=== PATIENT | male | born 1965 | race Caucasian/White ===

== ENCOUNTER 2023-08-02 11:00 | Outpatient (OUT) | payer BC, SELFPAY ==
[2023-08-02 11:38] LABS: Hematocrit 29.9 % (42.0-54.0); Hemoglobin 7.6 g/dL (14.0-18.0); Mean Corpuscular HGB Conc 25.4 g/dL (29.9-35.2); Mean Corpuscular Hemoglobin 15.5 pg (25.9-34.0); Mean Platelet Volume 8.1 fL (9.5-13.5); Platelet Count 422 10^3/uL (150-450); White Blood Count 7.8 10^3/uL (4.0-11.0)
[2023-08-02 11:51] LABS: Bilirubin Urine NEGATIVE (NEGATIVE); Blood Urine NEGATIVE (NEGATIVE); Clarity Urine CLEAR (CLEAR); Color Urine YELLOW (YELLOW); Glucose Urine UA >=1000 mg/dL (NEGATIVE); Ketones Urine NEGATIVE (NEGATIVE); Leukocyte Esterase Urine NEGATIVE (NEGATIVE); Nitrite Urine NEGATIVE (NEGATIVE); Protein Urine 30 mg/dL (NEG/TRACE); Urobilinogen Urine 0.2 EU/dL (0.2-1.0); pH Urine 6.5 (5.0-9.0)
[2023-08-02 11:56] LABS: Alanine Aminotransferase 25 U/L (16-63); Albumin Globulin Ratio 0.9; Albumin Level 3.3 g/dL (3.4-5.0); Alkaline Phosphatase 129 U/L (46-116); Anion Gap 13.6; Aspartate Amino Transferase 21 U/L (15-37); BUN Creatinine Ratio 14.1; Bilirubin Total 0.3 mg/dL (0.2-1.0); C Reactive Protein <0.50 mg/dL (<=0.50); Calcium 8.7 mg/dL (8.5-10.1); Chloride 105 mmol/L (98-107); Chol HDL Ratio 1.9; Cholesterol 151 mg/dL (<=200); Estimated GFR (African America >60 (>=60); Estimated GFR (Non-African Ame >60 (>=60); Globulin 3.5 g/dL; Glucose 72 mg/dL (74-106); HDL Cholesterol 81 mg/dL (40-60); Potassium 3.6 mmol/L (3.5-5.1); Sodium 140 mmol/L (136-145); Total Protein 6.8 g/dL (6.4-8.2); Triglycerides 56 mg/dL (<=150); VLDL CHOLESTEROL 11.2 mg/dL
[2023-08-02 11:56] LABS: Urine Microscopic Indicated YES
[2023-08-02 12:01] LABS: Bacteria Urine TRACE #/HPF (NONE SEEN); Crystals Seen? None Seen #/HPF (None Seen); Mucus Urine NONE SEEN (NONE SEEN); RBC Urine 0-2 #/HPF (0-2); Squamous Epithelial Cell Urine RARE #/LPF (NONE/RARE); WBC Urine 0-2 #/HPF (NONE SEEN)
[2023-08-02 12:02] LABS: Cast Seen? NONE SEEN #/LPF (NONE SEEN)
[2023-08-02 12:07] LABS: Band Neutrophils Absolute 0.1 10^3/uL (0.0-0.3); Eosinophils Absolute Manual 0.31 10^3/uL (0.00-0.70); Hypochromasia 2+; Lymphocytes Absolute Manual 0.93 10^3/uL (1.20-3.80); Monocytes Absolute Manual 0.62 10^3/uL (0.30-0.80); Poikilocytosis 1+; Segmented Neut Absolute Manual 5.85 10^3/uL (1.4-6.5)
[2023-08-02 12:08] LABS: Anisocytosis 1+; Microcytosis 2+; Ovalocytes 1+
[2023-08-02 12:14] LABS: Erythrocyte Sedimentation Rate 31 mm/hr (<=20)
[2023-08-02 12:26] LABS: Creatinine Urine Random 88.62 mg/dL (20.00-300.00); Microalbumin Urine Random 6.3 mg/dL (<=30.0)
[2023-08-02 14:19] LABS: Prostate Specific Antigen Dx 1.99 ng/mL (<=4.00)
== END 2023-08-02 11:01 | disposition home or self-care (01) ==
LOC: LAB 11:09
PROVIDERS: PCP Nurse Practitioner; Visit Provider Nurse Practitioner
DX: F41.9 Anxiety disorder, unspecified (principal); F32.A Depression, unspecified; Z12.5 Encounter for screening for malignant neoplasm of prostate; I10 Essential (primary) hypertension; E55.9 Vitamin D deficiency, unspecified; D64.89 Other specified anemias; I42.9 Cardiomyopathy, unspecified
CPT/HCPCS: 36415; 80053; 80061; 81001; 82043; 82570; 82607; 82728; 83540; 84153; 85007; 85027; 85652; 86140

== ENCOUNTER 2023-08-21 19:00 | Outpatient (REF) | payer BC, SELFPAY ==
[2023-08-22 15:33] LABS: Occult Blood Negative
== END 2023-08-21 19:01 | disposition home or self-care (01) ==
LOC: LAB 19:00
PROVIDERS: PCP Nurse Practitioner; Visit Provider Nurse Practitioner
DX: D50.9 Iron deficiency anemia, unspecified (principal)
CPT/HCPCS: G0328

== ENCOUNTER 2023-08-22 11:11 | Emergency (ER) | payer BC, SELFPAY ==
[2023-08-22] VITALS (10 sets, daily range): BP systolic 120–123; BP diastolic 70–76; PULSE 89; TEMP 37.2; O2SAT 95–98; BMI 28.7
[2023-08-22 11:56] LABS: Basophils Absolute Auto 0.1 10^3/uL (0.0-0.1); Basophils Percent Auto 0.9 % (0.2-2.0); Eosinophils Absolute Auto 0.5 10^3/uL (0.0-0.7); Eosinophils Percent Auto 4.6 % (0.9-7.0); Hematocrit 32.4 % (42.0-54.0); Hemoglobin 8.5 g/dL (14.0-18.0); Immature Granulocytes Abs Auto 0.03 10^3/uL (0.00-0.03); Immature Granulocytes Pct Auto 0.3 % (0.0-0.5); Lymphocytes Absolute Auto 1.8 10^3/uL (1.2-3.8); Lymphocytes Percent Auto 15.9 % (20.5-60.0); Mean Corpuscular HGB Conc 26.2 g/dL (29.9-35.2); Mean Corpuscular Hemoglobin 16.6 pg (25.9-34.0); Mean Corpuscular Volume 63.2 fL (80.0-94.0); Mean Platelet Volume 8.9 fL (9.5-13.5); Monocytes Absolute Auto 1.1 10^3/uL (0.3-0.8); Monocytes Percent Auto 10.3 % (1.7-12.0); Neutrophils Absolute Auto 7.5 10^3/uL (1.4-6.5); Platelet Count 570 10^3/uL (150-450); Red Blood Count 5.13 10^6/uL (4.70-6.10); Red Cell Distribution Width 27.7 % (11.0-15.0)
[2023-08-22 12:05] LABS: Alanine Aminotransferase 27 U/L (16-63); Albumin Globulin Ratio 0.9; Albumin Level 3.2 g/dL (3.4-5.0); Alkaline Phosphatase 132 U/L (46-116); Anion Gap 12.1; Aspartate Amino Transferase 18 U/L (15-37); BUN Creatinine Ratio 19.4; Bilirubin Total 0.3 mg/dL (0.2-1.0); Calcium 8.5 mg/dL (8.5-10.1); Chloride 102 mmol/L (98-107); Estimated GFR (African America >60 (>=60); Estimated GFR (Non-African Ame >60 (>=60); Globulin 3.4 g/dL; Glucose 84 mg/dL (74-106); Potassium 4.1 mmol/L (3.5-5.1); Sodium 137 mmol/L (136-145); Total Protein 6.6 g/dL (6.4-8.2)
--- NOTE | 2023-08-22 12:06 | ED_ITS ---
HPI - Recheck/Abnormal Lab/Rx General Chief Complaint: Recheck/Abnormal Lab/Rx Stated Complaint: ABNORMAL LABS Time Seen by Provider: 08/22/23 11:23 Source: patient Mode of arrival: walk-in Limitations: no limitations History of Present Illness HPI narrative: The patient is coming to the ER after he was recently diagnosed with anemia apparently was started on iron supplements p.o. he was supposed to get IV iron i nfusion and he thought he would just come to the ER to get that after misunderstanding with his primary care, the patient in the ER mentioned that he still having symptoms sometimes of dizziness. And he would like his blood workup to be checked although it was just checked on Monday 4 days ago and it was above 7. The patient denies any blood loss in stool Related Data Allergies Allergy/AdvReac Type Severity Reaction Status Date / Time Penicillins Allergy Rash Verified 08/22/23 11:18 Sulfa (Sulfonamide Allergy Rash Verified 08/22/23 11:18 Antibiotics) Review of Systems ROS Status of ROS 10 or more systems reviewed and unremark able except as noted in history and below Exam Narrative Exam Narrative: Nurses notes and vital signs reviewed and patient is not hypoxic. General: Well-appearing and in no apparent distress. Skin: Warm, dry, no pallor noted. No rash. Head: Normocephalic, atraumatic. Neck: Supple, non-tender. Cardiovascular: Regular Rate and Rhythm without murmur, gallop or rub. Respiratory: No accessory muscle use or respiratory distress. Lungs are clear to auscultation, no wheezing, rales or rhonchi Back: No midline thoracic or lumbar vertebral tenderness. No CVA tenderness Musculoskeletal: normal ROM, no calf or popliteal tenderness, no lower extremity edema/swelling GI: Abdomen is soft, non-distended. Normal bowel sounds. No masses appreciated. No tenderness to palpation. No rebound, guarding, or rigidity noted. Neurological: A&O x4. No cranial nerve dysfunction observed. No truncal ataxia. Moves all extremities. Sensation intact. Psychiatric: Cooperative and interactive. Normal mood and affect. Constitutional Vital Signs, click to edit/add: Last Vital Signs Temp 98.9 F 08/22/23 11:18 Pulse 89 08/22/23 11:18 Resp 20 08/22/23 11:18 BP 123/76 08/22/23 11:18 Pulse Ox 97 08/22/23 11:18 O2 Del Method Room Air 08/22/23 11:18 Course Vital Signs Vital signs: Vital Signs Temperature 98.9 F 08/22/23 11:18 Pulse Rate 89 08/22/23 11:18 Respiratory Rate 20 08/22/23 11:18 Blood Pressure 123/76 08/22/23 11:18 Pulse Oximetry 97 08/22/23 11:18 Oxygen Delivery Method Room Air 08/22/23 11:18 Temperature 98.9 F 08/22/23 11:18 Pulse Rate 89 08/22/23 11:18 Respiratory Rate 20 08/22/23 11:18 Blood Pressure 123/76 08/22/23 11:18 Pulse Oximetry 97 08/22/23 11:18 Oxygen Delivery Method Room Air 08/22/23 11:18 MDM - Recheck/Abnormal Lab/Rx MDM Narrative Medical decision making narrative: The patient blood workup CBC and chemistry shows a hemoglobin of 8.5 and that chemistry was normal We did call his primary office and they are arranging for iron infusion as outpatient The patient was discharged to follow-up with the primary care The patient is to follow up with primary care physician in next 2-3 days or to return to the emergency department should any of the signs or symptoms worsen or new symptoms develop. The patient agrees with the following Diagnosis and Treatment plan and the patient will be discharged home. Lab Data Labs: Lab Results 08/22/23 Range/Units 11:35 WBC 11.0 (4.0-11.0) 10^3/uL RBC 5.13 (4.70-6.10) 10^6/uL Hgb 8.5 L (14.0-18.0) g/dL Hct 32.4 L (42.0-54.0) % MCV 63.2 L (80.0-94.0) fL MCH 16.6 L (25.9-34.0) pg MCHC 26.2 L (29.9-35.2) g/dL RDW 27.7 H (11.0-15.0) % Plt Count 570 H (150-450) 10^3/uL MPV 8.9 L (9.5-13.5) fL Neut % (Auto) 68.0 (43.0-75.0) % Lymph % (Auto) 15.9 L (20.5-60.0) % Jefferson % (Auto) 10.3 (1.7-12.0) % Eos % (Auto) 4.6 (0.9-7.0) % Baso % (Auto) 0.9 (0.2-2.0) % Neut # (Auto) 7.5 H (1.4-6.5) 10^3/uL Lymph # (Auto) 1.8 (1.2-3.8) 10^3/uL Jefferson # (Auto) 1.1 H (0.3-0.8) 10^3/uL Eos # (Auto) 0.5 (0.0-0.7) 10^3/uL Baso # (Auto) 0.1 (0.0-0.1) 10^3/uL Abs Immat Gran (auto) 0.03 (0.00-0.03) 10^3/uL Imm/Tot Granulo (auto) 0.3 (0.0-0.5) % Sodium 137 (136-145) mmol/L Potassium 4.1 (3.5-5.1) mmol/L Chloride 102 (98-107) mmol/L Carbon Dioxide 27.0 (21.0-32.0) mmol/L Anion Gap 12.1 BUN 14.0 (7.0-18.0) mg/dL Creatinine 0.72 (0.70-1.30) mg/dL Est GFR ( Amer) >60 (>=60) Est GFR (Non-Af Amer) >60 (>=60) BUN/Creatinine Ratio 19.4 Glucose 84 (74-106) mg/dL Calcium 8.5 (8.5-10.1) mg/dL Total Bilirubin 0.3 (0.2-1.0) mg/dL AST 18 (15-37) U/L ALT 27 (16-63) U/L Alkaline Phosphatase 132 H (46-116) U/L Total Protein 6.6 (6.4-8.2) g/dL Albumin 3.2 L (3.4-5.0) g/dL Globulin 3.4 g/dL Albumin/Globulin Ratio 0.9 Discharge Plan Discharge Stand Alone Forms: Portal Instructions Chief Complaint: Recheck/Abnormal Lab/Rx Clinical Impression: Chronic anemia Patient Disposition: Home, Self-Care Time of Disposition Decision: 12:08 Condition: Good Print Language: Libyan Instructions: Iron Rich Diet (ED) Referrals: Anny Bruce NP [Primary Care Provider] - 1 week
== END 2023-08-22 12:33 | disposition home or self-care (01) ==
LOC: ER 13:01
PROVIDERS: Emergency Provider Emergency Medicine; PCP Nurse Practitioner
DX: D64.9 Anemia, unspecified (principal)
CPT/HCPCS: 36415; 80053; 85025; 99283

== ENCOUNTER 2023-09-12 07:36 | Outpatient (RCR) | payer BC, SELFPAY ==
[2023-08-25 10:24] VITALS: BP 126/77; PULSE 96; TEMP 37.3; O2SAT 97
--- NOTE | 2023-08-25 10:27 | PC.NURSE ---
1015 Arrival ambulatory to chair 1. Educated on venofer infusion, verbalizes understanding. 1020 322 iv initiated rt forearm, labs drawn. tolerated well.
[2023-08-25 10:41] LABS: Basophils Absolute Auto 0.1 10^3/uL (0.0-0.1); Basophils Percent Auto 0.7 % (0.2-2.0); Eosinophils Absolute Auto 0.5 10^3/uL (0.0-0.7); Eosinophils Percent Auto 4.5 % (0.9-7.0); Hemoglobin 8.2 g/dL (14.0-18.0); Immature Granulocytes Abs Auto 0.04 10^3/uL (0.00-0.03); Immature Granulocytes Pct Auto 0.4 % (0.0-0.5); Lymphocytes Absolute Auto 1.7 10^3/uL (1.2-3.8); Lymphocytes Percent Auto 15.5 % (20.5-60.0); Mean Corpuscular HGB Conc 26.5 g/dL (29.9-35.2); Mean Corpuscular Hemoglobin 17.1 pg (25.9-34.0); Mean Corpuscular Volume 64.6 fL (80.0-94.0); Monocytes Percent Auto 8.7 % (1.7-12.0); Neutrophils Absolute Auto 7.7 10^3/uL (1.4-6.5); Neutrophils Percent Auto 70.2 % (43.0-75.0); Platelet Count 555 10^3/uL (150-450); Red Cell Distribution Width 27.8 % (11.0-15.0)
[2023-08-25] MEDS: IRON SUCROSE COMPLEX 200 MG in 0.9 % SODIUM CHLORIDE 100 ML 220 MG IV (10:48)
[2023-09-01 10:15] VITALS: BP 112/69; PULSE 78; TEMP 36.8; O2SAT 96
[2023-09-01] MEDS: IRON SUCROSE COMPLEX 200 MG in 0.9 % SODIUM CHLORIDE 100 ML 220 MG IV (10:30)
--- NOTE | 2023-09-01 10:38 | PC.NURSE ---
1015: Pt. to [facility] amb. for iron infusion. Seated in recliner. VSS. IV initiated to left arm, see documentation. Denies c/o or needs. 1030: IV Venofer initiated at this time.
--- NOTE | 2023-09-01 11:03 | PC.NURSE ---
1101: IV Venofer completed without s&s of adverse reaction. IV d/c'd, pressure to site. Tolerated all without c/o. D/c'd amb. to home.
[2023-09-12 15:11] LABS: Basophils Absolute Auto 0.1 10^3/uL (0.0-0.1); Basophils Percent Auto 1.3 % (0.2-2.0); Eosinophils Absolute Auto 0.3 10^3/uL (0.0-0.7); Eosinophils Percent Auto 4.7 % (0.9-7.0); Hemoglobin 10.1 g/dL (14.0-18.0); Immature Granulocytes Abs Auto 0.01 10^3/uL (0.00-0.03); Immature Granulocytes Pct Auto 0.1 % (0.0-0.5); Lymphocytes Absolute Auto 2.2 10^3/uL (1.2-3.8); Mean Corpuscular Hemoglobin 19.1 pg (25.9-34.0); Mean Platelet Volume 8.9 fL (9.5-13.5); Monocytes Absolute Auto 0.7 10^3/uL (0.3-0.8); Monocytes Percent Auto 9.7 % (1.7-12.0); Neutrophils Absolute Auto 3.6 10^3/uL (1.4-6.5); Neutrophils Percent Auto 52.2 % (43.0-75.0); Platelet Count 514 10^3/uL (150-450); Reticulocyte Pct Auto 1.05 % (0.60-3.10); White Blood Count 6.8 10^3/uL (4.0-11.0)
[2023-09-12 15:37] LABS: Mean Corpuscular HGB Conc 28.1 g/dL (29.9-35.2); Mean Corpuscular Volume 67.9 fL (80.0-94.0)
[2023-09-12 15:38] LABS: Red Cell Distribution Width 30.6 % (11.0-15.0)
[2023-09-12 15:55] LABS: Percent Iron Saturation 2.7 %
[2023-09-12 15:56] LABS: Lactate Dehydrogenase 139 U/L (85-227)
[2023-09-14 15:09] LABS: Hgb A 98.2 % (96.4-98.8); Hgb A2 1.8 % (1.8-3.2)
== END 2023-09-22 23:59 | disposition home or self-care (01) ==
LOC: INF 07:36
PROVIDERS: Internal Medicine Hematology & Oncology; PCP Nurse Practitioner; Visit Provider Nurse Practitioner
DX: D50.9 Iron deficiency anemia, unspecified (principal); K90.9 Intestinal malabsorption, unspecified; D75.839 Thrombocytosis, unspecified; R71.8 Other abnormality of red blood cells
CPT/HCPCS: 36415; 82607; 82728; 83020; 83540; 83550; 83615; 85025; 85045; 96365; G0463; J1756

== ENCOUNTER 2023-09-22 07:33 | Outpatient (RCR) | payer BC, SELFPAY ==
[2023-09-22 10:12] VITALS: BP 148/81; PULSE 79; TEMP 36.8; O2SAT 96
[2023-09-22] MEDS: FERUMOXYTOL 510 MG in 0.9 % SODIUM CHLORIDE 100 ML 234 MG IV (10:22)
--- NOTE | 2023-09-22 10:41 | PC.NURSE ---
1000 Arrival ambulatory for Iron infusion, educated patient on s/s of reaction, given handout on Ferraheme, instucted on notify staff of any s/s of rxn. verbalize understanding IV #24 initiated rt forearm on 1st attempt. tolerated well. 1040 tolerating infusion without any s/s of reaction.
== END 2023-09-22 23:59 | disposition home or self-care (01) ==
LOC: INF 07:33
PROVIDERS: PCP Nurse Practitioner; Visit Provider Internal Medicine Hematology & Oncology
DX: D50.9 Iron deficiency anemia, unspecified (principal); K90.9 Intestinal malabsorption, unspecified; D75.839 Thrombocytosis, unspecified; D64.9 Anemia, unspecified
CPT/HCPCS: 96365; Q0138

== ENCOUNTER 2023-10-17 07:34 | Outpatient (RCR) | payer BC, SELFPAY ==
[2023-09-29] MEDS: FERUMOXYTOL 510 MG in 0.9 % SODIUM CHLORIDE 100 ML 234 MG IV (10:06)
[2023-09-29 10:12] VITALS: BP 126/82; PULSE 94; TEMP 36.9; O2SAT 93
[2023-10-17 09:56] LABS: Basophils Absolute Auto 0.1 10^3/uL (0.0-0.1); Eosinophils Absolute Auto 0.4 10^3/uL (0.0-0.7); Eosinophils Percent Auto 6.9 % (0.9-7.0); Hematocrit 39.3 % (42.0-54.0); Hemoglobin 12.1 g/dL (14.0-18.0); Immature Granulocytes Abs Auto 0.01 10^3/uL (0.00-0.03); Immature Granulocytes Pct Auto 0.2 % (0.0-0.5); Lymphocytes Absolute Auto 1.7 10^3/uL (1.2-3.8); Lymphocytes Percent Auto 26.8 % (20.5-60.0); Mean Corpuscular HGB Conc 30.8 g/dL (29.9-35.2); Mean Corpuscular Hemoglobin 23.6 pg (25.9-34.0); Mean Corpuscular Volume 76.8 fL (80.0-94.0); Mean Platelet Volume 9.1 fL (9.5-13.5); Monocytes Absolute Auto 0.6 10^3/uL (0.3-0.8); Monocytes Percent Auto 9.4 % (1.7-12.0); Neutrophils Absolute Auto 3.5 10^3/uL (1.4-6.5); Neutrophils Percent Auto 55.7 % (43.0-75.0); Platelet Count 377 10^3/uL (150-450); Red Blood Count 5.12 10^6/uL (4.70-6.10); Red Cell Distribution Width 33.4 % (11.0-15.0); White Blood Count 6.2 10^3/uL (4.0-11.0)
[2023-10-17 10:20] LABS: Percent Iron Saturation 13.6 %
[2023-10-18 12:11] LABS: Hgb A 97.8 % (96.4-98.8); Hgb A2 2.2 % (1.8-3.2)
== END 2023-10-20 10:47 | disposition home or self-care (01) ==
LOC: INF 07:34
PROVIDERS: PCP Nurse Practitioner; Visit Provider Internal Medicine Hematology & Oncology
DX: D50.9 Iron deficiency anemia, unspecified (principal); K90.9 Intestinal malabsorption, unspecified; D64.9 Anemia, unspecified; D75.839 Thrombocytosis, unspecified; Z95.810 Presence of automatic (implantable) cardiac defibrillator; K21.9 Gastro-esophageal reflux disease without esophagitis; Z98.84 Bariatric surgery status
CPT/HCPCS: 36415; 82728; 83020; 83540; 83550; 85025; 96365; G0463; Q0138

== ENCOUNTER 2023-11-03 07:21 | Outpatient (RCR) | payer BC, SELFPAY ==
[2023-11-03 10:16] VITALS: BP 128/78; PULSE 81; TEMP 36.6; O2SAT 97
[2023-11-03] MEDS: FERUMOXYTOL 510 MG in 0.9 % SODIUM CHLORIDE 100 ML 234 MG IV (10:24)
== END 2023-11-03 14:38 | disposition home or self-care (01) ==
LOC: INF 07:21
PROVIDERS: PCP Nurse Practitioner; Visit Provider Internal Medicine Hematology & Oncology
DX: D64.9 Anemia, unspecified (principal); D50.9 Iron deficiency anemia, unspecified; K90.9 Intestinal malabsorption, unspecified; D75.839 Thrombocytosis, unspecified
CPT/HCPCS: 96365; Q0138

== ENCOUNTER 2023-12-14 10:45 | Outpatient (OUT) | payer BC, SELFPAY ==
[2023-12-14 11:24] LABS: Basophils Absolute Auto 0.1 10^3/uL (0.0-0.1); Basophils Percent Auto 0.8 % (0.2-2.0); Eosinophils Absolute Auto 1.1 10^3/uL (0.0-0.7); Eosinophils Percent Auto 14.2 % (0.9-7.0); Hematocrit 49.1 % (42.0-54.0); Immature Granulocytes Abs Auto 0.02 10^3/uL (0.00-0.03); Immature Granulocytes Pct Auto 0.3 % (0.0-0.5); Lymphocytes Absolute Auto 1.5 10^3/uL (1.2-3.8); Lymphocytes Percent Auto 18.8 % (20.5-60.0); Mean Corpuscular HGB Conc 32.6 g/dL (29.9-35.2); Mean Corpuscular Hemoglobin 28.5 pg (25.9-34.0); Mean Corpuscular Volume 87.4 fL (80.0-94.0); Monocytes Absolute Auto 0.6 10^3/uL (0.3-0.8); Neutrophils Absolute Auto 4.6 10^3/uL (1.4-6.5); Neutrophils Percent Auto 57.9 % (43.0-75.0); Platelet Count 402 10^3/uL (150-450); Red Blood Count 5.62 10^6/uL (4.70-6.10); Red Cell Distribution Width 23.7 % (11.0-15.0)
[2023-12-14 11:55] LABS: White Blood Count 7.9 10^3/uL (4.0-11.0)
[2023-12-14 12:15] LABS: Alanine Aminotransferase 37 U/L (16-63); Albumin Globulin Ratio 1.1; Albumin Level 3.6 g/dL (3.4-5.0); Alkaline Phosphatase 170 U/L (46-116); Anion Gap 12.1; Aspartate Amino Transferase 24 U/L (15-37); BUN Creatinine Ratio 15.3; Bilirubin Total 0.4 mg/dL (0.2-1.0); Calcium 8.9 mg/dL (8.5-10.1); Carbon Dioxide 26.9 mmol/L (21.0-32.0); Chloride 103 mmol/L (98-107); Estimated GFR (African America >60 (>=60); Estimated GFR (Non-African Ame >60 (>=60); Globulin 3.2 g/dL; Glucose 122 mg/dL (74-106); Sodium 138 mmol/L (136-145); Total Protein 6.8 g/dL (6.4-8.2)
[2023-12-15 04:08] LABS: Testosterone 437 ng/dL (264-916)
== END 2023-12-14 10:46 | disposition home or self-care (01) ==
LOC: LAB 10:55
PROVIDERS: PCP Nurse Practitioner; Visit Provider Nurse Practitioner
DX: D50.9 Iron deficiency anemia, unspecified (principal); R53.83 Other fatigue; E55.9 Vitamin D deficiency, unspecified; E53.8 Deficiency of other specified B group vitamins; I10 Essential (primary) hypertension
CPT/HCPCS: 36415; 80053; 82306; 82607; 83540; 84403; 85025

== ENCOUNTER 2024-06-06 10:12 | Outpatient (OUT) | payer MEDICAID, SELFPAY ==
--- NOTE | 2024-06-06 10:26 | XR_ITS ---
[address] [address] Patient Name: TESS ZIMMERMAN MRN: [id number] date: 1965 Sex: M Assigned Patient Location: [facility] Current Patient Location: [facility] Accession/Order Number: [id number] Exam Date: 06/06/2024 10:45 Report Date: 06/06/2024 11:26 At the request of: SANTIAGO BELLA Procedure: XR DEXA axial skeleton EXAMINATION: XR DEXA axial skeleton HISTORY: Bariatric Surgery, Vitamin D Deficiency COMPARISON: No relevant comparison available. TECHNIQUE: Dual-energy X-ray absorptiometry (DXA) was performed. FINDINGS: SPINE ANALYSIS: Average bone mineral density is 1.775 g/cm2. T-score (standard deviation relative to young adult mean): 5.0 . HIP ANALYSIS: Lowest bone mineral density is within the left femoral neck, 0.857 g/cm2. T-score (standard deviation relative to young adult mean): -1.3 . XR/XR DEXA axial skeleton IMPRESSION: World Health Organization Classification: Osteopenia - Moderate Fracture Risk FRAX: Cannot be calculated. Pharmacologic treatment recommendations * No uniform recommendation applies to all patients. Management plans must be individualized. * Consider initiating pharmacologic treatment in postmenopausal women and men >= 50 years of age who have the following: Primary fracture prevention: * T-score <= - 2.5 at the femoral neck, total hip, lumbar spine, 33% radius (some uncertainty with existing data) by DXA. * Low bone mass (osteopenia: T-score between - 1.0 and - 2.5) at the femoral neck or total hip by DXA with a 10-year hip fracture risk >= 3% or a 10-year major osteoporosis-related fracture risk >= 20% (i.e., clinical vertebral, hip, forearm, or proximal humerus) based on the [place]-adapted FRAXregistered model. Secondary fracture prevention: * Fracture of the hip or vertebra regardless of BMD [4, 5]. * Fracture of proximal humerus, pelvis, or distal forearm in persons with low bone mass (osteopenia: T-score between - 1.0 and - 2.5). The decision to treat should be individualized in persons with a fracture of the proximal humerus, pelvis, or distal forearm who do not have osteopenia or low BMD [12, 13]. Adryan MS, Abel SL, Janna KL, Kyler EM, Paulina KG, AJ, Ruby ES. The clinician's guide to prevention and treatment of osteoporosis. Osteoporos Int. 2021;33(10):4679-8142. doi: 10.1007/d24503-093-59536-n. Epub 2021Aug 19. Erratum in: Osteoporos Int. 2021Nov 18;: PMID: [id number]; PMCID: [id number]. Electronically authenticated by: REGGIE CONROY Date: 06/06/2024 11:26
[2024-06-06 11:06] LABS: Bilirubin Urine NEGATIVE (NEGATIVE); Blood Urine NEGATIVE (NEGATIVE); Clarity Urine CLEAR (CLEAR); Color Urine LT. YELLOW (YELLOW); Glucose Urine UA NEGATIVE (NEGATIVE); Ketones Urine NEGATIVE (NEGATIVE); Leukocyte Esterase Urine NEGATIVE (NEGATIVE); Nitrite Urine NEGATIVE (NEGATIVE); Protein Urine NEGATIVE (NEG/TRACE); Specific Gravity Urine 1.015 (1.005-1.025); Urobilinogen Urine 0.2 EU/dL (0.2-1.0)
[2024-06-06 11:06] LABS: Basophils Absolute Auto 0.1 10^3/uL (0.0-0.1); Basophils Percent Auto 0.6 % (0.2-2.0); Eosinophils Absolute Auto 0.7 10^3/uL (0.0-0.7); Hematocrit 43.1 % (42.0-54.0); Hemoglobin 14.5 g/dL (14.0-18.0); Immature Granulocytes Abs Auto 0.03 10^3/uL (0.00-0.03); Immature Granulocytes Pct Auto 0.4 % (0.0-0.5); Lymphocytes Absolute Auto 1.4 10^3/uL (1.2-3.8); Lymphocytes Percent Auto 17.8 % (20.5-60.0); Mean Corpuscular HGB Conc 33.6 g/dL (29.9-35.2); Mean Corpuscular Hemoglobin 31.3 pg (25.9-34.0); Mean Corpuscular Volume 92.9 fL (80.0-94.0); Monocytes Absolute Auto 0.7 10^3/uL (0.3-0.8); Monocytes Percent Auto 9.4 % (1.7-12.0); Neutrophils Percent Auto 62.8 % (43.0-75.0); Platelet Count 344 10^3/uL (150-450); Red Blood Count 4.64 10^6/uL (4.70-6.10); White Blood Count 7.9 10^3/uL (4.0-11.0)
[2024-06-06 11:08] LABS: Urine Microscopic Indicated NO
[2024-06-06 11:57] LABS: Alanine Aminotransferase 41 U/L (16-63); Albumin Globulin Ratio 1.2; Albumin Level 3.4 g/dL (3.4-5.0); Alkaline Phosphatase 107 U/L (46-116); Anion Gap 10.6; Aspartate Amino Transferase 26 U/L (15-37); BUN Creatinine Ratio 15.5; Bilirubin Total 0.3 mg/dL (0.2-1.0); Calcium 8.8 mg/dL (8.5-10.1); Carbon Dioxide 27.5 mmol/L (21.0-32.0); Chloride 106 mmol/L (98-107); Chol HDL Ratio 2.1; Cholesterol 187 mg/dL (<=200); Estimated GFR (African America >60 (>=60 mL/min/1.73m^2); Estimated GFR (Non-African Ame >60 (>=60 mL/min/1.73m^2); Globulin 2.9 g/dL; Glucose 101 mg/dL (74-106); HDL Cholesterol 90 mg/dL (40-60); Potassium 4.1 mmol/L (3.5-5.1); Sodium 140 mmol/L (136-145); Total Protein 6.3 g/dL (6.4-8.2); Triglycerides 85 mg/dL (<=150)
[2024-06-06 12:24] LABS: Percent Iron Saturation 19.9 %
[2024-06-06 12:28] LABS: Creatinine Urine Random 60.71 mg/dL (20.00-300.00); Microalbum Creatinine Ratio Ur 21.4 mg/g (0.0-29.9); Microalbumin Urine Random 1.3 mg/dL (<=30.0)
[2024-06-06 12:43] LABS: Prostate Specific Antigen Scrn 2.33 ng/mL (<=4.00)
[2024-06-07 04:07] LABS: Vitamin B12 285 pg/mL (232-1245)
[2024-06-07 05:07] LABS: Transferrin 269 mg/dL (177-329)
== END 2024-06-06 10:13 | disposition home or self-care (01) ==
LOC: RAD 10:13
PROVIDERS: PCP Nurse Practitioner; Visit Provider Nurse Practitioner
DX: Z98.84 Bariatric surgery status (principal); M54.42 Lumbago with sciatica, left side; G89.29 Other chronic pain; I48.0 Paroxysmal atrial fibrillation; E53.8 Deficiency of other specified B group vitamins; D50.9 Iron deficiency anemia, unspecified; I10 Essential (primary) hypertension; E66.811 Obesity, class 1; E66.09 Other obesity due to excess calories; Z68.31 Body mass index [BMI] 31.0-31.9, adult; E55.9 Vitamin D deficiency, unspecified; Z12.5 Encounter for screening for malignant neoplasm of prostate; M85.80 Other specified disorders of bone density and structure, unspecified site
CPT/HCPCS: 36415; 77080; 80053; 80061; 81003; 82043; 82306; 82570; 82607; 82728; 83540; 83550; 84466; 85025; G0103

== ENCOUNTER 2024-06-18 07:34 | Outpatient (RCR) | payer MEDICAID, SELFPAY | END 2024-06-19 08:30 | disposition home or self-care (01) | LOC: HEMC 07:34 | PROVIDERS: PCP Nurse Practitioner; Visit Provider Internal Medicine Hematology & Oncology | DX: D50.9 Iron deficiency anemia, unspecified (principal); K90.9 Intestinal malabsorption, unspecified; D75.839 Thrombocytosis, unspecified; D64.9 Anemia, unspecified; Z98.84 Bariatric surgery status | CPT/HCPCS: G0463 ==

== ENCOUNTER 2024-10-14 09:30 | Outpatient (OUT) | payer OTHER, SELFPAY ==
--- NOTE | 2024-10-14 09:48 | XR_ITS ---
The [address] [address] Patient Name: TESS ZIMMERMAN MRN: [id number] date: 1965 Sex: M Assigned Patient Location: [facility] Current Patient Location: [facility] Accession/Order Number: [id number] Exam Date: 10/14/2024 10:16 Report Date: 10/14/2024 10:35 At the request of: SANTIAGO BELLA NP Procedure: XR lumbar spine 2-3V LUMBAR SPINE - 2 views COMPARISON: CT 11/16/2019 CLINICAL DATA: Chronic low back pain with radiation down the legs. AP and lateral views were obtained. No acute compression fractures are identified. There is minor listhesis of L1 on L2 and mild of L2 on L3. There is also minimal anterolisthesis of L5 on S1. Multilevel disc space narrowing is present. Endplate spurring is seen throughout. There is also multilevel facet hypertrophy. The SI joints are intact. No paraspinal soft tissue abnormalities are visualized. XR/XR lumbar spine 2-3V IMPRESSION: MULTILEVEL DEGENERATIVE CHANGES. Impression dictated by: Kylee Spivey M.D. 10/14/2024 10:35 AM Dictation Location: [place] [address] Electronically authenticated by: [id number] Y Date: 10/14/2024 10:35
== END 2024-10-14 09:31 | disposition home or self-care (01) ==
LOC: RAD 09:34
PROVIDERS: PCP Nurse Practitioner; Visit Provider Nurse Practitioner
DX: M47.816 Spondylosis without myelopathy or radiculopathy, lumbar region (principal); M51.369 Other intervertebral disc degeneration, lumbar region without mention of lumbar back pain or lower extremity pain
CPT/HCPCS: 72100

== ENCOUNTER 2024-10-31 15:37 | Outpatient (OUT) | payer OTHER, SELFPAY ==
--- OUTSIDE RECORDS SUMMARY | 2023-09-19 12:30 | XMS_ITS | Continuity of Care Document ---
Author Organization [employer] [facility] Address [address] [facility] [place] [address] Phone Care Team Providers Care Restaurant Operations Manager Name Role Phone Satnam Rawls MD Unavailable Unavailable Procedures Procedure Date LESION REMOVE COLONOSCOPY UPPR GI ENDOSCOPY, DIAGNOSIS OFFICE/OUTPATIENT VISIT, NEW UPPR GI ENDOSCOPY, DIAGNOSIS OFFICE/OUTPATIENT VISIT, EST OFFICE/OUTPATIENT VISIT, EST Flu imm no ord/admin doc jaya POSTOP FOLLOW-UP VISIT LAP GASTRIC BYPASS/BATOOL-EN-Y OFFICE/OUTPATIENT VISIT, EST Advance Directives Directive Yes / No Effective Date File Name No Information Encounters Encounter Description Practice Location Reason(s) For Visit Diagnoses Date Provider Providers Copied on Encounter [employer] [facility], [address] [place] [address] [place], [id number], [place] tel:[phone] [facility] OP No Information Curly Hay. [address] [place] [address], [id number], [place]. tel:[phone] Referring Provider: Satnam Grubbs, [address] [place] [address], [address] . tel:[phone] OFFICE/OUTPAT IENT VISIT, [facility], [address] [place] [address] [place], [id number], tel:[phone] [facility] No Information Curly Hay. [address], [place], [place], [id number], [place]. tel:[phone] Referring Provider: Satnam Grubbs, [address], [place], [address] . tel:[phone] [employer] [facility], [address] [place] [address] [address], [place], [place], [id number], [place] tel:[phone] [facility] No Information Curly Hay. [address], [place], [place], [id number], [place]. tel:[phone] Referring Provider: Satnam Grubbs, [address], [place], [address] . tel:[phone] OFFICE/OUTPAT IENT VISIT, [facility], [address] [place] [address] [address], [place], [place], [id number], [place] tel:[phone] [facility] No Information Curly Hay. [address], [place], [place], [id number], [place]. tel:[phone] Referring Provider: Satnam Grubbs, [address], [place], [address] . tel:[phone] OFFICE/OUTPAT IENT VISIT, [facility], [address] [place] [address] [address], [place], [place], [id number], [place] tel:[phone] [facility] No Information No Information [employer] [facility], [address] [place] [address] [address], [place], [place], [id number], [place] tel:[phone] [facility] No Information Curly Hay. [address], [place], [place], [id number], [place]. tel:[phone] Referring Provider: Satnam Grubbs, [address], [place], [address] . tel:[phone] [facility], [address] [place] [address] [address], [place], [place], [id number], [place] tel:[phone] [facility] IP No Information Curly Hay. [address] [facility] [address], [place], [place], [id number], [place]. tel:[phone] Referring Provider: Satnam Grubbs, [address] [place] [address] [address], [place], [address] . tel:[phone] OFFICE/OUTPAT IENT VISIT, [facility], [address] [facility], [place], [place], [id number], [place] tel:[phone] [facility] No Information Curly Hay. [address] [facility] [address], [place], [place], [id number], [place]. tel:[phone] Referring Provider: Satnam Grubbs, [address] [place] [address] [address], [place], [address] . tel:[phone] Family History Family Member Type Diagnosis Age At Onset No Information Payers Payer name Insurance type Covered constitution party ID Porsha sherman(s) Bert [id number] Social History Type Description Quantity Date Captured Comments Sex Male Smoking Status No Information Chief Complaint And Reason For Visit No Information Reason For Referral Reason For Referral No Information History Of Present Illness Encounter Date Complaint History Of Prese nt Illness No Information Functional Status Date Functional Assessmen t No Information Instructions Date Instruction Additional Infor mation No Information Assessments Type Assessment Date No Information Patient Care Teams Name Effective Dates (start - stop) Status Members No Information
--- OUTSIDE RECORDS SUMMARY | 2024-01-23 06:00 | XMS_ITS ---
Author Organization The [facility] [place] Address [address] [place] [address] Care Team Providers Care Nuclear Medical Tech Name Role Phone Anny Bruce CNP Primary Care Provider Unavail Brandy Gomes Unavailable [phone] REASON FOR VISIT MD Encounters Encounter Location Date Provider Diagnosis The [facility] Oncology [address] [place] [address] 01/23/2024 Brandy Gusman Plan Of Treatment Next Appt Details Provider Name:Brandy Gusman , 12/24/2024 11:00:00 AM, [address] [place] [address], [phone], Progress Notes * Flynn EMERSONOB:1965 (59 yo M)Acc No.[id number]:01/23/2024 UNLOCKED PROGRESS NOTE Progress Notes Patient: Reese CURTIS Provider: Brie Gusman M.D. :1965 A ge:58 Y S ex:Male Date:01/23/2024 Address:[facility] [address] [place] [id number] Pcp:Anny Bruce CNP Subjective: * Chief Complaints: * 1 . MD. * Medical History: Objective: * Vitals: Assessment: Plan: * Treatment: * * Electronic signature of Jeanine Gusman MD, [id number] on 10/31/2024 at 03:41 PM EDT Sign off status: Pending Visit Status: C ANC (Cancelled) * Provider: Brie Gusman M.D. Date: Generated for Mana barksdale/Matty/Pasquale on: 0 10/31/2024 03:41 PM EDT
--- OUTSIDE RECORDS SUMMARY | 2024-06-06 06:30 | XMS_ITS ---
Author Organization [facility] [place] Address [address] [place] [address] Care Team Providers Care Plant Technician Name Role Phone Anny Bruce CNP Primary Care Provider Brandy Almaraz Unavailable [phone] REASON FOR VISIT MD Encounters Encounter Location Date Provider Diagnosis The [facility] Oncology [address] [place] [phone] 06/06/2024 Brandy Gusman Plan Of Treatment Next Appt Details Provider Name:Brandy Gusman , 12/24/2024 11:00:00 AM, [address] [place] [address], [phone], Progress Notes * Flynn EMERSONOB:1965 (59 yo M)Acc No.[id number]:06/06/2024 UNLOCKED PROGRESS NOTE Progress Notes Patient: Reese CURTIS Provider: Brie Gusman M.D. :1965 A ge:58 Y S ex:Male Date:06/06/2024 Address:[facility] [address] [place], [id number] Pcp:Anny Bruce CNP Subjective: * Chief Complaints: * 1 . MD. * Medical History: Objective: * Vitals: Assessment: Plan: * Treatment: * * Electronic signature of Jeanine Gusman MD, [id number] on 10/31/2024 at 03:42 PM EDT Sign off status: Pending Visit Status: C ANC (Cancelled) * Provider: Brie Gusman M.D. Date: 0 06/06/2024 Generated for Mana barksdale/Matty/Pasquale on: 0 10/31/2024 03:42 PM EDT
--- OUTSIDE RECORDS SUMMARY | 2024-06-18 06:30 | XMS_ITS ---
Author Organization [facility] [place] Address [address] [place] [address] Care Team Providers Care Outcomes Specialist Name Role Phone Anny Bruce CNP Primary Care Provider Brandy Almaraz Unavailable [phone] REASON FOR VISIT MD Encounters Encounter Location Date Provider Diagnosis [facility] On[facility] [address] [place] [phone] 06/18/2024 Brandy Gusman Plan Of Treatment Next Appt Details Provider Name:Brandy Gusman , 12/24/2024 11:00:00 AM, [address] [place] [address], [phone], Progress Notes * Flynn EMERSONOB:1965 (59 yo M)Acc No.[id number]:06/18/2024 UNLOCKED PROGRESS NOTE Progress Notes Patient: Reese CURTIS Provider: Brie Gusman M.D. :1965 A ge:58 Y S ex:Male Date:06/18/2024 Address:[facility] [address] [id number] Pcp:Anny Brcue CNP Subjective: * Chief Complaints: * 1 . MD. * Medical History: Objective: * Vitals: Assessment: Plan: * Treatment: * * Electronic signature of Jeanine Gusman MD, [id number] on 10/31/2024 at 03:42 PM EDT Sign off status: Pending Visit Status: V SVETLANAG (Voice) * Provider: Brie Gusman M.D. Date: 0 06/18/2024 Generated for Mana barksdale/Matty/Pasquale on: 0 10/31/2024 03:42 PM EDT
--- OUTSIDE RECORDS SUMMARY | 2024-10-31 15:40 | XMS_ITS | Encounter Summary ---
Author Organization [employer] Address [facility] [address] [place] [address] Care Team Providers Care Auto Tech Name Role Phone Christiana Brucea Earle AIR TRAFFIC CONTROL SUPERVISOR-MEMBER OF PARLIAMENT Primary Care Provider Reason for Visit * Reason Comments Med Refill Encounter Details Date Type Department Care Team (Late st Contact Info) Description 09/28/2019 Refill [facility] [address] [facility] [address] [address] Rick Loomis AIR TRAFFIC CONTROL SUPERVISOR-MEMBER OF PARLIAMENT [address] [place] [address] Med Refill Social History Tobacco Use Types Packs/Day Years Used Date Smoking Tobacco: Never Smokeless Tobacco: Never Alcohol Use Standard Drinks/Week Comments No 0 (1 standard drink = 0.6 oz pur e alcohol) Childcare Answer Date Recorded Childcare Unknown 10/02/2018 Employment Answer Date Recorded Employment Unknown 10/02/2018 Sex and Gender Information Value Date Recorded Sex Assigned at Not on file Legal Sex Male 11:35 AM EDT Gender Identity Not on file Sexual Orientation Not on file documented as of this encounter Miscellaneous Notes * Telephone Encounter - Priya Hillman RN - 09/28/2019 3:27 PM EDT Script filled 09/30/2019. documented in this encounter Plan of Treatment Upcoming Encounters Date Type Department Care Team (Late Contact Info) Description 11/22/2024 9:00 AM EDT Clinical Support [facility] [address] [place] [address] [address] [place] [address] 11/22/2024 9:45 AM EDT Office Visit [facility] [address] [place] [address] [address] [place] [address] Rony Calvillo MD [address] [facility] [place] [address] documented as of this encounter Visit Diagnoses Not on filedocumented in this encounter Care Teams Auto Tech Relationship Specialty Start Date End Date Anny Bruce, AIR TRAFFIC CONTROL SUPERVISOR-MEMBER OF [employer] PCP - General Nurse Practitioner 04/27/22 documented as of this encounter
--- OUTSIDE RECORDS SUMMARY | 2024-10-31 15:41 | XMS_ITS | Encounter Summary ---
Author Organization [facility] tem Address [id number] [address] [place] [address] Care Team Providers Care Projector Booth Operator Name Role Phone ReglaAnny canales Earle SR-DIET COUNSELOR Primary Care Provider Reason for Visit * Reason Onset Date Comments RV impedance alert 06/16/2022 Encounter Details Date Type Department Care Team (Late st Contact Info) Description 06/16/2022 [facility] [address] [place] [phone] Yaneth Hair RN RV impedance alert Social History Tobacco Use Types Packs/Day Years Used Date Smoking Tobacco: Never Smokeless Tobacco: Never Alcohol Use Standard Drinks/Week Comments No 0 (1 standard drink = 0.6 oz pur e alcohol) Childcare Answer Date Recorded Childcare Unknown 10/02/2018 Employment Answer Date Recorded Employment Unknown 10/02/2018 Purpose - Life Answer Date Recorded Purpose and direction in life Unknown Sex and Gender Information Value Date Recorded Sex Assigned at Not on file Legal Sex Male 11:35 AM EDT Gender Identity Not on file Sexual Orientation Not on file documented as of this encounter Miscellaneous Notes * Telephone Encounter - Yaneth Hair RN - 06/16/2022 8:54 AM EST Images from the original note were not included. Medtronic dual chamber ICD, generator change on 03/08/17 by [facility] for primary prevention. Remote home monitoring alert received for RV impedance out of range: RV tip to RV coil. Most recentmeasurement was 190 ohms. Bipolar RV impedance measurement was 342 ohms. Both lead trends overall stable. Patient is programmed in the bipolar configuration. Called and reviewed with technical services. Even though patient is programmed bipolar, device willtone for RVtip-RVcoil impedance out of range. Underlying rhythm sinus. <0.1% RA and RV pacing. Is it ok to turn off RV impedance out of range tone off to patient and leave on for monitor? * Telephone Encounter - Jadon Mcgraw MD - 06/16/2022 8:54 AM EST Recommend in office check with EP/EP MACHELLE. If no other concerning findings, okay to turn off impedance out of range as long as patient continues to have home monitor checks.. * Telephone Encounter - Yaneth Hair RN - 06/16/2022 8:54 AM EST Called and left message for patient. Advised patient to call office to review and make follow up appointment. Reviewed that device will tone tomorrow. * Telephone Encounter - Yaneth Hair RN - 06/16/2022 8:54 AM EST Patient return called. Reviewed alert with patient. Agreeable to making follow up appointment. Transferred to scheduling. documented in this encounter Plan of Treatment Upcoming Encounters Date Type Department Care Team (Late st Contact Info) Description 11/22/2024 9:00 AM EDT Clinical Support [facility] [address] [place] [address] [address] [place] [address] 11/22/2024 9:45 AM EDT Office [facility] [address] [place] [address] Rony Calvillo MD [address] [facility], [address] [place], [place] [id number] documented as of this encounter Visit Diagnoses Not on filedocumented in this encounter Care Teams Projector Booth Operator Relationship Specialty Start Date End Date Anny Bruce, ACCOUNTING MACHINE SERVICER-DIET COUNSELOR PCP - General Nurse Practitioner 04/27/22 documented as of this encounter
--- OUTSIDE RECORDS SUMMARY | 2024-10-31 15:41 | XMS_ITS | Encounter Summary ---
Author Organization [employer] tem Address [id number] [address] [place] [address] Care Team Providers Care Wheel Fitter Name Role Phone ReglalocoliverioAnny Earle COIL MACHINE SUPERVISOR-PHYTOPATHOLOGY TEACHER Primary Care Provider Reason for Visit * Reason Onset Date Comments Med Refill Med Refill 12/26/2019 Encounter Details Date Type Department Care Team (Late Contact Info) Description 12/14/2019 Refill [facility] [address] [place] [phone] Maggie Cody, COIL MACHINE SUPERVISOR-PHYTOPATHOLOGY TEACHER [address] [place] [address] Med Refill; Med Refill Social History Tobacco Use Types [...] on file documented as of this encounter Plan of Treatment Upcoming Encounters Date Type Department Care Team (Late Contact Info) Description 11/22/2024 9:00 AM EDT Clinical Support [facility] [address] [place] [address] 11/22/2024 9:45 AM EDT Office Visit [facility] [address] [facility] [address] [place] [address] Rony Calvillo MD [address] [facility], [address] [place], [place] [phone] documented as of this encounter Visit Diagnoses Not on filedocumented in this encounter Care Teams Wheel Fitter Relationship Specialty Start Date End Date Anny Bruce, COIL MACHINE SUPERVISOR-PHYTOPATHOLOGY TEACHER PCP - General Nurse Practitioner 04/27/22 documented as of this encounter
--- OUTSIDE RECORDS SUMMARY | 2024-10-31 15:41 | XMS_ITS | Encounter Summary ---
Author Organization [employer] tem Address [id number] [address] [place] [address] Care Team Providers Care Cephalometric Technician Name Role Phone Christiana Brucea Earle CLIENT DIRECTOR-HEARING AND SPEECH ASSISTANT Primary Care Provider Reason for Visit * Reason Comments Med Refill Encounter Details Date Type Department Care Team (Late st Contact Info) Description 02/19/2020 Refill [facility] [address] [facility] [address] [phone] Jyoti Billy APRN-HEARING AND SPEECH ASSISTANT [address] [place] [address] Med Refill Social History Tobacco Use Types [...] encounter Miscellaneous Notes * Telephone Encounter - Brittney Marie RN - 02/19/2020 6:24 AM EDT Pt has been informed x 3 of need for labs and appt documented in this encounter Plan of Treatment Upcoming Encounters Date Type Department Care Team (Late st Contact Info) Description 11/22/2024 9:00 AM EDT Clinical Support [facility] [address] [place] [address] [address] [place] [address] 11/22/2024 9:45 AM EDT Office Visit [facility] [address] [place] [address] [address] [place] [address] Rony Calvillo MD [address] [facility], [address] [place], [place] [phone] documented as of this encounter Visit Diagnoses Not on filedocumented in this encounter Care Teams Cephalometric Technician Relationship Specialty Start Date End Date Anny Bruce, CLIENT DIRECTOR-HEARING AND SPEECH ASSISTANT PCP - General Nurse Practitioner 04/27/22 documented as of this encounter
--- OUTSIDE RECORDS SUMMARY | 2024-10-31 15:41 | XMS_ITS | Encounter Summary ---
Author Organization [employer] [facility] tem Address [id number] [address] [place] [address] Care Team Providers Care Swatch Cutter Name Role Phone ReglaAnny canales Earle PETERSENN-WIRE DROPPER Primary Care Provider Reason for Visit * Reason Onset Date Comments medication remind 11/04/2020 Encounter Details Date Type Department Care Team (Late st Contact Info) Description 11/04/2020 [facility] [address] [facility] [address] [phone] Priya Chin MA medication remind Social History Tobacco Use Types Packs/Day Years [...] Miscellaneous Notes * Telephone Encounter - Priya Chin MA - 11/04/2020 9:02 AM EDT Left message for patient to remind them to bring their most current medication list with them to their appointment. documented in this encounter Plan of Treatment Upcoming Encounters Date Type Department Care Team (Late st Contact Info) Description 11/22/2024 9:00 AM EDT Clinical Support [facility] [address] [place] [address] [address] [place] [address] 11/22/2024 9:45 AM EDT Office Visit [facility] [address] [place] [address] [address] [place] [address] Rony Calvillo MD [address] [facility], [address] [place] [address] documented as of this encounter Visit Diagnoses Not on filedocumented in this encounter Care Teams Swatch Cutter Relationship Specialty Start Date End Date Anny Bruce, SANITARIAN AIDE-WIRE DROPPER PCP - General Nurse Practitioner 04/27/22 documented as of this encounter
--- OUTSIDE RECORDS SUMMARY | 2024-10-31 15:41 | XMS_ITS | Encounter Summary ---
Author Organization [employer] tem Address [id number] [address] [place] [address] Care Team Providers Care Professor Of Pathology Name Role Phone ReglalocoliverioAnny Earle CHIEF [facility] Primary Care Provider Reason for Visit * Reason Comments Med Refill Encounter Details Date Type Department Care Team (Late Contact Info) Description 04/14/2022 Refill [facility] [address] [place] [address] Tamra Howard, [facility] [address] [place] [address] Med Refill Social History Tobacco Use Types [...] AM EDT Clinical Support [facility] [address] [place] [address] 11/22/2024 9:45 AM EDT Office Visit [facility] [address] [place] [address] Rony Calvillo MD [address] [facility], [address] [place] [address] documented as of this encounter Visit Diagnoses Not on filedocumented in this encounter Care Teams Professor Of Pathology Relationship Specialty Start Date End Date Anny Bruce, CHIEF CLIENT OFFICER-COMMERCIAL ACCOUNTANT PCP - General Nurse Practitioner 04/27/22 documented as of this encounter
--- OUTSIDE RECORDS SUMMARY | 2024-10-31 15:41 | XMS_ITS | Encounter Summary ---
Author Organization [facility] Address [id number] [address] [place] [address] Care Team Providers Care Veterinary Livestock Inspector Name Role Phone ReglaAnny canales Earle PETERSENN-RESIDENTIAL APPLIANCE REPAIR TECHNICIAN Primary Care Provider Reason for Visit * Reason Onset Date Comments Med Refill 01/18/2022 Encounter Details Date Type Department Care Team (Late Contact Info) Description 01/18/2022 Refill [facility] [address] [phone] Draío Hawkins, NELI Med Refill Social History Tobacco Use Types [...] encounter Miscellaneous Notes * Telephone Encounter - Darío Hawkins RN - 01/18/2022 2:23 PM EDT MACHELLE please sign refill. Thank you! OV- 10/2021 Pt due for labs, refill protocol letter mailed to pt's home. documented in this encounter Plan of Treatment Upcoming Encounters Date Type Department Care Team (Late Contact Info) Description 11/22/2024 9:00 AM EDT Clinical Support [facility] [address] [place] [address] [address] [place] [phone] 11/22/2024 9:45 AM EDT Office Visit [facility] [address] [place] [address] [address] [place] [phone] Rony Calvillo MD [facility], [address] [place] [address] documented as of this encounter Visit Diagnoses Diagnosis Heart failure with reduced ejection fraction, NYHA class II (CMS-HCC)- Primary Dilated cardiomyopathy (CMS-HCC) Other primary cardiomyopathies Paroxysmal atrial tachycardia Paroxysmal supraventricular tachycardia Abnormal EKG Nonspecific abnormal electrocardiogram (ECG) (EKG) documented in this encounter Care Teams Veterinary Livestock Inspector Relationship Specialty Start Date End Date Anny Bruce, PREFABRICATOR-RESIDENTIAL APPLIANCE REPAIR TECHNICIAN PCP - General Nurse Practitioner 04/27/22 documented as of this encounter
--- OUTSIDE RECORDS SUMMARY | 2024-10-31 15:41 | XMS_ITS | Encounter Summary ---
Author Organization [employer] tem Address [facility][id number] [address] [place] [address] Care Team Providers Care After School Caregiver Name Role Phone Christiana Brucea Earle CRUCIBLE PACKER-HYDROELECTRIC MACHINERY MECHANIC HELPER Primary Care Provider Reason for Visit * Reason Comments Med Refill Encounter Details Date Type Department Care Team (Late Contact Info) Description 09/23/2021 Refill [facility] [address] [facility] [address] [place] [phone] Angelique Figueredo, CRUCIBLE PACKER-HYDROELECTRIC MACHINERY MECHANIC HELPER [address] [place] [address] Med Refill Social History Tobacco Use Types [...] encounter Miscellaneous Notes * Telephone Encounter - Isaias Camejo LPN - 09/23/2021 6:24 AM EDT [facility] 09/11/20 ELECTROLYTE PANEL 2017 documented in this encounter Plan of Treatment Upcoming Encounters Date Type Department Care Team (Late st Contact Info) Description 11/22/2024 9:00 AM EDT Clinical Support [facility] [address] [place] [address] [address] [place] [phone] 11/22/2024 9:45 AM EDT Office Visit [facility] [address] [place] [address] [address] [place] [phone] Rony Calvillo MD [address] [facility], [address] [place] [address] documented as of this encounter Visit Diagnoses Not on filedocumented in this encounter Care Teams After School Caregiver Relationship Specialty Start Date End Date Anny Bruce, ORIN-HYDROELECTRIC MACHINERY MECHANIC HELPER PCP - General Nurse Practitioner 04/27/22 documented as of this encounter
--- OUTSIDE RECORDS SUMMARY | 2024-10-31 15:41 | XMS_ITS | Encounter Summary ---
Author Organization [employer] tem Address [facility][id number] [address] [place] [address] Care Team Providers Care Journalism Instructor Name Role Phone ReglaAnny canales Earle PETERSENN-SUPERVISOR RESPIRATORY Primary Care Provider Encounter Details Date Type Department Care Team (Late st Contact Info) Description 09/11/2020 Orders Only [facility] [address] [place] [address] Rony Calvillo MD [address] [facility], [address] [place], [place] [phone] Social History Tobacco Use Types Packs/Day Years [...] on file Sexual Orientation Not on file COVID-19 Exposure Response Date Recorded In the last month, have you been in contact with someone who was confirmed or suspected to have Coronavirus / COVID-19? No / Unsure 09/11/2020 9:27 AM EDT documented as of this encounter Plan of Treatment Upcoming Encounters Date Type Department Care Team (Late st Contact Info) Description 11/22/2024 9:00 AM EDT Clinical Support [facility] [address] [place] [address] [address] [place] [address] 11/22/2024 9:45 AM EDT Office Visit [facility] [address] [facility] [address] [place] [address] Rony Calvillo MD [address] [facility], [address] [place], [place] [phone] documented as of this encounter Procedures Procedure Name Priority Date/Time Associated Diagnosis Comments DEVICE INTERROGATION Routine 09/11/2020 documented in this encounter Results * Device Interrogation (09/11/2020) Anatomical Region Laterality Modality Other us Rony Calvillo MD [facility] ORDERAB LES Final Result documented in this encounter Visit Diagnoses Not on filedocumented in this encounter Care Teams Journalism Instructor Relationship Specialty Start Date End Date Anny Bruce, AIR CARRIER OPERATIONS INSPECTOR-SUPERVISOR RESPIRATORY PCP - General Nurse Practitioner 04/27/22 documented as of this encounter
--- OUTSIDE RECORDS SUMMARY | 2024-10-31 15:41 | XMS_ITS | Clinical Summary ---
Author Organization [facility] Address [address] [facility] [place] [address] Care Team Providers Care Pathology Assistant Name Role Phone Anny Bruce NP Unavailable [phone] Jean Pierre Urena MD Primary Care Provider [phone] Rony Calvillo MD Unavailable [phone] Allergies Active Allergy Reactions Criticality Noted Date Comments Buspirone Anxiety,Other Low 11/09/2023 Pt felt increased agitation and anxiety Egg-Derived Products 04/04/2023 Penicillin G Unknown 03/30/2023 Penicillins Swelling,Rash Low 04/04/2023 Sulfa Antibiotics Unknown 03/30/2023 Yellow Dye #11 06/21/2024 Medications albuterol (2.5 MG/3ML) 0.083% nebulizer solution Take 2.5 mg by nebulization every 4 (four) hours if needed for wheezing Active Potassium 99 MG tablet Take 99 mg by mouth 1 (one) time each day Active carvedilol (Coreg) 25 MG tablet Take 25 mg by mouth in the morning and 25 mg in the evening. Take with meals. Active losartan (Cozaar) 100 MG tablet Take 100 mg by mouth Daily Active spironolactone (Aldactone) 25 MG tablet Take 25 mg by mouth 2 (two) times a day as needed Active B Complex Vitamins (VITAMIN B COMPLEX PO) Take by mouth Acti ve clindamycin (Clindagel) 1 % gel Apply 1 application topically Daily as needed 08/22/19 24 Active ergocalciferol (Vitamin D-2) 1.25 MG (66607 UT) capsuleIndicati ons:Vitamin D Deficiency Take 1.25 mg by mouth 1 (one) time per week Active Budeson-Glycopy rrol-Formoterol (Breztri Aerosphere) 160-9-4.8 MCG/ACT aerosolIndicati ons:Chronic Obstructive Pulmonary Disease Inhale 2 puffs in the morning and 2 puffs before bedtime. Active cyclobenzaprine (Flexeril) 10 MG tabletIndicatio ns:Chronic bilateral low back pain with left-sided sciatica Take 1 tablet (10 mg) by mouth as needed at bedtime for muscle spasms 30 tablet 2 05/29/19 25 Active pramipexole (Mirapex) 1 MG tabletIndicatio ns:Restless legs syndrome Take 2 tablets (2 mg) by mouth at bedtime 60 tablet 3 05/29/19 25 Active Additional Information Patient taking differently:2 mg OralNightly PRN, Reported on 10/16/2024 albuterol HFA 90 mcg/act inhalerIndicati ons:Acute bronchitis, unspecified Inhale 2 puffs every 6 (six) hours if needed for wheezing 18 g 1 06/20/19 25 Active amitriptyline (Elavil) 50 MG tabletIndicatio ns:Lumbago with sciatica, left side Take 2 tablets (100 mg) by mouth at bedtime 60 tablet 3 10/04/19 25 025 Active FLUoxetine (PROzac) 40 MG capsuleIndicati ons:Anxiety and depression Take 1 capsule (40 mg) by mouth Daily 30 capsule 1 10/04/19 25 025 Active gabapentin (Neurontin) 600 MG tabletIndicatio ns:Lumbago with sciatica, left side Take 1 tablet (600 mg) by mouth every 8 (eight) hours 90 tablet 3 10/04/19 25 025 Active Ferric Maltol (ACCRUFeR) 30 MG capsuleIndicati ons:Iron deficiency anemia, unspecified iron deficiency anemia type Take 30 mg by mouth in the morning and 30 mg in the evening. Take before meals. 90 capsule 1 10/15/19 25 025 Active Eliquis 5 MG tablet Take 5 mg by mouth in the morning and 5 mg before bedtime. 01/30/20 24 025 Discontin ued(Thera py completed ) amitriptyline (Elavil) 50 MG tabletIndicatio ns:Lumbago with sciatica, left side Take 2 tablets (100 mg) by mouth at bedtime 60 tablet 3 05/29/19 25 025 Discontin ued(Reord er) gabapentin (Neurontin) 600 MG tabletIndicatio ns:Lumbago with sciatica, left side Take 1 tablet (600 mg) by mouth every 8 (eight) hours 90 tablet 3 05/29/19 25 025 Discontin ued(Reord er) FLUoxetine (PROzac) 40 MG capsuleIndicati ons:Anxiety and depression Take 1 capsule (40 mg) by mouth Daily 30 capsule 1 05/29/19 25 025 Discontin ued(Reord er) azithromycin (Zithromax) 250 MG tabletIndicatio ns:Subacute maxillary sinusitis 2 pills day #1, 1 pill day #2-#5 6 tablet 05/29/19 25 025 Discontin ued(Thera py completed ) azithromycin (Zithromax) 250 MG tabletIndicatio ns:Sinusitis, unspecified chronicity, unspecified location Day #1: 2 pills, day #2-#5 1 pill daily 6 tablet 08/03/19 25 025 Discontin ued(Thera py completed ) ACCRUFeR 30 MG capsule TAKE 1 CAPSULE BY MOUTH TWICE DAILY (IN THE MORNING and BEFORE bedtime) 07/19/19 25 025 Discontin ued(Reord er) Active Problems Problem Noted Date Diagnosed Date History of alcohol abuse 10/16/2024 Overview (10/16/2024): Sober since 2019 Acquired spondylolisthesis of lumbosacral region 10/15/2024 Lumbar spondylosis 10/03/2024 Assessment & Plan (10/03/2024 2:30 PM EDT): Check xray No NSAID Muscle relaxers Asthma-COPD overlap syndrome 04/03/2024 Assessment & Plan (10/03/2024 6:51 AM EDT): Current meds: albuterol and breztri Assessment & Plan (05/29/2024 6:12 AM EST): Current meds: albuterol Class 1 obesity due to exces s calories with serious comorbidity and body mass index (BMI) of 31.0 to 31.9 in adult 01/03/2024 Assessment & Plan (10/03/2024 6:52 AM EDT): Discussed with patient their BMI (actual, verses recommended). We have also discussed lifestyle modifications: attempts to perform physical activity as chronic conditions allow, also to monitor dietary intake: increasing protein/fruits/veggies and lowering carb intake (unless contraindicated). Limit sodas, juices, and sugary drinks. Assessment & Plan (05/29/2024 6:15 AM EST): Discussed with patient their BMI (actual, verses recommended). We have also discussed lifestyle modifications: attempts to perform physical activity as chronic conditions allow, also to monitor dietary intake: increasing protein/fruits/veggies and lowering carb intake (unless contraindicated). Limit sodas, juices, and sugary drinks. Assessment & Plan (02/28/2024 6:51 AM EST): Discussed with patient their BMI (actual, verses recommended). We have also discussed lifestyle modifications: attempts to perform physical activity as chronic conditions allow, also to monitor dietary intake: increasing protein/fruits/veggies and lowering carb intake (unless contraindicated). Limit sodas, juices, and sugary drinks. Hx of bariatric surgery 01/03/2024 Assessment & Plan (10/03/2024 6:52 AM EDT): Monitor labs yearly and prn Recommend continued use of supplements Assessment & Plan (05/29/2024 6:15 AM EST): Monitor labs yearly and prn Recommend continued use of supplements DILIP (iron deficiency anemia) 08/07/2023 Assessment & Plan (10/03/2024 6:52 AM EDT): Continues with accgraceer, has fu with oncology as well, As per oncology discretion for continued iron infusions Assessment & Plan (05/29/2024 6:16 AM EST): Continues with malgorzata, has fu with oncology as well, As per oncology discretion for continued iron infusions Assessment & Plan (02/28/2024 11:07 AM EST): Continues with malgorzata, has fu with oncology as well, has to call for an appt with them As per oncology discretion for continued iron infusions Assessment & Plan (01/03/2024 11:28 AM EDT): Continues with malgorzata, has fu with oncology as well As per oncology discretion for continued iron infusions Assessment & Plan (09/27/2023 1:08 PM EDT): Continue with IV iron infusions as well as oral accuffer RTW on 10/09/23, clinically looking much better Fu in 1 month Assessment & Plan (08/17/2023 7:09 AM EDT): Will see if can tolerate accrufer in place of ferrous sulfate #3 samples ot # [id number], exp 01/2024 Assessment & Plan (08/07/2023 11:48 AM EDT): Pt stops by office today, he reports that he did not go to the ER, he does not really want to do blood transfusion, is willing to trial oral iron, and also have evaluation for EGD/Colonoscopy Agrees to blood recheck in 2 weeks, and referral to Dr James Vitamin B12 deficiency 08/07/2023 Assessment & Plan (10/03/2024 6:52 AM EDT): Check labs yearly Assessment & Plan (05/29/2024 6:15 AM EST): Check labs yearly Other fatigue 08/02/2023 Assessment & Plan (08/02/2023 8:21 PM EDT): At this point I have had a gabbi discussion with the patient regarding this current assessment. I explained that I suspect he has a severe anemia, his tongue issues are likely related to Vit B12 def and not a thrush situation. I have also discussed with him that his increase in HR and lower BP indicate that his body is trying to compensate for some deficiency . He is urged to go to the lab [facility] and get stat labs, and he is agreeable He denies any chest pain/pressure Paroxysmal atrial fibrillation 07/04/2023 Assessment & Plan (10/03/2024 6:51 AM EDT): Managed by cardiology Current meds: b kizzy, eliquis Assessment & Plan (05/29/2024 6:15 AM EST): Managed by cardiology Current meds: b kizzy, eliquis Other ventricular tachycardia 07/04/2023 Vitamin D deficiency 07/04/2023 Overview (06/06/2024): DEXA: 06/06/24 T score -1.3 mild osteopenia Assessment & Plan (10/03/2024 6:52 AM EDT): Taking vit d once a week Check labs yearly and prn Assessment & Plan (05/29/2024 6:16 AM EST): Taking vit d once a week Check labs yearly and prn Assessment & Plan (02/28/2024 11:09 AM EST): Taking vit d once a week Assessment & Plan (01/03/2024 11:26 AM EDT): Reviewed labs On once a week dose Current use of anticoagulant therapy 07/04/2023 Meralgia paraesthetica, right 07/04/2023 Moderate left ventricular systolic dysfunction 0 07/04/2023 Medical non-compliance 07/04/2023 Assessment & Plan (07/04/2023 11:33 AM EDT): Still has not got his labs done that were ordered in November 2022, I explained to him that I cannot continue with help him with his medical complaints if he is not getting labs done States will try to get this done in the next week or so RLS (restless legs syndrome) 05/18/2023 Assessment & Plan (10/03/2024 6:50 AM EDT): Mriapex nightly Assessment & Plan (05/29/2024 6:13 AM EST): Mriapex nightly Assessment & Plan (02/28/2024 11:03 AM EST): Mriapex nightly Chronic bilateral low back pain with left-sided sciatica 05/05/2023 Assessment & Plan (05/29/2024 6:20 AM EST): Takes gabapentin and elavil at HS OARRS reviewed Assessment & Plan (01/03/2024 11:37 AM EDT): Check xray Stretching exercises Fu in 6 weeks Will trial hs flexeril as well Primary hypertension 04/04/2023 Assessment & Plan (10/03/2024 6:51 AM EDT): Please check blood pressure daily and record DASH diet Limit caffeine Take medication as directed Contact office if chest pain, pressure, dizziness, shortness of breath, swelling legs Recommend slow position changes Current meds: losartan, aldactone, and carvediolol Assessment & Plan (05/29/2024 6:14 AM EST): Please check blood pressure daily and record DASH diet Limit caffeine Take medication as directed Contact office if chest pain, pressure, dizziness, shortness of breath, swelling legs Recommend slow position changes Current meds: losartan, aldactone, and carvediolol Assessment & Plan (02/28/2024 6:52 AM EST): Please check blood pressure daily and record DASH diet Limit caffeine Take medication as directed Contact office if chest pain, pressure, dizziness, shortness of breath, swelling legs Recommend slow position changes Assessment & Plan (11/09/2023 9:35 AM EDT): At goal, no changes in med dose Assessment & Plan (08/02/2023 8:18 PM EDT): No hypertension today, infact it does appear that his bp is sl lower than baseline Check labs Assessment & Plan (07/04/2023 11:28 AM EDT): Stable no changes in med dose Assessment & Plan (04/04/2023 11:20 AM EST): Stable no changes in med dose Dilated cardiomyopathy 02/22/2017 Overview (07/04/2023): Added automatically from request for surgery [id number] Assessment & Plan (10/03/2024 6:51 AM EDT): Continue with cardiology for management of this Current meds: carvedilol, losartan, potassium and aldactone Assessment & Plan (05/29/2024 6:13 AM EST): Continue with cardiology for management of this Current meds: carvedilol, losartan, potassium and aldactone Assessment & Plan (02/28/2024 6:53 AM EST): Continue with cardiology for management of this Assessment & Plan (12/12/2023 6:39 AM EDT): >>ASSESSMENT AND PLAN FOR CARDIOMYOPATHY (CMS/HCC) WRITTEN ON 07/04/2023 11:29 AM BY ANNY BRUCE NP Continue with cardiology as directed Assessment & Plan (12/12/2023 6:39 AM EDT): >>ASSESSMENT AND PLAN FOR CARDIOMYOPATHY (CMS/HCC) WRITTEN ON 08/02/2023 8:18 PM BY ANNY BRUCE NP Continue with cardiology as directed Assessment & Plan (08/07/2023 11:48 AM EDT): 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 as well as has fu appt this 08/08/24 cardiology is aware of his labs ICD (implantable cardioverter-defibrillator) in place 02/14/2017 Assessment & Plan (05/29/2024 6:13 AM EST): Continues w cardiology for scheduled checks Resolved Problems Problem Noted Date Diagnosed Date Resolved Date Sinusitis 08/02/2024 10/03/2024 Subacute maxillary sinusitis 05/29/2024 10/03/2024 Encounter for checking of au tomatic implantable cardioverter-defibrillator (AICD) 09/27/2023 10/16/2024 TYREE (obstructive sleep apnea) 07/04/2023 09/27/2023 Moderate persistent asthma w ithout complication 07/04/2023 10/03/2024 Assessment & Plan (02/28/2024 11:19 AM EST): Using daily for now, when seasons change, Wheezing, Then once winter goes back to prn Will trial breztri 2 puffs BID, rinse mouth after use Lot: [id number] exp 04/18 #1 sample Oral thrush 07/04/2023 07/04/2023 Alcohol abuse, episodic 07/04/2023 06/2 08/2024 Alopecia 07/04/2023 07/04/2023 Other specified anemias 07/04/2023 11/0 09/2023 Screening for prostate cancer 07/04/2023 10/16/2024 Overview (06/06/2024): 2023: 1.99 06/06/24: 2.33 Impacted cerumen of right ear 07/04/2023 01/03/2024 Assessment & Plan (07/04/2023 11:30 AM EDT): Cleared with cerumen spatula as well as water pick irrigation, tolerated well, no evidence of perforation and canal is clear Difficulty concentrating 05/02/2023 Assessment & Plan (05/02/2023 11:00 AM EST): Pt is unsure if he suffers from time blindness, or ADHD Uncertain if related to anxiety I explained that we could send to Neuropsc for evaluation, and also needs labs completed to r/o any possible influence of metabolic things etc Anxiety and depression 04/04/202310/16 Assessment & Plan (10/03/2024 6:52 AM EDT): Doing better, since job change Continue fluoxetine No SI/HI/Hallucinations Assessment & Plan (02/28/2024 11:07 AM EST): Doing better, since job change Continue fluoxetine No SI/HI/Hallucinations Assessment & Plan (11/09/2023 9:42 AM EDT): Take medication only as directed. This medication will take approximately 4-6 weeks to become effective. If any suicidal thoughts, thoughts of hurting others, or hallucinations contact the office or proceed to the Emergency Room for mental health evaluation. Medication may cause dry mouth, dizziness, and in some cases worsening in depression symptoms. Please contact the office if these occur. Start fluoxetine 20mg daily, fu in 4 weeks Assessment & Plan (07/04/2023 11:29 AM EDT): Doing ok on current regimine Assessment & Plan (05/02/2023 10:57 AM EST): Will increase buspar to TID, can use the mid day dose only on a prn Assessment & Plan (04/04/2023 11:21 AM EST): Continue current doses of meds Other acute sinusitis 04/04/20232023 Assessment & Plan (04/04/2023 11:22 AM EST): Will treat with atb Fu if not better Overweight (BMI 25.0-29.9) 04/04/2023 0 01/03/2024 Encounters Date Type Department Care Team Description 10/16/2024 9:00 AM EDT Office Visit [facility] [address] [facility] [address] [place] [phone] Ayaka Teran PMHNP-KAYDEN Mild episode of recurrent major depressive disorder ; History of alcohol abuse; Vitamin D deficiency 10/16/2024 Bamboo flowsheet [facility] [address] [place] [phone] Ayaka Teran, [facility] 10/16/2024 Travel 10/15/2024 Orders Only [facility] [address] [place] [phone] Anny Bruce NP Acquired spondylolisthesis of lumbosacral region (Primary Dx) 10/14/2024 Refill [facility] [address] [place] [phone] Anny Bruce NP Iron deficiency anemia, unspecified iron deficiency anemia type (Primary Dx) 10/14/2024 Clinisync Result Encounter [facility] Unsolicited Anny Bruce NP 10/09/2024 Refill [facility] [address] [place] [phone] Anny Bruce NP Iron deficiency anemia, unspecified 10/08/2024 Telephone [facility] [address] [place] [phone] Anny Bruce NP 10/03/2024 1:40 PM EDT Office Visit [facility] [address] [place] [phone] Anny Bruce NP Primary hypertension (Primary Dx); Essential (hemorrhagic) thrombocythemia (HCC); RLS (restless legs syndrome); Asthma-COPD overlap syndrome (HCC); Dilated cardiomyopathy (HCC); ICD (implantable cardioverter-defibrillat or) in place; Paroxysmal atrial fibrillation (HCC); Hx of bariatric surgery; Class 1 obesity due to excess calories with serious comorbidity and body mass index (BMI) of 31.0 to 31.9 in adult; Vitamin B12 deficiency; Vitamin D deficiency; Iron deficiency anemia, unspecified iron deficiency anemia type; Anxiety and depression ; Lumbar spondylosis; Lumbago with sciatica, left side; Restless legs syndrome 10/03/2024 Bamboo flowsheet [facility] [address] [place] [phone] Anny Bruce, JANAY 09/02/2024 Telephone [facility] [address] [place] [address] Anny Bruce NP 08/29/2024 Refill [facility] [address] [place] [address] Anny Bruce, JANAY Subacute maxillary sinusitis (Primary Dx) 08/26/2024 Telephone [facility] [address] [place] [phone] Anny Bruce NP 08/02/2024 [facility]ill [facility] [address] [place] [phone] Anny Bruce, JANAY Sinusitis, unspecified chronicity, unspecified location (Primary Dx) 08/01/2024 Telephone [facility] [address] [place] [phone] Anny Bruce, JANAY from Last 3 Months Family History Medical History Relation Name Comments Asthma Father Gt Emerson Heart disease Father Gt Emerson Alcohol abuse Father's Brother Uncle Berny. Uncle Alt on 2 brother Fibromyalgia Mother Harlene Lung cancer Mother Harlene Alcohol abuse Mother's Sister Cerebral palsy Sister Elizabeth Emerson Seizures Sister Elizabeth Emerson Relation Name Status Comments Father Gt Emerson Father's Brother Uncle Berny. Uncle [place] Alive Mother Harlene Alive Mother's Sister Sister Elizabeth Emerson Alive Social History Tobacco Use Types Packs/Day Years Used Date Smoking Tobacco: Never Smokeless Tobacco: Never Tobacco Cessation:Counseling Given: Not Answered Alcohol Use Standard Drinks/Week Comments Not Currently 0 (1 standard drink = 0.6 oz pure alcohol) sober since 2019/ Caffiene- 3 20 oz pops Humiliation, Afraid, Rape, and Kick questionnair e Answer Date Recorded Within the last year, have y ou been afraid of your partner or ex-partner? No 04/04/2023 Within the last year, have y ou been humiliated or emotionally abused in other ways by your partner or ex-partner? No Within the last year, have y ou been kicked, hit, slapped, or otherwise physically hurt by your partner or ex-partner? No 04/04/2023 Within the last year, have y ou been raped or forced to have any kind of sexual activity by your partner or ex-partner? No 04/04/2023 Social Connection and Isolat ion Panel [NHANES] Answer Date Recorded In a typical week, how many times do you talk on the phone with family, friends, or neighbors? Patient declined 04/04/2023 How often do you get togethe r with friends or relatives? Patient declined 04/04/2023 How often do you attend [facility] or shinto services? More than 4 times per year 04/04/2023 Do you belong to any clubs o r organizations such as oriental orthodox groups, unions, fraternal or athletic groups, or school groups? No 04/04/2023 How often do you attend meet ings of the clubs or organizations you belong to? Patient declined 04/04/2023 Are you , , di vorced, , never , or living with a partner? 04/04/2023 AUDIT-C Answer Date Recorded Q1: How often do you have a drink containing alcohol? Never 04/04/2023 Q2: How many drinks containi ng alcohol do you have on a typical day when you are drinking? Patient does not drink Q3: How often do you have si x or more drinks on one occasion? Never 04/04/2023 Overall Financial Resource Strain (CARDIA) Answe r Date Recorded How hard is it for you to pa y for the very basics like food, housing, medical care, and heating? Not very hard 04/04/2023 PHQ-2 Answer Date Recorded Patient Health Questionnaire-2 Score 2 10/16/2024 [facility] - Occupational Stress Questionnaire Answer Date Recorded Do you feel stress - tense, restless, nervous, or anxious, or unable to sleep at night because your mind is troubled all the time - these days? To some extent 04/04/2023 Exercise Vital Sign Answer Date Recorde d On average, how many days pe r week do you engage in moderate to strenuous exercise (like a brisk walk)? 5 days 04/04/2023 On average, how many minutes do you engage in exercise at this level? 60 min 04/04/2023 Hunger Vital Sign Answer Date Recorded Within the past 12 months, y ou worried that your food would run out before you got the money to buy more. Patient declined Within the past 12 months, t he food you bought just didn't last and you didn't have money to get more. Patient declined 03/2023 PRAPARE - Transportation Answer Date Re corded In the past 12 months, has l ack of transportation kept you from medical appointments or from getting medications? No 03/24 In the past 12 months, has l ack of transportation kept you from meetings, work, or from getting things needed for daily living? No 04/04/2023 Housing Stability Vital Sign Answer Keven e Recorded In the last 12 months, was t here a time when you were not able to pay the mortgage or rent on time? Yes 04/04/2023 [address] of Places Lived in the Last Year Not on f ile 04/04/2023 In the last 12 months, was t here a time when you did not have a steady place to sleep or slept in a longterm (including now)? No 04/04/2023 Sex and Gender Information Value Date Recorded Sex Assigned at Not on file Legal Sex Male 8:21 PM EDT Gender Identity Not on file Sexual Orientation Not on file Last Filed Vital Signs Vital Sign Reading Time Taken Comments Blood Pressure 118/72 10/16/2024 9:18 AM EDT Pulse 100 10/16/2024 9:18 AM EDT Temperature 36.9 C (98.5 F) 10/03/2024 1:50 PM EDT Respiratory Rate 20 10/03/2024 1:50 PM EDT Oxygen Saturation 95% 10/03/2024 1:50 PM EDT Inhaled Oxygen Concentration - - Weight 103 kg (227 lb) 10/16/2024 9:18 AM EDT Height 177.8 cm (5' 10 ) 05/29/2024 9:29 AM EST Body Mass Index 32.57 05/29/2024 9:29 AM EST Plan of Treatment Upcoming Encounters Date Type Department Care Team (Late st Contact Info) Description 12/04/2024 8:40 AM EDT Office Visit [facility] [address] [place] [address] Anny Bruce, JANAY [address] [place] [address] Health Maintenance Due Date Last Done Comments CT Colonography 1965 FIT 1965 FOBT 1965 Sigmoidoscopy 1965 FIT-DNA 12/20/2025 12/20/2022 Colonoscopy 09/18/2033 09/19/2023, 09/19/2023 Colorectal Cancer Screening 09/18/2033 Influenza Vaccine Discontinued Procedures Procedure Name Priority Date/Time Associated Diagnosis Comments XR LUMBAR SPINE 2 OR 3V 10/14/2024 10:35 AM EDT from Last 3 Months Results * XR LUMBAR SPINE 2 OR 3V (10/14/2024 10:35 AM EDT) Anatomical Region Laterality Modality Radiographic Halley ging 10/14/2024 10:3 5 AM EDT Narrative 10/14/2024 10:37 AM EDT The [address] [address] XRay Report Signed Patient: REESE EMERSON MR#: [id number] : 1965 Acct:[id number] Age/Sex: 59 / M ADM Date: 10/14/24 Loc: RAD Attending Dr: Anny Bruce [employer] Ordering Physician: Anny Bruce NP Date of Service: 10/14/24 Procedure(s): XR lumbar spine 2-3V Accession Number(s): [id number] cc: Anny Bruce NP The [address] [address] Patient Name: REESE EMERSON MRN: [id number] date: 1965 Sex: M Assigned Patient Location: [facility] Current Patient Location: [facility] Accession/Order Number: [id number] Exam Date: 10/14/2024 10:16 Report Date: 10/14/2024 10:35 At the request of: ANNY BRUCE NP Procedure: XR lumbar spine 2-3V LUMBAR SPINE - 2 views COMPARISON: CT 11/16/2019 CLINICAL DATA: Chronic low back pain with radiation down the legs. AP and lateral views were obtained. No acute compression fractures are identified. There is minor listhesis of L1 on L2 and mild of L2 on L3. There is also minimal anterolisthesis of L5 on S1. Multilevel disc space narrowing is present. Endplate spurring is seen throughout. There is also multilevel facet hypertrophy. The SI joints are intact. No paraspinal soft tissue abnormalities are visualized. XR/XR lumbar spine 2-3V IMPRESSION: MULTILEVEL DEGENERATIVE CHANGES. Impression dictated by: Kylee Spivey M.D. 10/14/2024 10:35 AM Dictation Location: [place] [address] Electronically authenticated by: [id number] Y Date: 10/14/2024 10:35 Dictated By: Kylee Spivey M.D. Signed By: 10/14/24 1037 DD/ 1035 TD/TT: Collections And Archives Director: Procedure Note Radiology, Radiologist, MD - 10/14/2024 [place] [address] XRay Report Signed Patient: REESE EMERSON RMR#: [id number] : 1965Acct:[id number] Age/Sex: 59 / MADM Date: 10/14/24 Loc: [facility] Attending Dr: Anny Bruce NP Ordering Physician: Anny Bruce NP Date of Service: 10/14/24 Procedure(s): XR lumbar spine 2-3V Accession Number(s): [id number] cc: Anny Bruce NP The [place] [address] Patient Name: REESE EMERSON MRN: [id number] date: 1965 Sex: M Assigned Patient Location: [facility] Current Patient Location: [facility] Accession/Order Number: [id number] Exam Date: 10/14/2024 10:16 Report Date: 10/14/2024 10:35 At the request of: ANNY BRUCE NP Procedure: XR lumbar spine 2-3V LUMBAR SPINE - 2 views COMPARISON: CT 11/16/2019 CLINICAL DATA: Chronic low back pain with radiation down the legs. AP and lateral views were obtained. No acute compression fractures are identified. There is minor listhesis of L1 on L2 and mild of L2 on L3.There is also minimal anterolisthesis of L5 on S1. Multilevel disc spacenarrowing is present. Endplate spurring is seen throughout. There is alsomultilevel facet hypertrophy. The SI joints are intact. No paraspinal soft tissue abnormalities are visualized. XR/XR lumbar spine 2-3V IMPRESSION: MULTILEVEL DEGENERATIVE CHANGES. Impression dictated by: Kylee Spivey M.D. 10/14/2024 10:35 AM Dictation Location: [place] [address] Electronically authenticated by: [id number] Y Date: 0:35 Dictated By: Kylee Spivey M.D. Signed By:10/14/24 1037 DD/ 1035 TD/TT: Collections And Archives Director: Anny Bruce NP IMG XR PROCEDURES Final Result from Last 3 Months Insurance [employer] Care Teams Pathology Assistant Relationship Specialty Start Date End Date Jean Pierre Urena MD [address] [place] [phone] PCP - General Family Medicine 02/22/24 Anny Bruce NP [address] [place] [address] Nurse Practitioner Family Medicine 07/04/23 Rony Calvillo MD [address] [place] [address], [address] [place] [address] Referring Physician Cardiology 10/16/24
--- OUTSIDE RECORDS SUMMARY | 2024-10-31 15:41 | XMS_ITS | Encounter Summary ---
Author Organization [employer] tem Address [facility] [id number] [address] [place] [address] Care Team Providers Care Rn Review Name Role Phone ReglamyriamChristiana calverta Earle [facility] Primary Care Provider Reason for Visit * Reason Comments Med Refill Encounter Details Date Type Department Care Team (Late Contact Info) Description 02/14/2022 Refill [facility] [address] [facility] [address] [place] [address] Gisella Nolasco, COMPOSITION [facility] [address], [facility] [address] [place] [phone] Med Refill Social History Tobacco Use Types [...] encounter Miscellaneous Notes * Telephone Encounter - Lisa Baez RN - 02/14/2022 6:25 AM EDT Pt needs to complete labs as ordered documented in this encounter Plan of Treatment Upcoming Encounters Date Type Department Care Team (Late st Contact Info) Description 11/22/2024 9:00 AM EDT Clinical Support [facility] [address] [place] [address] [address] [place] [address] 11/22/2024 9:45 AM EDT Office Visit [facility] [address] [place] [address] [address] [place] [phone] Rony Calvillo MD [address] [facility], [address] [place] [address] documented as of this encounter Visit Diagnoses Not on filedocumented in this encounter Care Teams Rn Review Relationship Specialty Start Date End Date Anny Bruce, ORIN-KENO TERMINAL OPERATOR PCP - General Nurse Practitioner 04/27/22 documented as of this encounter
--- OUTSIDE RECORDS SUMMARY | 2024-10-31 15:41 | XMS_ITS | Encounter Summary ---
Author Organization [facility] Address [address] [place] [address] Care Team Providers Care Shear Grinder Operator Helper Name Role Phone Anny Bruce NP Unavailable [phone] Jean Pierre Urena MD Primary Care Provider [phone] Ayaka Teran [facility]- Unavailable Rony Calvillo MD Unavailable [phone] Reason for Visit * Reason Comments Med Refill Encounter Details Date Type Department Care Team (Late st Contact Info) Description 10/09/2024 Refill [facility] [address] [place] [address] Anny Bruce, OUTDOOR ADVENTURE GUIDES [address] [place] [phone] Iron deficiency anemia, unspecified Social History Tobacco Use Types Packs/Day Years Used Date Smoking Tobacco: Never Alcohol Use Standard Drinks/Week Comments Not Currently 0 (1 standard drink = 0.6 oz pur e alcohol) Humiliation, Afraid, Rape, and Kick questionnair e [...] declined 04/04/2023 How often do you attend [facility] or jewish services? More than 4 times per year 04/04/2023 Do you belong to any clubs o r organizations such as protestant groups, unions, fraternal or athletic groups, or [...] Answer Date Recorded Patient Health Questionnaire-2 Score 0 08/02/2023 [facility] - Occupational Stress [...] place to sleep or slept in a detention (including now)? No 04/04/2023 Sex and Gender Information Value Date Recorded Sex Assigned at Not on file Legal Sex Male 8:21 PM EDT Gender Identity Not on file Sexual Orientation Not on file documented as of this encounter Miscellaneous Notes * Telephone Encounter - AMBER HUMPHRIES - 10/14/2024 10:39 AM EDT Pt came in needing a refill on his accufer, it does not look like it had gone thru at * Telephone Encounter - AMBER HUMPHRIES - 10/09/2024 11:06 AM EDT Text Evp Avinash, this is Sebastian Emerson. I was going to ask you guys on Amber. I know you are quite busy, but I donot have a refill for the a f just checking with I jumped my home town and they said, We do not have 1. So if you if you would do that for me, I hate to bug you, I would appreciate it. I do not I am probably high maintenance or something like that, but I want to stay on the iron supplements for sure and [place]. So I think I sold it for that when I was there. But if you could callthat in for me, a drug paxton so I can pick it up, I would appreciate it very much ugly. I am sure you miss that message you used to have on here. It is call is boring without that. So anyway, I hope You have a great day and I will talk to you later. Malcolm. documented in this encounter Plan of Treatment Upcoming Encounters Date Type Department Care Team (Late st Contact Info) Description 12/04/2024 8:40 AM EDT Office Visit [facility] [address] [place] [address] Anny Bruce NP [address] [place] [address] documented as of this encounter Visit Diagnoses Diagnosis Iron deficiency anemia, unspecified documented in this encounter Care Teams Shear Grinder Operator Helper Relationship Specialty Start Date End Date Jean Pierre Urena MD [address] [place] [phone] PCP - General Family Medicine 02/22/24 Anny Bruce NP [address] [place] [address] Nurse Practitioner Family Medicine 07/04/23 Ayaka Teran [facility]- [address] [place] [address] [place] [address] Nurse Practitioner Behavioral Health 10/16/24 10/16/24 Rony Calvillo MD [address] [place] [address], [address] [place] [address] Referring Physician Cardiology 10/16/24 documented as of this encounter
--- OUTSIDE RECORDS SUMMARY | 2024-10-31 15:41 | XMS_ITS | Patient Health Record ---
Author Organization [facility] vices Address [address] [place], [place] [address] Care Team Providers Care Master Merchandiser Name Role Phone Hilario Wilkerson Primary Care Provider [phone] Allergies Allergen (clinical drug ingredient) Drug/Non Drug Allergy documented on EMR Reaction Allergy Type Onset Date Status Penicillin Unknown Drug Allergy Active Substance with sulfonamide structure and antibacterial mechanism of action (substance) Sulfa Antibiotics Unknown Drug Allergy Active Reason For Referral No Information Medications Medication SIG (Take, Route, Frequency, Duration) Notes Start Date End Date Status Albuterol Sulfate HFA 108 (90 Base) MCG/ACT 1 puff as needed Inhalation every 4 hrs for 30 days 05/19/2022 Active Losartan Potassium 100 MG 1 tablet Orall y Once a day for 90 days Active Sertraline HCl 25 MG 1 tablet Orally Onc e a day for 30 days Active busPIRone HCl 10 MG 1 tablet Orally Twic e a day for 30 days Active Spironolactone 25 MG 1 tablet Orally Active Aspirin 81 MG 1 tablet Orally Once a day Active Carvedilol 25 MG 1 tablet with food Orally Twice a day Active Baclofen 20 MG 1 tablet Administer without regards to meals as needed Orally Twice a day for 14 days 05/09/2022 Active Diclofenac Sodium 75 mg TAKE 1 TABLET BY MOUTH DAILY NEEDED for 30 Active Eliquis 5 MG 1 tablet Orally Twic e a day for 30 days Active Social History Tobacco Use: Social History Observation Description Date Details (start date - stop date) Never Smoker NA - NA Sex Assigned At : Social History Observation Description Sex Assigned At Male Tobacco Use/Smoking Question Answer Notes Tobacco use: nonsmoker Problems Problem Type SNOMED Code ICD Code Onset Dates Problem Status W/U Status Risk Notes Problem 579225916 Anxiety disorder, unspecified (F41.9) Active confirmed Problem 50355818 Other chronic pain (G89.29) Active confirmed Problem 425939071 Lumbago with sciatica, 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 [place], [place] [id number] Reese Emerson Self - patient is the insured Medical (General) History Medical History History ICD Code Anxiety Asthma CHF Hypertension Ischenic Cardiomyopthy L Ventriular Systolic dysfuntion Mild Mitral Regurgitation Mild tricospid regurgitation NSVT TYREE PSVT Surgical History Surgery Date(Month/Year) Cardiac Defibrillator Replacement ([facility]) 2016 Hernia Repair 2010 Tonsillectomy and adenoidectomy Gastric Bypass Hospitalization History Reason Date(Month/Year) Defibrillator
--- OUTSIDE RECORDS SUMMARY | 2024-10-31 15:41 | XMS_ITS | Encounter Summary ---
Author Organization [employer] tem Address [facility] [id number] [address] [place] [address] Care Team Providers Care Sampler Radioactive Waste Name Role Phone Anny Bruce Primary Care Provider Encounter Details Date Type Department Care Team (Late st Contact Info) Description 04/19/2022 [facility] [address] [place] [address] Rick Loomis APRN-CNP [address] [place] [address] Social History Tobacco Use Types Packs/Day Years [...] encounter Miscellaneous Notes * Telephone Encounter - Agustina Frantz - 04/19/2022 8:47 AM EST ----- Message from INGRID Berry sent at 04/15/2022 2:31 PM EST ----- Will provide patient 90 day supply of Eliquis. Needs to be reminded that CBC in [facility] have been ordered. Thank you * Telephone Encounter - Darío Hawkins RN - 04/19/2022 8:47 AM EST Refill protocol letter mailed to pt. documented in this encounter Plan of Treatment Upcoming Encounters Date Type Department Care Team (Late st Contact Info) Description 11/22/2024 9:00 AM EDT Clinical Support [facility] [address] [place] [address] [address] [place] [address] 11/22/2024 9:45 AM EDT Office Visit [facility] [address] [place] [address] [address] [place] [phone] Rony Calvillo MD [address] [facility], [address] [place] [address] documented as of this encounter Visit Diagnoses Not on filedocumented in this encounter Care Teams Sampler Radioactive Waste Relationship Specialty Start Date End Date Anny Bruce, AUTOMOTIVE GLAZIER-SENIOR MEDIA DIRECTOR PCP - General Nurse Practitioner 04/27/22 documented as of this encounter
--- OUTSIDE RECORDS SUMMARY | 2024-10-31 15:41 | XMS_ITS | Encounter Summary ---
Author Organization [email or web address] [facility] tem Address [id number] [address] [place] [address] Care Team Providers Care Personal Counselor Name Role Phone ReglalocoliverioAnny Earle PETERSENN-DINKEY ENGINE MECHANIC Primary Care Provider Reason for Visit * Reason Onset Date Comments medication reminder 11/05/2021 Encounter Details Date Type Department Care Team (Late st Contact Info) Description 11/05/2021 [facility] [address] [facility] [address] [phone] Priya Chin MA medication reminder Social History Tobacco Use Types Packs/Day Years [...] have Coronavirus / COVID-19? No / Unsure 11/05/2021 8:34 AM EDT documented as of this encounter Miscellaneous Notes * Telephone Encounter - Priya Chin MA - 11/05/2021 9:16 AM EDT Left message for patient to remind them to bring their most current medication list with them to their appointment. documented in this encounter Plan of Treatment Upcoming Encounters Date Type Department Care Team (Late st Contact Info) Description 11/22/2024 9:00 AM EDT Clinical Support [facility] [address] [place] [address] [address] [place] [address] 11/22/2024 9:45 AM EDT Office Visit [facility] [address] [place] [address] [address] [place] [address] Rony Calvillo MD [facility], [address] [place] [address] documented as of this encounter Visit Diagnoses Not on filedocumented in this encounter Care Teams Personal Counselor Relationship Specialty Start Date End Date Anny Bruce, RADAR ENGINEER-DINKEY ENGINE MECHANIC PCP - General Nurse Practitioner 04/27/22 documented as of this encounter
--- OUTSIDE RECORDS SUMMARY | 2024-10-31 15:41 | XMS_ITS | Encounter Summary ---
Author Organization [employer] [facility] tem Address [facility] [id number] [address] [place] [address] Care Team Providers Care Supervisor Twisting Department Name Role Phone ReglalocoliverioAnny Earle PETERSENN-SPANISH TEACHER Primary Care Provider Reason for Visit * Reason Onset Date Comments medication remind 10/23/2020 Encounter Details Date Type Department Care Team (Late st Contact Info) Description 10/23/2020 [facility] [address] [facility] [address] [address] Priya Chin MA medication remind Social History [...] Miscellaneous Notes * Telephone Encounter - Priya Chni MA - 10/23/2020 9:12 AM EDT Called patient to remind them to bring their most current copy of medication list with them to their appt. Patient verbalizes understanding. documented in this encounter Plan of Treatment Upcoming Encounters Date Type Department Care Team (Late Contact Info) Description 11/22/2024 9:00 AM EDT Clinical Support [facility] [address] [place] [address] [address] [place] [address] 11/22/2024 9:45 AM EDT Office Visit [facility] [address] [place] [address] [address] [place] [address] Rony Calvillo MD [address] [facility], [address] [place] [address] documented as of this encounter Visit Diagnoses Not on filedocumented in this encounter Care Teams Supervisor Twisting Department Relationship Specialty Start Date End Date Anny Bruce, PRODUCT SAFETY ENGINEER-SPANISH TEACHER PCP - General Nurse Practitioner 04/27/22 documented as of this encounter
--- OUTSIDE RECORDS SUMMARY | 2024-10-31 15:41 | XMS_ITS | Encounter Summary ---
Author Organization [employer] tem Address [facility] [id number] [address] [place] [address] Care Team Providers Care Waste Machine Offbearer Name Role Phone ReglalocoliverioAnny Earle SR-CONSUMER RELATIONS COMPLAINT CLERK Primary Care Provider Reason for Visit * Reason Comments Med Refill Encounter Details Date Type Department Care Team (Late st Contact Info) Description 05/13/2022 Refill [facility] [address] [place] [phone] Enrique Silva PA-C [address] [place] [address] Med Refill Social History Tobacco Use Types [...] have Coronavirus / COVID-19? No / Unsure 04/27/2022 2:28 PM EST documented as of this encounter Plan of Treatment Upcoming Encounters Date Type Department Care Team (Late Contact Info) Description 11/22/2024 9:00 AM EDT Clinical Support [facility] [address] [place] [address] [address] [place] [address] 11/22/2024 9:45 AM EDT Office Visit [facility] [address] [place] [address] [address] [place] [address] Rony Calvillo MD [address] [facility], [address] [place] [address] documented as of this encounter Visit Diagnoses Not on filedocumented in this encounter Care Teams Waste Machine Offbearer Relationship Specialty Start Date End Date Anny Bruce, GORING CUTTER-CONSUMER RELATIONS COMPLAINT CLERK PCP - General Nurse Practitioner 04/27/22 documented as of this encounter
--- OUTSIDE RECORDS SUMMARY | 2024-10-31 15:42 | XMS_ITS | Encounter Summary ---
Author Organization [employer] tem Address [id number] [address] [place] [address] Care Team Providers Care Microfilm Clerk Name Role Phone Reglamyriamnehal Anny Earle SR-INFORMATICIST Primary Care Provider Reason for Visit * Reason Comments Med Refill Encounter Details Date Type Department Care Team (Late st Contact Info) Description 03/25/2020 Refill [facility] [address] [facility] [address] [phone] Katherin Becerra, RN [address] [place] [address] Med Refill Social History Tobacco Use Types [...] Telephone Encounter - Brittney Marie RN - 03/25/2020 6:25 AM EST Pt has been notified of need for appt in the past. documented in this encounter Plan of Treatment Upcoming Encounters Date Type Department Care Team (Late st Contact Info) Description 11/22/2024 9:00 AM EDT Clinical Support [facility] [address] [place] [address] [address] [place] [address] 11/22/2024 9:45 AM EDT Office Visit [facility] [address] [place] [address] [address] [place] [address] Rony Calvillo MD [address] [facility], [address] [place], [place] [phone] documented as of this encounter Visit Diagnoses Not on filedocumented in this encounter Care Teams Microfilm Clerk Relationship Specialty Start Date End Date Anny Bruce, MECHANICAL PRESS OPERATOR-INFORMATICIST PCP - General Nurse Practitioner 04/27/22 documented as of this encounter
--- OUTSIDE RECORDS SUMMARY | 2024-10-31 15:42 | XMS_ITS | Clinical Summary ---
Author Organization [employer] tem Address [id number] [address] [place] [address] Care Team Providers Care Medical Referral Coordinator Name Role Phone Anny Bruce APRN-IMPLEMENTATION SPECIALIST Primary Care Provider Allergies Active Allergy Reactions Criticality Noted Date Comments D And C Yellow No.11 06/21/2024 Penicillins Hives,Rash Low 02/13/2017 Sulfa (Sulfonamide Antibiotics) Wheezing 01/23 Medications potassium 99 mg tablet Take 1 tablet (99 mg total) by mouth nightly. Active amitriptyline (ELAVIL) 10 mg tablet Take 1 tablet (10 mg total) by mouth nightly. Active ferrous sulfate 325 (65 FE) mg EC tablet Take 1 tablet (325 mg total) by mouth in the morning and 1 tablet (325 mg total) before bedtime. Active albuterol (PROVENTIL HFA;VENTOLIN HFA) 90 mcg/actuation inhaler Inhale 2 puffs every 6 (six) hours as needed for wheezing or shortness of breath. 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 Take with meals. 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 90 tablet 10/10/19 25 Active spironolactone (ALDACTONE) 25 mg tabletIndications: Dilated cardiomyopathy (CMS-HCC),Non-isch emic cardiomyopathy (CMS-HCC),ICD (implantable cardioverter-defib rillator) in place,Moderate left ventricular systolic dysfunction,Heart failure with reduced ejection fraction, NYHA class II (CMS-HCC) Take 1 tablet (25 mg total) by mouth in the morning and 1 tablet (25 mg total) in the evening. Take with meals. 180 tablet 10/10/19 25 Active losartan (COZAAR) 100 mg tabletIndications: Dilated cardiomyopathy (CMS-HCC),Non-isch emic cardiomyopathy (CMS-HCC),ICD (implantable cardioverter-defib rillator) in place Take 1 tablet (100 mg total) by mouth nightly. 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 Take with meals. 180 tablet 2 12/29/19 24 025 Discontin ued(Reord er) Active Problems Problem Noted Date Diagnosed Date Iron deficiency anemia, unsp ecified iron deficiency anemia type 08/14/2023 Severe anemia with hemoglobi n 7.6, hematocrit 29.9 as of 08/02/2023 at [facility] 08/11/2023 Anemia requiring transfusions 08/11/2023 TYREE on CPAP 09/11/2020 Non-ischemic cardiomyopathy 11/17/2017 Heart failure with reduced ejection fraction, NY WESTON class II 11/17/2017 Dilated cardiomyopathy 02/22/2017 Overview (02/22/2017): Added automatically from request for surgery [id number] ICD (implantable cardioverte r-defibrillator) in place-Medtronic 02/14/2017 TYREE (obstructive sleep apnea) Obesity (BMI 30.0-34.9) Dizziness sometimes NSVT (nonsustained ventricular tachycardia) Paroxysmal atrial tachycardia Moderate left ventricular sy stolic dysfunction - LVEF 40-45% on 2D echocardiogram 2017 Abnormal EKG Intermittent palpitations Mild mitral regurgitation Mild tricuspid regurgitation Resolved Problems Problem Noted Date Diagnosed Date Resolved Date Shortness of breath 02/22/2017 09/12/19 Overview (02/22/2017): Added automatically from request for surgery [id number] Exhaustion of cardiac defibrillator 02/22/2017 09/11/2020 Overview (02/22/2017): Added automatically from request for surgery [id number] Ischemic cardiomyopathy 10/23 Chest tightness 09/11/2020 Dyspnea 09/11/2020 Encounters Date Type Department Care Team Description 10/09/2024 Refill [facility] [address] [place] [address] Darío Hawkins, NELI Med Refill 10/09/2024 Refill [facility] [address] [place] [address] Jyoti Billy, ENGRAVER TIRE MOLD-IMPLEMENTATION SPECIALIST Med Refill from Last 3 Months Family History Medical History Relation Name Comments Asthma Father Heart attack Father Cancer Mother Relation Name Status Comments Father Mother Social History Tobacco Use Types Packs/Day Years Used Date Smoking Tobacco: Never Smokeless Tobacco: Never Alcohol Use Standard Drinks/Week Comments No 0 (1 standard drink = 0.6 oz pur e alcohol) [facility] Utilities Answer Date Recorded In the past 12 months has e [employer], gas, oil, or water [employer] threatened to shut off services in your home? No 08/14/2023 PRAPARE - Transportation Answer Date Re corded In the past 12 months, has l ack of transportation kept you from medical appointments or from getting medications? No 07/24 In the past 12 months, has l ack of transportation kept you from meetings, work, or from getting things needed for daily living? No 08/14/2023 Housing Instability Answer Date Recorde d Are you worried or concerned that in the next two months you may not have stable housing that you own, rent or stay in as a part of a household? No 08/14/2023 Childcare Answer Date Recorded Childcare Unknown 10/02/2018 Employment Answer Date Recorded Employment Unknown 10/02/2018 Hunger Screening Answer Date Recorded Within the past 12 months we worried whether our food would run out before we got money to buy more. Never True 08/14/2023 Within the past 12 months th e food we bought just didn't last and we didn't have money to get more. Never True 08/14/2023 Purpose - Life Answer Date Recorded Purpose and direction in life Unknown Sex and Gender Information Value Date Recorded Sex Assigned at Not on file Legal Sex Male 11:35 AM EDT Gender Identity Not on file Sexual Orientation Not on file Last Filed Vital Signs Vital Sign Reading Time Taken Comments Blood Pressure 117/68 08/15/2023 11:45 AM EDT Pulse 82 08/15/2023 11:45 AM EDT Temperature 36.4 C (97.6 F) 08/15/2023 11:45 AM EDT Respiratory Rate 17 08/15/2023 11:45 AM EDT Oxygen Saturation 98% 08/15/2023 11:45 AM EDT Inhaled Oxygen Concentration - - Weight 89.5 kg (197 lb 5 oz) 08/14/2023 10:41 PM EDT Height 177.8 cm (5' 10 ) 08/14/2023 10:41 PM EDT Body Mass Index 28.31 08/14/2023 10:41 PM EDT Plan of Treatment Upcoming Encounters Date Type Department Care Team (Late st Contact Info) Description 11/22/2024 9:00 AM EDT Clinical Support [facility] [address] [place] [address] 11/22/2024 9:45 AM EDT Office Visit [facility] [address] [place] [address] Rony Calvillo MD [address] [facility] [place], [place] [id number] Health Maintenance Due Date Last Done Comments Depression Screening 1975 DTaP,Tdap and Td Vaccines (1 - Tdap) 1982 Zoster (Shingles) Vaccine (1 of 2) 2013 COVID-19 Vaccine (4 - 2023-2 5 season) 2023 05/09/2021, 08/13/2020, 07/23/2020 Adult BMI Screening 08/13/2024 08/14/2023 Tobacco Screening 08/13/2024 08/14/2023 Influenza Vaccine 12/23/2024 Medical Devices Implanted Type Area Form Setter Device Identifier Shelf Expiration Date Model / Serial / Lot Icd Evera Xt Df1 - [id number] - [id number] Implanted:Qty: 1 on 03/08/2017 by Jadon Mcgraw MD at [facility] ICD N/A: Chest [employer] CARD RHYTHM DEVICES 03/07/2018 [id number] / [id number] / Procedures Procedure Name Priority Date/Time Associated Diagnosis Comments IA INTERROGATION EVAL REMOTE </90 D 1/2/BUILDING CUSTODIAL SUPERVISOR LD DFB Routine 08/20/2024 6:42 PM EDT from Last 3 Months Results * Remote Device Check (08/20/2024 6:42 PM EDT) Anatomical Region Laterality Modality Other 08/20/2024 6:42 PM EDT Catalino Harrison MD HEALTH MAINTENANCE Final Result from Last 3 Months Insurance WORKER'S COMPENSATION Advance Directives * Full Code (Latest Code Status on File) Date Activated Date Inactivated Comments 08/14/2023 5:30 PM 08/15/2023 3:34 PM * Full Code Date Activated Date Inactivated Comments 08/11/2023 5:30 PM 08/12/2023 7:55 AM Care Teams Medical Referral Coordinator Relationship Specialty Start Date End Date Anny Bruce, ENGRAVER TIRE MOLD-IMPLEMENTATION SPECIALIST PCP - General Nurse Practitioner 04/27/22
--- OUTSIDE RECORDS SUMMARY | 2024-10-31 15:42 | XMS_ITS | Encounter Summary ---
Author Organization [facility] Address [address] [place] [address] Care Team Providers Care Dental Insurance Coordinator Name Role Phone Anny Bruce NP Unavailable [phone] Jean Pierre Urena MD Primary Care Provider [phone] Anny Bruce NP Unavailable [phone] Anny Bruce NP Unavailable [phone] Unallocated, Noms Provider Primary Care Provi lili Jean Pierre Urena MD Primary Care Provider [phone] Ayaka Teran [facility]- Unavailable [phone] Rony Calvillo MD Unavailable [phone] Encounter Details Date Type Department Care Team (Late st Contact Info) Description 08/30/2023 Orders Only [facility] [address] [place] [address] Anny Bruce SECURITY GUARD [address] [place] [address] Iron deficiency anemia, unspecified iron deficiency anemia type (Primary Dx) Social History Tobacco Use Types Packs/Day Years [...] declined 04/04/2023 How often do you attend chur or mormonism services? More than 4 times per year 04/04/2023 Do you belong to any clubs o r organizations such as scientologist groups, unions, fraternal or athletic groups, or [...] Recorded Patient Health Questionnaire-2 Score 0 08/02/2023 [facility] of Occupat ional Health - Occupational Stress [...] place to sleep or slept in a long term (including now)? No 04/04/2023 Sex and Gender Information Value Date Recorded Sex Assigned at Not on file Legal Sex Male 8:21 PM EDT Gender Identity Not on file Sexual Orientation Not on file documented as of this encounter Plan of Treatment Upcoming Encounters Date Type Department Care Team (Late st Contact Info) Description 12/04/2024 8:40 AM EDT Office Visit [facility] [address] [place] [address] Anny Bruce NP [address] [place] [address] Scheduled Orders Name Type Priority Associated Diagnoses Orde r Schedule CBC and differential Lab Routine Iron deficiency anemia, unspecified iron deficiency anemia type Expected: 08/30/2023 (Approximate), Expires: 08/29/2024 documented as of this encounter Visit Diagnoses Diagnosis Iron deficiency anemia, unspecified iron deficiency anemia type- Primary documented in this encounter Care Teams Dental Insurance Coordinator Relationship Specialty Start Date End Date Jean Pierre Urena MD [address] [place] [address] PCP - General Family Medicine 07/04/23 02/13/24 Anny Bruce NP [address] [place] [address] PCP - [facility] 09/23/2304/10 Unallocated, Noms Provider, [address] [place] [address] PCP - General Family Medicine 02/14/24 02/21/24 Jean Pierre Urena MD [address] [place] [address] PCP - General Family Medicine 02/22/24 Anny Bruce NP [address] [place] [address] Nurse Practitioner Family Medicine 04/24/22 02/13/24 Anny Bruce NP [address] [place] [address] Nurse Practitioner Family Medicine 07/04/23 Ayaka Teran, [facility]- [address] [place] [address] [place] [address] Nurse Practitioner Behavioral Health 10/16/24 10/16/24 Rony Calvillo MD [facility], [address] [place] [address] Referring Physician Cardiology 10/16/24 documented as of this encounter
--- OUTSIDE RECORDS SUMMARY | 2024-10-31 15:42 | XMS_ITS | Encounter Summary ---
Author Organization [facility] Address [address] [place] [address] Care Team Providers Care Engraving Plate Maker Name Role Phone Anny Bruce NP Unavailable [phone] Jean Pierre Urena MD Primary Care Provider [phone] Jean Pierre Urena MD Primary Care Provider [phone] Anny Bruce NP Unavailable [phone] Anny Bruce NP Unavailable [phone] Unallocated, Noms Provider Primary Care Provi lili Jean Pierre Urena MD Primary Care Provider [phone] Ayaka Teran [facility] Unavailable [phone] Rony Calvillo MD Unavailable [phone] Encounter Details Date Type Department Care Team (Late st Contact Info) Description 04/24/2023 Abstract [facility] [address] [place] [address] Anny Bruce PRINT ROOM WORKER [address] [place] [place] [address] Social History Tobacco Use Types Packs/Day Years Used Date Smoking Tobacco: Never Tobacco Cessation:Counseling Given: Not Answered [...] How often do you attend chur or mosque services? More than 4 times per year 04/04/2023 Do you belong to any clubs o r organizations such as religious groups, unions, fraternal or athletic groups, or [...] care, and heating? Not very hard 04/04/2023 [facility] of Occupat ional Health - Occupational Stress [...] place to sleep or slept in a halfway (including now)? No 04/04/2023 Sex and Gender [...] Office Visit [facility] [address] [place] [address] Anny Bruce NP [address] [place] [address] documented as of this encounter Visit Diagnoses Not on filedocumented in this encounter Care Teams Engraving Plate Maker Relationship Specialty Start Date End Date Jean Pierre Urena MD [address] [place] [address] PCP - General Family Medicine 03/22/23 07/03/23 Jean Pierre Urena MD [address] [place] [address] PCP - General Family Medicine 07/04/23 02/13/24 Anny Bruce NP [address] [place] [address] PCP - [facility] 09/23/2304/10 Unallocated, Eulalio Pemberton MD [address] [place] [address] PCP - General Family Medicine 02/14/24 02/21/24 Jean Pierre Urena MD [address] [place] [address] PCP - General Family Medicine 02/22/24 Anny Bruce NP [address] [place] [address] Nurse Practitioner Family Medicine 04/24/22 02/13/24 Anny Bruce NP [address] [place] [address] Nurse Practitioner Family Medicine 07/04/23 Ayaka Teran [facility]- [address] [place] [address] [place] [address] Nurse Practitioner Behavioral Health 10/16/24 10/16/24 Rony Calvillo MD [facility], [address] [place] [address] Referring Physician Cardiology 10/16/24 documented as of this encounter
--- OUTSIDE RECORDS SUMMARY | 2024-10-31 15:42 | XMS_ITS | Patient Health Record ---
Author Organization [facility] Address [address] [place] [address] Care Team Providers Care Building Rigger Name Role Phone Anny Bruce CNP Primary Care Provider Unavail able Brandy Gusman Unavailable [phone] Reason For Referral No Information Encounters Encounter Location Date Provider Diagnosis [facility] [address] [place] [address] 06/18/2024 Brandy Gusman Plan Of Treatment Pending Test Test Name Order Date BMP w/GFR 08/15/2023 CBC AND AUTO DIFF * 08/15/2023 CBC AUTO DIFF 09/12/2023 CBC AUTO DIFF 10/17/2023 FERRITIN 09/12/2023 FERRITIN 10/17/2023 IRON AND TIBC 10/17/2023 IRON AND TIBC 09/12/2023 LDH 09/12/2023 Vitamin B12 09/12/2023 Reticulocyte Pct Auto 09/12/2023 Hgb Fractionation [place] 09/12/2023 Hgb Fractionation [place] 10/17/2023 Next Appt Details Provider Name:Brandy Gusman , 12/24/2024 11:00:00 AM, [address] [place], [address], Insurance Providers Payer Name Payer Address Payer Phone Subscriber Number Group Number Insured Name Patient Relationship to Insured Coverage Start Date Coverage End Date [employer] [address] [place] [address] [id number] Reese Emerson Self - patient is the insured
--- OUTSIDE RECORDS SUMMARY | 2024-10-31 15:42 | XMS_ITS | Encounter Summary ---
Author Organization [facility] Address [address] [place] [address] Care Team Providers Care Tempering Oven Operator Name Role Phone Anny Bruce NP Unavailable [phone] Jean Pierre Urena MD Primary Care Provider [phone] Anny Bruce NP Unavailable [phone] Anny Bruce NP Unavailable [phone] Unallocated, Noms Provider Primary Care Provi lili Jean Pierre Urena MD Primary Care Provider [phone] Ayaka Teran [facility]- Unavailable [phone] Rony Calvillo MD Unavailable [phone] Encounter Details Date Type Department Care Team (Late st Contact Info) Description 08/21/2023 Orders Only [facility] [address] [place] [address] Anny Bruce FRENCH BINDING FOLDER [address] [place] [address] Iron deficiency anemia, unspecified iron deficiency anemia [...] How often do you attend chur or baptist services? More than 4 times per year 04/04/2023 Do you belong to any clubs o r organizations such as sabianism groups, unions, fraternal or athletic groups, or [...] Recorded Patient Health Questionnaire-2 Score 0 08/02/2023 [facility] of Occupat ional Health - [...] No 04/04/2023 Housing Stability Vital Sign Answer Kevne e Recorded In the last 12 months, [...] place to sleep or slept in a mcc (including now)? No 04/04/2023 Sex and Gender [...] Visit [facility] [address] [place] [address] Anny Bruce NP [address] [place] [address] Scheduled Orders Name Type Priority Associated Diagnoses Orde r Schedule Occult blood x 1, stool Lab Routine Iron deficiency anemia, unspecified iron deficiency anemia type Expected: 08/21/2023 (Approximate), Expires: 08/20/2024 documented as of this encounter Visit Diagnoses Diagnosis Iron deficiency anemia, unspecified iron deficiency anemia type- Primary documented in this encounter Care Teams Tempering Oven Operator Relationship Specialty Start Date End Date Jean Pierre Urena MD [address] [place] [address] PCP - General Family Medicine 07/04/23 02/13/24 Anny Bruce NP [address] [place] [address] PCP - [facility] 09/23/2304/10 Unallocated, Mehuls MD [address] [place] [address] PCP - General Family Medicine 02/14/24 02/21/24 Jean Pierre Urena MD [address] [place] [address] PCP - General Family Medicine 02/22/24 Anny Bruce NP [address] [place] [address] Nurse Practitioner Family Medicine 04/24/22 02/13/24 Anny Bruce NP [address] [place] [address] Nurse Practitioner Family Medicine 07/04/23 Ayaka Teran [facility] [address] [facility] [place] [address] Nurse Practitioner Behavioral Health 10/16/24 10/16/24 Rony Calvillo MD [facility], [address] [place] [address] Referring Physician Cardiology 10/16/24 documented as of this encounter
--- OUTSIDE RECORDS SUMMARY | 2024-10-31 15:42 | XMS_ITS | Encounter Summary ---
Author Organization [facility] Address [address] [place] [address] Care Team Providers Care Dimension Mill Worker Name Role Phone Anny Bruce NP Unavailable [phone] Jean Pierre Urena MD Primary Care Provider [phone] Jean Pierre Urena MD Primary Care Provider [phone] Anny Bruce NP Unavailable [phone] Anny Bruce NP Unavailable [phone] Unallocated, Noms Provider Primary Care Provi lili Jean Pierre Urena MD Primary Care Provider [phone] Ayaka Teran [facility] Unavailable [phone] Rony Calvillo MD Unavailable [phone] Reason for Visit * Reason Comments Med Refill Encounter Details Date Type Department Care Team (Late st Contact Info) Description 05/17/2023 Refill [facility] [address] [place] [address] Anny Bruce, PANEL MONITOR [address] [place] [address] RLS (restless legs syndrome) (Primary Dx); Restless legs syndrome Social History Tobacco Use Types Packs/Day Years [...] declined 04/04/2023 How often do you attend [facility] or christian services? More than 4 times per year 04/04/2023 Do you belong to any clubs o r organizations such as baptist groups, unions, fraternal or athletic groups, or [...] care, and heating? Not very hard 04/04/2023 [facility] of Occupat ional Health - Occupational Stress [...] place to sleep or slept in a prison (including now)? No 04/04/2023 Sex and Gender Information Value Date Recorded Sex Assigned at Not on file Legal Sex Male 8:21 PM EDT Gender Identity Not on file Sexual Orientation Not on file documented as of this encounter Miscellaneous Notes * Telephone Encounter - JOSÉ HUMPHRIES - 05/22/2023 4:04 PM EST Pt called needing a refill on his gabapentin (Neurontin) 600 MG tablet and pramipexole (Mirapex) [facility] [place] documented in this encounter Plan of Treatment Upcoming Encounters Date Type Department Care Team (Late st Contact Info) Description 12/04/2024 8:40 AM EDT Office Visit [facility] [address] [place] [address] Anny Bruce NP [address] [place] [address] documented as of this encounter Visit Diagnoses Diagnosis RLS (restless legs syndrome)- Primary Restless legs syndrome (RLS) Restless legs syndrome Restless legs syndrome (RLS) documented in this encounter Care Teams Dimension Mill Worker Relationship Specialty Start Date End Date Jean Pierre Urena MD [address] [place] [address] PCP - General Family Medicine 03/22/23 07/03/23 Jean Pierre Urena MD [address] [place] [address] PCP - General Family Medicine 07/04/23 02/13/24 Anny Bruce NP [address] [place] [address] PCP - [facility] 09/23/2304/10 Unallocated, Eulalio Pemberton MD [address] [place] [address] PCP - General Family Medicine 02/14/24 02/21/24 Jean Pierre Urena MD [address] [place] [address] PCP - General Family Medicine 02/22/24 Anny Bruce NP [address] [place] [address] Nurse Practitioner Family Medicine 04/24/22 02/13/24 Anny Bruce NP [address] [facility] [place] [address] Nurse Practitioner Family Medicine 07/04/23 Ayaka Teran [facility]- [address] [address] Nurse Practitioner Behavioral Health 10/16/24 10/16/24 Rony Calvillo MD [address] [place] [address], [address] [place] [address] Referring Physician Cardiology 10/16/24 documented as of this encounter
--- OUTSIDE RECORDS SUMMARY | 2024-10-31 15:42 | XMS_ITS | Encounter Summary ---
Author Organization [employer] s tem Address [id number] [address] [place] [address] Care Team Providers Care Reading Assistant Name Role Phone Janis Anny Earle FREIGHT ASSOCIATE-[facility] Primary Care Provider Reason for Visit * Reason Comments Med Refill Encounter Details Date Type Department Care Team (Late st Contact Info) Description 06/02/2024 Refill [facility] [address] [place] [phone] Nicky Dumont [facility] [address] [place] [address] Med Refill Social History Tobacco Use Types Packs/Day Years Used Date Smoking Tobacco: Never Smokeless Tobacco: Never Alcohol Use Standard Drinks/Week Comments No 0 (1 standard drink = 0.6 oz pur e alcohol) [facility] Utilities Answer Date Recorded In the past 12 months has e [employer], gas, oil, or water company threatened to shut off services in your [...] encounter Miscellaneous Notes * Telephone Encounter - Kylee Ragland RN - 06/02/2024 11:17 AM EST DISCONTINUED documented in this encounter Plan of Treatment Upcoming Encounters Date Type Department Care Team (Late st Contact Info) Description 11/22/2024 9:00 AM EDT Clinical Support [facility] [address] [place] [address] DR MART[address]Z [address] [place] [phone] 11/22/2024 9:45 AM EDT Office Visit [facility] [address] [place] [address] DR MARTINEZ [address] [place] [phone] Rony Calvillo MD [address] [facility], [address] [place], [place] [phone] documented as of this encounter Visit Diagnoses Not on filedocumented in this encounter Care Teams Reading Assistant Relationship Specialty Start Date End Date Anny Bruce, FREIGHT ASSOCIATE-INSTRUMENT SPECIALIST PCP - General Nurse Practitioner 04/27/22 documented as of this encounter
--- OUTSIDE RECORDS SUMMARY | 2024-10-31 15:42 | XMS_ITS | Encounter Summary ---
Author Organization Nagi tem Address [facility] [place]-[id number] [address] [place] [address] Care Team Providers Care Foreman Shipping Department Name Role Phone ReglaAnny canales Earle STERILE PROCESS COORDINATOR-CORE CUTTER AND REAMER Primary Care Provider Reason for Visit * Reason Comments Med Refill Encounter Details Date Type Department Care Team (Late st Contact Info) Description 02/03/2018 Refill [facility] [address] [place] [address] [address] [place] [phone] Jyoti Billy APRN-CORE CUTTER AND REAMER [address] [place] [address] Med Refill Social History Tobacco Use Types Packs/Day Years Used Date Smoking Tobacco: Never Smokeless Tobacco: Never Alcohol Use Standard Drinks/Week Comments No 0 (1 standard drink = 0.6 oz pur e alcohol) Sex and Gender Information Value Date Recorded Sex Assigned at Not on file Legal Sex Male 11:35 AM EDT Gender Identity Not on file Sexual Orientation Not on file documented as of this encounter Plan of Treatment Upcoming Encounters Date Type Department Care Team (Late Contact Info) Description 11/22/2024 9:00 AM EDT Clinical Support [facility] [address] [place] [address] 11/22/2024 9:45 AM EDT Office Visit [facility] [address] [facility] [address] [place] [address] Rony Calvillo MD [address] [facility], [address] [place] [address] documented as of this encounter Visit Diagnoses Not on filedocumented in this encounter Care Teams Foreman Shipping Department Relationship Specialty Start Date End Date Anny Bruce APRN-CORE CUTTER AND REAMER PCP - General Nurse Practitioner 04/27/22 documented as of this encounter
--- OUTSIDE RECORDS SUMMARY | 2024-10-31 15:42 | XMS_ITS | Encounter Summary ---
Author Organization [employer] s tem Address [facility] [place][id number] [address] [place] [address] Care Team Providers Care Predatory Animal Hunter Name Role Phone Christiana Brucea Earle [facility] Primary Care Provider Reason for Visit * Reason Comments Med Refill Encounter Details Date Type Department Care Team (Late st Contact Info) Description 07/27/2023 Refill [facility] [address] [place] [phone] Kimberly Kuo, [facility] [address] [place] [address] Med Refill Social History Tobacco Use Types [...] encounter Miscellaneous Notes * Telephone Encounter - Priscilla Salas LPN - 07/27/2023 9:12 AM EDT Last ov 06/23/22 Cbc/cmp For further refills, pt needs an ov and to complete cbc/cmp labs as ordered. Carbon Brusher Assembler attempt to contact pt, lmom. Letter mailed to pt. documented in this encounter Plan of Treatment Upcoming Encounters Date Type Department Care Team (Late st Contact Info) Description 11/22/2024 9:00 AM EDT Clinical Support [facility] [address] [place] [address] [address] [place] [address] 11/22/2024 9:45 AM EDT Office Visit [facility] [address] [place] [address] [address] [place] [address] Rony Calvillo MD [address] [facility], [address] [place], [place] [phone] documented as of this encounter Visit Diagnoses Diagnosis Paroxysmal atrial tachycardia- Primary Paroxysmal supraventricular tachycardia documented in this encounter Care Teams Predatory Animal Hunter Relationship Specialty Start Date End Date Anny Bruce, BALING MACHINE TENDER-LINK TRAINER OPERATOR PCP - General Nurse Practitioner 04/27/22 documented as of this encounter
--- OUTSIDE RECORDS SUMMARY | 2024-10-31 15:42 | XMS_ITS | Encounter Summary ---
Author Organization [facility] Address [address] [place] [address] Care Team Providers Care Windsurfing Instructor Name Role Phone Anny Bruce NP Unavailable [phone] Jean Pierre Urena MD Primary Care Provider [phone] Anny Bruce NP Unavailable [phone] Anny Bruce NP Unavailable [phone] Unallocated, Noms Provider Primary Care Provi lili Jean Pierre Urena MD Primary Care Provider [phone] Ayaka Teran [facility]- Unavailable [phone] Rony Calvillo MD Unavailable [phone] Encounter Details Date Type Department Care Team (Late st Contact Info) Description 09/21/2023 Orders Only [facility] [address] [place] [address] Anny Bruce PERSONAL LINES APPRAISER [address] [place] [address] Social History Tobacco Use Types Packs/Day Years [...] How often do you attend chur or pentecostal services? More than 4 times per year 04/04/2023 Do you belong to any clubs o r organizations such as temple groups, unions, fraternal or athletic groups, or [...] Recorded Patient Health Questionnaire-2 Score 0 08/02/2023 [facility] Occupat ional Health - Occupational Stress [...] Visit [facility] [address] [place] [address] Anny Bruce NP [address] [place] [address] documented as of this encounter Procedures Procedure Name Priority Date/Time Associated Diagnosis Comments MISCELLANEOUS LAB TEST Routine 09/21/2023 1:56 PM EDT documented in this encounter Results * - Miscellaneous Test (09/21/2023 1:56 PM EDT) Anny Bruce PERSONAL LINES APPRAISER LAB BLOOD ORDERABLES Final Resu lt documented in this encounter Visit Diagnoses Not on filedocumented in this encounter Care Teams Windsurfing Instructor Relationship Specialty Start Date End Date Jean Pierre Urena MD [address] [place] [address] PCP - General Family Medicine 07/04/23 02/13/24 Anny Bruce NP [address] [place] [address] PCP - [facility] 09/23/2304/10 Unallocated, Noms MD Nilay [address] [place] [address] PCP - General Family Medicine 02/14/24 02/21/24 Jean Pierre Urena MD [address] [place] [address] PCP - General Family Medicine 02/22/24 Anny Bruce NP [address] [place] [address] Nurse Practitioner Family Medicine 04/24/22 02/13/24 Anny Bruce NP [address] [place] [address] Nurse Practitioner Family Medicine 07/04/23 Ayaka Teran [facility] [address] [facility] [place] [phone] Nurse Practitioner Behavioral Health 10/16/24 10/16/24 Rony Calvillo MD [address] [place] [address], [address] [place] [address] Referring Physician Cardiology 10/16/24 documented as of this encounter
--- OUTSIDE RECORDS SUMMARY | 2024-10-31 15:42 | XMS_ITS | Encounter Summary ---
Author Organization [employer] tem Address [facility] [place]-[id number] [address] [place] [address] Care Team Providers Care Panel Machine Setter Name Role Phone ReglaAnny canales Earle PHYSICAL THERAPY INSTRUCTOR-[facility] Primary Care Provider Reason for Visit * Reason Comments Med Refill Encounter Details Date Type Department Care Team (Late st Contact Info) Description 05/04/2020 Refill [facility] [address] [place] [address] Nicky Dumont APRN-[facility] [address] [place] [address] Med Refill Social History Tobacco Use Types [...] Support [facility] [address] [place] [address] 11/22/2024 9:45 AM EDT Office Visit [facility] [address] [place] [address] Rony Calvillo MD [address] [facility], [address] [place] [address] documented as of this encounter Visit Diagnoses Not on filedocumented in this encounter Care Teams Panel Machine Setter Relationship Specialty Start Date End Date Anny Bruce APRN-BILLING AND ACCOUNTING STAFF ASSISTANT PCP - General Nurse Practitioner 04/27/22 documented as of this encounter
--- OUTSIDE RECORDS SUMMARY | 2024-10-31 15:42 | XMS_ITS | Encounter Summary ---
Author Organization [facility] tem Address [facility] [place]-[id number] [address] [place] [address] Care Team Providers Care Zmt Operator Name Role Phone ReglalocoliverioAnny Earle [facility] Primary Care Provider Encounter Details Date Type Department Care Team (Late Contact Info) Description 06/23/2022 Orders Only [facility] [address] [place] [phone] Kimberly Kuo, [facility] [address] [place] [address] Dilated cardiomyopathy ([facility]) Social History Tobacco Use Types Packs/Day Years [...] have Coronavirus / COVID-19? No / Unsure 06/23/2022 8:00 AM EST documented as of this encounter Plan of Treatment Upcoming Encounters Date Type Department Care Team (Late Contact Info) Description 11/22/2024 9:00 AM EDT Clinical Support [facility] [address] [facility] [address] [place] [address] 11/22/2024 9:45 AM EDT Office Visit [facility] [address] [place] [address] [address] [place] [address] Rony Calvillo MD [address] [facility], [address] [place], [place] [phone] documented as of this encounter Procedures Procedure Name Priority Date/Time Associated Diagnosis Comments DEVICE INTERROGATION Routine 06/23/2022 Dilated cardiomyopathy (CMS-HCC) documented in this encounter Results * Device Interrogation (06/23/2022) Anatomical Region Laterality Modality Other Kimberly Kuo APRN-MANAGER CATH LAB CV CARDIAC SERV ICES ORDERABLES Final Result documented in this encounter Visit Diagnoses Diagnosis Dilated cardiomyopathy (CMS-HCC) Other primary cardiomyopathies documented in this encounter Care Teams Zmt Operator Relationship Specialty Start Date End Date Anny Bruce APRN-MANAGER CATH LAB PCP - General Nurse Practitioner 04/27/22 documented as of this encounter
--- OUTSIDE RECORDS SUMMARY | 2024-10-31 15:42 | XMS_ITS | Encounter Summary ---
Author Organization Team[employer] tem Address [facility] [place]-[id number] [address] [place] [address] Care Team Providers Care Medical Concierge Name Role Phone ReglaAnny canales Earle BREAKER LAYER-ELECTRIFIER OPERATOR Primary Care Provider Reason for Visit * Reason Comments Med Refill Encounter Details Date Type Department Care Team (Late st Contact Info) Description 04/14/2020 Refill [facility] [address] [place] [address] Gayla Manuel, [facility] [address] [place] [address] Med Refill Social History Tobacco Use Types [...] Support [facility] [address] [place] [address] 11/22/2024 9:45 AM EDT Office Visit [facility] [address] [place] [address] Rony Calvillo MD 2751 [facility], [address] [place] [address] documented as of this encounter Visit Diagnoses Not on filedocumented in this encounter Care Teams Medical Concierge Relationship Specialty Start Date End Date Anny Bruce, ORIN-ELECTRIFIER OPERATOR PCP - General Nurse Practitioner 04/27/22 documented as of this encounter
--- OUTSIDE RECORDS SUMMARY | 2024-10-31 15:42 | XMS_ITS | Encounter Summary ---
Author Organization [employer] tem Address [facility] [place]-[id number] [address] [place] [address] Care Team Providers Care Valve Inserter Name Role Phone Anny Bruce Primary Care Provider Reason for Visit * Reason Onset Date Comments Med Refill 11/08/2016 Encounter Details Date Type Department Care Team (Late st Contact Info) Description 11/08/2016 Refill [facility] [address] [place] [address] [address] [place] [address] Zyara Brian RN Med Refill Social History Tobacco Use Types Packs/Day Years Used Date Smoking Tobacco: Never Assessed Sex and Gender Information Value Date Recorded Sex Assigned at Not on file Legal Sex Male 11:35 AM EDT Gender Identity Not on file Sexual Orientation Not on file documented as of this encounter Plan of Treatment Upcoming Encounters Date Type Department Care Team (Late st Contact Info) Description 11/22/2024 9:00 AM EDT Clinical Support [facility] [address] [place] [address] 11/22/2024 9:45 AM EDT Office Visit [facility] Y[facility] [facility] [address] [place] [address] Rony Calvillo MD 275[address] [facility], [address] [place], [place] [phone] documented as of this encounter Visit Diagnoses Not on filedocumented in this encounter Care Teams Valve Inserter Relationship Specialty Start Date End Date Anny Bruce APRN-CNP PCP - General Nurse Practitioner 04/27/22 documented as of this encounter
--- OUTSIDE RECORDS SUMMARY | 2024-10-31 15:42 | XMS_ITS | Encounter Summary ---
Author Organization [facility] Address [address] [place] [address] Care Team Providers Care Orchestra Leader Name Role Phone Anny Bruce PEER TUTOR Unavailable [phone] Jean Pierre Urena MD Primary Care Provider [phone] Anny Bruce PEER TUTOR Unavailable [phone] Anny Bruce NP Unavailable [phone] Unallocated, Noms Provider Primary Care Provi lili Jean Pierre Urena MD Primary Care Provider [phone] Ayaka Teran [facility]- Unavailable [phone] Rony Calvillo MD Unavailable [phone] Reason for Visit * Reason Comments Med Refill Encounter Details Date Type Department Care Team (Late st Contact Info) Description 11/28/2023 Refill [facility] [address] [place] [address] Anny Bruce PEER TUTOR [address] [place] [phone] Acute bronchitis, unspecified; Lumbago with sciatica, left side Social History Tobacco Use Types Packs/Day Years [...] How often do you attend chur or druze services? More than 4 times per year 04/04/2023 Do you belong to any clubs o r organizations such as mosque groups, unions, fraternal or athletic groups, or [...] Recorded Patient Health Questionnaire-2 Score 0 08/02/2023 [facility] Occupat ional Health - Occupational [...] place to sleep or slept in a care home (including now)? No 04/04/2023 Sex and Gender Information Value Date Recorded Sex Assigned at Not on file Legal Sex Male 8:21 PM EDT Gender Identity Not on file Sexual Orientation Not on file documented as of this encounter Miscellaneous Notes * Telephone Encounter - JOSÉ HUMPHRIES - 11/28/2023 3:38 PM EDT Pt called asking to get a refill on his albuteral inhaler. he is also asking to get the amitriptyline (Elavil) 50 MG tablet to 2 pills at night, he stated that Yamilet had him on 1-2 at night and he would take the 2 in which would get him through the night, if he takes 1 he is waking up by 3am and cannot get back to sleep. LA: done documented in this encounter Plan of Treatment Upcoming Encounters Date Type Department Care Team (Late st Contact Info) Description 12/04/2024 8:40 AM EDT Office Visit [facility] [address] [place] [address] Anny Bruce NP [address] [place] [address] documented as of this encounter Visit Diagnoses Diagnosis Acute bronchitis, unspecified Lumbago with sciatica, left side documented in this encounter Care Teams Orchestra Leader Relationship Specialty Start Date End Date Jean Pierre Urena MD [address] [place] [address] PCP - General Family Medicine 07/04/23 02/13/24 Anny Bruce NP [address] [place] [address] PCP - [facility] 09/23/2304/10 Unallocated, Eulalio Pemberton MD [address] [place] [address] PCP - General Family Medicine 02/14/24 02/21/24 Jean Pierre Urena MD [address] [place] [address] PCP - General Family Medicine 02/22/24 Anny Bruce NP [address] [place] [address] Nurse Practitioner Family Medicine 04/24/22 02/13/24 Anny Bruce NP [address] [facility] [place] [address] Nurse Practitioner Family Medicine 07/04/23 Ayaka Teran [facility]- [address] [address] Nurse Practitioner Behavioral Health 10/16/24 10/16/24 Rony Calvillo MD [address] [place] [address], [address] [place] [address] Referring Physician Cardiology 10/16/24 documented as of this encounter
--- OUTSIDE RECORDS SUMMARY | 2024-10-31 15:42 | XMS_ITS | Encounter Summary ---
Author Organization [employer] s tem Address [facility][id number] [address] [place] [address] Care Team Providers Care Water Pollution Control Technician Name Role Phone Janis Anny Earle [facility]WE[facility]OVER [facility] Primary Care Provider Reason for Visit * Reason Comments Med Refill Encounter Details Date Type Department Care Team (Late st Contact Info) Description 04/21/2023 Refill [facility] [address] [place] [address] Kimberly Kuo, ENGINEER SPECIALISTWE[facility]OVER [facility] [address] [place] [address] Med Refill Social History Tobacco Use Types [...] encounter Miscellaneous Notes * Telephone Encounter - Jyoti Gunter RN - 04/21/2023 2:48 PM EST OV 06/23/22, labs ordered at that time that have not been completed. 90 days only. Letter mailed to patient home. documented in this encounter Plan of Treatment Upcoming Encounters Date Type Department Care Team (Late st Contact Info) Description 11/22/2024 9:00 AM EDT Clinical Support [facility] [address] [place] [address] [address] [place] [address] 11/22/2024 9:45 AM EDT Office Visit [facility] [address] [place] [address] [address] [place] [address] Rony Calvillo MD [address] [facility], [address] [place] [address] documented as of this encounter Visit Diagnoses Diagnosis Dilated cardiomyopathy (CMS-HCC) Other primary cardiomyopathies Non-ischemic cardiomyopathy (CMS-HCC) Other primary cardiomyopathies ICD (implantable cardioverter-defibrillator) in place-[employer] documented in this encounter Care Teams Water Pollution Control Technician Relationship Specialty Start Date End Date Anny Bruce, ENGINEER SPECIALIST-SALES TRAINING COORDINATOR PCP - General Nurse Practitioner 04/27/22 documented as of this encounter
--- OUTSIDE RECORDS SUMMARY | 2024-10-31 15:42 | XMS_ITS | Encounter Summary ---
Author Organization [employer] s tem Address [id number] [address] [place] [address] Care Team Providers Care Shipping And Receiving Clerk Name Role Phone Anny Bruce BEEF TRIMMER-PICTURE COPYIST Primary Care Provider Reason for Visit * Reason Comments Med Refill Encounter Details Date Type Department Care Team (Late st Contact Info) Description 10/09/2024 Refill [facility] [address] [place] [address] Jyoti Billy [facility] [address] [place], [place] [phone] Med Refill Social History Tobacco Use Types Packs/Day Years Used Date Smoking Tobacco: Never Smokeless Tobacco: Never Alcohol Use Standard Drinks/Week Comments No 0 (1 standard drink = 0.6 oz pur e alcohol) [facility] Utilities Answer Date Recorded In the past 12 months has e electric, gas, oil, or water company threatened to [...] Telephone Encounter - Priscilla Salas LPN - 10/09/2024 9:10 AM EDT Signed 2 days ago documented in this encounter Plan of Treatment Upcoming Encounters Date Type Department Care Team (Late st Contact Info) Description 11/22/2024 9:00 AM EDT Clinical Support [facility] [address] [place] [address] [address]ART[address] [place] [address] 11/22/2024 9:45 AM EDT Office Visit [facility] [address] [place] [address] [address]ART[address] [place] [address] Rony Calvillo MD [address] [facility], [address] [place], [place] [phone] documented as of this encounter Visit Diagnoses Diagnosis Dilated cardiomyopathy (CMS-HCC) Other primary cardiomyopathies Non-ischemic cardiomyopathy (CMS-HCC) Other primary cardiomyopathies ICD (implantable cardioverter-defibrillator) in place-[employer]tr[employer] documented in this encounter Care Teams Shipping And Receiving Clerk Relationship Specialty Start Date End Date Anny Bruce, BEEF TRIMMER-PICTURE COPYIST PCP - General Nurse Practitioner 04/27/22 documented as of this encounter
--- NOTE | 2024-10-31 15:48 | XR_ITS ---
The [address] [address] Patient Name: TESS ZIMMERMAN MRN: [id number] date: 1965 Sex: M Assigned Patient Location: [facility] Current Patient Location: [facility] Accession/Order Number: [id number] Exam Date: 10/31/2024 22:14 Report Date: 10/31/2024 22:17 At the request of: SANTIAGO BELLA NP Procedure: XR lumbar spine 6V w bending XR lumbar spine 6V w bending 10/31/2024 4:15 PM SIGNS AND SYMPTOMS: Chronic right and left back pain radiating into lower extremities. PROTOCOLS: Frontal, lateral, oblique, and flexion-extension views of the lumbar spine COMPARISON: 09/24/2024 FINDINGS: There is 7 mm of retrolisthesis of L2 upon L3. There is no fracture or destructive lesion. No pathologic movement on flexion or extension. There is moderate severe disc height loss at L2-L3, L4-5, and L5-S1. There is mild disc height loss throughout otherwise. Facet degenerative changes are present throughout the lower lumbar spine. There is bridging anterior osteophyte formation at multiple levels progressing when compared to the prior exam suggesting diffuse etiopathic skeletal hyperostosis. The sacrum and sacroiliac joints are normal. XR/XR lumbar spine 6V w bending IMPRESSION: There is 7 mm of retrolisthesis of L2 upon L3. No pathologic movement on flexion or extension. Slight interval worsening of degenerative changes with findings suggesting diffuse etiopathic skeletal hyperostosis. Impression dictated by: Paul Meyers M.D. 10/31/2024 10:17 PM Dictation Location: [place] [address] Electronically authenticated by: [id number] Y Date: 10/31/2024 22:17
== END 2024-10-31 15:38 | disposition home or self-care (01) ==
LOC: RAD 15:39
PROVIDERS: PCP Nurse Practitioner; Visit Provider Nurse Practitioner
DX: M43.17 Spondylolisthesis, lumbosacral region (principal); M51.369 Other intervertebral disc degeneration, lumbar region without mention of lumbar back pain or lower extremity pain
CPT/HCPCS: 72114

== ENCOUNTER 2024-11-11 09:59 | Emergency (ER) | payer OTHER, SELFPAY ==
[2024-11-11 10:06] VITALS: BP 121/82; PULSE 96; TEMP 36.7; O2SAT 97; BMI 31.6
--- OUTSIDE RECORDS SUMMARY | 2024-11-11 10:33 | XMS_ITS | Encounter Summary ---
Author Organization [employer] Address [facility][id number] [address] [place] [address] Care Team Providers Care Anesthesiologist Physician Name Role Phone ReglamyriamChristiana calverta Earle TECHNICAL COMMUNICATION TEACHER-[facility] Primary Care Provider Reason for Visit * Reason Comments Med Refill Encounter Details Date Type Department Care Team (Late Contact Info) Description 02/14/2022 Refill [facility] [address] [facility] [address] [place] [address] Gisella Nolasco, TECHNICAL COMMUNICATION TEACHER-[facility] [address], [facility] [address] [place] [phone] Med Refill Social History Tobacco Use Types [...] AM EDT Clinical Support [facility] [address] [place] [address] [address] [place] [address] 11/22/2024 9:45 AM EDT Office Visit [facility] [address] [place] [address] [address] [place] [phone] Rony Calvillo MD [address] [facility], [address] [place] [address] documented as of this encounter Visit Diagnoses Not on filedocumented in this encounter Care Teams Anesthesiologist Physician Relationship Specialty Start Date End Date Anny Bruce, ORIN-MARKETING INFORMATION ANALYST PCP - General Nurse Practitioner 04/27/22 documented as of this encounter
--- OUTSIDE RECORDS SUMMARY | 2024-11-11 10:33 | XMS_ITS | Clinical Summary ---
Author Organization [facility] Address [address] [facility] [place] [address] Care Team Providers Care Sonar Technician Name Role Phone Anny Bruce NP Unavailable [phone] Jean Pierre Urena MD Primary Care Provider [phone] Rony Calvillo MD Unavailable Allergies Active Allergy Reactions Criticality Noted Date [...] 24 Active ergocalciferol (Vitamin D-2) 1.25 MG (42680 UT) capsuleIndicati ons:Vitamin D Deficiency Take 1.25 [...] at bedtime 60 tablet 3 10/04/19 25 Active FLUoxetine (PROzac) 40 MG capsuleIndicati ons:Anxiety and depression Take 1 capsule (40 mg) by mouth Daily 30 capsule 1 10/04/19 25 Active gabapentin (Neurontin) 600 MG tabletIndicatio ns:Lumbago with sciatica, left side Take 1 tablet (600 mg) by mouth every 8 (eight) hours 90 tablet 3 10/04/19 25 Active Ferric Maltol (ACCRUFeR) 30 MG capsuleIndicati [...] 24 025 Discontin ued(Thera py completed ) ACCRUFeR 30 MG capsule TAKE 1 CAPSULE BY MOUTH TWICE DAILY (IN THE MORNING and BEFORE bedtime) 07/19/19 025 Discontin ued(Reord er) Active Problems Problem [...] Plan (10/03/2024 6:52 AM EDT): Continues with malgorzata, has fu [...] AM EST): Takes gabapentin and elavil at [facility] reviewed Assessment & Plan (01/03/2024 11:37 [...] (07/04/2023): Added automatically from request for surgery [id number] Assessment & Plan (10/03/2024 6:51 AM EDT): [...] (08/07/2023 11:48 AM EDT): Working w his human resources intern in regards to med titration as well [...] puffs BID, rinse mouth after use Lot: [id number] exp 04/18 #1 sample Oral thrush 07/04/2023 [...] Encounters Date Type Department Care Team Description 11/05/2024 Telephone [facility] [address] [place] [address] Anny Bruce NP 11/05/2024 Telephone [facility] [address] [place] [address] Anny Bruce NP 10/31/2024 Clinisync Result Encounter [facility] External Department Unsolicited Anny Bruce NP 10/16/2024 9:00 AM EDT Office Visit [facility] [address] [place] [address] Ayaka Teran [facility]- Mild episode of recurrent major depressive disorder ; History of alcohol abuse; Vitamin D deficiency 10/16/2024 Bamboo flowsheet [facility] [address] [facility] [address] [place] [address] Ayaka Teran PMHNP- 10/16/2024 Travel 10/15/2024 Orders Only [facility] [address] [place] [address] Anny Bruce NP Acquired spondylolisthesis of lumbosacral region (Primary Dx) 10/14/2024 Refill [facility] [address] [place] [address] Anny Bruce NP Iron deficiency anemia, unspecified iron deficiency anemia type (Primary Dx) 10/14/2024 Clinisync Result Encounter [facility] External Department Unsolicited Anny Bruce NP 10/09/2024 Refill [facility] [address] [place] [address] Anny Bruce NP Iron deficiency anemia, unspecified 10/08/2024 Telephone [facility] [address] [place] [address] Anny Bruce NP 10/03/2024 1:40 PM EDT Office Visit [facility] [address] [place] [address] Anny Bruce NP Primary hypertension (Primary Dx); [...] Restless legs syndrome 10/03/2024 Bamboo flowsheet [facility] M [address] [place] [address] Anny Bruce NP 09/02/2024 Telephone [facility] [address] [place] [address] Anny Bruce NP 08/29/2024 Refill [facility] [address] [place] [address] Anny Bruce NP Subacute maxillary sinusitis (Primary Dx) 08/26/2024 Telephone [facility] [address] [place] [address] Anny Bruce NP from Last 3 Months Family History Medical History Relation Name Comments Asthma Father Gt Emerson Heart disease Father Gt Emerson Alcohol abuse Father's Brother Uncle Berny. Uncle Alt on 2 brother Fibromyalgia Mother Harlene Lung cancer Mother Harlene Alcohol abuse Mother's Sister Cerebral palsy Sister Elizabeth Emerson Seizures Sister Elizabeth Emesron Relation Name Status Comments Father Gt Emerson Father's Brother Uncle Berny. Uncle [place] Alive Mother Harlene Alive Mother's Sister [...] How often do you attend chur or taoism services? More than 4 times per year 04/04/2023 Do you belong to any clubs o r organizations such as presybeterian groups, unions, fraternal or athletic groups, or [...] Recorded Patient Health Questionnaire-2 Score 2 10/16/2024 [facility] [...] EDT Office Visit [facility] [address] [place] [address] Anny Bruce NP [address] [place] [address] Health Maintenance Due Date Last Done Comments CT Colonography 1965 FIT 1965 FOBT 1965 Sigmoidoscopy 1965 FIT-DNA 12/20/2025 12/20/2022 Colonoscopy 09/18/2033 09/19/2023, 09/19/2023 Colorectal Cancer Screening 09/18/2033 Influenza Vaccine Discontinued Procedures Procedure Name Priority Date/Time Associated Diagnosis Comments XR LUMBAR SPINE 6V W BENDING 10/31/2024 10:17 PM EDT XR LUMBAR SPINE 2 OR 3V 10/14/2024 10:35 AM EDT from Last 3 Months Results * XR LUMBAR SPINE 6V W BENDING (10/31/2024 10:17 PM EDT) Anatomical Region Laterality Modality Other 10/31/2024 10:1 7 PM EDT Narrative 10/31/2024 10:20 [place] [address] XRay Report Signed Patient: REESE EMERSON MR#: [id number] : 1965 Acct:[id number] Age/Sex: 59 / M ADM Date: 10/31/24 Loc: RAD Attending Dr: Anny Bruce NP Ordering Physician: Anny Bruce NP Date of Service: 10/31/24 Procedure(s): XR lumbar spine 6V w bending Accession Number(s): [id number] cc: Anny Bruce NP [place] [address] Patient Name: REESE EMERSON MRN: [id number] date: 1965 Sex: M Assigned Patient Location: [facility] Current Patient Location: [facility] Accession/Order Number: [id number] Exam Date: 10/31/2024 22:14 Report Date: 10/31/2024 22:17 At the request of: ANNY BRUCE NP Procedure: XR lumbar spine 6V w bending XR lumbar spine 6V w bending 10/31/2024 4:15 PM SIGNS AND SYMPTOMS: Chronic right and left back pain radiating into lower extremities. PROTOCOLS: Frontal, lateral, oblique, and flexion-extension views of the lumbar spine COMPARISON: 09/24/2024 FINDINGS: There is 7 mm of retrolisthesis of L2 upon L3. There is no fracture or destructive lesion. No pathologic movement on flexion or extension. There is moderate severe disc height loss at L2-L3, L4-5, and L5-S1. There is mild disc height loss throughout otherwise. Facet degenerative changes are present throughout the lower lumbar spine. There is bridging anterior osteophyte formation at multiple levels progressing when compared to the prior exam suggesting diffuse etiopathic skeletal hyperostosis. The sacrum and sacroiliac joints are normal. XR/XR lumbar spine 6V w bending IMPRESSION: There is 7 mm of retrolisthesis of L2 upon L3. No pathologic movement on flexion or extension. Slight interval worsening of degenerative changes with findings suggesting diffuse etiopathic skeletal hyperostosis. Impression dictated by: Paul Meyers M.D. 10/31/2024 10:17 PM Dictation Location: [place] [address] Electronically authenticated by: [id number] Y Date: 10/31/2024 22:17 Dictated By: Paul Meyers M.D. Signed By: 10/31/242219 DD/ 16 TD/TT: Electrical Lineworker: Procedure Note Radiology, Radiologist, MD - 10/31/2024 [place] [address] XRay Report Signed Patient: REESE EMERSON R#: [id number] : 1965Acct:[id number] Age/Sex: 59 / MADM Date: 10/31/24 Loc: RAD Attending Dr: Anny Bruce NP Ordering Physician: Anny Bruce NP Date of Service: 10/31/24 Procedure(s): XR lumbar spine 6V w bending Accession Number(s): [id number] cc: Anny Bruce NP [place] [address] Patient Name: REESE EMERSON MRN: [facility]:[id number] date: 1965 Sex: M Assigned Patient Location: [facility] Current Patient Location: [facility] Accession/Order Number: [id number] Exam Date: 10/31/2024 22:14 Report Date: 10/31/2024 22:17 At the request of: ANNY BRUCE NP Procedure: XR lumbar spine 6V w bending XR lumbar spine 6V w bending 10/31/2024 4:15 PM SIGNS AND SYMPTOMS: Chronic right and left back pain radiating into lower extremities. PROTOCOLS: Frontal, lateral, oblique, and flexion-extension views of the lumbar spine COMPARISON: 09/24/2024 FINDINGS: There is 7 mm of retrolisthesis of L2 upon L3. There is no fracture or destructive lesion. No pathologic movement on flexion or extension. There is moderate severe disc height loss at L2-L3, L4-5, and L5-S1.There is mild disc height loss throughout otherwise. Facet degenerative changesare present throughout the lower lumbar spine. There is bridging anterior osteophyte formation at multiple levels progressing when compared to theprior exam suggesting diffuse etiopathic skeletal hyperostosis. The sacrum and sacroiliac joints are normal. XR/XR lumbar spine 6V w bending IMPRESSION: There is 7 mm of retrolisthesis of L2 upon L3. No pathologic movement on flexion or extension. Slight interval worsening of degenerative changes with findings suggesting diffuse etiopathic skeletal hyperostosis. Impression dictated by: Paul Meyers M.D. 10/31/2024 10:17 PM Dictation Location: [place] [address] Electronically authenticated by: [id number] Y Date: 2:17 Dictated By: Paul Meyers M.D. Signed By:10/31/242219 DD/ 16 TD/TT: Electrical Lineworker: us Anny Bruce NP [facility] Final Result * XR LUMBAR SPINE 2 OR 3V (10/14/2024 10:35 AM EDT) Anatomical Region Laterality Modality Radiographic Halley ging 10/14/2024 10:3 5 AM EDT Narrative 10/14/2024 10:37 [place] [address] XRay Report Signed Patient: REESE EMERSON MR#: [id number] : 1965 Acct:[id number] Age/Sex: 59 / M ADM Date: 10/14/24 Loc: RAD Attending Dr: Anny Bruce NP Ordering Physician: Anny Bruce NP Date of Service: 10/14/24 Procedure(s): XR lumbar spine 2-3V Accession Number(s): [id number] cc: Anny Bruce NP [place] [address] Patient Name: REESE EMERSON MRN: [id number] date: 1965 Sex: M Assigned Patient Location: [facility] Current Patient Location: [facility] Accession/Order Number: [id number] Exam Date: 10/14/2024 10:16 Report Date: 10/14/2024 [...] Spivey M.D. 10/14/2024 10:35 AM Dictation Location: [place] [address] Electronically authenticated by: [id number] Y Date: 10/14/2024 10:35 Dictated By: Kylee Spivey M.D. Signed By: 10/14/24 1037 DD/ 1035 TD/TT: Electrical Lineworker: Procedure Note Radiology, Radiologist, MD - 10/14/2024 [place] [address] XRay Report Signed Patient: REESE EMERSON RMR#: [id number] : 1965Acct:[id number] Age/Sex: 59 / MADM Date: 10/14/24 Loc: [facility] Attending Dr: Anny Bruce NP Ordering Physician: Anny Bruce NP Date of Service: 10/14/24 Procedure(s): XR lumbar spine 2-3V Accession Number(s): [id number] cc: Anny Bruce NP [place] [id number] Patient Name: REESE EMERSON MRN: [id number] date: 1965 Sex: M Assigned Patient Location: RAD Current Patient Location: [facility] Accession/Order Number: [id number] Exam Date: 10/14/2024 10:16 Report Date: 10/14/2024 [...] Spivey M.D. 10/14/2024 10:35 AM Dictation Location: [place] [address] Electronically authenticated by: [id number] Y Date: 0:35 Dictated By: Kylee Spivey M.D. Signed By:10/14/24 1037 DD/ 1035 TD/TT: Electrical Lineworker: Anny Bruce NP IMG XR PROCEDURES Final Result from Last 3 Months Insurance * Guarantor: Reese Emerson Account Type Relation to Patient Date of Phone Billing Address Personal/Family Self [address] [place] [address] [facility] Care Teams Sonar Technician Relationship Specialty Start Date End Date Jean Pierre Urena MD [address] [place] [address] PCP - General Family Medicine 02/22/24 Anny Bruce NP [address] [place] [address] Nurse Practitioner Family Medicine 07/04/23 Rony Calvillo MD [address] [place] [address], [place] [address] Referring Physician Cardiology 10/16/24
--- OUTSIDE RECORDS SUMMARY | 2024-11-11 10:33 | XMS_ITS | Encounter Summary ---
Author Organization [employer] Address [id number] [address] [place] [address] Care Team Providers Care Material Requisitioner Name Role Phone Anny Bruce Primary Care Provider Encounter Details Date Type Department Care Team (Late st Contact Info) Description 04/19/2022 [facility]phone [facility] [address] [place] [address] Rick Loomis APRN-CNP [address] [place] [address] Social History Tobacco Use Types Packs/Day Years [...] Needs to be reminded that CBC in [facility] have been ordered. Thank you * Telephone Encounter - Darío Hawkins RN - 04/19/2022 8:47 AM EST Refill protocol letter mailed to pt. documented in this encounter Plan of Treatment Upcoming Encounters Date Type Department Care Team (Late st Contact Info) Description 11/22/2024 9:00 AM EDT Clinical Support [facility] [address] [place] [address] [address] [place] [address] 11/22/2024 9:45 AM EDT Office Visit [facility] [address] [place] [address] [address] [place] [phone] Rony Calvillo MD [address] [facility], [address] [place] [address] documented as of this encounter Visit Diagnoses Not on filedocumented in this encounter Care Teams Material Requisitioner Relationship Specialty Start Date End Date Anny Bruce, ASSISTANCE SPECIALIST-STAMPING MILL TENDER PCP - General Nurse Practitioner 04/27/22 documented as of this encounter
--- OUTSIDE RECORDS SUMMARY | 2024-11-11 10:33 | XMS_ITS | Encounter Summary ---
Author Organization [employer] [facility] tem Address [facility][id number] [address] [place] [address] Care Team Providers Care Geriatric Aide Name Role Phone ReglaAnny canales Earle SR-CHEMICAL STRENGTH TESTER Primary Care Provider Reason for Visit * Reason Onset Date Comments RV impedance alert 06/16/2022 Encounter Details Date Type Department Care Team (Late st Contact Info) Description 06/16/2022 [facility] [address] [place] [address] Yaneth Hair RN RV impedance alert Social [...] chamber ICD, generator change on 03/08/17 by [facility] for primary prevention. Remote home monitoring alert [...] AM EDT Clinical Support [facility] [address] [place] [address] [address] [place] [address] 11/22/2024 9:45 AM EDT Office Visit [facility] [address] [place] [address] Rony Calvillo MD [address] [facility], [address] [place], [place] [address] documented as of this encounter Visit Diagnoses Not on filedocumented in this encounter Care Teams Geriatric Aide Relationship Specialty Start Date End Date Anny Bruce, PRODUCT DESIGNER-CHEMICAL STRENGTH TESTER PCP - General Nurse Practitioner 04/27/22 documented as of this encounter
--- OUTSIDE RECORDS SUMMARY | 2024-11-11 10:33 | XMS_ITS | Encounter Summary ---
Author Organization [facility] Address [address] [place] [address] Care Team Providers Care Paint Stock Clerk Name Role Phone Anny Bruce NP Unavailable [phone] Jean Pierre Urena MD Primary Care Provider [phone] Ayaka Teran [facility]- Unavailable Rony Calvillo MD Unavailable [phone] Reason for Visit * Reason Comments Med Refill Encounter Details Date Type Department Care Team (Late st Contact Info) Description 10/09/2024 Refill [facility] [address] [place] [address] Anny Bruce, BINGO CALLER [address] [place] [address] Iron deficiency anemia, unspecified Social History Tobacco [...] declined 04/04/2023 How often do you attend [facility] or sabianism services? More than 4 times per year 04/04/2023 Do you belong to any clubs o r organizations such as rastafarian groups, unions, fraternal or athletic groups, or [...] Recorded Patient Health Questionnaire-2 Score 0 08/02/2023 [facility] - [...] HUMPHRIES - 10/09/2024 11:06 AM EDT Text It Operations Specialist Avinash, this is Sebastian Emerson. I was [...] Visit [facility] [address] [place] [address] Anny Bruce NP [address] [place] [address] documented as of this encounter Visit Diagnoses Diagnosis Iron deficiency anemia, unspecified documented in this encounter Care Teams Paint Stock Clerk Relationship Specialty Start Date End Date Jean Pierre Urena MD [address] [place] [address] PCP - General Family Medicine 02/22/24 Anny Bruce NP [address] [place] [address] Nurse Practitioner Family Medicine 07/04/23 Ayaka Teran PMHNP- [address] [place] [address] [place] [address] Nurse Practitioner Behavioral Health 10/16/24 10/16/24 Rony Calvillo MD [address] [place] [address], [address] [place] [address] Referring Physician Cardiology 10/16/24 documented as of this encounter
--- OUTSIDE RECORDS SUMMARY | 2024-11-11 10:33 | XMS_ITS | Encounter Summary ---
Author Organization [employer] tem Address [id number] [address] [place] [address] Care Team Providers Care Content Architect Name Role Phone Christiana Brucea Earle MANAGER METROLOGY-AUTOMATIC NAILING MACHINE FEEDER Primary Care Provider Reason for Visit * Reason Comments Med Refill Encounter Details Date Type Department Care Team (Late st Contact Info) Description 02/19/2020 Refill [facility] [address] [facility] [address] [phone] Jyoti Billy APRN-AUTOMATIC NAILING MACHINE FEEDER [address] [place] [address] Med Refill Social History Tobacco Use Types [...] AM EDT Clinical Support [facility] [address] [place] [address] [address] [place] [address] 11/22/2024 9:45 AM EDT Office Visit [facility] [address] [place] [address] [address] [place] [address] Rony Calvillo MD [address] [facility], [address] [place], [place] [address] documented as of this encounter Visit Diagnoses Not on filedocumented in this encounter Care Teams Content Architect Relationship Specialty Start Date End Date Anny Bruce, MANAGER METROLOGY-AUTOMATIC NAILING MACHINE FEEDER PCP - General Nurse Practitioner 04/27/22 documented as of this encounter
--- OUTSIDE RECORDS SUMMARY | 2024-11-11 10:33 | XMS_ITS | Encounter Summary ---
Author Organization [employer] tem Address [id number] [address] [place] [address] Care Team Providers Care Soyfreeze Operator Name Role Phone ReglalocoliverioAnny Earle SR-TECHNICAL COMMUNICATION TEACHER Primary Care Provider Reason for Visit * Reason Comments Med Refill Encounter Details Date Type Department Care Team (Late st Contact Info) Description 05/13/2022 Refill [facility] [address] [place] [phone] Enrique Silva PA-C [address] [place] [address] Med Refill Social History Tobacco Use Types [...] AM EDT Clinical Support [facility] [address] [place] [address] [address] [place] [address] 11/22/2024 9:45 AM EDT Office Visit [facility] [address] [place] [address] [address] [place] [address] Rony Calvillo MD [address] [facility], [address] [place] [address] documented as of this encounter Visit Diagnoses Not on filedocumented in this encounter Care Teams Soyfreeze Operator Relationship Specialty Start Date End Date Anny Bruce, WINDOWS SECURITY ENGINEER-TECHNICAL COMMUNICATION TEACHER PCP - General Nurse Practitioner 04/27/22 documented as of this encounter
--- OUTSIDE RECORDS SUMMARY | 2024-11-11 10:33 | XMS_ITS | Encounter Summary ---
Author Organization [employer] tem Address [facility] [id number] [address] [place] [address] Care Team Providers Care Flush Tester Name Role Phone Christiana Brucea Earle SURFACE GRINDER-LIVE SOURCE OPERATOR Primary Care Provider Reason for Visit * Reason Comments Med Refill Encounter Details Date Type Department Care Team (Late st Contact Info) Description 09/28/2019 Refill [facility] [address] [facility] [address] [address] Rick Loomis SURFACE GRINDER-LIVE SOURCE OPERATOR [address] [place] [address] Med Refill Social History Tobacco Use Types [...] AM EDT Clinical Support [facility] [address] [place] [address] [address] [place] [address] 11/22/2024 9:45 AM EDT Office Visit [facility] [address] [place] [address] [address] [place] [address] Rony Calvillo MD [address]1 [facility], [address] [place] [address] documented as of this encounter Visit Diagnoses Not on filedocumented in this encounter Care Teams Flush Tester Relationship Specialty Start Date End Date Anny Bruce, SURFACE GRINDER-LIVE SOURCE OPERATOR PCP - General Nurse Practitioner 04/27/22 documented as of this encounter
--- OUTSIDE RECORDS SUMMARY | 2024-11-11 10:33 | XMS_ITS | Encounter Summary ---
Author Organization [employer] tem Address [facility] [id number] [address] [place] [address] Care Team Providers Care Skin Peeling Machine Operator Name Role Phone ReglalocoliverioAnny Earle MUD ENGINEER-ROCK CRUSHING MACHINE OPERATOR Primary Care Provider Reason for Visit * Reason Onset Date Comments Med Refill Med Refill 12/26/2019 Encounter Details Date Type Department Care Team (Late Contact Info) Description 12/14/2019 Refill [facility] [address] [place] [phone] Maggie Cody, MUD ENGINEER-ROCK CRUSHING MACHINE OPERATOR [address] [place] [address] Med Refill; Med Refill Social History Tobacco [...] EDT Clinical Support [facility] [address] [place] [address] 11/22/2024 9:45 AM EDT Office Visit [facility] [address] [facility] [address] [place] [address] oRny Calvillo MD 2751 [facility], [address] [place], [place] [phone] documented as of this encounter Visit Diagnoses Not on filedocumented in this encounter Care Teams Skin Peeling Machine Operator Relationship Specialty Start Date End Date Anny Bruce, MUD ENGINEER-ROCK CRUSHING MACHINE OPERATOR PCP - General Nurse Practitioner 04/27/22 documented as of this encounter
--- OUTSIDE RECORDS SUMMARY | 2024-11-11 10:33 | XMS_ITS | Encounter Summary ---
Author Organization [facility] Address [facility][id number] [address] [place] [address] Care Team Providers Care Bottom Buffer Name Role Phone ReglaAnny canales Earle PETERSENN-ENGINEERING PROFESSOR Primary Care Provider Reason for Visit * Reason Onset Date Comments Med Refill 01/18/2022 Encounter Details Date Type Department Care Team (Late Contact Info) Description 01/18/2022 Refill [facility] [address] [address] Darío Hawkins, NELI Med Refill Social History Tobacco [...] AM EDT Clinical Support [facility] [address] [place] [address] [address] [place] [phone] 11/22/2024 9:45 AM EDT Office Visit [facility] [address] [place] [address] [address] [place] [phone] Rony Calvillo MD [facility], [address] [place] [address] documented as of this encounter Visit Diagnoses Diagnosis Heart failure with reduced ejection fraction, NYHA class II (CMS-HCC)- Primary Dilated cardiomyopathy (CMS-HCC) Other primary cardiomyopathies Paroxysmal atrial tachycardia Paroxysmal supraventricular tachycardia Abnormal EKG Nonspecific abnormal electrocardiogram (ECG) (EKG) documented in this encounter Care Teams Bottom Buffer Relationship Specialty Start Date End Date Anny Bruce, ELECTRONIC OPERATOR-ENGINEERING PROFESSOR PCP - General Nurse Practitioner 04/27/22 documented as of this encounter
--- OUTSIDE RECORDS SUMMARY | 2024-11-11 10:34 | XMS_ITS | Encounter Summary ---
Author Organization [employer] tem Address [facility] [id number] [address] [place] [address] Care Team Providers Care Receiving Associate Store Name Role Phone ReglalocoliverioAnny Earle [facility] Primary Care Provider Reason for Visit * Reason Comments Med Refill Encounter Details Date Type Department Care Team (Late Contact Info) Description 04/14/2022 Refill [facility] [address] [place] [address] Tamra Howard, [facility] [address] [place] [address] Med Refill Social History Tobacco [...] Support [facility] [address] [place] [address] 11/22/2024 9:45 AM EDT Office Visit [facility] [address] [place] [address] Rony Calvillo MD 2751 [facility], [address] [place] [address] documented as of this encounter Visit Diagnoses Not on filedocumented in this encounter Care Teams Receiving Associate Store Relationship Specialty Start Date End Date Anny Bruce, MEDICAL SCREENER-PATIENT CLERICAL ASSISTANT PCP - General Nurse Practitioner 04/27/22 documented as of this encounter
--- OUTSIDE RECORDS SUMMARY | 2024-11-11 10:34 | XMS_ITS | Encounter Summary ---
Author Organization [employer] s tem Address [facility] [place][id number] [address] [place] [address] Care Team Providers Care Core Machine Operator Name Role Phone Janis Anny Earle MAID CLEANING COOKING-[facility] Primary Care Provider Reason for Visit * Reason Comments Med Refill Encounter Details Date Type Department Care Team (Late st Contact Info) Description 06/02/2024 Refill [facility] [address] [place] [phone] Nicky Dumont [facility] [address] [place] [address] Med Refill Social History Tobacco Use Types Packs/Day Years Used Date Smoking Tobacco: Never Smokeless Tobacco: Never Alcohol Use Standard Drinks/Week Comments No 0 (1 standard drink = 0.6 oz pur e alcohol) [facility] Utilities Answer Date Recorded In the past 12 months has e [employer], gas, oil, or water company threatened to [...] EDT Clinical Support [facility] [address] [place] [address] [address] [place] [phone] 11/22/2024 9:45 AM EDT Office Visit [facility] [address] [place] [address] [address] [place] [phone] Rony Calvillo MD 2751 [facility], [address] [place], [place] [address] documented as of this encounter Visit Diagnoses Not on filedocumented in this encounter Care Teams Core Machine Operator Relationship Specialty Start Date End Date Anny Bruce, MAID CLEANING COOKING-PREPRESS SPECIALIST PCP - General Nurse Practitioner 04/27/22 documented as of this encounter
--- OUTSIDE RECORDS SUMMARY | 2024-11-11 10:34 | XMS_ITS | Encounter Summary ---
Author Organization [employer] tem Address [facility] [place][id number] [address] [place] [address] Care Team Providers Care Card Dealer Name Role Phone Janis Anny Earle SYSTEM DEVEL[facility]MENT MA[facility]GER[facility] Primary Care Provider Reason for Visit * Reason Comments Med Refill Encounter Details Date Type Department Care Team (Late st Contact Info) Description 04/21/2023 Refill [facility] [address] [place] [phone] Kimberly Kuo, SYSTEM [facility]OP[facility]GER[facility] [address] [place] [address] Med Refill Social History Tobacco Use Types [...] AM EDT Clinical Support [facility] [address] [place] [address] [address] [place] [address] 11/22/2024 9:45 AM EDT Office Visit [facility] [address] [place] [address] [address] [place] [address] Rony Calvillo MD [address] [facility], [address] [place] [address] documented as of this encounter Visit Diagnoses Diagnosis Dilated cardiomyopathy (CMS-HCC) Other primary cardiomyopathies Non-ischemic cardiomyopathy (CMS-HCC) Other primary cardiomyopathies ICD (implantable cardioverter-defibrillator) in place-[employer]tr[employer] documented in this encounter Care Teams Card Dealer Relationship Specialty Start Date End Date Anny Bruce, SYSTEM DEVELOPMENT MANAGER-ELECTRICAL INSTRUMENT REPAIRER PCP - General Nurse Practitioner 04/27/22 documented as of this encounter
--- OUTSIDE RECORDS SUMMARY | 2024-11-11 10:34 | XMS_ITS | Encounter Summary ---
Author Organization [employer] tem Address [facility] [place]-[id number] [address] [place] [address] Care Team Providers Care Thermo Processor Name Role Phone ReglaAnny canales Earle CHANGE ANALYST-EDGE BLACKER Primary Care Provider Reason for Visit * Reason Comments Med Refill Encounter Details Date Type Department Care Team (Late st Contact Info) Description 02/03/2018 Refill [facility] [address] [place] [address] [address] [place] [phone] Jyoti Billy APRN-EDGE BLACKER [address] [place] [address] Med Refill Social History Tobacco Use Types [...] Support [facility] [address] [place] [address] 11/22/2024 9:45 AM EDT Office Visit [facility] [address] [place] [address] oRny Calvillo MD 2751 [facility], [address] [place] [address] documented as of this encounter Visit Diagnoses Not on filedocumented in this encounter Care Teams Thermo Processor Relationship Specialty Start Date End Date Anny Bruce APRN-EDGE BLACKER PCP - General Nurse Practitioner 04/27/22 documented as of this encounter
--- OUTSIDE RECORDS SUMMARY | 2024-11-11 10:34 | XMS_ITS | Encounter Summary ---
Author Organization [employer] [facility] tem Address [facility] [place][id number] [address] [place] [address] Care Team Providers Care Chief Safety Officer Name Role Phone ReglalocoliverioAnny Earle PETERSENN-PAPER TWISTER Primary Care Provider Reason for Visit * Reason Onset Date Comments medication reminder 11/05/2021 Encounter Details Date Type Department Care Team (Late st Contact Info) Description 11/05/2021 [facility]phone [facility] 275[address] [facility] [address] [phone] Priya Chin MA medication reminder Social History [...] AM EDT Clinical Support [facility] [address] [place] [address] [address] [place] [address] 11/22/2024 9:45 AM EDT Office Visit [facility] [address] [place] [address] [address] [place] [address] Rony Calvillo MD [facility], [address] [place] [address] documented as of this encounter Visit Diagnoses Not on filedocumented in this encounter Care Teams Chief Safety Officer Relationship Specialty Start Date End Date Anny Bruce, STORY TELLER-PAPER TWISTER PCP - General Nurse Practitioner 04/27/22 documented as of this encounter
--- OUTSIDE RECORDS SUMMARY | 2024-11-11 10:34 | XMS_ITS | Encounter Summary ---
Author Organization [employer] s tem Address [facility] [id number] [address] [place] [address] Care Team Providers Care Assembler Arranger Name Role Phone Anny Bruce YOGHURT MAKER-PANMAN Primary Care Provider Reason for Visit * Reason Comments Med Refill Encounter Details Date Type Department Care Team (Late st Contact Info) Description 10/09/2024 Refill [facility] [address] [place] [address] Jyoti Billy [facility] [address] [place], [place] [phone] Med Refill Social History Tobacco Use Types Packs/Day Years Used Date Smoking Tobacco: Never Smokeless Tobacco: Never Alcohol Use Standard Drinks/Week Comments No 0 (1 standard drink = 0.6 oz pur e alcohol) [facility] Utilities Answer Date Recorded In the past [...] AM EDT Clinical Support [facility] [address] [place] [address] DR [address] [place] [phone] 11/22/2024 9:45 AM EDT Office Visit [facility] [address] [place] [address] [address] [place] [phone] Rony Calvillo MD 2751 [facility], [address] [place], [place] [address] documented as of this encounter Visit Diagnoses Diagnosis Dilated cardiomyopathy (CMS-HCC) Other primary cardiomyopathies Non-ischemic cardiomyopathy (CMS-HCC) Other primary cardiomyopathies ICD (implantable cardioverter-defibrillator) in place-[employer]tr[employer] documented in this encounter Care Teams Assembler Arranger Relationship Specialty Start Date End Date Anny Bruce, YOGHURT MAKER-PANMAN PCP - General Nurse Practitioner 04/27/22 documented as of this encounter
--- OUTSIDE RECORDS SUMMARY | 2024-11-11 10:34 | XMS_ITS | Encounter Summary ---
Author Organization [facility] Address [address] [place] [address] Care Team Providers Care Senior Sales Associate Name Role Phone Anny Bruce NP Unavailable [phone] Jean Pierre Urena MD Primary Care Provider [phone] Rony Calvillo MD Unavailable [phone] Encounter Details Date Type Department Care Team (Late st Contact Info) Description 10/31/2024 Clinisync Result Encounter [facility] External Department Unsolicited Anny Bruce, JANAY [address] [place] [phone] Social History Tobacco Use Types Packs/Day Years [...] 04/04/2023 How often do you attend chur ch or anabaptism services? More than 4 times per year 04/04/2023 Do you belong to any clubs o r organizations such as pentecostalism groups, unions, fraternal or athletic groups, or [...] Recorded Patient Health Questionnaire-2 Score 2 10/16/2024 [facility] Questionnaire Answer Date Recorded [...] place to sleep or slept in a long-term (including now)? No 04/04/2023 Sex and Gender Information Value Date Recorded Sex Assigned at Not on file Legal Sex Male 8:21 PM EDT Gender Identity Not on file Sexual Orientation Not on file documented as of this encounter Plan of Treatment Upcoming Encounters Date Type Department Care Team (Late st Contact Info) Description 12/04/2024 8:40 AM EDT Office Visit [facility] [address] [place] [address] Anny Bruce NP [address] [place] [address] documented as of this encounter Procedures Procedure Name Priority Date/Time Associated Diagnosis Comments XR LUMBAR SPINE 6V W BENDING 10/31/2024 10:17 PM EDT documented in this encounter Results * XR LUMBAR SPINE 6V W BENDING (10/31/2024 10:17 PM EDT) Anatomical Region Laterality Modality Other 10/31/2024 10:1 7 PM EDT Narrative 10/31/2024 10:20 PM EDT The [address] [address] XRay Report Signed Patient: REESE EMERSON MR#: [id number] : 1965 Acct:[id number] Age/Sex: 59 / M ADM Date: 10/31/24 Loc: [facility] Attending Dr: Anny Bruce NP Ordering Physician: Anny Bruce NP Date of Service: 10/31/24 Procedure(s): XR lumbar spine 6V w bending Accession Number(s): [id number] cc: Anny Bruce NP [place] [address] Patient Name: REESE EMERSON MRN: [id number] date: 1965 Sex: M Assigned Patient [facility]: [facility] Current Patient Location: [facility] Accession/Order Number: [id number] Exam Date: 10/31/2024 22:14 Report Date: 10/31/2024 [...] Meyers M.D. 10/31/2024 10:17 PM Dictation Location: [employer] Electronically authenticated by: [id number] Y Date: 10/31/2024 22:17 Dictated By: Paul Meyers M.D. Signed By: 10/31/242219 DD/ 16 TD/TT: Customer Specialist: Procedure Note Radiology, Radiologist, - 10/31/2024 [place] [address] XRay Report Signed Patient: REESE EMERSON RMR#: [id number] : 1965Acct:[id number] Age/Sex: 59 / MADM Date: 10/31/24 Loc: [facility] Attending Dr: Anny Bruce NP Ordering Physician: Anny Bruce NP Date of Service: 10/31/24 Procedure(s): XR lumbar spine 6V w bending Accession Number(s): [id number] cc: Anny Bruce NP The [place] [address] Patient Name: REESE EMERSON MRN: [id number] date: 1965 Sex: M Assigned Patient Location: [facility] Current Patient Location: [facility] Accession/Order Number: [id number] Exam Date: 10/31/2024 22:14 Report Date: 10/31/2024 [...] Meyers M.D. 10/31/2024 10:17 PM Dictation Location: [place] [address] Electronically authenticated by: [id number] Y Date: 2:17 Dictated By: Paul Meyers M.D. Signed By:10/31/242219 DD/ 16 TD/TT: Customer Specialist: us Anny Bruce [facility] Final Result documented in this encounter Visit Diagnoses Not on filedocumented in this encounter Additional Health Concerns Assessment Noted Time PHQ-9 Depression Total Score: 4 10/17/19 9:40 AM EDT documented as of this encounter Care Teams Senior Sales Associate Relationship Specialty Start Date End Date Jean Pierre Urena MD [address] [place] [address] PCP - General Family Medicine 02/22/24 Anny Bruce NP [address] [place] [address] Nurse Practitioner Family Medicine 07/04/23 Rony Calvillo MD [facility], [address] [place] [address] Referring Physician Cardiology 10/16/24 documented as of this encounter
--- OUTSIDE RECORDS SUMMARY | 2024-11-11 10:34 | XMS_ITS | Encounter Summary ---
Author Organization [facility] Address [address] [place] [address] Care Team Providers Care Dough Mixer Operator Name Role Phone Anny Bruce NP Unavailable [phone] Jean Pierre Urena MD Primary Care Provider [phone] Jean Pierre Urean MD Primary Care Provider [phone] Anny Bruce NP Unavailable Anny Bruce NP Unavailable [phone] Unallocated, Noms Provider Primary Care Provi lili Jean Pierre Urena MD Primary Care Provider [phone] Ayaka Teran [facility] Unavailable [phone] Rony Calvillo MD Unavailable [phone] Reason for Visit * Reason Comments Med Refill Encounter Details Date Type Department Care Team (Late st Contact Info) Description 05/17/2023 Refill [facility] [address] [place] [phone] Anny Bruce, ASSEMBLER MECHANICAL ORDNANCE [address] [place] [address] RLS (restless legs syndrome) (Primary Dx); Restless [...] declined 04/04/2023 How often do you attend [facility] or [facility] services? More than 4 times per year 04/04/2023 Do you belong to any clubs o r organizations such as hindu groups, unions, fraternal or athletic groups, or [...] care, and heating? Not very hard 04/04/2023 [facility] - Occupational Stress [...] place to sleep or slept in a senior living (including now)? No 04/04/2023 Sex and Gender [...] [facility] [place] documented in this encounter Plan of Treatment Upcoming Encounters Date Type Department Care Team (Late st Contact Info) Description 12/04/2024 8:40 AM EDT Office Visit [facility] [address] [place] [phone] Anny Bruce NP [address] [place] [phone] documented as of this encounter Visit Diagnoses Diagnosis RLS (restless legs syndrome)- Primary Restless legs syndrome (RLS) Restless legs syndrome Restless legs syndrome (RLS) documented in this encounter Care Teams Dough Mixer Operator Relationship Specialty Start Date End Date Jean Pierre Urena MD [address] [place] [phone] PCP - General Family Medicine 03/22/23 07/03/23 Jean Pierre Urena MD [address] [place] [address] PCP - General Family Medicine 07/04/23 02/13/24 Anny Bruce NP [address] [place] [address] PCP - [facility] 09/23/2304/10 Unallocated, Eulalio Pemberton MD [address] [place] [address] PCP - General Family Medicine 02/14/24 02/21/24 Jean Pierre Urena MD [address] [place] [address] PCP - General Family Medicine 02/22/24 Anny Bruce NP [address] [place] [address] Nurse Practitioner Family Medicine 04/24/22 02/13/24 Anny Bruce NP [address] [facility] [place] [address] Nurse Practitioner Family Medicine 07/04/23 Ayaka Teran [facility]- [address] [phone] Nurse Practitioner Behavioral Health 10/16/24 10/16/24 Rony Calvillo MD [address] [place] [address], [address] [place] [address] Referring Physician Cardiology 10/16/24 documented as of this encounter
--- OUTSIDE RECORDS SUMMARY | 2024-11-11 10:34 | XMS_ITS | Encounter Summary ---
Author Organization [employer] tem Address [facility][id number] [address] [place] [address] Care Team Providers Care Field Logistics Coordinator Name Role Phone ReglaAnny canales Earle GROUP LEADER SEMICONDUCTOR PROCESSING-[facility] Primary Care Provider Reason for Visit * Reason Comments Med Refill Encounter Details Date Type Department Care Team (Late st Contact Info) Description 05/04/2020 Refill [facility] [address] [place] [address] Nicky Dumont APRN-[facility] [address] [place] [address] Med Refill Social History Tobacco Use Types [...] Support [facility] [address] [place] [address] 11/22/2024 9:45 AM EDT Office Visit [facility] [address] [place] [address] Royn Calvillo MD 275[address] [facility], [address] [place] [address] documented as of this encounter Visit Diagnoses Not on filedocumented in this encounter Care Teams Field Logistics Coordinator Relationship Specialty Start Date End Date Anny Bruce APRN-BEET WORKER PCP - General Nurse Practitioner 04/27/22 documented as of this encounter
--- OUTSIDE RECORDS SUMMARY | 2024-11-11 10:34 | XMS_ITS | Encounter Summary ---
Author Organization [facility] Address [address] [place] [address] Care Team Providers Care Sound Controller Name Role Phone Anny Bruce PESTICIDE CHEMIST Unavailable [phone] Jean Pierre Urena MD Primary Care Provider [phone] Anny Bruce PESTICIDE CHEMIST Unavailable [phone] Anny Bruce NP Unavailable [phone] Unallocated, Noms Provider Primary Care Provi lili Jean Pierre Urena MD Primary Care Provider [phone] Ayaka Teran [facility]- Unavailable [phone] Rony Calvillo MD Unavailable [phone] Reason for Visit * Reason Comments Med Refill Encounter Details Date Type Department Care Team (Late st Contact Info) Description 11/28/2023 Refill [facility] [address] [place] [address] Anny Bruce PESTICIDE CHEMIST [address] [place] [phone] Acute bronchitis, unspecified; Lumbago with sciatica, left [...] How often do you attend chur or yarsani services? More than 4 times per year 04/04/2023 Do you belong to any clubs o r organizations such as yarsanism groups, unions, fraternal or athletic groups, or [...] Recorded Patient Health Questionnaire-2 Score 0 08/02/2023 [facility] of Occupat ional Health - Occupational [...] place to sleep or slept in a fpc (including now)? No 04/04/2023 Sex and Gender [...] Visit [facility] [address] [place] [address] Anny Bruce NP [address] [place] [address] documented as of this encounter Visit Diagnoses Diagnosis Acute bronchitis, unspecified Lumbago with sciatica, left side documented in this encounter Care Teams Sound Controller Relationship Specialty Start Date End Date Jean Pierre Urena MD [address] [place] [address] PCP - General Family Medicine 07/04/23 02/13/24 Anny Bruce NP [address] [place] [address] PCP - [facility] 09/23/2304/10 Unallocated, Eulalio Pemberton MD [address] [place] [address] PCP - General Family Medicine 02/14/24 02/21/24 Jean Pierre Urena MD [address] [address] PCP - General Family Medicine 02/22/24 Anny Bruce NP [address] [place] [address] Nurse Practitioner Family Medicine 04/24/22 02/13/24 Anny Bruce NP [address] [facility] [place] [address] Nurse Practitioner Family Medicine 07/04/23 Ayaka Teran [facility]- [address] [address] Nurse Practitioner Behavioral Health 10/16/24 10/16/24 Rony Calvillo MD [address] [place] [address], [address] [place] [address] Referring Physician Cardiology 10/16/24 documented as of this encounter
--- OUTSIDE RECORDS SUMMARY | 2024-11-11 10:34 | XMS_ITS | Encounter Summary ---
Author Organization [employer] Address [id number] [address] [place] [address] Care Team Providers Care Knitting Machine Operator Helper Name Role Phone Christiana Brucea Earle LOSS PREVENTION DETECTIVE-WATCHSTANDER Primary Care Provider Reason for Visit * Reason Comments Med Refill Encounter Details Date Type Department Care Team (Late Contact Info) Description 09/23/2021 Refill [facility] [address] [facility] [address] [place] [phone] Angelique Figueredo, LOSS PREVENTION DETECTIVE-WATCHSTANDER [address] [place] [address] Med Refill Social History Tobacco Use Types [...] AM EDT Clinical Support [facility] [address] [place] [address] [address] [place] [address] 11/22/2024 9:45 AM EDT Office Visit [facility] [address] [place] [address] [address] [place] [phone] Rony Calvillo MD [address] [facility], [address] [place] [address] documented as of this encounter Visit Diagnoses Not on filedocumented in this encounter Care Teams Knitting Machine Operator Helper Relationship Specialty Start Date End Date Anny Bruec, ORIN-WATCHSTANDER PCP - General Nurse Practitioner 04/27/22 documented as of this encounter
--- OUTSIDE RECORDS SUMMARY | 2024-11-11 10:34 | XMS_ITS | Encounter Summary ---
Author Organization [facility] Address [address] [place] [address] Care Team Providers Care Od Grinder Operator Name Role Phone Anny Bruce NP Unavailable [phone] Jean Pierre Urena MD Primary Care Provider [phone] Anny Bruce NP Unavailable [phone] Anny Bruce NP Unavailable [phone] Unallocated, Noms Provider Primary Care Provi lili Jean Pierre Urena MD Primary Care Provider [phone] Ayaka Teran [facility]- Unavailable [phone] Rony Calvillo MD Unavailable [phone] Encounter Details Date Type Department Care Team (Late st Contact Info) Description 09/21/2023 Orders Only [facility] [address] [place] [address] Anny Bruce CERTIFIED GREEN BUILDING ENGINEER [address] [place] [address] Social History Tobacco Use Types Packs/Day Years [...] How often do you attend chur or protestant services? More than 4 times per year 04/04/2023 Do you belong to any clubs o r organizations such as tenriism groups, unions, fraternal or athletic groups, or [...] Recorded Patient Health Questionnaire-2 Score 0 08/02/2023 [facility] of Occupat ional Health - Occupational Stress [...] Visit [facility] [address] [place] [address] Anny Bruce NP [address] [place] [address] documented as of this encounter Procedures Procedure Name Priority Date/Time Associated Diagnosis Comments MISCELLANEOUS LAB TEST Routine 09/21/2023 1:56 PM EDT documented in this encounter Results * - Miscellaneous Test (09/21/2023 1:56 PM EDT) Anny Bruce CERTIFIED GREEN BUILDING ENGINEER LAB BLOOD ORDERABLES Final Resu lt documented in this encounter Visit Diagnoses Not on filedocumented in this encounter Care Teams Od Grinder Operator Relationship Specialty Start Date End Date Jean Pierre Urena MD [address] [place] [address] PCP - General Family Medicine 07/04/23 02/13/24 Anny Bruce NP [address] [place] [address] PCP - [facility] 09/23/2304/10 Unallocated, Noms MD [address] [place] [address] PCP - General Family Medicine 02/14/24 02/21/24 Jean Pierre Urena MD [address] [place] [address] PCP - General Family Medicine 02/22/24 Anny Bruce NP [address] [place] [address] Nurse Practitioner Family Medicine 04/24/22 02/13/24 Anny Bruce NP [address] [place] [address] Nurse Practitioner Family Medicine 07/04/23 Ayaka Teran [facility] [address] [facility] [place] [address] Nurse Practitioner Behavioral Health 10/16/24 10/16/24 Rony Calvillo MD [address] [place] [address], [address] [place] [address] Referring Physician Cardiology 10/16/24 documented as of this encounter
--- OUTSIDE RECORDS SUMMARY | 2024-11-11 10:34 | XMS_ITS | Encounter Summary ---
Author Organization [employer] Address [facility] [id number] [address] [place] [address] Care Team Providers Care Independent Agent Music Education Name Role Phone Reglamyriamnehal Anny Earle SR-OPERATIONS ANALYST Primary Care Provider Reason for Visit * Reason Comments Med Refill Encounter Details Date Type Department Care Team (Late st Contact Info) Description 03/25/2020 Refill [facility] [address] [facility] [address] [phone] Katherin Becerra, RN [address] [place] [address] Med Refill Social History Tobacco Use Types [...] EDT Clinical Support [facility] [address] [place] [address] [address] [place] [address] 11/22/2024 9:45 AM EDT Office Visit [facility] [address] [place] [address] [address] [place] [address] Rony Calvillo MD [address] [facility], [address] [place], [place] [phone] documented as of this encounter Visit Diagnoses Not on filedocumented in this encounter Care Teams Independent Agent Music Education Relationship Specialty Start Date End Date Anny Bruce, METHANE GAS COLLECTION SYSTEM OPERATOR-OPERATIONS ANALYST PCP - General Nurse Practitioner 04/27/22 documented as of this encounter
--- OUTSIDE RECORDS SUMMARY | 2024-11-11 10:34 | XMS_ITS | Encounter Summary ---
Author Organization [facility] tem Address [facility] [id number] [address] [place] [address] Care Team Providers Care Trichologist Name Role Phone ReglalocoliverioAnny Earle [facility] Primary Care Provider Encounter Details Date Type Department Care Team (Late Contact Info) Description 06/23/2022 Orders Only [facility] [address] [place] [phone] Kimberly Kuo, [facility] [address] [place] [address] Dilated cardiomyopathy ([facility]-H[facility]) Social History Tobacco Use Types Packs/Day Years [...] EDT Clinical Support [facility] [address] [facility] [address] [place] [address] 11/22/2024 9:45 AM EDT Office Visit [facility] [address] [place] [address] [address] [place] [address] Rony Calvillo MD [address] [facility], [address] [place], [place] [phone] documented as of this encounter Procedures Procedure Name Priority Date/Time Associated Diagnosis Comments DEVICE INTERROGATION Routine 06/23/2022 Dilated cardiomyopathy (CMS-HCC) documented in this encounter Results * Device Interrogation (06/23/2022) Anatomical Region Laterality Modality Other Kimberly Kuo APRN-DESIZING MACHINE BACK TENDER CV CARDIAC SERV ICES ORDERABLES Final Result documented in this encounter Visit Diagnoses Diagnosis Dilated cardiomyopathy (CMS-HCC) Other primary cardiomyopathies documented in this encounter Care Teams Trichologist Relationship Specialty Start Date End Date Anny Bruce APRN-DESIZING MACHINE BACK TENDER PCP - General Nurse Practitioner 04/27/22 documented as of this encounter
--- OUTSIDE RECORDS SUMMARY | 2024-11-11 10:34 | XMS_ITS | Encounter Summary ---
Author Organization [facility] Address [address] [place] [address] Care Team Providers Care Car Groomer Name Role Phone Anny Bruce NP Unavailable [phone] Jean Pierre Urena MD Primary Care Provider [phone] Rony Calvillo MD Unavailable [phone] Encounter Details Date Type Department Care Team (Late st Contact Info) Description 11/05/2024 Telephone [facility] [address] [place] [address] Anny Bruce NP [address] [place] [address] Social History Tobacco Use Types Packs/Day Years [...] How often do you attend chur or mormon services? More than 4 times per year 04/04/2023 Do you belong to any clubs o r organizations such as uatsdin groups, unions, fraKolorific or athletic groups, or school groups? No [...] Recorded Patient Health Questionnaire-2 Score 2 10/16/2024 [facility] of Occupat ional Health - Occupational [...] place to sleep or slept in a skilled nursing (including now)? No 04/04/2023 Sex and Gender Information Value Date Recorded Sex Assigned at Not on file Legal Sex Male 8:21 PM EDT Gender Identity Not on file Sexual Orientation Not on file documented as of this encounter Miscellaneous Notes * Telephone Encounter - JOSÉ HUMPHRIES - 11/05/2024 4:39 PM EDT Text Financial Services Education Consultant Avinash good afternoon, Ursula. I hope you are having a good day, not too stressful. I wanted to get back with you, I went home a little early on my shift. My blood pressure has been pretty high. It is been in the hypertension stage according to my readings that I have been putting in on my phone and Iwanted to. She is a way I can get this info over to you just to have at least a look at it. I do not have an email or anything for you guys. I did not know if that is possible to do if you could let me know. I just wanted to check that out with you. So I am, you know, keeping Anny up to date on things that are changing. I really had a hard time just making decisions. Last night I I have been logging my blood pressure into my phone and I can, you know, send you those results so you can take a look at that and see, I do have a very stressful job at work and probably something I should not be doing Standing on concrete all day in the heat with, you know, a bad heart and spinal cord that is notnew condition anyway. So I just wanted to ask if that is something that I can do. Just curious, okay, let me know again. I hope you guys are having a good day. Give me a call back if you want to. [phone] woke up a little bit ago. So anyway, let me know what you think I was enjoy hearing from you. Thank you, bye. documented in this encounter Plan of Treatment Upcoming Encounters Date Type Department Care Team (Late st Contact Info) Description 12/04/2024 8:40 AM EDT Office Visit [facility] [address] [place] [address] Anny Bruce NP [address] [place] [address] documented as of this encounter Visit Diagnoses Not on filedocumented in this encounter Additional Health Concerns Assessment Noted Time PHQ-9 Depression Total Score: 4 10/17/19 25 9:40 AM EDT documented as of this encounter Care Teams Car Groomer Relationship Specialty Start Date End Date Jean Pierre Urena MD [address] [place] [address] PCP - General Family Medicine 02/22/24 Anny Bruce NP [address] [place] [address] Nurse Practitioner Family Medicine 07/04/23 Rony Calvillo MD [address] [place] [address], [address] [place], [place] [phone] Referring Physician Cardiology 10/16/24 documented as of this encounter
--- OUTSIDE RECORDS SUMMARY | 2024-11-11 10:34 | XMS_ITS | Clinical Summary ---
Author Organization [employer] Address [id number] [address] [place] [address] Care Team Providers Care Vp Mobile Products Name Role Phone Anny Bruce APRN-HOUSE DESIGNER Primary Care Provider Allergies Active Allergy Reactions [...] the evening. Take with meals. 180 tablet Active losartan (COZAAR) 100 mg tabletIndications: Dilated cardiomyopathy (CMS-HCC),Non-isch emic cardiomyopathy (CMS-HCC),ICD (implantable cardioverter-defib rillator) in place,Moderate left ventricular systolic dysfunction,Heart failure with reduced ejection fraction, NYHA class II (CMS-HCC) Take 1 tablet (100 mg total) by mouth nightly. 90 tablet 5 Active spironolactone (ALDACTONE) 25 mg tabletIndications: Dilated cardiomyopathy (CMS-HCC),Non-isch emic cardiomyopathy (CMS-HCC),ICD (implantable cardioverter-defib rillator) in place,Moderate left ventricular systolic dysfunction,Heart failure with reduced ejection fraction, NYHA class II (CMS-HCC) Take 1 tablet (25 mg total) by mouth in the morning and 1 tablet (25 mg total) in the evening. Take with meals. 180 tablet 5 Active Active Problems Problem Noted Date Diagnosed Date Iron deficiency anemia, unsp ecified iron deficiency anemia type 08/14/2023 Severe anemia with hemoglobi n 7.6, hematocrit 29.9 as of 08/02/2023 at [facility] 08/11/2023 Anemia requiring transfusions 08/11/2023 TYREE on CPAP 09/11/2020 Non-ischemic cardiomyopathy 11/17/2017 Heart failure with reduced ejection fraction, [place] class II 11/17/2017 Dilated cardiomyopathy 02/22/2017 Overview (02/22/2017): Added automatically from request for surgery [id number] ICD (implantable cardioverte r-defibrillator) in place-[employer] 02/14/2017 TYREE (obstructive sleep apnea) Obesity (BMI 30.0-34.9) Dizziness sometimes NSVT (nonsustained ventricular tachycardia) Paroxysmal atrial tachycardia Moderate left ventricular sy stolic dysfunction - LVEF 40-45% on 2D echocardiogram 2017 Abnormal EKG Intermittent palpitations Mild mitral regurgitation Mild tricuspid regurgitation Resolved Problems Problem Noted Date Diagnosed Date Resolved Date Shortness of breath 02/22/2017 09/12/19 Overview (02/22/2017): Added automatically from request for surgery [id number] Exhaustion of cardiac defibrillator 02/22/2017 09/11/2020 Overview (02/22/2017): Added automatically from request for surgery [id number] Ischemic cardiomyopathy 10/23 Chest tightness 09/11/2020 Dyspnea 09/11/2020 Encounters Date Type Department Care Team Description 10/09/2024 Refill [facility] [address] [facility] [address] [place] [address] Darío Hawkins RN Med Refill 10/09/2024 Refill [facility] [address] [place] [address] Jyoti Billy APRN-CNP Med Refill from Last 3 Months Family History Medical History Relation Name Comments Asthma Father Heart attack Father Cancer Mother Relation Name Status Comments Father Mother Social History Tobacco Use Types Packs/Day Years Used Date Smoking Tobacco: Never Smokeless Tobacco: Never Alcohol Use Standard Drinks/Week Comments No 0 (1 standard drink = 0.6 oz pur e alcohol) [facility] Utilities Answer Date Recorded In the past 12 months has th e electric, gas, oil, or water company [...] AM EDT Clinical Support [facility] [address] [place] [address] [address] [place] [address] 11/22/2024 9:45 AM EDT Office Visit [facility] [address] [place] [address] [address] [place] [address] Rony Calvillo MD [address] [facility], [address] [place] [address] Health Maintenance Due Date Last Done Comments Depression Screening 1975 DTaP,Tdap and Td Vaccines (1 - Tdap) 1982 Zoster (Shingles) Vaccine (1 of 2) 2013 COVID-19 Vaccine (4 - 2023-2 5 season) 2023 05/09/2021, 08/13/2020, 07/23/2020 Adult BMI Screening 08/13/2024 08/14/2023 Tobacco Screening 08/13/2024 08/14/2023 Influenza Vaccine 12/23/2024 Medical Devices Implanted Type Area Retail Worker Device Identifier Shelf Expiration Date Model / Serial / Lot Icd Evera Xt Df1 - [id number] - [id number] Implanted:Qty: 1 on 03/08/2017 by Jadon Mcgraw MD at [facility] ICD N/A: Chest [employer] CARD RHYTHM DEVICES 03/07/2018 [id number] / [id number] / Procedures Procedure Name Priority Date/Time Associated Diagnosis Comments HI INTERROGATION EVAL REMOTE </90 D 1/2/VISOR INSTALLER LD DFB Routine 08/20/2024 6:42 PM EDT from Last 3 Months Results * Remote Device Check (08/20/2024 6:42 PM EDT) Anatomical Region Laterality Modality Other 08/20/2024 6:42 PM EDT us Catalino Harrison MD HEALTH MAINTENANCE Final Result from Last 3 Months Insurance WORKERS COMPENSATION Advance Directives * Full Code (Latest Code Status on File) Date Activated Date Inactivated Comments 08/14/2023 5:30 PM 08/15/2023 3:34 PM * Full Code Date Activated Date Inactivated Comments 08/11/2023 5:30 PM 08/12/2023 7:55 AM Care Teams Vp Mobile Products Relationship Specialty Start Date End Date Anny Bruce, CASHIER CHECKER-HOUSE DESIGNER PCP - General Nurse Practitioner 04/27/22
--- OUTSIDE RECORDS SUMMARY | 2024-11-11 10:34 | XMS_ITS | Encounter Summary ---
Author Organization [employer] Address [facility] [id number] [address] [place] [address] Care Team Providers Care Musical Engineer Name Role Phone Christiana Brucea Earle [facility] Primary Care Provider Reason for Visit * Reason Comments Med Refill Encounter Details Date Type Department Care Team (Late st Contact Info) Description 07/27/2023 Refill [facility] [address] [place] [address] Kimberly Kuo, [facility] [address] [place] [address] Med Refill Social History Tobacco Use Types [...] and to complete cbc/cmp labs as ordered. Tax Preparer attempt to contact pt, lmom. Letter mailed to pt. documented in this encounter Plan of Treatment Upcoming Encounters Date Type Department Care Team (Late st Contact Info) Description 11/22/2024 9:00 AM EDT Clinical Support [facility] [address] [place] [address] [address] [place] [address] 11/22/2024 9:45 AM EDT Office Visit [facility] [address] [place] [address] [address] [place] [address] Rony Calvillo MD [address] [facility], [address] [place], [place] [phone] documented as of this encounter Visit Diagnoses Diagnosis Paroxysmal atrial tachycardia- Primary Paroxysmal supraventricular tachycardia documented in this encounter Care Teams Musical Engineer Relationship Specialty Start Date End Date Anyn Bruce, CURRICULUM DEVELOPMENT SPECIALIST-ITEM REPAIR MANAGER PCP - General Nurse Practitioner 04/27/22 documented as of this encounter
--- OUTSIDE RECORDS SUMMARY | 2024-11-11 10:34 | XMS_ITS | Encounter Summary ---
Author Organization [facility] Address [address] [place] [address] Care Team Providers Care Sample Prep Technician Name Role Phone Anny Bruce NP Unavailable [phone] Jean Pierre Urena MD Primary Care Provider [phone] Anny Bruce NP Unavailable [phone] Anny Bruce NP Unavailable [phone] Unallocated, Noms Provider Primary Care Provi lili Jean Pierre Urena MD Primary Care Provider [phone] Ayaka Teran [facility]- Unavailable [phone] Rony Calvillo MD Unavailable [phone] Encounter Details Date Type Department Care Team (Late st Contact Info) Description 08/21/2023 Orders Only [facility] [address] [place] [address] Anny Bruce AGRICULTURE LABORATORY TECHNICIAN [address] [place] [address] Iron deficiency anemia, unspecified iron deficiency anemia [...] How often do you attend chur or adventism services? More than 4 times per year 04/04/2023 Do you belong to any clubs o r organizations such as judaism groups, unions, fraternal or athletic groups, or [...] Recorded Patient Health Questionnaire-2 Score 0 08/02/2023 [facility] of Occupat ional Health - Occupational [...] place to sleep or slept in a correction (including now)? No 04/04/2023 Sex and Gender [...] Visit [facility] [address] [place] [address] Anny Bruce NP [address] [place] [address] Scheduled Orders Name Type Priority Associated Diagnoses Orde r Schedule Occult blood x 1, stool Lab Routine Iron deficiency anemia, unspecified iron deficiency anemia type Expected: 08/21/2023 (Approximate), Expires: 08/20/2024 documented as of this encounter Visit Diagnoses Diagnosis Iron deficiency anemia, unspecified iron deficiency anemia type- Primary documented in this encounter Care Teams Sample Prep Technician Relationship Specialty Start Date End Date Jean Pierre Urena MD [address] [place] [address] PCP - General Family Medicine 07/04/23 02/13/24 Anny Bruce NP [address] [place] [address] PCP - [facility] 09/23/2304/10 Unallocated, Mehuls MD [address] [place] [address] PCP - General Family Medicine 02/14/24 02/21/24 Jean Pierre Urena MD [address] [place] [address] PCP - General Family Medicine 02/22/24 Anny Bruce NP [address] [place] [address] Nurse Practitioner Family Medicine 04/24/22 02/13/24 Anny Bruce NP [address] [place] [address] Nurse Practitioner Family Medicine 07/04/23 Ayaka Teran [facility] [address] [facility] [place] [address] Nurse Practitioner Behavioral Health 10/16/24 10/16/24 Rony Calvillo MD [facility], [address] [place] [address] Referring Physician Cardiology 10/16/24 documented as of this encounter
--- OUTSIDE RECORDS SUMMARY | 2024-11-11 10:34 | XMS_ITS | Encounter Summary ---
Author Organization [facility] Address [address] [place] [address] Care Team Providers Care Wire Spring Relay Adjuster Name Role Phone Anny Bruce NP Unavailable [phone] Jean Pierre Urena MD Primary Care Provider [phone] Jean Pierre Urena MD Primary Care Provider [phone] Anny Bruce NP Unavailable [phone] Anny Bruce NP Unavailable [phone] Unallocated, [facility] Provider Primary Care Provi lili Jean Pierre Urena MD Primary Care Provider [phone] Ayaka Teran [facility] Unavailable [phone] Rony Calvillo MD Unavailable [phone] Encounter Details Date Type Department Care Team (Late st Contact Info) Description 04/24/2023 Abstract [facility] [address] [place] [address] Anny Bruce LOAN OFFICER [address] [place] [address] Social History Tobacco Use Types Packs/Day Years [...] How often do you attend chur or roman catholic services? More than 4 times per year 04/04/2023 Do you belong to any clubs o r organizations such as sabianist groups, unions, fraternal or athletic groups, or [...] care, and heating? Not very hard 04/04/2023 [facility] [place] of Occupat ional Health - Occupational Stress [...] place to sleep or slept in a snf (including now)? No 04/04/2023 Sex and Gender [...] Visit [facility] [address] [place] [address] Anny Bruce NP [address] [place] [address] documented as of this encounter Visit Diagnoses Not on filedocumented in this encounter Care Teams Wire Spring Relay Adjuster Relationship Specialty Start Date End Date Jean Pierre Urena MD [address] [place] [address] PCP - General Family Medicine 03/22/23 07/03/23 Jean Pierre Urena MD [address] [place] [address] PCP - General Family Medicine 07/04/23 02/13/24 Anny Bruce NP [address] [place] [address] PCP - [facility] 09/23/2304/10 Unallocated, Eulalio Pemberton MD [address] [place] [address] PCP - General Family Medicine 02/14/24 02/21/24 Jean Pierre Urena MD [address] [place] [address] PCP - General Family Medicine 02/22/24 Anny Bruce NP [address] [place] [address] Nurse Practitioner Family Medicine 04/24/22 02/13/24 Anny Bruce NP [address] [place] [address] Nurse Practitioner Family Medicine 07/04/23 Ayaka Teran [facility]IE[facility]- [address] [place] [address] [place] [address] Nurse Practitioner Behavioral Health 10/16/24 10/16/24 Rony Calvillo MD [facility], [address] [place] [address] Referring Physician Cardiology 10/16/24 documented as of this encounter
--- OUTSIDE RECORDS SUMMARY | 2024-11-11 10:34 | XMS_ITS | Encounter Summary ---
Author Organization Funding [employer] tem Address [facility] [place]-[id number] [address] [place] [address] Care Team Providers Care Reel Tender Name Role Phone ReglaAnny canales Earle PETERSENN-WOOD BOAT BUILDER SUPERVISOR Primary Care Provider Encounter Details Date Type Department Care Team (Late st Contact Info) Description 09/11/2020 [facility] Only [facility] [address] [place] [address] Rony Calvillo MD [address] [facility], [address] [place], [place] [id number] Social History Tobacco Use Types Packs/Day Years [...] AM EDT Clinical Support [facility] [address] [place] [address] [address] [place] [address] 11/22/2024 9:45 AM EDT Office Visit [facility] [address] [facility] [address] [place] [address] Rony Calvillo MD [address] [facility], [address] [place], [place] [id number] documented as of this encounter Procedures Procedure Name Priority Date/Time Associated Diagnosis Comments DEVICE INTERROGATION Routine 09/11/2020 documented in this encounter Results * Device Interrogation (09/11/2020) Anatomical Region Laterality Modality Other us Rony Calvillo MD [facility] ORDERAB LES Final Result documented in this encounter Visit Diagnoses Not on filedocumented in this encounter Care Teams Reel Tender Relationship Specialty Start Date End Date Anny Bruce, MAGNETIC TAPE COMPOSER OPERATOR-WOOD BOAT BUILDER SUPERVISOR PCP - General Nurse Practitioner 04/27/22 documented as of this encounter
--- OUTSIDE RECORDS SUMMARY | 2024-11-11 10:34 | XMS_ITS | Encounter Summary ---
Author Organization [facility] Address [address] [place] [address] Care Team Providers Care Electric Meter Installer Name Role Phone Anny Bruce NP Unavailable [phone] Jean Pierre Urena MD Primary Care Provider [phone] Anny Bruce NP Unavailable [phone] Anny Bruce NP Unavailable [phone] Unallocated, Noms Provider Primary Care Provi lili Jean Pierre Urena MD Primary Care Provider [phone] Ayaka Teran [facility]- Unavailable [phone] Rony Calvillo MD Unavailable [phone] Encounter Details Date Type Department Care Team (Late st Contact Info) Description 08/30/2023 Orders Only [facility] [address] [place] [address] Anny Bruce CELLOPHANE TESTER [address] [place] [address] Iron deficiency anemia, unspecified iron deficiency anemia [...] How often do you attend chur or holiness services? More than 4 times per year 04/04/2023 Do you belong to any clubs o r organizations such as anglican groups, unions, fraternal or athletic groups, or [...] Recorded Patient Health Questionnaire-2 Score 0 08/02/2023 [facility] of Occupat ional Health - [...] to sleep or slept in a senior care (including now)? No 04/04/2023 Sex and Gender [...] Visit [facility] [address] [place] [address] Anny Bruce NP [address] [place] [address] Scheduled Orders Name Type Priority Associated Diagnoses Orde r Schedule CBC and differential Lab Routine Iron deficiency anemia, unspecified iron deficiency anemia type Expected: 08/30/2023 (Approximate), Expires: 08/29/2024 documented as of this encounter Visit Diagnoses Diagnosis Iron deficiency anemia, unspecified iron deficiency anemia type- Primary documented in this encounter Care Teams Electric Meter Installer Relationship Specialty Start Date End Date Jean Pierre Urena MD [address] [place] [address] PCP - General Family Medicine 07/04/23 02/13/24 Anny Bruce NP [address] [place] [address] PCP - [facility] 09/23/2304/10 Unallocated, Noms Provider, [address] [place] [address] PCP - General Family Medicine 02/14/24 02/21/24 Jean Pierre Urena MD [address] [place] [address] PCP - General Family Medicine 02/22/24 Anny Bruce NP [address] [place] [address] Nurse Practitioner Family Medicine 04/24/22 02/13/24 Anny Bruce NP [address] [place] [address] Nurse Practitioner Family Medicine 07/04/23 Ayaka Teran, [facility]- [address] [place] [address] [place] [address] Nurse Practitioner Behavioral Health 10/16/24 10/16/24 Rony Calvillo MD [facility], [address] [place] [address] Referring Physician Cardiology 10/16/24 documented as of this encounter
--- OUTSIDE RECORDS SUMMARY | 2024-11-11 10:34 | XMS_ITS | Encounter Summary ---
Author Organization [facility] Address [address] [place] [address] Care Team Providers Care Director Of District Office Name Role Phone Anny Bruce NP Unavailable [phone] Jean Pierre Urena MD Primary Care Provider [phone] Rony Calvillo MD Unavailable [phone] Encounter Details Date Type Department Care Team (Late st Contact Info) Description 11/05/2024 Telephone [facility] [address] [place] [address] Anny Bruce NP [address] [place] [address] Social History Tobacco Use Types Packs/Day Years [...] How often do you attend chur or jainism services? More than 4 times per year 04/04/2023 Do you belong to any clubs o r organizations such as worship groups, unions, [employer]GreenMantra Technologies or athletic groups, or school groups? No [...] Recorded Patient Health Questionnaire-2 Score 2 10/16/2024 [facility] of Occupat ional Health [...] Telephone Encounter - JOSÉ HUMPHRIES - 11/05/2024 1:11 PM EDT [employer] Vicky Da Silva, it is Sebastian Emerson. Sorry, I missed your call. I just actually got up a little bit ago. Yeah, wow, what a message. Yeah, the the thing I was hoping you could do is I was having obviously problems with my back that day and missed 2 days of work, which would have been , . We are backon the , if you could fill that out and for me. I would appreciate it. And then as far as the e issues with my I do not know what I do not know what all that is. I really do not know. I was just wondering, you know, I years back I had Dr. Mcdonald and he had given me via OX, which worked really good, but I do not they do not do not give them out anymore and I had a rash reaction to that so then we never really did anything else. I just did not know if Anny had an idea with an anti inflammatory type of, you know, medication I could take to help, you know, not so much with I guess with pain. Stu, I am pretty used to that by now, but something like an anti inflammatory are our, you know, arthritis type of medication. I do try to hit the IV profin, but I am really not supposed to be doingthat. So that is kind of what I was hoping something that she could give me and, you know, to help me with that with movement and the end, like I said, the VIX works really good but I ended up going to the ER because I broke out with a van rash. It was weird because I went to the ER in [place] then and they gave me peps did and Benadryl together and it was just I did not know Benadryl could get rid of. It was weird. It works really good, but I think via X has been pulled off of the, you know, medications, I many people have problems with it and all that. I actually still have my big box magnet to do and rosmery for my refrigerator that I have got, but that is kind of what I was wondering something like that would be I would appreciate if you could do that. And then I did not know either about the the iron aquifer supplement, if you guys were able to get that ironed out and it had to be pre pre approval or something through the insurance company. So I can use that dollar or a zero pay card that I have with them anyway. I am sorry it is a long message, but let me know I really appreciate all your help, and I guess I need to get in there so I can talk a little more about what this stuff is. Okay, you have a great day. Thanks a lot, young lady. Talk to you later, bye. [employer] Avinash, it is Sebastian Emerson. I was going to ask you about a couple of prescriptions or medication, what Anny thought about just showing you how old I am. Via was pulled in . So wow, you probably were not even born yet. In , it caused, according to my little chant GPT, heart attacks and strokes. So yeah, we do not want to be taking anything like that, but they were talking About CBX is a commonreplacement for VIA OS, it is still a CO 2 inhibitor. It is easier on your stomach. And I know sometimes Suze Prof could be a long acting HALEIGH said like this is called Mingo or Sia. Me, I am sorry, ML X C or Julián here is another 1 or. Joni, there you go. It is generally called Laxmi Breen. I have heard that before anyway. I just was kind of wondering about that. I am not crazy about the whole pain management thing. They are going to you know, I think because I am an alcoholic, they I do not know, I have never had any abuse with medication though For some reason, I do not know why that is. Itjust never happened. I have never had I have taken a lot, you know, several different medications over the years. You know, I am not I never get messing around and addicted or getting high with any of that stuff, but I just wondered if like that stuff. So brecks, a little terr would be of any benefit just to kind of loosen it up a little bit. I mean, I am 59, so I know that some of this is going to happen. But anyway, Kris, let me know what you guys think about that. I was just curious. Okay, thanks a lot. Have a good day. Bye. [employer] Rafay, Vicky, it is just me. I promised. This is my last voicemail, that stuff [employer] I dropped off. They are trying to help me get those couple days covered through. I do not know what is an [place]e Americans with disability as or something. Because technically, [employer] wants you to be out like 5 days straight before They will okay, something like that, but this is something that they shot to me, which I would imagine that my back condition is a valid disability type thing. So it is just for those couple of days. I really appreciate the extra work you guys do for me and I do, but yeah, that is what that is for. So let me know if you have any questions. I appreciate you calling me back again this morning. Sorry, I was asleep. You get off around 6AM 637, something like that. And then Itry to I got to take a shower because it is so freaking hot in the place and my clothes are wet andanyhow. Then, you know, I try to get to bed a little bit short shortly after that, so I just want to, you know, I just popped in my head so I thought I would better give you a call. Okay, thank you. Have a good night. Sorry to bug you. Bye. documented in this encounter Plan of Treatment Upcoming Encounters Date Type Department Care Team (Late st Contact Info) Description 12/04/2024 8:40 AM EDT Office Visit [facility] [address] [place] [address] Anny Bruce NP [address] [place] [address] documented as of this encounter Visit Diagnoses Not on filedocumented in this encounter Additional Health Concerns Assessment Noted Time PHQ-9 Depression Total Score: 4 10/17/19 9:40 AM EDT documented as of this encounter Care Teams Director Of District Office Relationship Specialty Start Date End Date Jean Pierre Urena MD [address] [place] [address] PCP - General Family Medicine 02/22/24 Anny Bruce NP [address] [place] [address] Nurse Practitioner Family Medicine 07/04/23 Rony Calvillo MD [address] [place] [address], [address] [place] [address] Referring Physician Cardiology 10/16/24 documented as of this encounter
--- OUTSIDE RECORDS SUMMARY | 2024-11-11 10:34 | XMS_ITS | Encounter Summary ---
Author Organization [employer] tem Address [facility] [place]-[id number] [address] [place] [address] Care Team Providers Care Wastewater Treatment Supervisor Name Role Phone Anny Bruce Primary Care Provider Reason for Visit * Reason Onset Date Comments Med Refill 11/08/2016 Encounter Details Date Type Department Care Team (Late st Contact Info) Description 11/08/2016 Refill [facility] [address] [place] [address] [address] [place] [address] Zayra Brian RN Med Refill Social History Tobacco [...] AM EDT Clinical Support [facility] [address] [place] [address] 11/22/2024 9:45 AM EDT Office Visit [facility] Y[facility]asta [facility] [address] [place] [address] Rony Calvillo MD [address] [facility], [address] [place], [place] [address] documented as of this encounter Visit Diagnoses Not on filedocumented in this encounter Care Teams Wastewater Treatment Supervisor Relationship Specialty Start Date End Date Anny Bruce APRN-CNP PCP - General Nurse Practitioner 04/27/22 documented as of this encounter
--- OUTSIDE RECORDS SUMMARY | 2024-11-11 10:34 | XMS_ITS | Encounter Summary ---
Author Organization [employer] [facility] tem Address [facility] [place] [place]-[id number] [address] [place] [address] Care Team Providers Care Heddler Tier Name Role Phone ReglanAny canales Earle PETERSENN-RESERVE OFFICER Primary Care Provider Reason for Visit * Reason Onset Date Comments medication remind 11/04/2020 Encounter Details Date Type Department Care Team (Late st Contact Info) Description 11/04/2020 [facility]phone [facility] [address] [facility] [address] [address] Priya Chin MA medication remind Social History [...] EDT Clinical Support [facility] [address] [place] [address] [address] [place] [address] 11/22/2024 9:45 AM EDT Office Visit [facility] [address] [place] [address] [address] [place] [address] Rony Calvillo MD [address] [facility], [address] [place] [address] documented as of this encounter Visit Diagnoses Not on filedocumented in this encounter Care Teams Heddler Tier Relationship Specialty Start Date End Date Anny Bruce, CUSTOM SKI MAKER-RESERVE OFFICER PCP - General Nurse Practitioner 04/27/22 documented as of this encounter
--- OUTSIDE RECORDS SUMMARY | 2024-11-11 10:34 | XMS_ITS | Encounter Summary ---
Author Organization [employer] [facility] tem Address [facility] [place] [place]-[id number] [address] [place] [address] Care Team Providers Care Lock Tender Name Role Phone ReglalocoliverioAnny Earle PETERSENN-AUTISM SPECIALIST Primary Care Provider Reason for Visit * Reason Onset Date Comments medication remind 10/23/2020 Encounter Details Date Type Department Care Team (Late st Contact Info) Description 10/23/2020 [facility]phone [facility] [address] [facility] [address] [address] Priya Chin MA medication remind Social History [...] Telephone Encounter - Priya Chin MA - 10/23/2020 9:12 AM EDT Called patient to remind them to bring their most current copy of medication list with them to their appt. Patient verbalizes understanding. documented in this encounter Plan of Treatment Upcoming Encounters Date Type Department Care Team (Late Contact Info) Description 11/22/2024 9:00 AM EDT Clinical Support [facility] [address] [place] [address] [address] [place] [address] 11/22/2024 9:45 AM EDT Office Visit [facility] [address] [place] [address] [address] [place] [address] Rony Calvillo MD [address] [facility], [address] [place] [address] documented as of this encounter Visit Diagnoses Not on filedocumented in this encounter Care Teams Lock Tender Relationship Specialty Start Date End Date Anny Bruce, MARRIAGE AND FAMILY COUNSELOR-AUTISM SPECIALIST PCP - General Nurse Practitioner 04/27/22 documented as of this encounter
--- OUTSIDE RECORDS SUMMARY | 2024-11-11 10:34 | XMS_ITS | Encounter Summary ---
Author Organization [employer] tem Address [facility] [id number] [address] [place] [address] Care Team Providers Care Mat Cutter Name Role Phone ReglaAnny canales Earle HIDES INSPECTOR-ONCOLOGY PATIENT NAVIGATOR Primary Care Provider Reason for Visit * Reason Comments Med Refill Encounter Details Date Type Department Care Team (Late st Contact Info) Description 04/14/2020 Refill [facility] [address] [place] [address] Gayla Manuel, [facility] [address] [place] [address] Med Refill Social History Tobacco Use Types [...] Support [facility] [address]asta [address] [place] [address] 11/22/2024 9:45 AM EDT Office Visit [facility] [address] [place] [address] Rony Calvillo MD [address] [facility], [address] [place] [address] documented as of this encounter Visit Diagnoses Not on filedocumented in this encounter Care Teams Mat Cutter Relationship Specialty Start Date End Date Anny Bruce, ORIN-ONCOLOGY PATIENT NAVIGATOR PCP - General Nurse Practitioner 04/27/22 documented as of this encounter
--- NOTE | 2024-11-11 12:34 | ED.GENADUL1 ---
HPI HPI - General Adult General Chief complaint: Skin/Abscess/Foreign Body Stated complaint: RASH Time Seen by Provider: 11/11/24 10:47 Source: patient Mode of arrival: walk-in Limitations: no limitations History of Present Illness HPI narrative: 59-year-old male to the emergency department chief complaint of painful rash on his back. It has been there for a little over a week. Otherwise no symptoms. He thinks it might be shingles. He did have chickenpox as a child. Otherwise at his baseline health. Related Data Home Medications �Medication �Instructions �Recorded �Confirmed albuterol sulfate 90 mcg/actuation 2 inh inhalation Q4H PRN dyspnes 08/25/23 09/29/23 aerosol inhaler amitriptyline 50 mg tablet 50 mg PO .bedrtime 08/25/23 09/29/23 buspirone 10 mg tablet 10 mg PO TID PRN anxiety 08/25/23 09/29/23 carvedilol 25 mg tablet 25 mg PO Q12H 08/25/23 09/29/23 cyclobenzaprine 10 mg tablet 10 mg PO QAM 08/25/23 09/29/23 mirtazapine 15 mg tablet 15 mg PO DAILY 08/25/23 09/29/23 accufer 09/29/23 cholecalciferol (vitamin D3) 125 25,000 unit PO QWEEK 09/29/23 09/29/23 mcg (5,000 unit) tablet cyanocobalamin (vitamin B-12) 1,000 mcg PO DAILY 09/29/23 09/29/23 1,000 mcg tablet ferric maltol 30 mg capsule 30 mg PO BID 09/29/23 09/29/23 (Accrufer) losartan 100 mg tablet 100 mg PO DAILY 09/29/23 09/29/23 pramipexole 1 mg tablet 2 mg PO DAILY 09/29/23 09/29/23 spironolactone 25 mg tablet 25 mg PO DAILY 09/29/23 09/29/23 Previous Rx's �Medication �Instructions �Recorded lidocaine 5 % topical patch 1 patch topical Q24H #15 ea 11/11/24 (Lidoderm) Allergies Allergy/AdvReac Type Severity Reaction Status Date / Time egg Allergy Unknown shortness Verified 11/11/24 10:06 of breath Penicillins Allergy Rash Verified 11/11/24 10:06 Sulfa (Sulfonamide Allergy Rash Verified 11/11/24 10:06 Antibiotics) Opioid HPI Opioid Management Most Recent Opioid Data: Last Pain Scale 4 Today, 10:06 Review of Systems ROS Status of ROS 10 or more systems reviewed and unremarkable except as noted in history and below PFSH PFSH Social History Little interest or pleasure in doing things: not at all Feeling down, depressed, or hopeless: not at all Exam Narrative Exam Narrative: VITALS: I have reviewed the triage vital signs. GENERAL: Well developed, well appearing adult in no acute distress. NEURO: Alert and oriented. Moves all extremities. Face is symmetric and expressive. EYES: PERRL. No scleral icterus or conjunctival injection. No discharge. HENT: Normocephalic, atraumatic. Hearing is grossly intact. Nares grossly patent and without discharge. Mucous membranes moist. NECK: No JVD. Patient moves neck without restriction. CARDIO: Rhythm regular. Normal rate. No murmur, rub, or gallop. Pulses equal bilaterally in the upper and lower extremity. No lower extremity edema. Dried crusted rash in the approximately 5 inch linear pattern over the left flank. PULM: Lungs clear to auscultation in all hernández. No wheezes, rales, or rhonchi. No conversational dyspnea. No splinting, stridor, or accessory muscle use. EXTREMITIES: Symmetric muscle bulk. No joint swelling. No clubbing, cyanosis, or deformity. SKIN: Warm and dry. Normal turgor. No rash or lesions appreciated. PSYCH: Mood, affect, and interaction is appropriate to the setting. Constitutional Vital Signs, click to edit/add: Last Vital Signs Temp 98.1 F 11/11/24 10:06 Pulse 96 H 11/11/24 10:06 Resp 16 11/11/24 10:06 BP 121/82 11/11/24 10:06 Pulse Ox 97 11/11/24 10:06 O2 Del Method Room Air 11/11/24 10:06 Course Vital Signs Vital signs: Vital Signs Temperature 98.1 F 11/11/24 10:06 Pulse Rate 96 H 11/11/24 10:06 Respiratory Rate 16 11/11/24 10:06 Blood Pressure 121/82 11/11/24 10:06 Pulse Oximetry 97 11/11/24 10:06 Oxygen Delivery Method Room Air 11/11/24 10:06 Temperature 98.1 F 11/11/24 10:06 Pulse Rate 96 H 11/11/24 10:06 Respiratory Rate 16 11/11/24 10:06 Blood Pressure 121/82 11/11/24 10:06 Pulse Oximetry 97 11/11/24 10:06 Oxygen Delivery Method Room Air 11/11/24 10:06 Medical Decision Making MDM Narrative Medical decision making narrative: 59-year-old male to the emergency department chief complaint of rash. Vital stable, the patient is afebrile. Rash is consistent with matured zoster. No indication for acyclovir at this time. No signs of secondary infection. Lidoderm patch. Discussed expected clinical course. Return precautions were discussed. All questions were answered. The patient was discharged home. Discharge Plan Discharge Chief Complaint: Skin/Abscess/Foreign Body Clinical Impression: Herpes zoster Patient Disposition: Home, Self-Care Time of Disposition Decision: 11:11 Condition: Good Mode of Transportation: Private Vehicle Prescriptions / Home Meds: New lidocaine [Lidoderm] 5 % adhesive patch,medicated 1 patch topical Q24H Qty: 15 0RF Rx Instructions: leave on most painful area for up to 12 hrs No Action albuterol sulfate 90 mcg/actuation HFA aerosol inhaler 2 inh INHALATION Q4H PRN (Reason: dyspnes) amitriptyline 50 mg tablet 50 mg PO .bedrtime buspirone 10 mg tablet 10 mg PO TID PRN (Reason: anxiety) carvedilol 25 mg tablet 25 mg PO Q12H mirtazapine 15 mg tablet 15 mg PO DAILY cyclobenzaprine 10 mg tablet 10 mg PO QAM cyanocobalamin (vitamin B-12) 1,000 mcg tablet 1,000 mcg PO DAILY losartan 100 mg tablet 100 mg PO DAILY pramipexole 1 mg tablet 2 mg PO DAILY spironolactone 25 mg tablet 25 mg PO DAILY cholecalciferol (vitamin D3) 125 mcg (5,000 unit) tablet 25,000 unit PO QWEEK accufer Accrufer 30 mg capsule 30 mg PO BID Print Language: Romanian Instructions: Shinmarilyn (ED) Additional Instructions: Call the office of your primary care doctor to arrange for follow-up within the above-stated timeframe. Your ED visit was focused on your acute issue and does not replace primary care. You should review your labs, imaging, and diagnoses from this ED visit with your primary care physician. There may be non-emergent/ incidental findings that need further evaluation. You should review your vital signs including blood pressure with your PCP. If you were prescribed medications you should discuss possible side-effects and drug interactions with your pharmacist. Call 911 or go to the nearest Emergency Department if you develop any new or worsening symptoms. Referrals: Anny Bruce NP [Primary Care Provider, Family Practice] - 1 week Discharge Date/Time: 11/11/24 11:20
== END 2024-11-11 11:20 | disposition home or self-care (01) ==
PROVIDERS: Emergency Provider Student in an Organized Health Care Education/Training Program; PCP Nurse Practitioner
DX: B02.9 Zoster without complications (principal)
CPT/HCPCS: 99283

== ENCOUNTER 2025-01-07 10:52 | Outpatient (OUT) | payer OTHER, SELFPAY ==
--- OUTSIDE RECORDS SUMMARY | 2025-01-07 11:11 | XMS_ITS | CCD ---
Author Organization [facility] Care Team Providers Care Battery Container Inspector Name Role Phone Jessica Harman Unavailable AICHHOLZ, COUNCIL MEMBER ANNY Primary Care Unavailable AICHHOLZ, COUNCIL MEMBER ANNY Consulting Unavailable AICHHOLZ, COUNCIL MEMBER ANNY Attending Unavailable AICHHOLZ, COUNCIL MEMBER ANNY Admitting Unavailable IRIS ALDANA Consulting Unavailable AICHHOLZ, COUNCIL MEMBER ANNY Primary Care Unavailable AICHHOLZ, COUNCIL MEMBER ANNY Consulting Unavailable AICHHOLZ, COUNCIL MEMBER ANNY Attending Unavailable AICHHOLZ, COUNCIL MEMBER ANNY Admitting Unavailable DR REGGIE CONROY Consulting Unavailable SHAMMO, GILBERTO Attending Unavailable SHAMMO, GILBERTO Admitting Unavailable SHAMMO, GILBERTO Consulting Unavailable AICHHOLZ, ANNY J Primary Care Unavailable GUSTAVO RODRIGUEZ Attending Unavailable CORDOVA, [facility] Consulting Unavailable GUSTAVO RODRIGUEZ Admitting Unavailable ARNAV LENNON Referring Unavailable AICHHOLZ, ANNY J Primary Care Unavailable AICHHOLZ, ANNY J Primary Care Unavailable MARCIN HOPPER Attending Unavailable MARCIN HOPPER Admitting Unavailable Yamilet Bhakta Primary Care Unavailable Aiccandida, Anny J Attending Unavailable Aichholz, Anny J Admitting Unavailable LiviaNICOLAN Yamilet R Primary Care Provider [phone] Janis Anny J Attending Provider Aichholz THREAD TOOL GRINDER SET UP OPERATOR, Anny Unavailable Aichholz THREAD TOOL GRINDER SET UP OPERATOR, Anny Unavailable RogeriolocatEulalio hoyt MD Provider Primary Care Provi lili Jean Pierre Urena MD Primary Care Provider [phone] Aiccandida THREAD TOOL GRINDER SET UP OPERATOR, Anny Unavailable Jean Pierre Urena MD Primary Care Provider Janis GRAINER MACHINE-COUNCIL MEMBER, Anny Og Primary Care Provider Reglahnehal GRAINER MACHINE-COUNCIL MEMBER, Anny Og Primary Care Provider Janis GRAINER MACHINE-COUNCIL MEMBER, Anny Og Primary Care Provider Janis GRAINER MACHINE-COUNCIL MEMBER, Anny Og Primary Care Provider Jeffry [facility]-, Dion Unavailable [phone] Dena PYLE, Rocío Keita Unavailable [phone] JANIS, ANNY Attending Unavailable AICHHOLZ, ANNY Attending Unavailable AICHHOLZ, ANNY Attending Unavailable AICHHOLZ, ANNY Attending Unavailable AICHHOLZ, ANNY Attending Unavailable DION TERAN Attending Unavailable AICHHOLZ, ANNY Referring Unavailable AICHHOLMica, ANNY J Referring Unavailable JANIS, ANNY Og Primary Care Unavailable ROCÍO FERNANDES Attending Unavailable JANIS, ANNY Og Referring Unavailable REGLAHHOLMica, ANNY Og Primary Care Unavailable Aichholz THREAD TOOL GRINDER SET UP OPERATOR, Anny Unavailable Anny Bruce Primary Care Provider Anny Bruce Attending Provider Allergies Allergy Classification Reported Allergen(s) Allergy Type Date of Onset Reaction(s) Facility (1 source) Penicillins (Antibiotic) Drug allergy rash [facility] [employer] Other (1 source) Sulfonamides (Antibiotic) Drug allergy rash [facility] [employer] Other (1 source) Penicillin Drug Allergy [facility] (20 sources) Penicillins; 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: [PENICILLINS] Propensity to adverse reactions to drug (disorder) 02-14-20 17 Swelling, Rash, Hives [facility] (20 sources) Sulfonamides (Antibiotic); 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: [SULFA (SULFONAMIDE ANTIBIOTICS)] Propensity to adverse reactions to drug (disorder) 02-14-20 17 Wheezing [facility] (20 sources) busPIRone; 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: [BUSPIRONE] Drug Allergy 11-09-19 24 Anxiety, Other, Other (See Comments) [facility] (20 sources) Penicillin G Drug Allergy 03-30-20 23 Unknown [facility] (20 sources) Sulfonamides (Antibiotic) Drug Allergy 03-30-20 23 Unknown [facility] (20 sources) Egg-Derived Products Propensity to adverse reactions 04-04-20 23 [facility] (18 sources) D And C Yellow No.11; 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: [D AND C YELLOW NO.11] Propensity to adverse reactions to drug 06-21-19 [facility] Current Medications Medication Drug Class(es) Dates Sig (Normalized) Sig (Original) [id number] 200 actuat albuterol 0.09 mg/actuat metered dose inhaler (20 sources) beta2-Adrenergic Agonist Start: 12-24-2024 Albuterol Sulfate 90 mcg/actuation HFA aerosol inhaler Active INHALATION December 24, 2024 12:00am Complies with drug therapy Start: 11-28-2023 End: 12-19-2024 take 2 puff(s) by mouth every six hours as needed for wheezing albuterol HFA 90 mcg/act inhaler Indications: Acute bronchitis, unspecified INHALE 2 PUFFS BY MOUTH EVERY 6 HOURS NEEDED FOR WHEEZING 18 g 1 12/19/2024 Active Start: 08-12-2023 take 2.5 mg by inhal ation every six hours as needed for wheezing and dyspnea albuterol (2.5 M G/3ML) 0.083% nebulizer solution Take 2.5 mg by nebulization every 4 (four) hours if needed for wheezing Active take 2 puff(s) by in halation every six hours as needed for wheezing albuterol (PROVENTIL HFA;VENTOLIN HFA) 90 mcg/actuation inhaler Inhale 2 puffs every 6 (six) hours as needed for wheezing or shortness of breath. Active Albuterol Sulfat e (2.5 MG/3ML) 0.083% 3 ml as needed Inhalation 4 times a day Active take 1 puff(s) by in halation every four hours as needed Ventolin HFA 108 (90 Base) MCG/ACT 1 puff as needed Inhalation every 4 hrs Active take 3 mL by inhalat ion every six hours Albuterol 0.083% 3 ml Inhalation Q6H for 30 day(s) Active amitriptyline hydrochloride 50 mg oral tablet (20 sources) Tricyclic Antidepressant Start: 12-24-2024 take 2 tablets by mouth once daily at bedtime Amitriptyline 50 mg tablet Active 100 MG PO Daily at bedtime December 24, 2024 12:00am Complies with drug therapy Start: 02-15-2024 End: 11-02-2024 take 2 tablets by mouth at bedtime amitriptyline (Elavil) 50 MG tablet Indications: Lumbago with sciatica, left side Take 2 tablets (100 mg) by mouth at bedtime 60 tablet 3 10/03/2024 Active Start: 11-28-2023 End: 12-28-2023 take 2 tablets by mouth at bedtime amitriptyline (Elavil) 50 MG tablet Indications: Lumbago with sciatica, left side Take 2 tablets (100 mg) by mouth at bedtime 60 tablet 3 11/28/2023 Active Start: 08-12-2023 apixaban 5 mg oral tablet (20 sources) Factor Xa Inhibitor Start: 01-30-2024 End: 10-16-2024 take 1 tablet by mouth in the morning Eliquis 5 MG tablet Take 5 mg by mouth in the morning and 5 mg before bedtime. 01/30/2024 10/16/2024 Discontinued (Therapy completed) Start: 08-02-2023 End: 08-15-2023 take 1 tablet by mouth in the morning apixaban (ELIQUIS) 5 mg tablet TAKE 1 TABLET BY MOUTH IN THE MORNING then TAKE 1 TABLET BY MOUTH BEFORE bedtime 180 tablet 08/02/2023 08/15/2023 Discontinued (Stop Taking at Discharge) Eliquis 2.5 MG a s directed Orally BID Active B Complex Vitamins (VITAMIN B COMPLEX PO) (20 sources) B Complex Vitami ns (VITAMIN B COMPLEX PO) Take by mouth Active 120 actuat budesonide 0.16 mg/actuat / formoterol fumarate 0.0048 mg/actuat / glycopyrrolate 0.009 mg/actuat metered dose inhaler (20 sources) Corticosteroid, beta2-Adrenergic Agonist Start: 12-24-2024 Fsnrdmxjqk-Vftyekua-Kfb moterol (Breztri Aerosphere) 160-9-4.8 mcg/actuation HFA aerosol inhaler Active INHALATION December 24, 2024 12:00am Complies with drug therapy Start: 04-03-2024 End: 05-03-2024 take 2 puff(s) by mouth in the morning Ihaqeav-Ijhmewifoju-Grijhusyvx (Breztri Aerosphere) 160-9-4.8 MCG/ACT aerosol Indications: Asthma-COPD overlap syndrome (CMS/HCC) Inhale 2 puffs in the morning and 2 puffs before bedtime. Rinse mouth after use. 10.7 g 5 04/03/2024 05/03/2024 Active End: 04-03-2024 take 2 puff(s) by inhalation in the morning Mhfvnxk-Ckhjjylotrn-Bzbzznlohw (Breztri Aerosphere) 160-9-4.8 MCG/ACT aerosol Indications: Chronic Obstructive Pulmonary Disease Inhale 2 puffs in the morning and 2 puffs before bedtime. Active carvedilol 25 mg oral tablet (20 sources) alpha-Adrenergic Kizzy, beta-Adrenergic Kizzy Start: 12-24-2024 take 1 tablet by mouth twice daily Carvedilol 25 mg tablet Active 25 MG PO Twice daily December 24, 2024 12:00am Complies with drug therapy Start: 08-12-2023 Start: 04-25-2023 End: 12-16-2024 take 1 tablet by mouth in the morning, then take 1 tablet by mouth at mealtime carvediloL (COREG) 25 mg tablet Indications: Dilated cardiomyopathy (CMS-HCC) , Non-ischemic cardiomyopathy (CMS-HCC) , ICD (implantable cardioverter-defibrillator) in place , Moderate left ventricular systolic dysfunction , Heart failure with reduced ejection fraction, NYHA class II (CMS-HCC) Take 1 tablet (25 mg total) by mouth in the morning and 1 tablet (25 mg total) in the evening. Take with meals. 180 tablet 12/16/2024 Active cholecalciferol 0.025 mg oral capsule (5 sources) Vitamin D Start: 08-07-2023 End: 09-06-2023 take 1 capsule by mouth in the morning cholecalciferol, vitamin D3, 25 mcg (1,000 unit) capsule Take 25 mcg by mouth in the morning. 08/07/2023 09/06/2023 Active clindamycin 0.01 mg/mg topical gel (20 sources) Lincosamide Antibacterial Start: 08-22-2023 clindamycin (Clindagel) 1 % gel Apply 1 application topically Daily as needed 08/22/2023 Active cyclobenzaprine hydrochloride 10 mg oral tablet (20 sources) Muscle Relaxant Start: 12-24-2024 take 1 tablet by mouth once daily at bedtime as needed for muscle spasms Cyclobenzaprine 10 mg tablet Active 10 MG PO Daily at bedtime as needed for muscle spasms December 24, 2024 12:00am Complies with drug therapy Start: 02-15-2024 End: 06-28-2024 cyclobenzaprine (Flexeril) 1 0 MG tablet Indications: Chronic bilateral low back pain with left-sided sciatica Take 1 tablet (10 mg) by mouth as needed at bedtime for muscle spasms 30 tablet 2 05/29/2024 Active Start: 09-11-2023 End: 02-02-2024 cyclobenzaprine (Flexeril) 1 0 MG tablet Indications: Chronic bilateral low back pain with left-sided sciatica Take 1 tablet (10 mg) by mouth as needed at bedtime for muscle spasms 30 tablet 1 01/03/2024 02/02/2024 Active 12 hr dextromethorphan polistirex 6 mg/ml extended release suspension (1 source) Uncompetitive M-wbstep-W-aspartate Receptor Antagonist, Sigma-1 Agonist take 10 mL by mouth every twelve hours as needed Delsym 30 MG/5ML 10 mL as needed Orally every 12 hrs Active doxycycline hyclate 100 mg oral tablet (1 source) Tetracycline-class Drug Start: 2024 End: 2024 take 1 tablet by mouth in the morning doxycycline (Vibra-Tabs) 100 MG tablet Indications: Subacute maxillary sinusitis Take 1 tablet (100 mg) by mouth in the morning and 1 tablet (100 mg) before bedtime. Do all this for 10 days. Take with a full glass of water and do not lie down for at least 30 minutes after. 20 tablet 08/29/2024 09/08/2024 Active ergocalciferol 1.25 mg oral capsule (20 sources) Provitamin D2 Compound Start: 2023 End: 2023 take 1 capsule by mouth every week ergocalciferol (Vitamin D2) 1.25 MG (95011 UT) capsule Indications: Vitamin D deficiency Take 1 capsule (1.25 mg) by mouth 1 (one) time per week for 28 days Take 50,000 Units by mouth 1 (one) time per week 4 capsule 3 12/15/2023 01/12/2024 Active Ferric Maltol (1 source) Start: 2024 Ferric Maltol (Accrufer) 30 mg capsule Active MG PO December 24, 2024 12:00am Complies with drug therapy Ferric Maltol (ACCRUFeR) 30 MG capsule (20 sources) Start: 2024 End: 2024 take 1 capsule by mouth in the morning Ferric Maltol (ACCRUFeR) 30 MG capsule Indications: Iron deficiency anemia, unspecified iron deficiency anemia type Take 30 mg by mouth in the morning and 30 mg in the evening. Take before meals. 90 capsule 1 10/14/2024 01/12/2025 Active Start: 05-29-2024 End: 06-25-2024 take 1 capsule by mouth in the morning Ferric Maltol (ACCRUFeR) 30 MG capsule Indications: Iron deficiency anemia, unspecified iron deficiency anemia type Take 30 mg by mouth in the morning and 30 mg before bedtime. 60 capsule 3 05/29/2024 06/25/2024 Discontinued (Cost of medication) Start: 05-29-2024 End: 06-28-2024 take 1 capsule by mouth in the morning Ferric Maltol (ACCRUFeR) 30 MG capsule Indications: Iron deficiency anemia, unspecified iron deficiency anemia type Take 30 mg by mouth in the morning and 30 mg before bedtime. 60 capsule 3 05/29/2024 06/28/2024 Active Start: 02-19-2024 End: 03-20-2024 take 1 capsule by mouth in the morning Ferric Maltol (ACCRUFeR) 30 MG capsule Indications: Iron deficiency anemia, unspecified Take 1 capsule by mouth in the morning and 1 capsule before bedtime. 60 capsule 1 02/19/2024 03/20/2024 Active Start: 02-15-2024 End: 02-19-2024 take 1 capsule by mouth in the morning Ferric Maltol (ACCRUFeR) 30 MG capsule Indications: Iron deficiency anemia, unspecified Take 1 capsule by mouth in the morning and 1 capsule before bedtime. 60 capsule 2 02/15/2024 02/19/2024 Discontinued Start: 01-10-2024 End: 02-09-2024 take 1 capsule by mouth in the morning Ferric Maltol (ACCRUFeR) 30 MG capsule Indications: Iron deficiency anemia, unspecified Take 1 capsule by mouth in the morning and 1 capsule before bedtime. 60 capsule 2 01/10/2024 02/09/2024 Active ferrous gluconate 324 mg oral tablet (3 sources) Start: 06-25-2024 End: 09-23-2024 take 1 tablet by mouth at mealtime ferrous gluconate (Fergon) 324 (38 Fe) MG tablet Indications: Iron deficiency anemia, unspecified iron deficiency anemia type Take 1 tablet (324 mg) by mouth in the morning. Take with meals. 90 tablet 06/25/2024 09/23/2024 Active ferrous sulfate 325 mg delayed release oral tablet (13 sources) take 1 tablet by mouth in the morning, then take 1 tablet by mouth at bedtime ferrous sulfate 325 (65 FE) mg EC tablet Take 1 tablet (325 mg total) by mouth in the morning and 1 tablet (325 mg total) before bedtime. Active FLUoxetine 40 mg oral capsule (20 sources) Serotonin Reuptake Inhibitor Start: 12-12-2024 End: 01-11-2025 take 1 capsule by mouth once daily Fluoxetine 40 mg capsule Active 40 MG PO Daily December 24, 2024 12:00am Complies with drug therapy Start: 05-29-2024 End: 11-02-2024 take 1 capsule by mouth once daily FLUoxetine (PROzac) 40 MG capsule Indications: Anxiety and depression Take 1 capsule (40 mg) by mouth Daily 30 capsule 1 10/03/2024 11/02/2024 Active Start: 11-09-2023 End: 05-29-2024 take 1 capsule by mouth once daily FLUoxetine (PROzac) 20 MG capsule Indications: Anxiety and depression (CMS/HCC) Take 1 capsule (20 mg) by mouth Daily 30 capsule 2 02/15/2024 05/29/2024 Discontinued (Therapy completed) gabapentin 600 mg oral tablet (20 sources) Anti-epileptic Agent Start: 12-24-2024 take 1 tablet by mouth every eight hours Gabapentin 600 mg tablet Active 600 MG PO Every 8 hours December 24, 2024 12:00am Complies with drug therapy Start: 02-15-2024 End: 11-02-2024 take 1 tablet by mouth every eight hours gabapentin (Neurontin) 600 MG tablet Indications: Lumbago with sciatica, left side Take 1 tablet (600 mg) by mouth every 8 (eight) hours 90 tablet 3 10/03/2024 Active Start: 09-11-2023 End: 01-12-2024 take 1 tablet by mouth every eight hours gabapentin (Neurontin) 600 MG tablet Indications: Lumbago with sciatica, left side Take 1 tablet (600 mg) by mouth every 8 (eight) hours 90 tablet 2 12/13/2023 Active 12 hr guaiFENesin 600 mg extended release oral tablet (1 source) take 1 tablet by mouth every twelve hours Mucinex 600 MG 1 tablet as needed Orally every 12 hrs Active losartan potassium 100 mg oral tablet (20 sources) Angiotensin 2 Receptor Kizzy Start: 12-24-2024 take 1 tablet by mouth once daily Losartan 100 mg tablet Active 100 MG PO Daily December 24, 2024 12:00am Complies with drug therapy Start: 08-12-2023 Start: 04-25-2023 End: 12-16-2024 take 1 tablet by mouth once daily losartan (COZAAR) 100 mg tablet Indications: Dilated cardiomyopathy (CMS-HCC) , Non-ischemic cardiomyopathy (CMS-HCC) , ICD (implantable cardioverter-defibrillator) in place , Moderate left ventricular systolic dysfunction , Heart failure with reduced ejection fraction, NYHA class II (CMS-HCC) Take 1 tablet (100 mg total) by mouth nightly. 90 tablet 12/16/2024 Active potassium 99 mg extended release oral tablet (20 sources) take 1 tablet by mouth once daily Potassium 99 MG tablet Take 99 mg by mouth 1 (one) time each day Active potassium gluconate 2.5 meq oral tablet (17 sources) take 1 tablet by mouth once daily potassium 99 mg tablet Take 1 tablet (99 mg total) by mouth nightly. Active pramipexole dihydrochloride 1 mg oral tablet (20 sources) Nonergot Dopamine Agonist Start: take 2 tablets by mouth once daily at bedtime Pramipexole 1 mg tablet Active 2 MG PO Daily at bedtime December 24, 2024 12:00am Complies with drug therapy Start: 02-15-2024 End: 06-28-2024 take 2 tablets by mouth at bedtime pramipexole (Mirapex) 1 MG tablet Indications: Restless legs syndrome Take 2 tablets (2 mg) by mouth at bedtime 60 tablet 3 05/29/2024 Active Start: 05-22-2023 take 2 tablets by mo [facility] at bedtime pramipexole (Mirapex) 1 MG tablet Indications: Restless legs syndrome Take 2 tablets (2 mg) by mouth at bedtime 60 tablet 2 05/22/2023 Active predniSONE 20 mg oral tablet (1 source) Start: 11-30-2021 take 1 tablet by mouth every twelve hours predniSONE 20 MG 1 tablet Orally 2 times a day for 5 day(s) Nov, Active spironolactone 25 mg oral tablet (20 sources) Aldosterone Antagonist Start: 12-24-2024 take 1 tablet by mouth twice daily as needed Spironolactone 25 mg tablet Active 25 MG PO Twice daily as needed for swelling December 24, 2024 12:00am Complies with drug therapy Start: 08-12-2023 Start: 06-23-2022 End: 12-16-2024 take 1 tablet by mouth in the morning, then take 1 tablet by mouth at mealtime spironolactone (ALDACTONE) 25 mg tablet Indications: Dilated cardiomyopathy (CMS-HCC) , Non-ischemic cardiomyopathy (CMS-HCC) , ICD (implantable cardioverter-defibrillator) in place , Moderate left ventricular systolic dysfunction , Heart failure with reduced ejection fraction, NYHA class II (CMS-HCC) Take 1 tablet (25 mg total) by mouth in the morning and 1 tablet (25 mg total) in the evening. Take with meals. 180 tablet 12/16/2024 Active vitamin b12 1 mg oral tablet (5 sources) Vitamin B12 Start: 08-07-2023 End: 09-06-2023 take 1 tablet by mouth in the morning cyanocobalamin 1000 MCG tablet Take 1 tablet (1,000 mcg total) by mouth in the morning. 08/07/2023 09/06/2023 Active Completed/Discontinued Medications Medication Drug Class(es) Dates Sig (Normalized) Sig (Original) ACCRUFeR 30 MG capsule (16 sources) Start: 07-18-2024 End: 10-14-2024 take 1 capsule by mouth twice daily at bedtime ACCRUFeR 30 MG capsule TAKE 1 CAPSULE BY MOUTH TWICE DAILY (IN THE MORNING and BEFORE bedtime) 07/18/2024 10/14/2024 Discontinued (Reorder) Start: 07-18-2024 take 1 capsule by mo uth twice daily at bedtime ACCRUFeR 30 MG capsule TAKE 1 CAPSULE BY MOUTH TWICE DAILY (IN THE MORNING and BEFORE bedtime) 07/18/2024 Active Start: 03-23-2024 End: 05-29-2024 take 1 capsule by mouth in the morning ACCRUFeR 30 MG capsule Take 30 mg by mouth in the morning and 30 mg before bedtime. 03/23/2024 05/29/2024 Discontinued (Reorder) Start: 03-23-2024 take 1 capsule by mo uth in the morning ACCRUFeR 30 MG capsule Take 30 mg by mouth in the morning and 30 mg before bedtime. 03/23/2024 Active Start: 10-28-2023 End: 01-10-2024 take 1 capsule by mouth in the morning ACCRUFeR 30 MG capsule Take 30 mg by mouth in the morning and 30 mg in the evening. Take before meals. 10/28/2023 01/10/2024 Discontinued Start: 10-28-2023 take 1 capsule by mo uth in the morning ACCRUFeR 30 MG capsule Take 30 mg by mouth in the morning and 30 mg in the evening. Take before meals. 10/28/2023 Active acetaminophen 325 mg oral tablet (2 sources) Start: 08-14-2023 End: 08-15-2023 take 1 tablet by mouth every six hours as needed for headache 650 mg, oral, Every 6 hours PRN, headaches, temperature greater than 38.3 C, Starting on Mon08/14/23 at 1724 Start: 08-11-2023 take 1 tablet by lias every six hours as needed for headache 650 mg, oral, Every 6 hours PRN, headaches, temperature greater than 38.3 C, Starting on Mon08/11/23 at 1729 aspirin 81 mg delayed release oral tablet (5 sources) Platelet Aggregation Inhibitor, Nonsteroidal Anti-inflammatory Drug Start: 09-11-2020 End: 08-11-2023 take 1 tablet by mouth once daily aspirin 81 mg Indications: Non-ischemic cardiomyopathy (CMS-HCC) , Paroxysmal atrial tachycardia (CMS-HCC) Take 1 tablet (81 mg total) by mouth daily. 1 tablet 09/11/2020 08/11/2023 Discontinued (Side effects) take 1 tablet by lisa every twenty-four hours Kirsten Aspirin 325 MG 1 tablet Orally Once a day Active azithromycin 250 mg oral tablet (15 sources) Macrolide Antimicrobial Start: 08-02-2024 End: 10-03-2024 azithromycin (Zithromax) 250 MG tablet Indications: Sinusitis, unspecified chronicity, unspecified location Day #1: 2 pills, day #2-#5 1 pill daily 6 tablet 08/02/2024 10/03/2024 Discontinued (Therapy completed) Start: 05-29-2024 End: 10-03-2024 azithromycin (Zithromax) 250 MG tablet Indications: Subacute maxillary sinusitis 2 pills day #1, 1 pill day #2-#5 6 tablet 05/29/2024 10/03/2024 Discontinued (Therapy completed) b complex vitamins capsule (1 source) End: 08-11-2023 take 1 capsule by mouth in the morning b complex vitamins capsule Take 1 capsule by mouth in the morning. 08/11/2023 Discontinued (Duplicate Listing) 100 ml calcium gluconate 20 mg/ml injection (2 sources) Start: 08-14-2023 End: 08-15-2023 take 4-4.3 mg intravenously every hour as needed 2,000 mg, intravenous, at 50 mL/hr, Administer over 2 Hours, As needed, ionized calcium 4 to 4.3 mg/dL, Starting on Mon08/14/23 at 1724, IV Administration of calcium via a central or deep vein preferred. Avoid administration in small hand veins VESICANT (RED) Start: 08-11-2023 take 4-4.3 mg intrav enously every hour as needed 2,000 mg, intravenous, at 50 mL/hr, Administer over 2 Hours, As needed, ionized calcium 4 to 4.3 mg/dL, Starting on Mon08/11/23 at 1729, IV Administration of calcium via a central or deep vein preferred. Avoid administration in small hand veins VESICANT (RED) calcium gluconate 3,000 mg in sodium chloride 0.9 % 100 mL IVPB (2 sources) Start: 08-14-2023 End: 08-15-2023 take 3.5-3.9 mg intravenously every hour as needed 3,000 mg, intravenous, at 43.3 mL/hr, Administer over 3 Hours, As needed, ionized calcium 3.5 to 3.9 mg/dL, Starting on Mon08/14/23 at 1724, IV Administration of calcium via a central or deep vein preferred. Avoid administration in small hand veins VESICANT (RED) Start: 08-11-2023 take 3.5-3.9 mg intr avenously every hour as needed 3,000 mg, intravenous, at 43.3 mL/hr, Administer over 3 Hours, As needed, ionized calcium 3.5 to 3.9 mg/dL, Starting on Mon08/11/23 at 1729, IV Administration of calcium via a central or deep vein preferred. Avoid administration in small hand veins VESICANT (RED) calcium gluconate 4,000 mg in sodium chloride 0.9 % 250 mL IVPB (2 sources) Start: 08-14-2023 End: 08-15-2023 take 3.4 mg intravenously every hour as needed 4,000 mg, intravenous, at 72.5 mL/hr, Administer over 4 Hours, As needed, ionized calcium 3.4 mg/dL or less, Starting on Mon08/14/23 at 1724, IV administration of calcium via a central or deep vein is preferred. Avoid administration in small hand veins. VESICANT (RED) Start: 08-11-2023 take 3.4 mg intraven ously every hour as needed 4,000 mg, intravenous, at 72.5 mL/hr, Administer over 4 Hours, As needed, ionized calcium 3.4 mg/dL or less, Starting on Mon08/11/23 at 1729, IV administration of calcium via a central or deep vein is preferred. Avoid administration in small hand veins. VESICANT (RED) famotidine 20 mg oral tablet (1 source) Histamine-2 Receptor Antagonist Start: 08-15-2023 End: 08-15-2023 take 20 mg by mouth once 20 mg, oral, Once, On Mon08/15/23 at 1230, For 1 dose glucagon (rdna) 1 mg injection (2 sources) Antihypoglycemic Agent Start: 08-14-2023 End: 08-15-2023 1 mg, intramuscular, As needed, low blood sugar, blood glucose less than 70 mg/dL and unconscious or NPO without IV access., Starting on Mon08/14/23 at 1724, If conscious and not NPO, immediately follow with meal tray or high protein (7Grams) snack if tray not available. If NPO, initiate IV 5% Dextrose/Water at 100 mL/hr and contact prescriber for additional orders. If blood glucose is not greater than 70 mg/dL after initial treatment, repeat treatment. Start: 08-11-2023 1 mg, intramus cular, As needed, low blood sugar, blood glucose less than 70 mg/dL and unconscious or NPO without IV access., Starting on Mon08/11/23 at 1729, If conscious and not NPO, immediately follow with meal tray or high protein (7Grams) snack if tray not available. If NPO, initiate IV 5% Dextrose/Water at 100 mL/hr and contact prescriber for additional orders. If blood glucose is not greater than 70 mg/dL after initial treatment, repeat treatment. 150 ml glucose 50 mg/ml injection (6 sources) Start: 08-14-2023 End: 08-15-2023 15 g, oral, As needed, low b lood sugar, blood glucose less than 70 mg/dL, Starting on Mon08/14/23 at 1724, If patient conscious and taking PO. If blood glucose is not greater than 70 mg/dL after initial treatment, repeat treatment. Start: 08-14-2023 End: 08-15-2023 25 mL, intravenous, As neede d, low blood sugar, blood glucose less than 70 mg/dL and unconscious or NPO with IV access, Starting on Mon08/14/23 at 1724, Push over 1-3 minutes STAT. If conscious and not NPO, immediately follow with meal tray or high protein (7 grams) snack if tray not available. If NPO, initiate 5% dextrose in water at 100 mL/hr and contact prescriber for additional orders. If blood glucose is not greater than 70 mg/dL after initial treatment, repeat treatment. VESICANT (RED) Warning: HYPERTONIC solution. Start: 08-14-2023 End: 08-15-2023 take 70 mg intravenously every hour 100 mL/hr, intravenous, Continuous PRN, blood glucose less than 70 mg/dL, Starting on Mon08/14/23 at 1724, Use immediately following dextrose 50% or glucagon treatment for patients who are unconscious or NPO. Contact prescriber for additional orders. If blood glucose is not greater than 70 mg/dL after initial treatment, repeat treatment. Start: 08-11-2023 15 g, oral, As needed, low blood sugar, blood glucose less than 70 mg/dL, Starting on Mon08/11/23 at 1729, If patient conscious and taking PO. If blood glucose is not greater than 70 mg/dL after initial treatment, repeat treatment. Start: 08-11-2023 25 mL, intrave nous, As needed, low blood sugar, blood glucose less than 70 mg/dL and unconscious or NPO with IV access, Starting on Mon08/11/23 at 1729, Push over 1-3 minutes STAT. If conscious and not NPO, immediately follow with meal tray or high protein (7 grams) snack if tray not available. If NPO, initiate 5% dextrose in water at 100 mL/hr and contact prescriber for additional orders. If blood glucose is not greater than 70 mg/dL after initial treatment, repeat treatment. VESICANT (RED) Warning: HYPERTONIC solution. Start: 08-11-2023 take 70 mg intraveno usly every hour 100 mL/hr, intravenous, Continuous PRN, blood glucose less than 70 mg/dL, Starting on Mon08/11/23 at 1729, Use immediately following dextrose 50% or glucagon treatment for patients who are unconscious or NPO. Contact prescriber for additional orders. If blood glucose is not greater than 70 mg/dL after initial treatment, repeat treatment. 50 ml magnesium sulfate 40 mg/ml injection (4 sources) Start: 08-14-2023 End: 08-15-2023 2,000 mg, intravenous, at 25 mL/hr, Administer over 120 Minutes, As needed, Magnesium level 1.7 to 1.9 mg/dL, or Ionized Magnesium level 0.45 to 0.5 mmol/L., Starting on Mon08/14/23 at 1724, Recheck magnesium level 4 hours after infusion complete. With each magnesium result continue the replacement orders as needed. Start: 08-14-2023 End: 08-15-2023 4,000 mg, intravenous, at 25 mL/hr, Administer over 240 Minutes, As needed, Magnesium level 1.6 mg/dL or less, or Ionized Magnesium level 0.44 mmol/L or less, Starting on Mon08/14/23 at 1724, Recheck magnesium level 4 hours after infusion complete. With each magnesium result continue the replacement orders as needed. Start: 08-11-2023 2,000 mg, intr avenous, at 25 mL/hr, Administer over 120 Minutes, As needed, Magnesium level 1.7 to 1.9 mg/dL, or Ionized Magnesium level 0.45 to 0.5 mmol/L., Starting on Mon08/11/23 at 1729, Recheck magnesium level 4 hours after infusion complete. With each magnesium result continue the replacement orders as needed. Start: 08-11-2023 4,000 mg, intr avenous, at 25 mL/hr, Administer over 240 Minutes, As needed, Magnesium level 1.6 mg/dL or less, or Ionized Magnesium level 0.44 mmol/L or less, Starting on Mon08/11/23 at 1729, Recheck magnesium level 4 hours after infusion complete. With each magnesium result continue the replacement orders as needed. Potassium Chloride (2 sources) Start: 08-14-2023 End: 08-15-2023 potassium chloride (K-TAB,KL OR-CON) CR tablet 30-50 mEq Start: 08-11-2023 potassium chlo ride (K-TAB,KLOR-CON) CR tablet 30-50 mEq 125 ml sodium chloride 9 mg/ ml prefilled syringe (7 sources) Start: 08-14-2023 End: 08-15-2023 3 mL, intravenous, Every 12 hours scheduled, First dose on Mon08/14/23 at 2100 Start: 08-14-2023 End: 08-15-2023 3 mL, intravenous, As needed , line care, before and after each intermittent use, Starting on Mon08/14/23 at 1724 Start: 08-14-2023 End: 08-15-2023 take 20 mL intravenously every hour as needed 20 mL/hr, intravenous, Continuous PRN, to maintain patency of lines, Starting on Mon08/14/23 at 1724 Start: 08-11-2023 3 mL, intraven ous, Every 12 hours scheduled, First dose on Mon08/11/23 at 2100 Start: 08-11-2023 3 mL, intraven ous, As needed, line care, before and after each intermittent use, Starting on Mon08/11/23 at 1729 Start: 08-11-2023 End: 08-12-2023 take 20 mL intravenously every hour as needed 20 mL/hr, intravenous, Continuous PRN, to maintain patency of lines, Starting on Mon08/11/23 at 1729 sodium phosphate 20 mmol in sodium chloride 0.9 % 250 mL IVPB (2 sources) Start: 08-14-2023 End: 08-15-2023 sodium phosphate 20 mmol in sodium chloride 0.9 % 250 mL IVPB Start: 08-11-2023 sodium phospha te 20 mmol in sodium chloride 0.9 % 250 mL IVPB Problems Active Problems Problem Classification Problem Date Documented Da te Episodic/Chronic Acute bronchitis (5 sources) Acute bronchitis; 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: [Acute bronchitis, unspecified] 02-21-2024 Episodic Alcohol-related disorders (20 sources) Nondependent alcohol abuse, episodic; 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: [Alcohol abuse, uncomplicated] Onset: 07-04-2023 Resolved: 10-16-2024 07-04-2023 Chronic Anxiety disorders (20 sources) Mixed anxiety and depressive disorder; 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: [Anxiety disorder, unspecified] Onset: 04-04-2023 Resolved: 10-16-2024 04-04-2023 Chronic Asthma (20 sources) Uncomplicated moderate persistent asthma; 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: [Moderate persistent asthma, uncomplicated] Onset: 07-04-2023 Resolved: 10-03-2024 07-04-2023 Chronic Cardiac dysrhythmias (20 sources) Paroxysmal atrial fibrillation; 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: [Paroxysmal atrial fibrillation] Onset: 07-04-2023 07-04-2023 Chronic Cardiac dysrhythmias (16 sources) Tachycardia, unspecified; 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: [Intermittent palpitations] Onset: 08-11-2023 09-11-2020 Episodic Conditions associated with dizziness or vertigo (19 sources) Dizziness and giddiness; 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: [Dizziness] Onset: 09-11-2020 08-11-2023 Episodic Conduction disorders (20 sources) Automatic implantable cardiac defibrillator in situ; 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: [Presence of automatic (implantable) cardiac defibrillator] Onset: 02-14-2017 Resolved: 10-16-2024 07-04-2023 Chronic Congestive heart failure; nonhypertensive (20 sources) Unspecified systolic (congestive) heart failure; 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: [Heart failure] Onset: 11-17-2017 08-11-2023 Chronic Deficiency and other anemia (1 source) Iron deficiency anemia, unspecified; 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: [Iron deficiency anemia, unspecified] Onset: 08-15-2023 Episodic Deficiency and other anemia (1 source) Anemia, unspecified; 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: [Anemia, unspecified] Onset: 08-11-2023 Episodic Deficiency and other anemia (20 sources) Iron deficiency anemia; 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: [Iron deficiency anemia, unspecified] Onset: 08-07-2023 02-18-2024 Episodic E Codes: Fall (1 source) Unspecified fall, initial encounter; 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: [UNSPECIFIED FALL INITIAL ENCOUNTER] Onset: 07-30-2022 Episodic Essential hypertension (20 sources) Essential hypertension; 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: [Essential (primary) hypertension] Onset: 04-04-2023 04-04-2023 Chronic Heart valve disorders (20 sources) Rheumatic tricuspid insufficiency; 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: [Diseases of tricuspid valve] 08-11-2023 Chronic Mood disorders (2 sources) Recurrent major depressive episodes, mild ; 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: [Major depressive disorder, recurrent, mild] 10-16-2024 Chronic Neoplasms of unspecified nature or uncertain behavior (2 sources) Essential thrombocythemia; 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: [Essential (hemorrhagic) thrombocythemia] 10-03-2024 Chronic Nutritional deficiencies (20 sources) Vitamin D deficiency; 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: [Vitamin D deficiency, unspecified] Onset: 07-04-2023 07-04-2023 Chronic Other acquired deformities (8 sources) Acquired spondylolisthesis; 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: [Spondylolisthesis, lumbosacral region] Onset: 10-15-2024 10-15-2024 Episodic Other and ill-defined heart disease (1 source) Heart disease, unspecified; 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: [Heart disease, unspecified] Onset: 09-11-2020 Chronic Other and ill-defined heart disease (20 sources) Moderate left ventricular systolic dysfunction; 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: [Heart disease, unspecified] Onset: 07-04-2023 07-04-2023 Chronic Other and ill-defined heart disease (1 source) Other ill-defined heart diseases; 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: [Other ill-defined heart diseases] Onset: 09-11-2020 Chronic Other fractures (5 sources) Multiple fractures of ribs, left side, initial encounter for closed fracture; 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: [MX FX RIBS LT SIDE INITIAL CLOS FX] Onset: 07-30-2022 Episodic Other hereditary and degenerative nervous system conditions (20 sources) Restless legs; 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: [Restless legs syndrome] Onset: 05-18-2023 05-18-2023 Chronic Other nervous system disorders (20 sources) Meralgia paresthetica of right leg; 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: [Meralgia paresthetica, right lower limb] Onset: 07-04-2023 07-04-2023 Chronic Other nervous system disorders (14 sources) Chronic low back pain; 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: [Other chronic pain] Onset: 05-05-2023 05-05-2023 Chronic Other nutritional; endocrine; and metabolic disorders (20 sources) Obesity caused by energy imbalance; 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: [Class 1 obesity due to excess calories with serious comorbidity and body mass index (BMI) of 31.0 to 31.9 in adult] Onset: 01-03-2024 01-03-2024 Chronic Other nutritional; endocrine; and metabolic disorders (15 sources) Obese class I; 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: [Obesity, unspecified] 09-11-2020 Chronic Faviola-; endo-; and myocarditis; cardiomyopathy (except that caused by tuberculosis or sexually transmitted disease) (20 sources) Dilated cardiomyopathy; 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: [Other cardiomyopathies] Onset: 02-22-2017 12-12-2023 Chronic Spondylosis; intervertebral disc disorders; other back problems (13 sources) Lumbar spondylosis; 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: [Spondylosis without myelopathy or radiculopathy, lumbar region] Onset: 10-03-2024 10-03-2024 Chronic Spondylosis; intervertebral disc disorders; other back problems (20 sources) Chronic low back pain; 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: [Lumbago with sciatica, left side] Onset: 05-05-2023 05-05-2023 Episodic Superficial injury; contusion (4 sources) Contusion of left front wall of thorax, initial encounter; 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: [CONTUS LT FRONT WALL THORAX INITIAL] Onset: 07-26-2022 Episodic Unclassified (2 sources) Unclassified (1 source) Tachycardia, hypotension, sent from cardiology Onset: 08-11-2023 Unclassified (1 source) Device Check Onset: 11-22-2024 Unclassified (1 source) Rapid Heart Rate Onset: 11-22-2024 Past or Other Problems Problem Classification Problem Date Documented Da te Episodic/Chronic Coronary atherosclerosis and other heart disease (15 sources) Ischemic myocardial dysfunction; 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: [Ischemic cardiomyopathy] Resolved: 11-17-2017 11-17-2017 Chronic Deficiency and other anemia (20 sources) Anemia; 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: [Other specified anemias] Onset: 07-04-2023 Resolved: 02-28-2024 07-04-2023 Episodic Malaise and fatigue (20 sources) Fatigue; 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: [Other fatigue] Onset: 08-02-2023 08-02-2023 Episodic Mood disorders (5 sources) Mood disorders Onset: 10-16-2024 10-16-2024 Mycoses (20 sources) Candidiasis of mouth; 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: [Candidal stomatitis] Onset: 07-04-2023 Resolved: 07-04-2023 07-04-2023 Episodic Nonspecific chest pain (15 sources) Tight chest; 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: [Other chest pain] Resolved: 09-11-2020 09-11-2020 Episodic Nutritional deficiencies (20 sources) Cobalamin deficiency; 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: [Deficiency of other specified B group vitamins] Onset: 08-07-2023 08-07-2023 Episodic Other aftercare (20 sources) Drug therapy finding; 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: [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] Onset: 07-04-2023 07-04-2023 Episodic Other ear and sense organ disorders (20 sources) Impacted cerumen in right ear; 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: [Impacted cerumen, right ear] Onset: 07-04-2023 Resolved: 01-03-2024 01-03-2024 Episodic Other gastrointestinal disorders (20 sources) History of bariatric surgical procedure; 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: [Bariatric surgery status] Onset: 01-03-2024 01-03-2024 Episodic Other lower respiratory disease (20 sources) Dyspnea; 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: [Dyspnea, unspecified] Onset: 02-22-2017 Resolved: 09-11-2020 09-11-2020 Episodic Other nervous system disorders (20 sources) Poor concentration; 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: [Attention and concentration deficit] Onset: 05-02-2023 Resolved: 10-16-2024 05-02-2023 Chronic Other nervous system disorders (4 sources) Paresthesia of skin; 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: [PARESTHESIA OF SKIN] Onset: 04-29-2022 Episodic Other nutritional; endocrine; and metabolic disorders (20 sources) Body mass index 25-29 - overweight; 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: [Overweight] Onset: 04-04-2023 Resolved: 01-03-2024 01-03-2024 Episodic Other screening for suspected conditions (not mental disorders or infectious disease) (20 sources) Patient encounter status; 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: [Encounter for screening for malignant neoplasm of prostate] Onset: 07-04-2023 Resolved: 10-16-2024 07-04-2023 Episodic Other skin disorders (20 sources) Alopecia; 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: [Nonscarring hair loss, unspecified] Onset: 07-04-2023 Resolved: 07-04-2023 07-04-2023 Episodic Other upper respiratory infections (15 sources) Sinusitis; 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: [Chronic sinusitis, unspecified] Onset: 08-02-2024 Resolved: 10-03-2024 08-02-2024 Chronic Other upper respiratory infections (20 sources) Acute sinusitis; 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: [Other acute sinusitis] Onset: 04-04-2023 Resolved: 10-03-2024 07-04-2023 Episodic Residual codes; unclassified (20 sources) Obstructive sleep apnea syndrome; 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: [Obstructive sleep apnea (adult) (pediatric)] Onset: 09-11-2020 Resolved: 09-27-2023 09-27-2023 Chronic Residual codes; unclassified (20 sources) Patient noncompliance - general; 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: [Medical non-compliance] Onset: 07-04-2023 07-04-2023 Episodic Unclassified (1 source) Other specified cough R05.8 Onset: 11-30-2021 Resolved: 11-30-2021 Unclassified (1 source) Contact with and (suspected) exposure to covid-19 Z20.822 Onset: 11-30-2021 Resolved: 11-30-2021 Viral infection (1 source) COVID-19 Onset: 11-30-2021 Resolved: 11-30-2021 Results Test Name Value Interpretation Reference Range Facility XR LUMBAR SPINE 6V W BENDING on 10-31-[address] [address] XRay Report Signed Patient: REESE EMERSON MR#: [id number] : 1965 Acct:[id number] Age/Sex: 59 / M ADM Date: 10/31/24 Loc: RAD Attending Dr: Anny Bruce NP Ordering Physician: Anny Bruce NP Date of Service: 10/31/24 Procedure(s): XR lumbar spine 6V w bending Accession Number(s): [id number] cc: Anny Bruce NP [place] [address] Patient Name: REESE EMERSON MRN: [id number] date: 1965 Sex: M Assigned Patient Location: [facility] Current Patient Location: [facility] Accession/Order Number: [id number] Exam Date: 10/31/2024 22:14 Report Date: 10/31/2024 [...] Meyers M.D. 10/31/2024 10:17 PM Dictation Location: [facility] Electronically authenticated by: [id number] Y Date: 10/31/2024 22:17 Dictated By: Paul Meyers M.D. Signed By: 10/31/242219 DD/ 16 TD/TT: Account Receivable Associate: [facility] Radiology, Radiologist, - 10/31/2024 [place] [address] XRay Report Signed Patient: REESE EMERSON MR#: [id number] : 1965 Acct:[id number] Age/Sex: 59 / M ADM Date: 10/31/24 Loc: RAD Attending Dr: Anny Bruce NP Ordering Physician: Anny Bruce NP Date of Service: 10/31/24 Procedure(s): XR lumbar spine 6V w bending Accession Number(s): [id number] cc: Anny Bruce NP The [place] [address] Patient Name: REESE EMERSON MRN: [facility]:[id number] date: 1965 Sex: M Assigned Patient Location: [facility] Current Patient Location: [facility] Accession/Order Number: [id number] Exam Date: 10/31/2024 22:14 Report Date: 10/31/2024 [...] Meyers M.D. 10/31/2024 10:17 PM Dictation Location: [place] [address] Electronically authenticated by: [id number] Y Date: 10/31/2024 22:17 Dictated By: Paul Meyers M.D. Signed By: 10/31/242219 DD/ 16 TD/TT: Account Receivable Associate: [facility] [employer] Radiology Study observation (narrative) [facility] XR LUMBAR SPINE 6V W BENDING Ordered By: Radiologist Radiology on 10-31-2024 [facility] [email or web address] Work Phone: XR LUMBAR SPINE 2 [place] [address] [address] XRay Report Signed Patient: REESE EMERSON MR#: [id number] : 1965 Acct:[id number] Age/Sex: 59 / M ADM Date: 10/14/24 Loc: RAD Attending Dr: Anny Bruce NP Ordering Physician: Anny Bruce NP Date of Service: 10/14/24 Procedure(s): XR lumbar spine 2-3V Accession Number(s): [id number] cc: Anny Bruce NP [place] [id number] Patient Name: REESE EMERSON MRN: [id number] date: 1965 Sex: M Assigned Patient Location: [facility] Current Patient Location: [facility] Accession/Order Number: [id number] Exam Date: 10/14/2024 10:16 Report Date: 10/14/2024 [...] Spivey M.D. 10/14/2024 10:35 AM Dictation Location: [place] [address] Electronically authenticated by: [id number] Y Date: 10/14/2024 10:35 Dictated By: Kylee Spivey M.D. Signed By: 10/14/24 1037 DD/ 1035 TD/TT: Account Receivable Associate: [facility] Radiology, Radiologist, - 10/14/2024 [place] [address] XRay Report Signed Patient: REESE EMERSON MR#: [id number] : 1965 Acct:[id number] Age/Sex: 59 / M ADM Date: 10/14/24 Loc: [facility] Attending Dr: Anny Bruce NP Ordering Physician: Anny Bruce NP Date of Service: 10/14/24 Procedure(s): XR lumbar spine 2-3V Accession Number(s): [id number] cc: Anny Bruce NP The [place] [id number] Patient Name: REESE EMERSON MRN: [facility]:[id number] date: 1965 Sex: M Assigned Patient Location: [facility] Current Patient Location: [facility] Accession/Order Number: [id number] Exam Date: 10/14/2024 10:16 Report Date: 10/14/2024 [...] Spivey M.D. 10/14/2024 10:35 AM Dictation Location: [place] [address] Electronically authenticated by: [id number] Y Date: 10/14/2024 10:35 Dictated By: Kylee Spivey M.D. Signed By: 10/14/24 1037 DD/ 1035 TD/TT: Account Receivable Associate: [facility] Radiology Study observation (narrative) [facility] XR LUMBAR SPINE 2 OR 3VOrder ed By: Radiologist Radiology [facility]-2024 [facility] Work Phone: ALL CBC WITH AUTO DIFFon BASOPHILS ABSOLUTE AUTO 0.1 [facility] Basophils/100 WBC (Bld) 0.6 % 0.2 - 2.0 % [facility] Eosinophils/100 WBC (Bld) 9 % High 0.9 - 7.0 % [facility] Erythrocyte distribution width (RBC) [Ratio] 14 % 11.0 - 15.0 % [facility] Hematocrit (Bld) [Volume fraction] 43.1 % 42.0 - 54.0 % [facility] Hemoglobin (Bld) [Mass/Vol] 14.5 g/dL 14.0 - 18.0 g/dL [facility] IMMATURE GRANULOCYTES ABS AUTO 0.03 [facility] Immature granulocytes/100 WBC (Bld) 0.4 % 0.0 - 0.5 % [facility] Interpretation and review of laboratory results [facility]normal [facility] LYMPHOCYTES ABSOLUTE AUTO 1.4 [facility] Lymphocytes/100 WBC (Bld) 17.8 % Low 20.5 - 60.0 % [facility] MCH (RBC) [Entitic mass] 31.3 pg 25.9 - 34.0 pg [facility] MCHC (RBC) [Mass/Vol] 33.6 g/dL 29.9 - 35.2 g/dL [facility] MCV (RBC) [Entitic vol] 92.9 fL 80.0 - 94.0 fL [facility] MONOCYTES ABSOLUTE AUTO 0.7 [facility] Monocytes/100 WBC (Bld) 9.4 % 1.7 - 12.0 % [facility] NEUTROPHILS ABSOLUTE AUTO 5 [facility] Neutrophils/100 WBC (Bld) 62.8 % 43.0 - 75.0 % [facility] Platelet mean volume (Bld) [Entitic vol] 9 fL Low 9.5 - 13.5 fL [facility] E[facility] # [facility].7 [facility]T [facility] RBC 4.64 Low [facility] WBC 7.9 [facility] [place] [address] XRay Report Signed Patient: REESE EMERSON MR#: [id number] : 1965 Acct:[id number] Age/Sex: 58 / M ADM Date: 06/06/24 Loc: RAD Attending Dr: Anny Bruce NP Ordering Physician: Anny Bruce NP Date of Service: 06/06/24 Procedure(s): XR DEXA axial skeleton Accession Number(s): [id number] cc: Anny Bruce NP [place] [address] Patient Name: REESE EMERSON MRN: [id number] date: 1965 Sex: M Assigned Patient Location: [facility] Current Patient Location: [facility] Accession/Order Number: [id number] Exam Date: 06/06/2024 10:45 Report Date: 06/06/2024 11:26 At the request of: ANNY BRUCE Procedure: XR DEXA axial skeleton EXAMINATION: XR DEXA axial skeleton HISTORY: Bariatric Surgery, Vitamin D Deficiency COMPARISON: No relevant comparison available. TECHNIQUE: Dual-energy X-ray absorptiometry (DXA) was performed. FINDINGS: SPINE ANALYSIS: Average bone mineral density is 1.775 g/cm2. T-score (standard deviation relative to young adult mean): 5.0 . HIP ANALYSIS: Lowest bone mineral density is within the left femoral neck, 0.857 g/cm2. T-score (standard deviation relative to young adult mean): -1.3 . XR/XR DEXA axial skeleton IMPRESSION: World Health Organization Classification: Osteopenia - Moderate Fracture Risk FRAX: Cannot be calculated. Pharmacologic treatment recommendations * No uniform recommendation applies to all patients. Management plans must be individualized. * Consider initiating pharmacologic treatment in postmenopausal women and men >= 50 years of age who have the following: Primary fracture prevention: * T-score <= - 2.5 at the femoral neck, total hip, lumbar spine, 33% radius (some uncertainty with existing data) by DXA. * Low bone mass (osteopenia: T-score between - 1.0 and - 2.5) at the femoral neck or total hip by DXA with a 10-year hip fracture risk >= 3% or a 10-year major osteoporosis-related fracture risk >= 20% (i.e., clinical vertebral, hip, forearm, or proximal humerus) based on the [place]-adapted FRAXregistered model. Secondary fracture prevention: * Fracture of the hip or vertebra regardless of BMD [4, 5]. * Fracture of proximal humerus, pelvis, or distal forearm in persons with low bone mass (osteopenia: T-score between - 1.0 and - 2.5). The decision to treat should be individualized in persons with a fracture of the proximal humerus, pelvis, or distal forearm who do not have osteopenia or low BMD [12, 13]. Adryan MS, Abel SL, Janna KL, Kyler EM, Paulina KG, AJ, Ruby ES. The clinician's guide to prevention and treatment of osteoporosis. Osteoporos Int. 2021;33(10):2777-7368. doi: 10.1007/p25972-203-080 00-y. Epub 2021Aug 19. Erratum in: Osteoporos Int. 2021Nov 18;: PMID: [id number]; PMCID: [id number]. Electronically authenticated by: REGGIE CONROY Date: 06/06/2024 11:26 Dictated By: Reggie Conroy M.D. Signed By: 06/06/24 1129 DD/ 1126 TD/TT: Account Receivable Associate: [facility] Radiology, Radiologist, - 06/06/2024 The [place] [id number] XRay Report Signed Patient: REESE EMERSON MR#: [id number] : 1965 Acct:[id number] Age/Sex: 58 / M ADM Date: 06/06/24 Loc: RAD Attending Dr: Anny Bruce NP Ordering Physician: Anny Bruce NP Date of Service: 06/06/24 Procedure(s): XR DEXA axial skeleton Accession Number(s): [id number] cc: Anny Bruce NP [place] [address] Patient Name: REESE EMERSON MRN: [facility]:[id number] date: 1965 Sex: M Assigned Patient Location: [facility] Current Patient Location: [facility] Accession/Order Number: [id number] Exam Date: 06/06/2024 10:45 Report Date: 06/06/2024 11:26 At the request of: ANNY BRUCE Procedure: XR DEXA axial skeleton EXAMINATION: XR DEXA axial skeleton HISTORY: Bariatric Surgery, Vitamin D Deficiency COMPARISON: No relevant comparison available. TECHNIQUE: Dual-energy X-ray absorptiometry (DXA) was performed. FINDINGS: SPINE ANALYSIS: Average bone mineral density is 1.775 g/cm2. T-score (standard deviation relative to young adult mean): 5.0 . HIP ANALYSIS: Lowest bone mineral density is within the left femoral neck, 0.857 g/cm2. T-score (standard deviation relative to young adult mean): -1.3 . XR/XR DEXA axial skeleton IMPRESSION: World Health Organization Classification: Osteopenia - Moderate Fracture Risk FRAX: Cannot be calculated. Pharmacologic treatment recommendations * No uniform recommendation applies to all patients. Management plans must be individualized. * Consider initiating pharmacologic treatment in postmenopausal women and men >= 50 years of age who have the following: Primary fracture prevention: * T-score <= - 2.5 at the femoral neck, total hip, lumbar spine, 33% radius (some uncertainty with existing data) by DXA. * Low bone mass (osteopenia: T-score between - 1.0 and - 2.5) at the femoral neck or total hip by DXA with a 10-year hip fracture risk >= 3% or a 10-year major osteoporosis-related fracture risk >= 20% (i.e., clinical vertebral, hip, forearm, or proximal humerus) based on the [place]-adapted FRAXregistered model. Secondary fracture prevention: * Fracture of the hip or vertebra regardless of BMD [4, 5]. * Fracture of proximal humerus, pelvis, or distal forearm in persons with low bone mass (osteopenia: T-score between - 1.0 and - 2.5). The decision to treat should be individualized in persons with a fracture of the proximal humerus, pelvis, or distal forearm who do not have osteopenia or low BMD [12, 13]. Adryan MS, Abel SL, Janna KL, Kyler EM, Paulina KG, AJ, Ruby ES. The clinician's guide to prevention and treatment of osteoporosis. Osteoporos Int. 2021;33(10):4985-4984. doi: 10.1007/[id number] 00-y. Epub 2021Aug 19. Erratum in: Osteoporos Int. 2021Nov 18;: PMID: [id number]; PMCID: [id number]. Electronically authenticated by: REGGIE CONROY Date: 06/06/2024 11:26 Dictated By: Reggie Conroy M.D. Signed By: 06/06/24 1129 DD/ 1126 TD/TT: Account Receivable Associate: [facility] [employer] Radiology Study observation (narrative) [facility] [employer] XR DEXA AXIAL SKELETONOrdere d By: Radiologist Radiology on 06-06-2024 [facility] [email or web address] e Work Phone: ALL CBC WITH AUTO DIFFon BASOPHILS ABSOLUTE AUTO 0.1 [facility] Basophils/100 WBC (Bld) 0.8 % 0.2 - 2.0 % [facility] Eosinophils/100 WBC (Bld) 14.2 % High 0.9 - 7.0 % [facility] Erythrocyte distribution width (RBC) [Ratio] 23.7 % High 11.0 - 15.0 % [facility] Hematocrit (Bld) [Volume fraction] 49.1 % 42.0 - 54.0 % [facility] Hemoglobin (Bld) [Mass/Vol] 16.0 g/dL 14.0 - 18.0 g/dL [facility] IMMATURE GRANULOCYTES ABS AUTO 0.02 [facility] Immature granulocytes/100 WBC (Bld) 0.3 % 0.0 - 0.5 % [facility] Interpretation and review of laboratory results Abnormal [facility] LYMPHOCYTES ABSOLUTE AUTO 1.5 [facility] Lymphocytes/100 WBC (Bld) 18.8 % Low 20.5 - 60.0 % [facility] MCH (RBC) [Entitic mass] 28.5 pg 25.9 - 34.0 pg [facility] MCHC (RBC) [Mass/Vol] 32.6 g/dL 29.9 - 35.2 g/dL [facility] MCV (RBC) [Entitic vol] 87.4 fL 80.0 - 94.0 fL [facility] MONOCYTES ABSOLUTE AUTO 0.6 [facility] Monocytes/100 WBC (Bld) 8.0 % 1.7 - 12.0 % [facility] NEUTROPHILS ABSOLUTE AUTO 4.6 [facility] Neutrophils/100 WBC (Bld) 57.9 % 43.0 - 75.0 % [facility] Platelet mean volume (Bld) [Entitic vol] 9.0 fL Low 9.5 - 13.5 fL [facility] TBH EO # 1.1 High [facility] e TB PLT 402 [facility] e [facility] RBC 5.62 [facility] WBC 7.9 [facility] e Comment on above: 2+ ANISOCYTOSIS 1+ OVALOCYTES [facility] Axel 08-25-2023 L Specimen: [id number] Received: 08/28/23 Status: HYACINTHSukumar [facility] Num: [id number] Spec Type: Impression Subm Dr: ANGIE Maynard Tissues: PATHPER Procedures: PATHREVIEW Age/ Patient Sex Location Account Attending Physician Reese Emerson 58/M LABELL [id number] ANGIE Maynard SPEC NUM: [id number] RECD: 08/28/23 STATUS: LOTUS SHARP NUM: [id number] JANETH: 08/25/[address] [facility] [address]: ANGIE Maynard ENTERED: 08/28/[address] [facility] [address]: Vijay,Lab SPEC TYPE: Impression DEPT: LESLY Knox ENTERED BY: [id number] RECV BY: [id number] ORDERED: PATHREVIEW ORDERED: PATHREVIEW Pathologist Review Abnormal CBC for peripheral blood smear review: -Moderate anemia of severe microcytic type, including marked anisocytosis and poikilocytosis with a few elliptocytes and target cells, moderate microcytosis and hypochromia, and at least rare polychromatophilic cells and schistocytes -Mild thrombocytosis -Mild neutrophilia and monocytosis -No morphological abnormality of the leukocyte population except occasional eosinophils and rare suggested immature granulocytes Comment: -The cause of moderate anemia of the early elderly male patient is most probably anemia of the iron deficiency type, requiring continuous clinical, etiological, and other laboratory correlations, such as serum iron profile. Reactive thrombocytosis can be due to iron deficiency type anemia. Of note is the high ALP and mild hypoalbuminemia suggesting abnormal liver function profile. Mild neutrophilia and monocytosis can be due to systemic inflammation, tissue injury, or infection, also requiring clinical correlations CPT: 51221 ---- ---- Specimen: [id number] Received: 08/28/23 Status: LOTUS Sharp Num: [id number] Spec Type: Impression Subm Dr: Anny Bruce, THREAD TOOL GRINDER SET UP OPERATOR-C Tissues: PATHPER Procedures: PATHREVIEW ---- Patient: Reese Emerson [id number] (Continued) ---- Signed (signature on file) Chin-Luis Lazcano MD 08/29/23 1058 Normal [facility] BASIC METABOLIC PANLon 08-14 Anion gap [Moles/Vol] 6 mmol/L Normal 5-15 [facility] Comment on above: Performed By: #### B AMBROCIO CBCA #### [facility] ([id number]) [address], [address] [place] [address] Calcium [Mass/Vol] 8.0 mg/dL Low 8.5-10.5 [facility] Comment on above: Performed By: #### B AMBROCIO, CBCA #### [facility] ([id number]) [address], [address] [place] [address] Chloride [Moles/Vol] 108 mmol/L Normal 98-109 [facility] Comment on above: Performed By: #### B AMBROCIO, CBCA #### [facility] ([id number]) [address], [address] [place] [address] CO2 [Moles/Vol] 26 mmol/L Normal 22-32 [facility] Comment on above: Performed By: #### B JACKIE ALBRECHT #### [facility] ([id number]) [address] [place] [address] Creatinine [Mass/Vol] 0.72 mg/dL Normal 0.60-1.30 [facility] Comment on above: Result Comment: METH OD TRACEABLE TO IDMS STANDARD Performed By: #### B JACKIE ALBRECHT #### [facility] ([id number]) [address] [address] eGFR (CKD-EPI) NON-RACE DEPENDENT >90 Normal >59 [facility] Comment on above: Result Comment: Reported eGFR is based on the CKD-EPI 2020 equation that does not use a race coefficient. Performed By: #### B JACKIE ALBRECHT #### [facility] ([id number]) [address] [address] Glucose [Mass/Vol] 111 mg/dL High 65-99 [facility] Comment on above: Performed By: #### JACKIE Fernandez MP #### [facility] ([id number]) [address] [place] [address] Potassium [Moles/Vol] 3.5 mmol/L Normal 3.5-5.0 [facility] Comment on above: Performed By: #### Jim ALBRECHT CBCA #### [facility] ([id number]) [address] [address] Sodium [Moles/Vol] 140 mmol/L Normal 134-146 [facility] Comment on above: Performed By: #### B AMBROCIO CBCA #### [facility] ([id number]) [address] [place] [address] Urea nitrogen [Mass/Vol] 11 mg/dL Normal 5-23 [facility] Comment on above: Performed By: #### B AMBROCIO CBCA #### [facility] ([id number]) [address], [address] [place] [address] Basic Metabolic Panelon 07-24 Anion gap [Moles/Vol] 6 mmol/L 5 - 15 mmol/L [facility] Calcium [Mass/Vol] 8.0 mg/dL Low 8.5 - 10. 5 mg/dL [facility] Chloride [Moles/Vol] 108 mmol/L 98 - 109 mmol/L [facility] CO2 [Moles/Vol] 26 mmol/L 22 - 32 mmol/L [facility] Creatinine [Mass/Vol] 0.72 mg/dL 0.60 - 1.30 mg/dL [facility] Comment on above: METHOD TRACEABLE TO [facility] STANDARD eGFR (CKD-EPI)non-race dependent - PINF [facility] Comment on above: Reported eGFR is based on the CKD-EPI 2020 equation that does not use a race coefficient. Glucose [Mass/Vol] 111 mg/dL High 65 - 99 mg/dL [facility] Interpretation and review of laboratory results Abnormal [facility] Potassium [Moles/Vol] 3.5 mmol/L 3.5 - 5.0 mmol/L [facility] Sodium [Moles/Vol] 140 mmol/L 134 - 146 mmol/L [facility] Urea nitrogen [Mass/Vol] 11 mg/dL 5 - 23 mg/dL [facility] CBC AND AUTO DIFFon 08-15-19 ABSOLUTE BASOPHIL 0.1 X10E9/L Normal 0.0-0.2 [facility] Comment on above: Performed By: #### BYRON Fernandez MPA #### [facility] ([id number]) [address], [address] [place] [address] Anisocytosis Ql (Bld) 2+ Abnormal NONE [facility] Comment on above: Performed By: #### B AMBROCIO CBCA #### [facility] ([id number]) [address], [address] [place] [address] Basophils/100 WBC (Bld) 1.0 % Normal [facility] Comment on above: Performed By: #### B AMBROCIO, CBCA #### [facility] ([id number]) [address], [address] [place] [address] Eosinophils (Bld) [#/Vol] 0.9 10*3/uL High 0.0-0.4 [facility] Comment on above: Performed By: #### B AMBROCIO, CBCA #### [facility] ([id number]) [address], [address] [place] [address] Eosinophils/100 WBC (Bld) 11.0 % Normal [facility] Comment on above: Performed By: #### B AMBROCIO, CBCA #### [facility] ([id number]) [address], [address] [place] [address] Erythrocyte distribution width (RBC) [Ratio] 23.4 % High 11.5-15.0 [facility] Comment on above: Performed By: #### B AMBROCIO CBCA #### [facility] ([id number]) [address], [address] [place] [address] FRAGMENT 1+ Abnormal NONE [facility] Comment on above: Performed By: #### B AMBROCIO, CBCA #### [facility] ([id number]) [address], [address] [place] [address] Hematocrit (Bld) [Volume fraction] 24.7 % Low 39-49 [facility] Comment on above: Performed By: #### B AMBROCIO CBCA #### [facility] ([id number]) [address], [address] [place] [address] Hemoglobin (Bld) [Mass/Vol] 7.6 g/dL Low 13.0-17.0 [facility] Comment on above: Performed By: #### B AMBROCIO, CBCA #### [facility] ([id number]) [address], [address] [place] [address] HYPOCHROMIA 2+ Abnormal NONE [facility] Comment on above: Performed By: #### B MP, CBCA #### [facility] ([id number]) [address], [address] [place] [address] Lymphocytes (Bld) [#/Vol] 2.2 10*3/uL Normal 1.0-3.5 [facility] Comment on above: Performed By: #### B MP, CBCA #### [facility] ([id number]) [address], [address] [place] [address] Lymphocytes/100 WBC (Bld) 28.0 % Normal [facility] Comment on above: Performed By: #### B AMBROCIO, CBCA #### [facility] ([id number]) [address], [address] [place] [address] MCH (RBC) [Entitic mass] 17.8 pg Low 27-34 [facility] Comment on above: Performed By: #### B AMBROCIO, CBCA #### [facility] ([id number]) [address], [address] [place] [address] MCHC (RBC) [Mass/Vol] 30.8 g/dL Low 32-36 [facility] Comment on above: Performed By: #### B AMBROCIO, CBCA #### [facility] ([id number]) [address], [address] [place] [address] MCV (RBC) [Entitic vol] 58 fL Low 80-100 [facility] Comment on above: Performed By: #### B MP, CBCA #### [facility] ([id number]) [address], [address] [place] [address] Monocytes (Bld) [#/Vol] 0.8 10*3/uL Normal 0-0.9 [facility] Comment on above: Performed By: #### B MP, CBCA #### [facility] ([id number]) [address], [address] [place] [address] Monocytes/100 WBC (Bld) 10.0 % Normal [facility] Comment on above: Performed By: #### B MP, CBCA #### [facility] ([id number]) [address], [address] [place] [address] Neutrophils (Bld) [#/Vol] 3.9 10*3/uL Normal 1.5-6.6 [facility] Comment on above: Performed By: #### B MP, CBCA #### [facility] ([id number]) [address], [address] [place] [address] OVALOCYTE 2+ Abnormal NONE [facility] Comment on above: Performed By: #### B MP, CBCA #### [facility] ([id number]) [address], [address] [place] [address] Platelet mean volume (Bld) [Entitic vol] 8.0 fL Normal 7-12 [facility] Comment on above: Performed By: #### B MP, CBCA #### [facility] ([id number]) [address], [address] [place] [address] Platelets (Bld) [#/Vol] 545 10*3/uL High 150-450 [facility] Comment on above: Performed By: #### B MP, CBCA #### [facility] ([id number]) [address], [address] [place] [address] POLYCHROMASIA 1+ Abnormal NONE [facility] Comment on above: Performed By: #### B MP, CBCA #### [facility] ([id number]) [address], [address] [place] [address] RBC COUNT 4.28 X10E12/L Normal 4.10-5.70 [facility] Comment on above: Performed By: #### B MP, CBCA #### [facility] ([id number]) [address] [place] [address] SEG NEUTROPHIL 50.0 % Normal [facility] Comment on above: Performed By: #### B MP, CBCA #### [facility] ([id number]) [address], [address] [place] [address] TEARDROP 1+ Abnormal NONE [facility] Comment on above: Performed By: #### B MP, CBCA #### [facility] ([id number]) [address] [place] [address] WBC (Bld) [#/Vol] 7.9 10*3/uL Normal 4.0-11.0 [facility] Comment on above: Performed By: #### B MP, CBCA #### [facility] ([id number]) [address] [place] [address] CBC auto differentialon 07-24 Anisocytosis Ql (Bld) 2+ Abnormal NONE^NONE [facility] Basophils (Bld) [#/Vol] 0.1 10*3/uL [facility] Basophils/100 WBC (Bld) 1.0 % [facility] Dacrocytes LM Ql (Bld) 1+ Abnormal NONE^NONE [facility] Eosinophils (Bld) [#/Vol] 0.9 10*3/uL High [facility] Eosinophils/100 WBC (Bld) 11.0 % [facility] Erythrocyte distribution width (RBC) [Ratio] 23.4 % High 11.5 - 15.0 % [facility] Fragments LM Ql (Bld) 1+ Abnormal NONE^NONE [facility] Hematocrit (Bld) [Volume fraction] 24.7 % Low 39 - 49 % [facility] Hemoglobin (Bld) [Mass/Vol] 7.6 g/dL Low 13.0 - 17.0 g/dL [facility] Hypochromia Ql (Bld) 2+ Abnormal NONE^NONE [facility] Interpretation and review of laboratory results Abnormal [facility] Lymphocytes (Bld) [#/Vol] 2.2 10*3/uL [facility] Lymphocytes/100 WBC (Bld) 28.0 % [facility] MCH (RBC) [Entitic mass] 17.8 pg Low 27 - 34 pg [facility] MCHC (RBC) [Mass/Vol] 30.8 g/dL Low 32 - 36 g/dL [facility] MCV (RBC) [Entitic vol] 58 fL Low 80 - 100 fL [facility] Monocytes (Bld) [#/Vol] 0.8 10*3/uL [facility] Monocytes/100 WBC (Bld) 10.0 % [facility] Neutrophils (Bld) [#/Vol] 3.9 10*3/uL [facility] Ovalocytes LM Ql (Bld) 2+ Abnormal NONE^NONE [facility] Platelet mean volume (Bld) [Entitic vol] 8.0 fL 7 - 12 fL [facility] Platelets (Bld) [#/Vol] 545 10*3/uL High [facility] Polychromasia LM Ql (Bld) 1+ Abnormal NONE^NONE [facility] RBC (Bld) [#/Vol] 4.28 10*6/uL [facility] Segmented neutrophils/100 WBC (Bld) 50.0 % [facility] WBC corrected for nucl RBC Auto (Bld) [#/Vol] 7.9 [facility] ECG 12 leadon 08-15-2023 [facility] CBC AND AUTO DIFFon 08-14-19 Anisocytosis Ql (Bld) 2+ Abnormal NONE [facility] Comment on above: Performed By: #### C BCA, CMP #### [facility] ([id number]) [address] [place] [address] Eosinophils (Bld) [#/Vol] 0.8 10*3/uL High 0.0-0.4 [facility] Comment on above: Performed By: #### C BCA, CMP #### [facility] ([id number]) [address], [address] [place] [address] Eosinophils/100 WBC (Bld) 7.6 % Normal [facility] Comment on above: Performed By: #### C BCA, CMP #### [facility] ([id number]) [address] [place] [address] Erythrocyte distribution width (RBC) [Ratio] 24.3 % High 11.5-15.0 [facility] Comment on above: Performed By: #### C BCA, CMP #### [facility] ([id number]) [address], [address] [place] [address] FRAGMENT 1+ Abnormal NONE [facility] Comment on above: Performed By: #### C BCA, CMP #### [facility] ([id number]) [address], [address] [place] [address] Hematocrit (Bld) [Volume fraction] 27.5 % Low 39-49 [facility] Comment on above: Performed By: #### C BCA, CMP #### [facility] ([id number]) [address], [address] [place] [address] Hemoglobin (Bld) [Mass/Vol] 8.1 g/dL Low 13.0-17.0 [facility] Comment on above: Performed By: #### C BCA, CMP #### [facility] ([id number]) [address] [place] [address] Lymphocytes (Bld) [#/Vol] 1.8 10*3/uL Normal 1.0-3.5 [facility] Comment on above: Performed By: #### C BCA, CMP #### [facility] ([id number]) [address], [address] [place] [address] Lymphocytes/100 WBC (Bld) 18.1 % Normal [facility] Comment on above: Performed By: #### C GLADIS, CMP #### [facility] ([id number]) [address], [address] [place] [address] MCH (RBC) [Entitic mass] 17.2 pg Low 27-34 [facility] Comment on above: Performed By: #### C BCA, CMP #### [facility] ([id number]) [address], [address] [place] [address] MCHC (RBC) [Mass/Vol] 29.4 g/dL Low 32-36 [facility] Comment on above: Performed By: #### C GLADIS, CMP #### [facility] ([id number]) [address] [place] [address] MCV (RBC) [Entitic vol] 59 fL Low 80-100 [facility] Comment on above: Performed By: #### C GLADIS, CMP #### [facility] ([id number]) [address], [address] [place] [address] Neutrophils (Bld) [#/Vol] 7.5 10*3/uL High 1.5-6.6 [facility] Comment on above: Performed By: #### C GLADIS, CMP #### [facility] ([id number]) [address], [address] [place] [address] NUCLEATED RBC 1.0 /100 WBC Normal 0.0-1.0 [facility] Comment on above: Performed By: #### C GLADIS, CMP #### [facility] ([id number]) [address] [place] [address] OVALOCYTE 2+ Abnormal NONE [facility] Comment on above: Performed By: #### C BCA, CMP #### [facility] ([id number]) [address], [address] [place] [address] Platelet mean volume (Bld) [Entitic vol] 8.2 fL Normal 7-12 [facility] Comment on above: Performed By: #### C BCA, CMP #### [facility] ([id number]) [address] [place] [address] Platelets (Bld) [#/Vol] 617 10*3/uL High 150-450 [facility] Comment on above: Performed By: #### C BCA, CMP #### [facility] ([id number]) [address] [place] [address] POLYCHROMASIA 1+ Abnormal NONE [facility] Comment on above: Performed By: #### C BCA, CMP #### [facility] ([id number]) [address] [place] [address] RBC COUNT 4.70 X10E12/L Normal 4.10-5.70 [facility] Comment on above: Performed By: #### C BCA, CMP #### [facility] ([id number]) [address] [place] [address] SEG NEUTROPHIL 74.3 % Normal [facility] Comment on above: Performed By: #### C BCA, CMP #### [facility] ([id number]) [address], [address] [place] [address] TEARDROP 1+ Abnormal NONE [facility] Comment on above: Performed By: #### C BCA, CMP #### [facility] ([id number]) [address], [address] [place] [address] WBC (Bld) [#/Vol] 10.1 10*3/uL Normal 4.0-11.0 [facility] Comment on above: Performed By: #### C BCA, CMP #### [facility] ([id number]) [address] [place] [address] CBC auto differentialon 07-24 Anisocytosis Ql (Bld) 2+ Abnormal NONE^NONE [facility] Dacrocytes LM Ql (Bld) 1+ Abnormal NONE^NONE [facility] Eosinophils (Bld) [#/Vol] 0.8 10*3/uL High [facility] Eosinophils/100 WBC (Bld) 7.6 % [facility] Erythrocyte distribution width (RBC) [Ratio] 24.3 % High 11.5 - 15.0 % [facility] Fragments LM Ql (Bld) 1+ Abnormal NONE^NONE [facility] Hematocrit (Bld) [Volume fraction] 27.5 % Low 39 - 49 % [facility] Hemoglobin (Bld) [Mass/Vol] 8.1 g/dL Low 13.0 - 17.0 g/dL [facility] Interpretation and review of laboratory results Abnormal [facility] Lymphocytes (Bld) [#/Vol] 1.8 10*3/uL [facility] Lymphocytes/100 WBC (Bld) 18.1 % [facility] MCH (RBC) [Entitic mass] 17.2 pg Low 27 - 34 pg [facility] MCHC (RBC) [Mass/Vol] 29.4 g/dL Low 32 - 36 g/dL [facility] MCV (RBC) [Entitic vol] 59 fL Low 80 - 100 fL [facility] Neutrophils (Bld) [#/Vol] 7.5 10*3/uL High [facility] Nucleated RBC/100 WBC (Bld) [Ratio] 1.0 % [facility] Ovalocytes LM Ql (Bld) 2+ Abnormal NONE^NONE [facility] Platelet mean volume (Bld) [Entitic vol] 8.2 fL 7 - 12 fL [facility] Platelets (Bld) [#/Vol] 617 10*3/uL High [facility] Polychromasia LM Ql (Bld) 1+ Abnormal NONE^NONE [facility] RBC (Bld) [#/Vol] 4.70 10*6/uL [facility] Segmented neutrophils/100 WBC (Bld) 74.3 % [facility] WBC corrected for nucl RBC Auto (Bld) [#/Vol] 10.1 [facility] COMPREHENSIVE METABOLIC PANE Axel 08-14-2023 Albumin [Mass/Vol] 3.9 g/dL Normal 3.2-5.3 [facility] Comment on above: Performed By: #### C BCA, CMP #### [facility] ([id number]) [address], [address] [place] [address] ALP [Catalytic activity/Vol] 112 U/L Normal 39-130 [facility] Comment on above: Performed By: #### C BCA, CMP #### [facility] ([id number]) [address], [address] [place] [address] ALT [Catalytic activity/Vol] 17 U/L Normal 0-40 [facility] Comment on above: Performed By: #### C BCA, CMP #### [facility] ([id number]) [address], [address] [place] [address] Anion gap [Moles/Vol] 6 mmol/L Normal 5-15 [facility] Comment on above: Performed By: #### C BCA, CMP #### [facility] ([id number]) [address], [address] [place] [address] AST [Catalytic activity/Vol] 21 U/L Normal 0-41 [facility] Comment on above: Performed By: #### C BCA, CMP #### [facility] ([id number]) [address], [address] [place] [address] Bilirubin [Mass/Vol] 0.3 mg/dL Normal 0.3-1.2 [facility] Comment on above: Performed By: #### C BCA, CMP #### [facility] ([id number]) [address], [address] [place] [address] Calcium [Mass/Vol] 8.1 mg/dL Low 8.5-10.5 [facility] Comment on above: Performed By: #### C BCA, CMP #### [facility] ([id number]) [address], [address] [place] [address] Chloride [Moles/Vol] 109 mmol/L Normal 98-109 [facility] Comment on above: Performed By: #### C BCA, CMP #### [facility] ([id number]) [address], [address] [place] [address] CO2 [Moles/Vol] 24 mmol/L Normal 22-32 [facility] Comment on above: Performed By: #### C BCA, CMP #### [facility] ([id number]) [address], [address] [place] [address] Creatinine [Mass/Vol] 0.77 mg/dL Normal 0.60-1.30 [facility] Comment on above: Result Comment: METH OD TRACEABLE TO IDMS STANDARD Performed By: #### C BCA, CMP #### [facility] ([id number]) [address], [address] [place] [address] eGFR (CKD-EPI) NON-RACE DEPENDENT >90 Normal >59 [facility] Comment on above: Result Comment: Reported eGFR is based on the CKD-EPI 2021 equation that does not use a race coefficient. Performed By: #### C BCA, CMP #### [facility] ([id number]) [address], [address] [place] [address] Glucose [Mass/Vol] 90 mg/dL Normal 65-99 [facility] Comment on above: Performed By: #### C BCA, CMP #### [facility] ([id number]) [address], [address] [place] [address] Potassium [Moles/Vol] 3.9 mmol/L Normal 3.5-5.0 [facility] Comment on above: Performed By: #### C BCA, CMP #### [facility] ([id number]) [address], [address] [place] [address] Protein [Mass/Vol] 6.1 g/dL Normal 6.0-8.0 [facility] Comment on above: Performed By: #### C BCA, CMP #### [facility] ([id number]) [address], [address] [place] [address] Sodium [Moles/Vol] 139 mmol/L Normal 134-146 [facility] Comment on above: Performed By: #### C BCA, CMP #### [facility] ([id number]) [address], [address] [place] [address] Urea nitrogen [Mass/Vol] 12 mg/dL Normal 5-23 [facility] Comment on above: Performed By: #### C BCA, CMP #### [facility] ([id number]) [address], [address] [place] [address] Comprehensive metabolic pane axel 08-14-2023 Albumin [Mass/Vol] 3.9 g/dL 3.2 - 5.3 g/dL [facility] ALP [Catalytic activity/Vol] 112 U/L 39 - 130 U/L [facility] ALT No additional P-5'-P [Catalytic activity/Vol] 17 U/L 0 - 40 U/L [facility] Anion gap [Moles/Vol] 6 mmol/L 5 - 15 mmol/L [facility] AST [Catalytic activity/Vol] 21 U/L 0 - 41 U/L [facility] Bilirubin [Mass/Vol] 0.3 mg/dL 0.3 - 1.2 mg/dL [facility] Calcium [Mass/Vol] 8.1 mg/dL Low 8.5 - 10. 5 mg/dL [facility] Chloride [Moles/Vol] 109 mmol/L 98 - 109 mmol/L [facility] CO2 [Moles/Vol] 24 mmol/L 22 - 32 mmol/L [facility] Creatinine [Mass/Vol] 0.77 mg/dL 0.60 - 1.30 mg/dL [facility] Comment on above: METHOD TRACEABLE TO [facility] STANDARD eGFR (CKD-EPI)non-race dependent - PINF [facility] Comment on above: Reported eGFR is based on the CKD-EPI 2020 equation that does not use a race coefficient. Glucose [Mass/Vol] 90 mg/dL 65 - 99 mg/dL [facility] Interpretation and review of laboratory results Abnormal [facility] Potassium [Moles/Vol] 3.9 mmol/L 3.5 - 5.0 mmol/L [facility] Protein [Mass/Vol] 6.1 g/dL 6.0 - 8.0 g/dL [facility] Sodium [Moles/Vol] 139 mmol/L 134 - 146 mmol/L [facility] Urea nitrogen [Mass/Vol] 12 mg/dL 5 - 23 mg/dL [facility] Troponin I, High Sensitivity on 08-14-2023 Troponin I.cardiac High sensitivity method [Mass/Vol] 4 ng/L [facility] ng/L [facility] Troponin I, High Sensitivity 1 Houron 08-14-2023 Troponin I.cardiac High sensitivity method [Mass/Vol] 4 ng/L [facility] - 21 ng/L [facility] Troponin I.cardiac High sens itivity method [Mass/Vol]on 08-14-2023 1 HOUR TROP I, HIGH SENSITIVITY 4 ng/L Normal <21 [facility] Comment on above: Performed By: #### 8 9579-7 #### [facility] ([id number]) [address] [place] [address] TROPONIN I, HIGH SENSITIVITY 4 ng/L Normal <21 [facility] Comment on above: Performed By: #### 8 9579-7 #### [facility] ([id number]) [address] [place] [address] [facility] Crossmatch RBC:Number of Uni ts: 1on 08-12-2023 BB Type Barcode 6200 [facility] Blood component type [id number] [facility] Crossmatch Compatible [facility] Expiration Date [id number] [facility] Status of unit TRANSFUSED [facility] Unit ABO A [facility] Unit number [id number] [facility] RH Positive [facility] HGB AND HCTon 08-12-2023 Hematocrit (Bld) [Volume fraction] 25.8 % Low 39-49 [facility] Comment on above: Performed By: #### H H #### [facility] ([id number]) [address] [place] [address] Hemoglobin (Bld) [Mass/Vol] 7.8 g/dL Low 13.0-17.0 [facility] Comment on above: Performed By: #### H H #### [facility] ([id number]) [address] [place] [address] ABO Rh Repeaton 08-11-2023 ABO A [facility] Rh Nom (Bld) Positive [facility] BASIC METABOLIC PANLon 08-10 Anion gap [Moles/Vol] 11 mmol/L Normal 5-15 [facility] Comment on above: Performed By: #### B AMBROCIO CBCA #### [facility] ([id number]) [address], [address] [place] [address] Calcium [Mass/Vol] 8.2 mg/dL Low 8.5-10.5 [facility] Comment on above: Performed By: #### B AMBROCIO CBCA #### [facility] ([id number]) [address] [place] [address] Chloride [Moles/Vol] 106 mmol/L Normal 98-109 [facility] Comment on above: Performed By: #### B AMBROCIO CBCA #### [facility] ([id number]) [address] [place] [address] CO2 [Moles/Vol] 20 mmol/L Low 22-32 [facility] Comment on above: Performed By: #### B AMBROCIO CBCA #### [facility] ([id number]) [address] [place] [address] Creatinine [Mass/Vol] 0.80 mg/dL Normal 0.60-1.30 [facility] Comment on above: Result Comment: METH OD TRACEABLE TO IDMS STANDARD Performed By: #### B AMBROCIO CBCA #### [facility] ([id number]) [address] [place] [address] eGFR (CKD-EPI) NON-RACE DEPENDENT >90 Normal >59 [facility] Comment on above: Result Comment: Reported eGFR is based on the CKD-EPI 2020 equation that does not use a race coefficient. Performed By: #### B AMBROCIO CBCA #### [facility] ([id number]) [address], [address] [place] [address] Glucose [Mass/Vol] 211 mg/dL High 65-99 [facility] Comment on above: Performed By: #### B AMBROCIO CBCA #### [facility] ([id number]) [address], [address] [place] [address] Potassium [Moles/Vol] 4.0 mmol/L Normal 3.5-5.0 [facility] Comment on above: Performed By: #### B AMBROCIO CBCBrie #### [facility] ([id number]) [address] [address] [place] [address] Sodium [Moles/Vol] 137 mmol/L Normal 134-146 [facility] Comment on above: Performed By: #### B AMBROCIO CBCA #### [facility] ([id number]) [address] [place] [address] Urea nitrogen [Mass/Vol] 12 mg/dL Normal 5-23 [facility] Comment on above: Performed By: #### B MP, CBCA #### [facility] ([id number]) [address], [address] [place] [address] Basic Metabolic Panelon 07-23 Anion gap [Moles/Vol] 11 mmol/L 5 - 15 mmol/L [facility] Calcium [Mass/Vol] 8.2 mg/dL Low 8.5 - 10. 5 mg/dL [facility] Chloride [Moles/Vol] 106 mmol/L 98 - 109 mmol/L [facility] CO2 [Moles/Vol] 20 mmol/L Low 22 - 32 mmol/L [facility] Creatinine [Mass/Vol] 0.80 mg/dL 0.60 - 1.30 mg/dL [facility] Comment on above: METHOD TRACEABLE TO [facility]AL STANDARD eGFR (CKD-EPI)non-race dependent - PINF [facility] Comment on above: Reported eGFR is based on the CKD-EPI 2020 equation that does not use a race coefficient. Glucose [Mass/Vol] 211 mg/dL High 65 - 99 mg/dL [facility] Interpretation and review of laboratory results Abnormal [facility] Potassium [Moles/Vol] 4.0 mmol/L 3.5 - 5.0 mmol/L [facility] Sodium [Moles/Vol] 137 mmol/L 134 - 146 mmol/L [facility] Urea nitrogen [Mass/Vol] 12 mg/dL 5 - 23 mg/dL [facility] CBC AND AUTO DIFFon 08-11-19 24 Anisocytosis Ql (Bld) 2+ Abnormal NONE [facility] Comment on above: Performed By: #### B AMBROCIO, CBCA #### [facility] ([id number]) [address], [address] [place] [address] Eosinophils (Bld) [#/Vol] 0.3 10*3/uL Normal 0.0-0.4 [facility] Comment on above: Performed By: #### B AMBROCIO, CBCA #### [facility] ([id number]) [address], [address] [place] [address] Eosinophils/100 WBC (Bld) 3.0 % Normal [facility] Comment on above: Performed By: #### B MP, CBCA #### [facility] ([id number]) [address] [place] [address] Erythrocyte distribution width (RBC) [Ratio] 22.0 % High 11.5-15.0 [facility] Comment on above: Performed By: #### B MP, CBCA #### [facility] ([id number]) [address] [facility] [facility] [place] [address] FRAGMENT 1+ Abnormal NONE [facility] Comment on above: Performed By: #### B MP, CBCA #### [facility] ([id number]) [address] [place] [address] Hematocrit (Bld) [Volume fraction] 26.1 % Low 39-49 [facility] Comment on above: Performed By: #### B MP, CBCA #### [facility] ([id number]) [address] [place] [address] Hemoglobin (Bld) [Mass/Vol] 7.5 g/dL Low 13.0-17.0 [facility] Comment on above: Performed By: #### B MP, CBCA #### [facility] ([id number]) [address] [place] [address] HYPOCHROMIA 2+ Abnormal NONE [facility] Comment on above: Performed By: #### B MP, CBCA #### [facility] ([id number]) [address] [place] [address] Lymphocytes (Bld) [#/Vol] 2.0 10*3/uL Normal 1.0-3.5 [facility] Comment on above: Performed By: #### B MP, CBCA #### [facility] ([id number]) [address] [place] [place] [address] Lymphocytes/100 WBC (Bld) 18.0 % Normal [facility] Comment on above: Performed By: #### B AMBROCIO, CBCA #### [facility] ([id number]) [address], [address] [place] [address] MCH (RBC) [Entitic mass] 15.8 pg Low 27-34 [facility] Comment on above: Performed By: #### B MP, CBCA #### [facility] ([id number]) [address], [address] [place] [address] MCHC (RBC) [Mass/Vol] 28.9 g/dL Low 32-36 [facility] Comment on above: Performed By: #### B AMBROCIO, CBCA #### [facility] ([id number]) [address], [address] [place] [address] MCV (RBC) [Entitic vol] 55 fL Low 80-100 [facility] Comment on above: Performed By: #### B AMBROCIO, CBCA #### [facility] ([id number]) [address], [facility] [address] [place] [address] Monocytes (Bld) [#/Vol] 0.8 10*3/uL Normal 0-0.9 [facility] Comment on above: Performed By: #### B AMBROCIO, CBCA #### [facility] ([id number]) [address] [facility] [place] [address] Monocytes/100 WBC (Bld) 7.0 % Normal [facility] Comment on above: Performed By: #### B AMBROCIO, CBCA #### [facility] ([id number]) [address] [address] [place] [address] Neutrophils (Bld) [#/Vol] 7.8 10*3/uL High 1.5-6.6 [facility] Comment on above: Performed By: #### B AMBROCIO, CBCA #### [facility] ([id number]) [address] [place] [address] OVALOCYTE 1+ Abnormal NONE [facility] Comment on above: Performed By: #### B MP, CBCA #### [facility] ([id number]) [address] [place] [address] Platelet mean volume (Bld) [Entitic vol] 8.1 fL Normal 7-12 [facility] Comment on above: Performed By: #### B MP, CBCA #### [facility] ([id number]) [address] [place] [address] Platelets (Bld) [#/Vol] 658 10*3/uL High 150-450 [facility] Comment on above: Performed By: #### B MP, CBCA #### [facility] ([id number]) [address] [place] [address] POLYCHROMASIA 1+ Abnormal NONE [facility] Comment on above: Performed By: #### B MP, CBCA #### [facility] ([id number]) [address], [address] [place] [address] RBC COUNT 4.77 X10E12/L Normal 4.10-5.70 [facility] Comment on above: Performed By: #### B MP, CBCA #### [facility] ([id number]) [address], [address] [place] [address] SEG NEUTROPHIL 72.0 % Normal [facility] Comment on above: Performed By: #### B MP, CBCA #### [facility] ([id number]) [address] [place] [address] WBC (Bld) [#/Vol] 10.9 10*3/uL Normal 4.0-11.0 [facility] Comment on above: Performed By: #### B MP, CBCA #### [facility] ([id number]) [address] [place] [address] CBC auto differentialon 07-23 Anisocytosis Ql (Bld) 2+ Abnormal NONE^NONE [facility] Eosinophils (Bld) [#/Vol] 0.3 10*3/uL [facility] Eosinophils/100 WBC (Bld) 3.0 % [facility] Erythrocyte distribution width (RBC) [Ratio] 22.0 % High 11.5 - 15.0 % [facility] Fragments LM Ql (Bld) 1+ Abnormal NONE^NONE [facility] Hematocrit (Bld) [Volume fraction] 26.1 % Low 39 - 49 % [facility] Hemoglobin (Bld) [Mass/Vol] 7.5 g/dL Low 13.0 - 17.0 g/dL [facility] Hypochromia Ql (Bld) 2+ Abnormal NONE^NONE [facility] Interpretation and review of laboratory results Abnormal [facility] Lymphocytes (Bld) [#/Vol] 2.0 10*3/uL [facility] Lymphocytes/100 WBC (Bld) 18.0 % [facility] MCH (RBC) [Entitic mass] 15.8 pg Low 27 - 34 pg [facility] MCHC (RBC) [Mass/Vol] 28.9 g/dL Low 32 - 36 g/dL [facility] MCV (RBC) [Entitic vol] 55 fL Low 80 - 100 fL [facility] Monocytes (Bld) [#/Vol] 0.8 10*3/uL [facility] Monocytes/100 WBC (Bld) 7.0 % [facility] Neutrophils (Bld) [#/Vol] 7.8 10*3/uL High [facility] Ovalocytes LM Ql (Bld) 1+ Abnormal NONE^NONE [facility] Platelet mean volume (Bld) [Entitic vol] 8.1 fL 7 - 12 fL [facility] Platelets (Bld) [#/Vol] 658 10*3/uL High [facility] Polychromasia LM Ql (Bld) 1+ Abnormal NONE^NONE [facility] RBC (Bld) [#/Vol] 4.77 10*6/uL [facility] Segmented neutrophils/100 WBC (Bld) 72.0 % [facility] WBC corrected for nucl RBC Auto (Bld) [#/Vol] 10.9 [facility] Hemoglobin and hematocrit, b loodon 08-11-2023 Hematocrit (Bld) [Volume fraction] 25.8 % Low 39 - 49 % [facility] Hemoglobin (Bld) [Mass/Vol] 7.8 g/dL Low 13.0 - 17.0 g/dL [facility] Interpretation and review of laboratory results Abnormal [facility] POCT EKGon 08-11-2023 Preliminary EKG. Please see signed, scanned copy for final result. MANUALLY TRANSCRIBED RESULTS [facility] Troponin I, High Sensitivity on 08-11-2023 Troponin I.cardiac High sensitivity method [Mass/Vol] 4 ng/L [facility] - 21 ng/L [facility] Troponin I, High Sensitivity 1 Houron 08-11-2023 Troponin I.cardiac High sensitivity method [Mass/Vol] 4 ng/L [facility] - 21 ng/L [facility] Troponin I.cardiac High sens itivity method [Mass/Vol]on 08-11-2023 1 HOUR TROP I, HIGH SENSITIVITY 4 ng/L Normal <21 [facility] Comment on above: Performed By: #### 8 9579-7 #### [facility] ([id number]) [address] [place] [address] TROPONIN I, HIGH SENSITIVITY 4 ng/L Normal <21 [facility] Comment on above: Performed By: #### 8 9579-7 #### [facility] ([id number]) [address] [place] [address] [facility] Type and screen(includes ind irect paulina)on 08-11-2023 ABO A [facility] Rh Nom (Bld) Positive [facility] XR CHEST 1 VWon 08-11-2023 XR CHEST 1 VW XR CHEST 1 VW Clinical history: Dizziness Views: 1 Comparison: 04/19/2008 chest x-ray and CT of 06-05 Findings/Impression: 1. Large right epicardial fat pad. 2. Lungs clear. Minimal scarring left lung base No volume loss or consolidation. No pneumothorax or pleural effusion. Pacing leads overlie right atrium right ventricle. No pneumothorax. 3. No significant interval change Finalized by Harinder Augustin MD on 08/11/2023 2:53 PM Normal [facility] XR Chest Single viewon 08-10 Clinical history: Dizziness Views: 1 Comparison: 04/19/2008 chest x-ray and CT of 06-05 Findings/Impression: 1. Large right epicardial fat pad. 2. Lungs clear. Minimal scarring left lung base No volume loss or consolidation. No pneumothorax or pleural effusion. Pacing leads overlie right atrium right ventricle. No pneumothorax. 3. No significant interval change Finalized by Harinder Augustin MD on 08/11/2023 2:53 PM [facility] Harinder Augustin MD - 08/11/2023 Clinical history: Dizziness Views: 1 Comparison: 04/19/2008 chest x-ray and CT of 06-05 Findings/Impression: 1. Large right epicardial fat pad. 2. Lungs clear. Minimal scarring left lung base No volume loss or consolidation. No pneumothorax or pleural effusion. Pacing leads overlie right atrium right ventricle. No pneumothorax. 3. No significant interval change Finalized by Harinder Augustin MD on 08/11/2023 2:53 PM [facility] Study observation (narrative) [facility] XR Chest Single viewOrdered By: Harinder Augustin on 08-11-2023 [facility] Work Phone: XR RIBS LT PA Roxy 3 XR RIBS LT PA CH EXAMINATION: XR RIBS LT PA CH HISTORY: Contusion of left chest wall ; acute left rib pain after falling COMPARISON: No relevant comparison available. FINDINGS: LUNGS: No significant pulmonary parenchymal abnormalities. PLEURA: Mild pleural thickening along lateral left lung base and blunting of costophrenic angle. MEDIASTINUM: No visible mass or adenopathy. CARDIAC: No cardiomegaly or cardiac silhouette abnormality. RIBS: Nondisplaced fractures of the lateral left sixth, seventh, eighth ribs. OTHER: Negative. IMPRESSION: 1. Small left pleural effusion/pleural thickening involving lateral lower left hemithorax. 2. Nondisplaced fractures of the lateral left sixth, seventh and eighth ribs. Electronically authenticated by: REGGIE CONROY Date: 2022-07-26 11:[address] [facility] DRUG SCREEN RAPID (URINE)on 04-29-2022 AMP Negative Normal NEGATIVE [facility] Comment on above: Performed By: #### D RUGRPD #### [facility] [address] [place] [address] Dr. Bryson Lazcano BAR Negative Normal NEGATIVE [facility] Comment on above: Performed By: #### D RUGRPD #### [facility] [address] [place] [address] Dr. Bryson Lazcano BUP Negative Normal NEGATIVE [facility] Comment on above: Performed By: #### D RUGRPD #### [facility] [address] [address] [address] Bryson Lazcano BZO Negative Normal NEGATIVE [facility] Comment on above: Performed By: #### D RUGRPD #### [facility] [address] [place] [address] Dr. Bryson Lazcano HILTON Negative Normal NEGATIVE [facility] Comment on above: Performed By: #### D RUGRPD #### [facility] [address] [address] [address] Bryson Lazcano CUT-OFFS SEE BELOW Normal [facility] Comment on above: Result Comment: AMP (Amphetamine): 500ng/mL, BAR (Barbituates): 200 ng/mL, BZO (Benzodiazepines): 150 ng/mL, BUP (Buprenorphine): 10 ng/mL, HILTON (Cocaine): 150 ng/mL, mAMP (Methamphetamine): 500 ng/mL, MTD (Methadone): 200 ng/mL, OPI (Opiates): 100 ng/mL, OXY (Oxycodone): 100 ng/mL, PCP (Phencyclidine): 25 ng/mL, PPX (Propoxyphene): 300 ng/mL, THC (Cannabinoids): 50 ng/mL, TCA (Trycyclic Antidepressants): 300 ng/mL Performed By: #### D RUGRPD #### [facility] [address] [place] [address] Dr. Bryson Lazcano DRUG CUT HEADER DRUG CLASS TEST SYST EM CUT-OFF CONCENTRATIONS ARE FOLLOWS: Normal [facility] Comment on above: Performed By: #### D RUGRPD #### [facility] [address] [place] [address] Dr. Bryson Lazcano mAMP Negative Normal NEGATIVE [facility] Comment on above: Performed By: #### D RUGRPD #### [facility] [address] [place] [address] Dr. Bryson Lazcano MTD Negative Normal NEGATIVE [facility] Comment on above: Performed By: #### D RUGRPD #### [facility] [address] [place] [address] Dr. Bryson Lazcano OPI Negative Normal NEGATIVE [facility] Comment on above: Performed By: #### D RUGRPD #### [facility] [address] [address] [address] Bryson Lazcano OXY Negative Normal NEGATIVE [facility] Comment on above: Performed By: #### D RUGRPD #### [facility] [address] [place] [address] Dr. Bryson Lazcano PCP Negative Normal NEGATIVE [facility] Comment on above: Performed By: #### D RUGRPD #### [facility] [address] [place] [address] Dr. Bryson Lazcano PPX Negative Normal NEGATIVE [facility] Comment on above: Performed By: #### D RUGRPD #### [facility] [address] [place] [address] Dr. Bryson Lazcano TCA Negative Normal NEGATIVE [facility] Comment on above: Performed By: #### D RUGRPD #### [facility] [address] [place] [address] Dr. Bryson Lazcano THC Positive Abnormal NEGATIVE [facility] Comment on above: Performed By: #### D RUGRPD #### [facility] [address] [place] [address] Dr. Bryson BRAMBILA Quick Testingon 2021 Result Positive [facility] Other Vital Signs Date Time Vital Sign Value Performing Clinician Facility 12-24-2024 15:21-0400 Diastolic blood pressure 84 mm[Hg] Anny Aichalbertoz Work Phone: [facility] 12-24-2024 15:21-0400 Systolic blood pressure 138 mm[Hg] Anny Aichholz Work Phone: [facility] 12-24-2024 14:50-0400 Body temperature 98.1 [degF] Anny Aichholz Work Phone: [facility] 12-24-2024 14:50-0400 Body weight 107.95 kg Anny Aichholz Work Phone: [facility] 12-24-2024 14:50-0400 Heart rate 111 /min Anny Aichholz Work Phone: [facility] 12-24-2024 14:50-0400 SaO2% (BldA) [Mass fraction] 98 % Anny Aichholz Work Phone: [facility] 11-22-2024 09:06-0400 Body height 177.8 cm Rocío Fernandes MD Work Phone: [facility] 11-22-2024 09:06-0400 Body mass index (BMI) [Ratio] 32.43 kg/m2 Rocío Fernandes MD Work Phone: [facility] 11-22-2024 09:06-0400 Body weight 102.51 kg Rocío Fernandes MD Work Phone: [facility] 11-22-2024 09:06-0400 Diastolic blood pressure 70 mm[Hg] Rocío Fernandes MD Work Phone: [facility] 11-22-2024 09:06-0400 Heart rate 101 /min Rocío Fernandes MD Work Phone: [facility] 11-22-2024 09:06-0400 Systolic blood pressure 110 mm[Hg] Rocío Fernandes MD Work Phone: [facility] 10-16-2024 09:18-0400 Body mass index (BMI) [Ratio] 32.57 kg/m2 Dion Frankton PMHNP-BC Work Phone: [facility] 10-16-2024 09:18-0400 Body weight 102.97 kg Dion Teran PMHNP-BC Work Phone: [facility] 10-16-2024 09:18-0400 Diastolic blood pressure 72 mm[Hg] Dion Teran PMHNP-BC Work Phone: [facility] 10-16-2024 09:18-0400 Heart rate 100 /min Dion Teran PMHNP-BC Work Phone: [facility] 10-16-2024 09:18-0400 Systolic blood pressure 118 mm[Hg] Dion Teran PMHNP-BC Work Phone: [facility] 10-03-2024 13:50-0400 Body mass index (BMI) [Ratio] 33.43 kg/m2 Anny Bruce THREAD TOOL GRINDER SET UP OPERATOR Work Phone: [facility] 10-03-2024 13:50-0400 Body temperature 98.49 [degF] Anny Bruce THREAD TOOL GRINDER SET UP OPERATOR Work Phone: [facility] 10-03-2024 13:50-0400 Body weight 105.69 kg Anny Bruce THREAD TOOL GRINDER SET UP OPERATOR Work Phone: [facility] 10-03-2024 13:50-0400 Diastolic blood pressure 80 mm[Hg] Anny Bruce THREAD TOOL GRINDER SET UP OPERATOR Work Phone: [facility] 10-03-2024 13:50-0400 Heart rate 81 /min Anny Luisholz THREAD TOOL GRINDER SET UP OPERATOR Work Phone: [facility] 10-03-2024 13:50-0400 Respiratory rate 20 /min Anny Aichholz THREAD TOOL GRINDER SET UP OPERATOR Work Phone: [facility] 10-03-2024 13:50-0400 SaO2% (BldA) [Mass fraction] 95 % Anny Reglahholz THREAD TOOL GRINDER SET UP OPERATOR Work Phone: [facility] 10-03-2024 13:50-0400 Systolic blood pressure 138 mm[Hg] Anny Aichholz THREAD TOOL GRINDER SET UP OPERATOR Work Phone: [facility] 05-29-2024 09:29-0500 Body height 177.8 cm Anny Reglahholz THREAD TOOL GRINDER SET UP OPERATOR Work Phone: [facility] 05-29-2024 09:29-0500 Body mass index (BMI) [Ratio] 32.54 kg/m2 Anny Reglahholz THREAD TOOL GRINDER SET UP OPERATOR Work Phone: [facility] 05-29-2024 09:29-0500 Body temperature 98.49 [degF] Anny Aichholz THREAD TOOL GRINDER SET UP OPERATOR Work Phone: [facility] 05-29-2024 09:29-0500 Body weight 102.88 kg Anny Reglahholz THREAD TOOL GRINDER SET UP OPERATOR Work Phone: [facility] 05-29-2024 09:29-0500 Diastolic blood pressure 82 mm[Hg] Anny Reglahholz THREAD TOOL GRINDER SET UP OPERATOR Work Phone: [facility] 05-29-2024 09:29-0500 Heart rate 112 /min Anny Aichholz THREAD TOOL GRINDER SET UP OPERATOR Work Phone: [facility] 05-29-2024 09:29-0500 Respiratory rate 20 /min Anny Aichholz THREAD TOOL GRINDER SET UP OPERATOR Work Phone: [facility] 05-29-2024 09:29-0500 SaO2% (BldA) [Mass fraction] 98 % Anny Aichholz THREAD TOOL GRINDER SET UP OPERATOR Work Phone: [facility] 05-29-2024 09:29-0500 Systolic blood pressure 118 mm[Hg] Anny Luisholz THREAD TOOL GRINDER SET UP OPERATOR Work Phone: [facility] 02-28-2024 10:40-0500 Body height 177.8 cm Anny Reglahholz THREAD TOOL GRINDER SET UP OPERATOR Work Phone: [facility] 02-28-2024 10:40-0500 Body mass index (BMI) [Ratio] 31.39 kg/m2 Anny Reglahholz THREAD TOOL GRINDER SET UP OPERATOR Work Phone: [facility] 02-28-2024 10:40-0500 Body temperature 98.49 [degF] Anny Aichholz THREAD TOOL GRINDER SET UP OPERATOR Work Phone: [facility] 02-28-2024 10:40-0500 Body weight 99.25 kg Anny Aichholz THREAD TOOL GRINDER SET UP OPERATOR Work Phone: [facility] 02-28-2024 10:40-0500 Diastolic blood pressure 80 mm[Hg] Anny Aichholz THREAD TOOL GRINDER SET UP OPERATOR Work Phone: [facility] 02-28-2024 10:40-0500 Heart rate 91 /min Anny Aichholz THREAD TOOL GRINDER SET UP OPERATOR Work Phone: [facility] 02-28-2024 10:40-0500 Respiratory rate 18 /min Anny Aichholz THREAD TOOL GRINDER SET UP OPERATOR Work Phone: [facility] 02-28-2024 10:40-0500 SaO2% (BldA) [Mass fraction] 99 % Anny Luisholz THREAD TOOL GRINDER SET UP OPERATOR Work Phone: [facility] 02-28-2024 10:40-0500 Systolic blood pressure 122 mm[Hg] Anny Aichholz THREAD TOOL GRINDER SET UP OPERATOR Work Phone: [facility] 01-03-2024 09:56-0400 Body height 177.8 cm Anny Aichholz THREAD TOOL GRINDER SET UP OPERATOR Work Phone: [facility] 01-03-2024 09:56-0400 Body mass index (BMI) [Ratio] 31.65 kg/m2 Anny Aichholz THREAD TOOL GRINDER SET UP OPERATOR Work Phone: [facility] 01-03-2024 09:56-0400 Body temperature 98.49 [degF] Anny Bruce THREAD TOOL GRINDER SET UP OPERATOR Work Phone: [facility] 01-03-2024 09:56-0400 Body weight 100.06 kg Anny Bruce THREAD TOOL GRINDER SET UP OPERATOR Work Phone: [facility] 01-03-2024 09:56-0400 Diastolic blood pressure 72 mm[Hg] Anny Bruce THREAD TOOL GRINDER SET UP OPERATOR Work Phone: [facility] 01-03-2024 09:56-0400 Heart rate 75 /min Anny Bruce THREAD TOOL GRINDER SET UP OPERATOR Work Phone: [facility] 01-03-2024 09:56-0400 Respiratory rate 19 /min Anny Bruce THREAD TOOL GRINDER SET UP OPERATOR Work Phone: [facility] 01-03-2024 09:56-0400 SaO2% (BldA) [Mass fraction] 98 % Anny Bruce THREAD TOOL GRINDER SET UP OPERATOR Work Phone: [facility] 01-03-2024 09:56-0400 Systolic blood pressure 110 mm[Hg] Anny Bruce THREAD TOOL GRINDER SET UP OPERATOR Work Phone: [facility] 08-15-2023 11:45-0400 Body temperature 97.59 [degF] Philippe Cooper DO Work Phone: [facility] 08-15-2023 11:45-0400 Diastolic blood pressure 68 mm[Hg] Philippe Cooper DO Work Phone: [facility] 08-15-2023 11:45-0400 Heart rate 82 /min Philippe Cooper DO Work Phone: [facility] 08-15-2023 11:45-0400 Respiratory rate 17 /min Philippe Cooper DO Work Phone: [facility] 08-15-2023 11:45-0400 SaO2% (BldA) [Mass fraction] 98 % Philippe Cooper DO Work Phone: [facility] 08-15-2023 11:45-0400 Systolic blood pressure 117 mm[Hg] Philippe Cooper DO Work Phone: [facility] 08-14-2023 22:41-0400 Body height 177.8 cm Philippe Cooper DO Work Phone: [facility] 08-14-2023 22:41-0400 Body mass index (BMI) [Ratio] 28.31 kg/m2 Philippe Cooper DO Work Phone: [facility] 08-14-2023 22:41-0400 Body weight 89.5 kg Philippe Cooper DO Work Phone: [facility] 08-12-2023 00:05-0400 Body temperature 98.4 [degF] Carissa Sauer MD Work Phone: [facility] 08-12-2023 00:05-0400 Diastolic blood pressure 78 mm[Hg] Carissa Sauer MD Work Phone: [facility] 08-12-2023 00:05-0400 Heart rate 88 /min Carissa Sauer MD Work Phone: [facility] 08-12-2023 00:05-0400 Respiratory rate 15 /min Carissa Sauer MD Work Phone: [facility] 08-12-2023 00:05-0400 SaO2% (BldA) [Mass fraction] 100 % Carissa Sauer MD Work Phone: [facility] 08-12-2023 00:05-0400 Systolic blood pressure 145 mm[Hg] Carissa Sauer MD Work Phone: [facility] 08-11-2023 19:32-0400 Body mass index (BMI) [Ratio] 28.82 kg/m2 Carissa Sauer MD Work Phone: [facility] 08-11-2023 19:32-0400 Body weight 91.1 kg Carissa Sauer MD Work Phone: [facility] 08-11-2023 11:14-0400 Body height 177.8 cm [facility] 08-11-2023 08:47-0400 Body height 177.8 cm [facility] 08-11-2023 08:47-0400 Body mass index (BMI) [Ratio] 28.84 kg/m2 Rocío Fernandes MD Work Phone: [facility] 08-11-2023 08:47-0400 Body weight 91.17 kg Rocío Fernandes MD Work Phone: [facility] 11-30-2021 11:05-0400 Body height 175.26 cm Jessica Ghazal Other [facility] Other 11-30-2021 11:05-0400 Body mass index (BMI) [Ratio] 33.96 kg/m2 Jessica Ghazal Other [facility] Other 11-30-2021 11:05-0400 Body temperature 97 [degF] Jessica Ghazal Other [facility] Other 11-30-2021 11:05-0400 Body weight 104.33 kg Jessica Ghazal Other [facility] Other 11-30-2021 11:05-0400 Respiratory rate 18 /min Jessica Ghazal Other [facility] Other 11-30-2021 11:05-0400 SaO2% (BldA) [Mass fraction] 97 % Jessica Ghazal Other [facility] Other Encounters Encounter Date Encounter Type Care Provider Facility Start: 12-24-2024 End: 12-24-2024 ambulatory Anny Bruce Work Phone: [facility] Work Phone: Start: 12-24-2024 End: 12-24-2024 Patient encounter procedure 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 [facility] Work Phone: Start: 12-19-2024 End: 12-19-2024 Refill Anny Bruce NP Work Phone: [facility] Comment on above: Acute bronchitis, un specified Start: 12-16-2024 End: 12-16-2024 Refill Alee Moore LPN [facility] Comment on above: Med Refill Start: 12-11-2024 End: 12-12-2024 Refill Anny Bruce NP Work Phone: [facility] Comment on above: Anxiety and depressi on Start: 11-22-2024 End: 11-22-2024 Office outpatient visit 15 minutes Rocío Feranndes MD Work Phone: [facility] Comment on above: Dilated cardiomyopat hy (CMS-HCC) (Primary Dx); Moderate left ventricular systolic dysfunction - LVEF 40-45% on 2D echocardiogram 2018; Heart failure with reduced ejection fraction, NYHA class II (CMS-HCC); ICD (implantable cardioverter-defibrillator) in place-[employer] Start: 11-22-2024 End: 11-22-2024 Clinical Support Bpp Ppc Pacer [facility] Comment on above: ICD (implantable car dioverter-defibrillator) in place- [employer] (Primary Dx) Start: 10-31-2024 End: 10-31-2024 Clinisync Result Encounter Anny Bruce NP Work Phone: [facility] Unsolicited Start: 10-31-2024 End: 10-31-2024 Clinisync Result Encounter Anny Aichholz THREAD TOOL GRINDER SET UP OPERATOR Work Phone: [facility] Unsolicited Start: 10-16-2024 End: 10-16-2024 Bamboo flowsheet Dion Teran [facility] Work Phone: [facility] Start: 10-16-2024 End: 10-16-2024 Bamboo flowsheet Dion Teran [facility] Work Phone: [facility] Start: 10-16-2024 End: 10-16-2024 ambulatory DION TERAN Not Available Start: 10-15-2024 End: 10-15-2024 Orders Only Anny Bruce THREAD TOOL GRINDER SET UP OPERATOR Work Phone: [facility] Comment on above: Acquired spondylolis thesis of lumbosacral region (Primary Dx) Start: 10-14-2024 End: 10-14-2024 Clinisync Result Encounter Anny Janis THREAD TOOL GRINDER SET UP OPERATOR Work Phone: [facility] Unsolicited Start: 10-14-2024 End: 10-14-2024 Clinisync Result Encounter Anny Janis THREAD TOOL GRINDER SET UP OPERATOR Work Phone: [facility] Unsolicited Start: 10-14-2024 End: 10-14-2024 Refill Anny Janis THREAD TOOL GRINDER SET UP OPERATOR Work Phone: [facility] Comment on above: Iron deficiency anem ia, unspecified iron deficiency anemia type (Primary Dx) Start: 10-09-2024 End: 10-09-2024 Refill Darío Hawkins RN [facility] Comment on above: Med Refill Start: 10-03-2024 End: 10-03-2024 Bamboo flowsheet Anny Bruce THREAD TOOL GRINDER SET UP OPERATOR Work Phone: [facility] Start: 10-03-2024 End: 10-03-2024 Bamboo flowsheet Anny Janis THREAD TOOL GRINDER SET UP OPERATOR Work Phone: [facility] Start: 10-03-2024 End: 10-03-2024 ambulatory ANNY BRUCE Not Available Start: 10-03-2024 End: 10-03-2024 Office outpatient visit 25 minutes Anny Bruce THREAD TOOL GRINDER SET UP OPERATOR Work Phone: [facility] Comment on above: Primary hypertension (Primary Dx); Essential (hemorrhagic) thrombocythemia (HCC); RLS (restless legs syndrome); Asthma-COPD overlap syndrome (HCC); Dilated cardiomyopathy (HCC); ICD (implantable cardioverter-defibrillator) in place; Paroxysmal atrial fibrillation (HCC); Hx of bariatric surgery; Class 1 obesity due to excess calories with serious comorbidity and body mass index (BMI) of 31.0 to 31.9 in adult; Vitamin B12 deficiency; Vitamin D deficiency; Iron deficiency anemia, unspecified iron deficiency anemia type; Anxiety and depression ; Lumbar spondylosis; Lumbago with sciatica, left side; Restless legs syndrome Start: 08-29-2024 End: 08-29-2024 Refill Anny Bruce THREAD TOOL GRINDER SET UP OPERATOR Work Phone: [facility] Comment on above: Subacute maxillary s inusitis (Primary Dx) Start: 08-02-2024 End: 08-02-2024 Refill Anny Bruce THREAD TOOL GRINDER SET UP OPERATOR Work Phone: [facility] Comment on above: Sinusitis, unspecifi ed chronicity, unspecified location (Primary Dx) Start: 06-27-2024 End: 06-27-2024 Telephone encounter Raquel Au CMA [facility] Start: 06-25-2024 End: 06-25-2024 Refill Anny Bruce THREAD TOOL GRINDER SET UP OPERATOR Work Phone: [facility] Comment on above: Iron deficiency anem ia, unspecified iron deficiency anemia type (Primary Dx) Start: 2024 End: 2024 Refill Anny Janis THREAD TOOL GRINDER SET UP OPERATOR Work Phone: [facility] Comment on above: Acute bronchitis, un specified Start: 06-06-2024 End: 06-06-2024 Clinisync Result Encounter Anny Bruce THREAD TOOL GRINDER SET UP OPERATOR Work Phone: [facility] External Department Unsolicited Start: 06-06-2024 End: 06-06-2024 Clinisync Result Encounter Anny Janis THREAD TOOL GRINDER SET UP OPERATOR Work Phone: [facility] External Department Unsolicited Start: 06-03-2024 End: 06-03-2024 Refill Anny Janis THREAD TOOL GRINDER SET UP OPERATOR Work Phone: [facility] Comment on above: Acute bronchitis, un specified Start: 05-29-2024 End: 05-29-2024 Bamboo flowsheet Anny Bruce THREAD TOOL GRINDER SET UP OPERATOR Work Phone: [facility] Start: 05-29-2024 End: 05-29-2024 Bamboo flowsheet Anny Bruce THREAD TOOL GRINDER SET UP OPERATOR Work Phone: [facility] Start: 05-29-2024 End: 05-29-2024 ambulatory ANNY BRUCE Not Available Start: 05-29-2024 End: 05-29-2024 Office outpatient visit 25 minutes Anny Bruce THREAD TOOL GRINDER SET UP OPERATOR Work Phone: [facility] Comment on above: Iron deficiency anem ia, unspecified iron deficiency anemia type (Primary Dx); Paroxysmal atrial fibrillation (CMS/HCC); Other ventricular tachycardia (CMS/HCC); Dilated cardiomyopathy (CMS/HCC); Asthma-COPD overlap syndrome (CMS/HCC); Encounter for checking of automatic implantable cardioverter-defibrillator (AICD); RLS (restless legs syndrome); ICD (implantable cardioverter-defibrillator) in place; Primary hypertension (CMS/HCC); Hx of bariatric surgery; Class 1 obesity due to excess calories with serious comorbidity and body mass index (BMI) of 31.0 to 31.9 in adult; Vitamin B12 deficiency; Vitamin D deficiency; Screening for prostate cancer; Chronic bilateral low back pain with left-sided sciatica; Lumbago with sciatica, left side; Restless legs syndrome; Anxiety and depression (CMS/HCC); Subacute maxillary sinusitis Start: 04-03-2024 End: 04-03-2024 Refill Anny Bruce THREAD TOOL GRINDER SET UP OPERATOR Work Phone: [facility] Comment on above: Asthma-COPD overlap syndrome (CMS/HCC) (Primary Dx) Start: 02-28-2024 End: 02-28-2024 Bamboo flowsheet Anny Aichholz THREAD TOOL GRINDER SET UP OPERATOR Work Phone: [facility] Start: 02-28-2024 End: 02-28-2024 Bamboo flowsheet Anny Aichholz THREAD TOOL GRINDER SET UP OPERATOR Work Phone: [facility] Start: 02-28-2024 End: 02-28-2024 ambulatory ANNY AICHHOLZ Not Available Start: 02-28-2024 End: 02-28-2024 Office outpatient visit 25 minutes Anny Aichholz THREAD TOOL GRINDER SET UP OPERATOR Work Phone: [facility] Comment on above: Moderate persistent asthma without complication (CMS/HCC) (Primary Dx); Class 1 obesity due to excess calories with serious comorbidity and body mass index (BMI) of 31.0 to 31.9 in adult; Primary hypertension (CMS/HCC); Iron deficiency anemia, unspecified iron deficiency anemia type; Dilated cardiomyopathy (CMS/HCC); RLS (restless legs syndrome); Anxiety and depression (CMS/HCC); Vitamin D deficiency Start: 02-22-2024 End: 02-22-2024 Refill Anny Aichholz THREAD TOOL GRINDER SET UP OPERATOR Work Phone: [facility] Start: 02-21-2024 End: 02-21-2024 Refill Anny Aichholz THREAD TOOL GRINDER SET UP OPERATOR Work Phone: [facility] Comment on above: Acute bronchitis, un specified Start: 02-18-2024 End: 02-19-2024 Refill Anny Aichholz THREAD TOOL GRINDER SET UP OPERATOR Work Phone: [facility] Comment on above: Iron deficiency anem ia, unspecified Start: 01-18-2024 End: 01-18-2024 Refill Anny Aichholz THREAD TOOL GRINDER SET UP OPERATOR Work Phone: [facility] Comment on above: Anxiety and depressi on (CMS/HCC) Start: 01-10-2024 End: 01-10-2024 Refill Anny Aichholz THREAD TOOL GRINDER SET UP OPERATOR Work Phone: [facility] Comment on above: Iron deficiency anem ia, unspecified Start: 01-03-2024 End: 01-03-2024 Bamboo flowsheet Anny Bruce THREAD TOOL GRINDER SET UP OPERATOR Work Phone: [facility] Start: 01-03-2024 End: 01-03-2024 Bamboo flowsheet Annybrie Bruce THREAD TOOL GRINDER SET UP OPERATOR Work Phone: [facility] Start: 01-03-2024 End: 01-03-2024 Refill Anny Janis THREAD TOOL GRINDER SET UP OPERATOR Work Phone: [facility] Comment on above: Acute bronchitis, un specified Start: 01-03-2024 End: 01-03-2024 Office outpatient visit 15 minutes Anny Bruce THREAD TOOL GRINDER SET UP OPERATOR Work Phone: [facility] Comment on above: Chronic bilateral lo w back pain with left-sided sciatica (Primary Dx); Class 1 obesity due to excess calories with serious comorbidity and body mass index (BMI) of 31.0 to 31.9 in adult; Vitamin D deficiency; Iron deficiency anemia, unspecified iron deficiency anemia type; Hx of bariatric surgery; Lumbago with sciatica, right side Start: 12-29-2023 End: 12-29-2023 Refill Alee Moore LPN [facility] Comment on above: Med Refill Start: 12-15-2023 End: 12-15-2023 Refill Anny Bruce THREAD TOOL GRINDER SET UP OPERATOR Work Phone: [facility] Comment on above: Vitamin D deficiency (Primary Dx) Start: 12-14-2023 End: 12-14-2023 Clinisync Result Encounter Anny Bruce THREAD TOOL GRINDER SET UP OPERATOR Work Phone: [facility] Unsolicited Start: 12-14-2023 End: 12-14-2023 Clinisync Result Encounter Anny Janis THREAD TOOL GRINDER SET UP OPERATOR Work Phone: [facility] External [facility] Unsolicited Start: 12-13-2023 End: 12-13-2023 Refill Anny Bruce THREAD TOOL GRINDER SET UP OPERATOR Work Phone: [facility] Comment on above: Lumbago with sciatic a, left side Start: 11-09-2023 End: 11-09-2023 ambulatory ANNY JANIS Not Available Start: 09-21-2023 End: 09-21-2023 Refill Kimberly Canchola Ayaan [employer] Work Phone: [facility] [facility] Comment on above: Med Refill Start: 09-09-2023 End: 09-13-2023 Refill Ana Laurasalvadorhector Tim GRAINER MACHINE-COUNCIL MEMBER Work Phone: [facility] Comment on above: Med Refill Start: 08-25-2023 End: 08-25-2023 ambulatory Yamilet R Livia Facility:[facility] Start: 08-25-2023 End: 08-25-2023 ambulatory GRAINER MACHINE Yamilet R Livia Work Phone: [facility] Work Phone: Start: 08-25-2023 End: 08-25-2023 Departed Referred GRAINER MACHINE Yamilet Livia Work Phone: [facility] Start: 08-22-2023 ambulatory Facility:[facility] Start: 08-14-2023 End: 08-15-2023 ambulatory [facility] Start: 08-14-2023 End: 08-15-2023 Emergency department patient visit Marcin Hopper DO Work Phone: [facility] Comment on above: Iron deficiency anem ia, unspecified iron deficiency anemia type (Primary Dx) Start: 08-11-2023 End: 08-13-2023 Emergency department patient visit ARNAV LENNON [facility] Start: 08-11-2023 End: 08-12-2023 [facility] Start: 08-11-2023 End: 08-12-2023 Emergency department patient visit Gustavo Rodriguez DO Work Phone: [facility] Comment on above: Anemia requiring tra nsfusions (Primary Dx); Dizziness; Dilated cardiomyopathy (CMS-HCC); Non-ischemic cardiomyopathy (CMS-HCC); Moderate left ventricular systolic dysfunction - LVEF 40-45% on 2D echocardiogram 2017; Heart failure with reduced ejection fraction, NYHA class II (CMS-HCC) Start: 08-11-2023 End: 08-11-2023 Office outpatient visit 25 minutes Rocío Fernandes MD Work Phone: [facility] Comment on above: Dilated cardiomyopat hy (CMS-HCC) (Primary Dx); Non-ischemic cardiomyopathy (CMS-HCC); ICD (implantable cardioverter-defibrillator) in place-Medtronic; Heart failure with reduced ejection fraction, NYHA class II (CMS-HCC); Paroxysmal atrial tachycardia (CMS-HCC); NSVT (nonsustained ventricular tachycardia) (CMS-HCC); Mild tricuspid regurgitation; Mild mitral regurgitation; Dizziness sometimes; Abnormal EKG; Severe anemia with hemoglobin 7.6, hematocrit 29.9 as of 08/02/[address] [facility] Start: 08-11-2023 End: 08-11-2023 Clinical Support Bpp Ppc Pacer [facility] Comment on above: ICD (implantable car dioverter-defibrillator) in place- Medtronic (Primary Dx) Start: 08-10-2023 End: 08-11-2023 Refill Nicky QUINTERO Work Phone: [facility] Comment on above: Med Refill Start: 08-10-2023 End: 08-10-2023 Telephone encounter Raquel Au CMA [facility] Start: 08-04-2023 End: 08-04-2023 Telephone encounter Hilaria Easley RN [facility] Start: 08-11-2022 End: 08-12-2022 ambulatory COUNCIL MEMBER ANNY JANIS Facility:[facility] Start: 07-26-2022 End: 07-27-2022 ambulatory COUNCIL MEMBER ANNY AICCANDIDA Facility:[facility] Start: 04-29-2022 End: 04-29-2022 ambulatory GILBERTO LOCK Facility:[facility] Start: 11-30-2021 End: 11-30-2021 ambulatory Jessica Harman Other [facility] [employer] Other Start: 11-30-2021 Office outpatient vi sit 15 minutes Jessica Harman [facility] Procedures Date Procedure Procedure Detail Performing Clinician Start: 11-22-2024 Follow-up visit Follow-up ROCÍO Bossman DENA Start: 10-31-2024 XR LUMBAR SPINE 6V W BENDING Anny Aichholz THREAD TOOL GRINDER SET UP OPERATOR Work Phone: Start: 10-16-2024 End: 10-16-2024 Psychiatric diagnostic eval w/medical services Mild episode of recurrent major depressive disorder Dion Teran PMHNP-BC Work Phone: Comment on above: Mild episode of recu rrent major depressive disorder ; History of alcohol abuse; Vitamin D deficiency Start: 10-14-2024 XR LUMBAR SPINE 2 OR 3V Anny Aichholz THREAD TOOL GRINDER SET UP OPERATOR Work Phone: Start: 06-06-2024 XR DEXA AXIAL SKELETON Anny Aichholz THREAD TOOL GRINDER SET UP OPERATOR Work Phone: Start: 06-06-2024 ALL CBC WITH AUTO DIFF Anny Aichholz THREAD TOOL GRINDER SET UP OPERATOR Work Phone: Start: 12-14-2023 ALL CBC WITH AUTO DIFF Anny Aichholz THREAD TOOL GRINDER SET UP OPERATOR Work Phone: Start: 09-19-2023 Colonoscopy Anny Aichh olz THREAD TOOL GRINDER SET UP OPERATOR Work Phone: Start: 08-15-2023 Basic metabolic pane l calcium total Yancy Rey MD Work Phone: Start: 08-14-2023 Assay of troponin quantitative Marcin Ramona Hopper Work Phone: Start: 08-14-2023 Comprehensive metabo lic panel Marcin Hopper DO Work Phone: Start: 08-14-2023 Ecg routine ecg w/le ast 12 lds trcg only w/o i&r Marcin Hopper DO Work Phone: Start: 08-11-2023 Blood count hematocrit Katherin Sotelo PA-C Work Phone: Start: 08-11-2023 End: 08-11-2023 TRANSFUSE RED BLOOD CELLS Arnav Sukumar Isabel wood PA-C Work Phone: Start: 08-11-2023 Antibody screen Carissa Sauer MD Work Phone: Start: 08-11-2023 CROSSMATCH RBC Arnav Lennon PA-C Work Phone: Start: 08-11-2023 TYPE AND SCREEN Arnav Lennon PA-C Work Phone: Start: 08-11-2023 Radiologic exam ches t single view Arnav Lennon PA-C Work Phone: Start: 08-11-2023 Assay of troponin quantitative Charanjit Mccarthy MD Work Phone: Start: 08-11-2023 Basic metabolic pane l calcium total Charanjit Mccarthy MD Work Phone: Start: 08-11-2023 REPEATED ABORH Arnav Lennon PA-C Work Phone: Start: 08-11-2023 Ecg routine ecg w/le ast 12 lds w/i&r Rocío Fernandes MD Work Phone: Plan of Treatment Date Care Activity Detail Author Start: 09-18-2033 Screening for malign ant neoplasm of colon [facility] Start: 12-20-2025 Screening for malign ant neoplasm of colon FIT-DNA [facility] Start: 11-22-2025 Adult BMI Screening Adult BMI Screen ing [facility] Start: 12-24-2024 End: 12-24-2024 Patient encounter procedure [facility] Start: 12-23-2024 Influenza vaccination Influenza Vacc ine [facility] Start: 12-04-2024 End: 12-04-2024 Patient encounter procedure 12/04/2024 8:40 AM EDT Office Visit [facility] [address] [place] [phone] Anny Bruce, THREAD TOOL GRINDER SET UP OPERATOR [address] [place] [id number] [facility] Start: 11-22-2024 End: 11-22-2025 Device Interrogation Device Interrogation Cardiac Services Routine Dilated cardiomyopathy ([facility]) ICD (implantable cardioverter-defibrillator ) in place-[employer] Expected: 11/22/2024, Expires: 11/22/2025 [employer] Work Phone: Comment on above: Expected: 11/22/2024 , Expires: 11/22/2025 Start: 11-22-2024 End: 11-22-2024 Clinical Support [facility] Start: 10-16-2024 End: 10-16-2024 Patient encounter procedure 10/16/2024 9:00 AM EDT Office Visit [facility] [address] [facility] [[email or web address] [address] [place] [phone] Dion Teran HNP- [address] [facility] [[email or web address]] [address] [place] [phone] [facility] Start: 10-15-2024 End: 10-15-2025 XR Lumbar spine Views W flexion and W extension XR lumbar spine 4+ views w flexion extension Imaging Routine Acquired spondylolisthesis of lumbosacral region Expected: 10/15/2024, Expires: 10/15/2025 [facility] [employer] Work Phone: Comment on above: Expected: 10/15/2024 , Expires: 10/15/2025 Start: 10-03-2024 End: 10-03-2025 XR Lumbar spine 2 or 3 Views XR lumbar spine 2 or 3 views Imaging Routine Lumbar spondylosis Expected: 10/03/2024 (Approximate), Expires: 10/03/2025 [facility] [employer] Work Phone: Comment on above: Expected: 10/03/2024 (Approximate), Expires: 10/03/2025 Start: 10-03-2024 End: 10-03-2024 Patient encounter procedure 10/03/2024 1:40 PM EDT Office Visit [facility] [address] [place] [address] Anny Bruce, THREAD TOOL GRINDER SET UP OPERATOR [address] [place] [phone] [facility] Start: 08-13-2024 Adult BMI Screening Adult BMI Screen ing [facility] Start: 08-13-2024 Tobacco Screening Tobacco Screening [facility] Start: 08-10-2024 Adult BMI Screening Adult BMI Screen ing [facility] Start: 08-10-2024 Tobacco Screening Tobacco Screening [facility] Start: 07-11-2024 End: 07-11-2024 Patient encounter procedure 07/11/2024 10:30 AM EDT [facility] [address] [place] [phone] Anny Bruce, THREAD TOOL GRINDER SET UP OPERATOR [address] [place] [phone] [facility] Start: 06-28-2024 End: 06-28-2024 Clinical Support [facility] Start: 05-29-2024 End: 05-29-2025 25-hydroxyvitamin D3 [Mass/volume] in Serum or Plasma Vitamin D 25 hydroxy Lab Routine Vitamin D deficiency Expected: 05/29/2024 (Approximate), Expires: 05/29/2025 [facility] Comment on above: Expected: 05/29/2024 (Approximate), Expires: 05/29/2025 Start: 05-29-2024 End: 05-29-2025 CBC W Auto Differential panel - Blood CBC and differential Lab Routine Paroxysmal atrial fibrillation (CMS/HCC) Vitamin B12 deficiency Iron deficiency anemia, unspecified iron deficiency anemia type Expected: 05/29/2024 (Approximate), Expires: 05/29/2025 [facility] Work Phone: Comment on above: Expected: 05/29/2024 (Approximate), Expires: 05/29/2025 Start: 05-29-2024 End: 05-29-2025 Cobalamin (Vitamin B12) [Mass/volume] in Serum or Plasma Vitamin B12 Lab Routine Vitamin B12 deficiency Expected: 05/29/2024 (Approximate), Expires: 05/29/2025 [facility] Comment on above: Expected: 05/29/2024 (Approximate), Expires: 05/29/2025 Start: 05-29-2024 End: 05-29-2025 Comprehensive metabolic 2000 panel - Serum or Plasma Comprehensive metabolic panel Lab Routine Primary hypertension (CMS/HCC) Class 1 obesity due to excess calories with serious comorbidity and body mass index (BMI) of 31.0 to 31.9 in adult Expected: 05/29/2024 (Approximate), Expires: 05/29/2025 [facility] Comment on above: Expected: 05/29/2024 (Approximate), Expires: 05/29/2025 Start: 05-29-2024 End: 05-29-2025 Ferritin [Mass/volume] in Serum or Plasma Ferritin Lab Routine Iron deficiency anemia, unspecified iron deficiency anemia type Expected: 05/29/2024 (Approximate), Expires: 05/29/2025 [facility] Comment on above: Expected: 05/29/2024 (Approximate), Expires: 05/29/2025 Start: 05-29-2024 End: 05-29-2025 Iron + transferrin + TIBC Iron + transferrin + TIBC Lab Routine Iron deficiency anemia, unspecified iron deficiency anemia type Expected: 05/29/2024 (Approximate), Expires: 05/29/2025 [facility] Comment on above: Expected: 05/29/2024 (Approximate), Expires: 05/29/2025 Start: 05-29-2024 End: 05-29-2025 Lipid 1996 panel - Serum or Plasma Lipid panel Lab Routine Class 1 obesity due to excess calories with serious comorbidity and body mass index (BMI) of 31.0 to 31.9 in adult Expected: 05/29/2024 (Approximate), Expires: 05/29/2025 [facility] Comment on above: Expected: 05/29/2024 (Approximate), Expires: 05/29/2025 Start: 05-29-2024 End: 05-29-2025 Microalbumin/Creatinine panel in random Urine Microalbumin / creatinine, urine ratio Lab Routine Primary hypertension (CMS/HCC) Expected: 05/29/2024 (Approximate), Expires: 05/29/2025 [facility] Comment on above: Expected: 05/29/2024 (Approximate), Expires: 05/29/2025 Start: 05-29-2024 End: 05-29-2025 Prostate specific Ag [Mass/volume] in Serum or Plasma PSA Lab Routine Screening for prostate cancer Expected: 05/29/2024 (Approximate), Expires: 05/29/2025 [facility] Comment on above: Expected: 05/29/2024 (Approximate), Expires: 05/29/2025 Start: 05-29-2024 End: 05-29-2025 Urinalysis complete panel - Urine Urinalysis with reflex microscopic (clean catch) Lab Routine Primary hypertension (CMS/HCC) Expected: 05/29/2024 (Approximate), Expires: 05/29/2025 [facility] Comment on above: Expected: 05/29/2024 (Approximate), Expires: 05/29/2025 Start: 05-29-2024 End: 05-29-2024 Patient encounter procedure 05/29/2024 9:20 AM EST Office Visit [facility] [address] [place] [address] Anny Bruce, THREAD TOOL GRINDER SET UP OPERATOR [address] [place] [phone] [facility] Start: 02-15-2024 End: 02-15-2024 Patient encounter procedure 02/15/2024 9:40 AM EDT Office Visit [facility] [address] [place] [address] Anny Bruce THREAD TOOL GRINDER SET UP OPERATOR [address] [place] [phone] [facility] Start: 01-03-2024 End: 01-02-2025 DXA Skeletal system Views for bone density DEXA bone density Imaging Routine Hx of bariatric surgery Expected: 01/03/2024 (Approximate), Expires: 01/02/2025 [facility] Comment on above: Expected: 01/03/2024 (Approximate), Expires: 01/02/2025 Start: 01-03-2024 End: 01-02-2025 XR Lumbar spine 2 or 3 Views XR lumbar spine 2 or 3 views Imaging Routine Chronic bilateral low back pain with left-sided sciatica Expected: 01/03/2024 (Approximate), Expires: 01/02/2025 [facility] Work Phone: Comment on above: Expected: 01/03/2024 (Approximate), Expires: 01/02/2025 Start: 01-03-2024 End: 01-03-2024 Patient encounter procedure 01/03/2024 9:40 AM EDT Office Visit [facility] [address] [place] [phone] Anny Bruce NP [address] [place] [phone] [facility] Start: 12-24-2023 COVID-19 Vaccine ( season) COVID-19 Vaccine ( season) [facility] Start: 12-24-2023 COVID-19 Vaccine ( season) COVID-19 Vaccine ( season) [facility] Start: 12-24-2023 Influenza vaccination Influenza Vacc ine [facility] Start: 08-11-2023 End: 08-11-2023 Clinical Support [facility] Start: 06-24-2023 Adult BMI Screening Adult BMI Screen ing [facility] Start: 06-24-2023 Tobacco Screening Tobacco Screening [facility] Start: 12-23-2022 COVID-19 Vaccine ( season) COVID-19 Vaccine ( season) [facility] Start: 2013 Administration of varicella zoster vaccine Zoster (Shingles) Vaccine (1 of 2) [facility] Start: 1982 DTaP,Tdap and Td Vaccines (1 - Tdap) DTaP,Tdap and Td Vaccines (1 - Tdap) [facility] Start: 1981 Adult BMI Follow Up Plan Adult BMI Follow Up Plan [employer] Start: 1975 Depression Screening Depression Scre levy [employer] Start: 1963 Screening for malign ant neoplasm of colon [facility] End: 10-09-2025 Basic metabolic 2000 panel - Serum or Plasma Basic Metabolic Panel Lab Routine Dilated cardiomyopathy (CMS-HCC) Non-ischemic cardiomyopathy (CMS-HCC) ICD (implantable cardioverter-defibrillator ) in place-Medtronic Moderate left ventricular systolic dysfunction - LVEF 40-45% on 2D echocardiogram 2018 Heart failure with reduced ejection fraction, NYHA class II (CMS-HCC) 1 Occurrences starting 10/09/2024 until 10/09/2025 [employer] Work Phone: Comment on above: 1 Occurrences starti ng 10/09/2024 until 10/09/2025 Device Interrogation Device Inte rrogation Cardiac Services Routine Dilated cardiomyopathy (CMS-HCC) Non-ischemic cardiomyopathy (CMS-HCC) ICD (implantable cardioverter-defibrillator ) in place-[employer] Ordered: 08/11/2023 [employer] Work Phone: Comment on above: Ordered: 08/11/2023 End: 08-14-2023 Hemoglobin and hematocrit, blood Hemoglobin and hematocrit, blood Lab Routine Lab max of 3 days, Every 8hr, lab use only for 3 Days starting 08/11/2023 until 08/14/2023, 1 completed [employer] Work Phone: Comment on above: Lab max of 3 days, E very 8hr, lab use only for 3 Days starting 08/11/2023 until 08/14/2023, 1 completed End: 10-09-2025 Magnesium [Mass/volume] in Serum or Plasma Magnesium Lab Routine Dilated cardiomyopathy (CMS-HCC) Non-ischemic cardiomyopathy (CMS-HCC) ICD (implantable cardioverter-defibrillator ) in place-Medtronic Moderate left ventricular systolic dysfunction - LVEF 40-45% on 2D echocardiogram 2018 Heart failure with reduced ejection fraction, NYHA class II (CMS-HCC) 1 Occurrences starting 10/09/2024 until 10/09/2025 [employer] Comment on above: 1 Occurrences starti ng 10/09/2024 until 10/09/2025 Oxygen Therapy - Maintain SpO2: 90%; *EMPLOYMENT CLERK Guidelines for O2: Yes; Document: [email or web address]\ep ic\EPIC_Reference\Order s\Respiratory Care Guidelines\CPG Oxygen 2020.pdf Oxygen Therapy - Maintain SpO2: 90%; *EMPLOYMENT CLERK Guidelines for O2: Yes; Document: \[email or web address]\epic\ EPIC_Reference\Orders\Resp iratory Care Guidelines\CPG Oxygen 2020.pdf Respiratory Care Routine As Needed until discontinued starting 08/11/2023 [facility] Work Phone: Comment on above: As Needed until disc ontinued starting 08/11/2023 Payers Date Payer Category Payer Medicaid [id number] 2024 Medicaid [id number] 2024 Private Health Insurance [id number] 2023 Self-pay 2023 Managed Care Other (unspecified) [employer] [id number] 2023 Unknown [id number] 2022 [facility] [id number] 2021 Unknown [id number]. 1.13.693. [id number] 2021 Worker's Comp, Other (unspecified) WORKER'S COMPENSATION [id number] 2021 Worker's Compensation WORKER'S C OMPENSATION WORKER'S [id number] 2021-Present [id number] [id number]. [id number] 1963 Unknown [id number] .1.062706.3.579. 2.593 1963 Unknown [id number] .840.1.193335.3.579. 2.593 1963 Unknown [id number] 2.0.1.228323.3.579. 2.593 1963 Unknown [id number] .840.1.730958.3.579. 2.1286 1963 Unknown [id number] .0.1.363389.3.579. 2.128 1963 Unknown [id number] 2.0.1.584485.3.579. 2.6 1963 Unknown [id number] 2.16.840.1.886481.3.579. 2.1258 1963 Unknown [id number] 2.16.840.1.427428.3.579. 2.1258 1963 Unknown [id number] 2.16.840.1.561990.3.579. 2.1258 1963 Unknown [id number] 2.16.840.1.488386.3.579. 2.1258 1963 Unknown [id number] 2.16.840.1.321476.3.579. 2.1258 1963 Unknown [id number] 2.16.840.1.232986.3.579. 2.1258 1963 Unknown [id number] 2..840.1.291139.3.579. 2.1285 1963 Unknown [id number] 2.16.840.1.942220.3.579. 2.1286 1959 [facility] [id number] Social History Date Type Detail Facility Start: 04-04-2023 End: 10-16-2024 Sex Assigned At [facility] Start: 11-30-2021 End: 10-16-2024 Tobacco smoking status [facility] Never smoked tobacco (finding) [facility] Start: 1965 Sex Assigned At Male [facility] Start: 01-03-2024 End: 10-16-2024 Alcoholic beverage intake Ex-drinker (finding) [facility] Start: 04-04-2023 End: 10-16-2024 History of Social function [facility] Within the last year , have you been afraid of your partner or ex-partner? No [facility] In a typical week, h ow many times do you talk on the telephone with family, friends, or neighbors? Patient declined [facility] Are you now , , , , never or living with a partner? [facility] How often to you hav e a drink containing alcohol? Never [facility] How hard is it for y ou to pay for the very basics like food, housing, medical care, and heating Not very hard [facility] Do you feel stress - tense, restless, nervous, or anxious, or unable to sleep at night because your mind is troubled all the time - these days [OSQ] To some extent [facility] In the past 12 month s, was there a time when you were not able to pay the mortgage or rent on time? Yes [facility] Start: 1965 Sex assigned at Not on file P [facility] Start: 06-23-2022 End: 10-16-2024 Tobacco use and exposure Smokeless tobacco non-user [facility] Start: 08-11-2023 End: 11-22-2024 Alcoholic beverage intake Current non-drinker of alcohol (finding) [facility] Start: 11-27-2014 Sex Male (finding) [facility] Start: 10-16-2024 Alcohol Comment sober since 20 20/ Caffiene- 3 20 oz pops [facility] Medical Equipment Procedure Code Equipment Code Equipment Origin al Text Equipment Identifier Dates Icd Evera Xt Dr Df1 - [id number] - [id number] Start: 03-08-2017 Functional Status Date Assessment Result Facility 10-16-2024 Generalized anxiety disorder 7 item (LORI- 7) [facility] 10-16-2024 Patient Health Quest ionnaire 2 item (PHQ-2) [Reported] [facility] 10-16-2024 PHQ-9 quick depressi on assessment panel [Reported.PHQ] [facility] Clinical Notes 11-30-2021 to 11-22-2024 Rocío Fernandes MD - 11/22/2024 9:45 AM EDTPatient InstructionsClaudia Rey MD - 11/22/2024 9:00 AM EDMATTHEW Sellers-KAYDEN - 10/16/2024 9:00 AM EDTPatient Instructions Note Date & Type Note Facility 11-22-2024 History of Present illness Narrative Reese Emerson Date of visit: 11/22/2024 Date of : 1965 Age: 59 y.o. Patient Active Problem List Diagnosis TYREE (obstructive sleep apnea) Obesity (BMI 30.0-34.9) Dizziness sometimes NSVT (nonsustained ventricular tachycardia) ([facility]) Paroxysmal atrial tachycardia ([facility]) Moderate left ventricular systolic dysfunction - LVEF 40-45% on 2D echocardiogram 2018 Abnormal EKG Intermittent palpitations Mild mitral regurgitation Mild tricuspid regurgitation ICD (implantable cardioverter-defibrillator) in place-[employer]tr[employer] Dilated cardiomyopathy ([facility]) Non-ischemic cardiomyopathy ([facility]) Heart failure with reduced ejection fraction, NYHA class II ([facility]) TYREE on CPAP Severe anemia with hemoglobin 7.6, hematocrit 29.9 as of 08/02/[address] [facility] Anemia requiring transfusions Iron deficiency anemia, unspecified iron deficiency anemia type Allergies Allergen Reactions D And C Yellow No.11 Sulfa (Sulfonamide Antibiotics) Wheezing Buspirone Anxiety and Other (See Comments) Pt felt increased agitation and anxiety Penicillins Hives and Rash Current Outpatient Medications Medication Sig Dispense Refill albuterol (PROVENTIL HFA;VENTOLIN HFA) 90 mcg/actuation inhaler Inhale 2 puffs every 6 (six) hours as needed for wheezing or shortness of breath. amitriptyline (ELAVIL) 10 mg tablet Take 1 tablet (10 mg total) by mouth nightly. carvediloL (COREG) 25 mg tablet Take 1 tablet (25 mg total) by mouth in the morning and 1 tablet (25 mg total) in the evening. Take with meals. 180 tablet 0 ferrous sulfate 325 (65 FE) mg EC tablet Take 1 tablet (325 mg total) by mouth in the morning and 1 tablet (325 mg total) before bedtime. losartan (COZAAR) 100 mg tablet Take 1 tablet (100 mg total) by mouth nightly. 90 tablet 0 potassium 99 mg tablet Take 1 tablet (99 mg total) by mouth nightly. spironolactone (ALDACTONE) 25 mg tablet Take 1 tablet (25 mg total) by mouth in the morning and 1 tablet (25 mg total) in the evening. Take with meals. 180 tablet 0 No current facility-administered medications for this visit. Chief Complaint Patient presents with Follow-up Rapid Heart Rate Device Check History of Present Illness I last saw him in July 2023 upon review of EHR data. Here also for AICD device checkup. Currently feeling well and denies any anginal chest pain or palpitation or lightheadedness or dizziness or leg swelling or bleeding or syncope. Brought home blood pressure log. Taking current cardiac medications regularly. Going to see his him/Onc physician soon. Past Medical History: Diagnosis Date Abnormal EKG Anxiety Asthma Chest tightness CHF (congestive heart failure) ([facility]) Dizziness Dyspnea Hypertension Ischemic cardiomyopathy Left ventricular systolic dysfunction Mild mitral regurgitation Mild tricuspid regurgitation NSVT (nonsustained ventricular tachycardia) ([facility]) Obesity TYREE (obstructive sleep apnea) Palpitations PSVT (paroxysmal supraventricular tachycardia) No data recorded No data recorded No data recorded Past Surgical History: Procedure Laterality Date CARDIAC DEFIBRILLATOR PLACEMENT 07/2008 CARDIAC DEFIBRILLATOR PLACEMENT 03/08/2017 Medtronic DC ICD Generator Change, Medtronic N/A 03/08/2017 Performed by Jadon Mcgraw MD at [facility] GASTRIC BYPASS HERNIA REPAIR Family History Problem Relation Age of Onset Cancer Mother Asthma Father Heart attack Father Social History Socioeconomic History Marital status: Single Spouse name: Not on file Number of children: Not on file Years of education: Not on file Highest education level: Not on file Occupational History Not on file Tobacco Use Smoking status: Never Smokeless tobacco: Never Substance and Sexual Activity Alcohol use: No Drug use: No Sexual activity: Not on file Other Topics Concern Caffeine Use Yes Social History Narrative Not on file Social Drivers of Health Financial Resource Strain: Low Risk (04/04/2023) Received from [facility] Overall Financial Resource Strain (CARDIA) Difficulty of Paying Living Expenses: Not very hard Food Insecurity: No Food Insecurity (11/22/2024) Hunger Screening Food Insecurity - Worry: Never True Food Insecurity - Inability: Never True Transportation Needs: No Transportation Needs (08/14/2023) PRAPARE - Transportation Lack of Transportation (Medical): No Lack of Transportation (Non-Medical): No Physical Activity: Sufficiently Active (04/04/2023) Received from [facility] Exercise Vital Sign Days of Exercise per Week: 5 days Minutes of Exercise per Session: 60 min Stress: Stress Concern Present (04/04/2023) Received from [facility] of Occupational Health - Occupational Stress Questionnaire Feeling of Stress : To some extent Social Connections: Unknown (04/04/2023) Received from [facility] Social Connection and Isolation Panel [NHANES] Frequency of Communication with Friends and Family: Patient declined Frequency of Social Gatherings with Friends and Family: Patient declined Attends Mormon Services: More than 4 times per year Active Member of Clubs or Organizations: No Attends Club or Organization Meetings: Patient declined Marital Status: Interpersonal Safety: Not At Risk (08/14/2023) Humiliation, Afraid, Rape, and Kick questionnaire Fear of Current or Ex-Partner: No Emotionally Abused: No Physically Abused: No Sexually Abused: No Housing Instability: Low Risk (08/14/2023) Housing Instability Housing Instability: No Review of Systems Review of Systems Cardiovascular: Negative for chest pain, dyspnea on exertion and leg swelling. Respiratory: Negative for cough, shortness of breath and wheezing. Skin: Negative for itching and rash. Musculoskeletal: Positive for arthritis, joint pain and stiffness. Gastrointestinal: Negative for constipation and diarrhea. Neurological: Negative for dizziness, headaches and light-headedness. Vascular: Negative for claudication and lower extremity wounds or ulcers. CARDIOVASCULAR: Please review HPI. Physical Examination General appearance: Awake, Alert, oriented X 3. Well developed, well nourished. Pleasant. Alone. HEENT: Bilateral conjunctiva clear. Neck: No JVD, no carotid bruits, no thyromegaly. Chest: Clear bilaterally. No chest wall tenderness. No rhonchi or wheezing. CVS: Tachycardic. Regular rate and rhythm, no S3 or S4 gallop, no murmur or rubs or clicks. Abdomen: Soft, non-tender. Extremities: No cyanosis or clubbing, mild bilateral lower leg edema. No calf tenderness. Pulses: Bilaterally symmetrical and intact radial pulses. Neuro: Able to move all 4 extremities. Grossly non focal with no new deficit. Psychiatric: Appropriate mood, memory and judgement. VITAL SIGNS: BP 110/70 Pulse 101 Ht 177.8 cm (5' 10 ) Wt 102.5 kg (226 lb) BMI 32.43 kg/m No orders of the defined types were placed in this encounter. There are no discontinued medications. IMPRESSIONS/PLAN: 1. Dilated cardiomyopathy ([facility]) - Device Interrogation; Future 2. Moderate left ventricular systolic dysfunction - LVEF 40-45% on 2D echocardiogram 2017 3. Heart failure with reduced ejection fraction, NYHA class II ([facility]) 4. ICD (implantable cardioverter-defibrillator) in place-Medtronic - Device Interrogation; Future History of dilated, nonischemic cardiomyopathy, Medtronic AICD initially implanted in July 2008, most recent generator change January 2017, chronic heart failure with reduced LVEF 40-45% NYHA class 1-2, cardiac arrhythmias including PAT, sinus tachycardia, mild MR, mild grade 1 LV diastolic dysfunction, LVEF 40-45% on 2D echocardiogram 2018, intermittent dizziness, history of anemia requiring PRBC transfusions, TYREE, uses CPAP, other problems as charted. No active angina pectoris bleeding or syncope. No prior history of CVA. AICD device performed today revealed sinus tachycardia at 105 beats per minute, less than 0.1% atrial pacing, less than 0.1 RV pacing, battery longevity estimate 1.2-2.9 years. One nonsustained tachycardia on 07/25/2024 which appears to be atrial driven with 1-1 conduction. Less than 0.1% atrial burden with 5 atrial tachycardia/fibrillation with maximum duration only 11 minutes 14 seconds. Not on oral anticoagulants given history of severe anemia requiring blood transfusions. No reprogramming done. Remote checkup in 3 months and ICD checkup in 1 year with office visit arranged. Please refer to metals sales representative device checkup notes for further details. Reviewed preliminary device checkup results with the patient and reassured regarding appropriate functioning and no AICD shocks. Reviewed home blood pressure readings which showed ranges from 92 systolic to 102 diastolic and apparently feels lightheaded dizzy fatigued tightness involving back neck and pelvis at times when he checked his blood pressure. 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 Advised patient to continue to keep track of it and reassured him regarding good blood pressure today. Continue on current cardiac medications as documented. Advised close follow-up with PCP and other providers for noncardiac issues and if any worsening blood pressure to see PCP for adjustment of blood pressure medications. Reassured patient that there is no need for Eliquis at this time, especially as he had history of anemia requiring PRBC transfusions. Advised him to discuss further with the his oncologist/sash sticker if he can be placed back on Eliquis in future if needed. Patient will let us know subsequently. Reminded to seek immediate medical attention if any worsening cardiac symptoms by calling 911. Follow-up from general cardiology standpoint with me in 6 months or sooner as needed. Thank you. TODAYS ORDERS Orders Placed This Encounter Procedures Device Interrogation FOLLOW UP Return in about 6 months (around 05/25/2025) for Recheck - with RKA only. PCP: INGRID MAYNARD Referring Physician: INGRID Maynard [address] [place] [address] Rocío Fernandes MD, FACC documented in this encounter [facility] 11-22-2024 Instructions Rocío Fernandes MD - 11/22/2024 9:45 AM EDT Reviewed preliminary device checkup results with the patient and reassured regarding appropriate functioning and no AICD shocks. Reviewed home blood pressure readings which showed ranges from 92 systolic to 102 diastolic and apparently feels lightheaded dizzy fatigued tightness involving back neck and pelvis at times when he checked his blood pressure. 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 Advised patient to continue to keep track of it and reassured him regarding good blood pressure today. Continue on current cardiac medications as documented. Advised close follow-up with PCP and other providers for noncardiac issues and if any worsening blood pressure to see PCP for adjustment of blood pressure medications. Reassured patient that there is no need for Eliquis at this time, especially as he had history of anemia requiring PRBC transfusions. Advised him to discuss further with the his oncologist/sash sticker if he can be placed back on Eliquis in future if needed. Patient will let us know subsequently. Reminded to seek immediate medical attention if any worsening cardiac symptoms by calling 911. Follow-up from general cardiology standpoint with me in 6 months or sooner as needed. [facility]-22-[facility]24 History of Present illness Narrative I agree with the findings in the scanned document. documented [facility] this encounter [facility] 10-16-2024 History of Present illness Narrative Images from the original note were not included. HPI: Reese Emerson is a 59 y.o. male who was referred by PCP for anxiety and depression. He states he has been on Prozac on and off throughout his life. He states he has been on Prozac for the past 6 months or so. He states that its not hurting and its not helping. He states that he has been feeling unmotivated and depressed. He denies any significant problems with anxiety at this time. He denies any side effects with Prozac. He states he has tried other medications in the past, most of which he can't remember. He states that the only medications he can remember was Buspar and Klonopin, both of which he had bad side effects from. He admits to problems with time management and being late to everything. He states his mother was the same way and wonders if he inherited this. He states he was scheduled to see neurology last year to talk about this but missed his appointment due to being late. Medical History: HTN, Atrial fibrillation, Vitamin D deficiency, Vitamin B12 deficiency, Cardiomyopathy, Sleep apnea, Asthma, ICD implant. Admits to history sleep apnea prior to having bariatric surgery. States he was never re-tested but knows the difference because I feel better. He states he has Kiln Stacker (Dr. Fernandes) that he sees through [facility]. Past Psychiatric History: Previous diagnoses: Anxiety, Depression, Alcohol abuse Previous medication trials: Buspar - caused anxiety and agitation Klonopin - made me crazy Current medications: Prozac 40 mg daily Previous psychiatric treatment: Has done counseling through [facility] in [place] in 2019. Previous psychiatric hospitalizations: Denies Previous suicide attempts or self harm: Denies History of violence: Denies History of trauma: Denies Legal history: Has had 9 DUIs in his life with his first one being at 14 years old. Last DUI was November 11, 2019. Family psychiatric history includes: See chart Substance Abuse History: Recreational drugs: Denies Use of alcohol: Reports history of alcohol abuse that began at 13-14 years old. States he has been sober since 2019. He admits to relapsing prior to that after being sober for 16 years. Admits he has gone to rehab in the past. Use of caffeine: 3 20 oz pops a day Tobacco or vaping use: Denies Social History: Relationship/marital status: Previously for 13 years prior to getting Children: Has 2 sons (Aston and Aime) with ex-. 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 Currently working at [employer]. PSYCHIATRIC REVIEW OF SYSTEMS: Depression: Patient DOES ENDORSE feelings of depression, anhedonia, feeling tired and feeling bad about himself. Patient DENIES trouble sleeping, suicidal thoughts, psychomotor agitation/retardation, trouble concentrating, problems with appetite. Patient denies previous suicide attempts or self harm. Patient states they have a good support system in place. PHQ-9 score of 4. Mercy/Hypomania: Patient DENIES. Anxiety: Patient DOES ENDORSE being anxious, trouble controlling worry, and worrying about a lot of different things. Patient DENIES trouble relaxing, being restless, being annoyed/irritable. LORI-7 score of 3. Panic attacks: Patient DENIES. Social anxiety: Patient DENIES. PTSD: Patient DENIES. OCD: Patient DENIES. Psychosis: Patient DENIES having delusions, visual hallucinations, auditory hallucinations, thought insertion, paranoia, thought broadcasting. ADHD: Patient DENIES. Eating Disorder: Patient DENIES. SUBJECTIVE: PAST MEDICAL HISTORY: Past Medical History: Diagnosis Date Alcohol abuse Alopecia 07/04/2023 Anxiety and depression Cardiomyopathy (HCC) 07/04/2023 Chronic bilateral low back pain with left-sided sciatica 05/05/2023 Current use of anticoagulant therapy 07/04/2023 Meralgia paraesthetica, right 07/04/2023 Moderate persistent asthma without complication (HCC) 07/04/2023 Non-sustained ventricular tachycardia (HCC) 07/04/2023 TYREE (obstructive sleep apnea) 07/04/2023 Other acute sinusitis 04/04/2023 Overweight (BMI 25.0-29.9) 04/04/2023 Paroxysmal atrial fibrillation (HCC) 07/04/2023 Primary hypertension 04/04/2023 Substance abuse ([facility]) Vitamin D deficiency 07/04/2023 MEDICATIONS: Current Outpatient Medications Medication Instructions ACCRUFeR 30 mg, Oral, 2 times daily before meals albuterol HFA 90 mcg/act inhaler 2 puffs, Inhalation, Every 6 hours PRN albuterol 2.5 mg, Every 4 hours PRN amitriptyline (ELAVIL) 100 mg, Oral, Nightly B Complex Vitamins (VITAMIN B COMPLEX PO) Take by mouth Jlnqzsf-Cbtzxmxjzeq-Okcvcrzkxg (Breztri Aerosphere) 160-9-4.8 MCG/ACT aerosol 2 puffs, 2 times daily carvedilol (COREG) 25 mg, 2 times daily with meals clindamycin (Clindagel) 1 % gel 1 application , Daily PRN cyclobenzaprine (FLEXERIL) 10 mg, Oral, Nightly PRN ergocalciferol (VITAMIN D-2) 1.25 mg, Weekly FLUoxetine (PROZAC) 40 mg, Oral, Daily gabapentin (NEURONTIN) 600 mg, Oral, Every 8 hours losartan (COZAAR) 100 mg, Daily Potassium 99 mg, Daily pramipexole (MIRAPEX) 2 mg, Oral, Nightly spironolactone (ALDACTONE) 25 mg, 2 times daily PRN ALLERGIES: Allergies Allergen Reactions Egg-Derived Products Penicillin G Unknown Sulfa Antibiotics Unknown Yellow Dye #11 Buspar [Buspirone] Anxiety and Other Pt felt increased agitation and anxiety Penicillins Swelling and Rash SURGICAL HISTORY: Past Surgical History: Procedure Laterality Date BARIATRIC SURGERY CARDIAC DEFIBRILLATOR PLACEMENT HERNIA REPAIR FAMILY HISTORY: Family History Problem Relation Name Age of Onset Lung cancer Mother Harginger Fibromyalgia Mother Harlene Asthma Father Gt Emerson Heart disease Father Gt Emerson Cerebral palsy Sister Elizabeth Emerson Seizures Sister Elizabeth Emerson Alcohol abuse Mother's Sister Alcohol abuse Father's Brother Uncle Berny. Uncle Shen 2 brother SOCIAL HISTORY: Social History Tobacco Use Smoking status: Never Smokeless tobacco: Never Vaping Use Vaping status: Never Used Substance Use Topics Alcohol use: Not Currently Comment: sober since 2019/ Caffiene- 3 20 oz pops Drug use: Never Patient Health Questionnaire-9 Score: 4 LORI-7 Total Score: 3 Patient Care Team: Jean Pierre Urena MD as PCP - General (Family Medicine) Anny Bruce NP as Nurse Practitioner (Family Medicine) LETTY Hernandez as Nurse Practitioner (Behavioral Health) Rocío Fernandes MD as Referring Physician (Cardiology) MENTAL STATUS EXAM Appearance Appearance: Normal grooming and hygiene. Appears stated age. Dressed appropriately for weather. Behavior Calm, cooperative, pleasant. Good posture. Psychomotor Activity Intact. No abnormal movements noted. Eye contact Good Speech Normal, clear, regular rate, rhythm and volume Affect Full range. Stable. Appropriate and congruent with mood. Mood Depressed Thought Process Organized, logical, and goal directed Thought Content: Denies suicidal and homicidal ideation. Perception: Denies auditory or visual hallucinations. No evidence of delusions. Denies derealization and depersonalization. Cognition Alert and attentive during visit Memory Immediate, recent and remote memory intact Insight Good. Acknowledges predominant symptoms of illness and need for treatment Judgement Good. Able to make reasonable life decisions. OBJECTIVE: Visit Vitals BP 118/72 (BP Location: Right arm, Patient Position: Sitting) Pulse 100 Wt 227 lb BMI 32.57 kg/m Smoking Status Never BSA 2.26 m Lab results: Lab Results Component Value Date GLU 101 06/06/2024 CALCIUM 8.8 06/06/2024 NA 140 06/06/2024 K 4.1 06/06/2024 CO2 27.5 06/06/2024 CL 108 08/15/2023 BUN 13.0 06/06/2024 CREATININE 0.84 06/06/202425 - Vitamin D (14.9), Lipids, CBC ASSESSMENT AND PLAN: Impression: Patient reports history of and current symptoms of depression. His PHQ score is low, along with LORI score. He denies any significant problems with anxiety at this time. He states that he does not have any issue with his medication at this time, but would prefer someone to talk to regarding his life experiences. He is open to counseling but wants to wait at this time. He is aware that he can return to the office if symptoms worsen or if he changes his mind. He is also aware that if he has concerns for ADHD, I would recommend neuropsych testing given his age, no previous ADHD diagnosis, and history of alcohol abuse. He was informed he can ask his insurance who is in network for this specialty. He also has a history of sleep apnea and doesn't wear CPAP that may need to be re-evaluated in the future if symptoms worsen, as this could be a potential cause of his symptoms. Assessment/Plan Diagnoses and all orders for this visit: Mild episode of recurrent major depressive disorder - Ambulatory referral to Behavioral Health History of alcohol abuse Comments: Sober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 discussed lifestyle modifications: attempts to perform physical activity as chronic conditions allow, also to monitor dietary intake: increasing protein/fruits/veggies and lowering carb intake (unless contraindicated). Limit sodas, juices, and sugary drinks. Associated Problem(s): Hx of bariatric surgery Monitor labs yearly and prn Recommend continued use of supplements Associated Problem(s): Primary hypertension (CMS/HCC) Please check blood pressure daily and record DASH diet Limit caffeine Take medication as directed Contact office if chest pain, pressure, dizziness, shortness of breath, swelling legs Recommend slow position changes Current meds: losartan, aldactone, and carvediolol Associated Problem(s): Paroxysmal atrial fibrillation (CMS/HCC) Managed by cardiology Current meds: b kizzy, eliquis Associated Problem(s): ICD (implantable cardioverter-defibrillator) in place Continues w cardiology for scheduled checks Associated Problem(s): RLS (restless legs syndrome) Mriapex nightly Associated Problem(s): Dilated cardiomyopathy (CMS/HCC) Continue with cardiology for management of this Current meds: carvedilol, losartan, potassium and aldactone Associated Problem(s): Asthma-COPD overlap syndrome (CMS/HCC) Current meds: albuterol documented in this encounter [facility] 05-29-2024 Instructions Anny Bruce NP - 05/29/2024 9:20 AM EST Get labs done, fasting Will order your bone density test and low back xray: I will fax to [facility] Increase fluoxetine to 40mg and see you back in 6 weeks. Take medication only as directed. This medication will take approximately 4-6 weeks to become effective. If any suicidal thoughts, thoughts of hurting others, or hallucinations contact the office or proceed to the Emergency Room for mental health evaluation. Medication may cause dry mouth, dizziness, and in some cases worsening in depression symptoms. Please contact the office if these occur. documented in this encounter [facility] 02-28-2024 History of Present illness Narrative Associated Problem(s): Vitamin D deficiency Taking vit d once a week Associated Problem(s): Anxiety and depression (CMS/HCC) Doing better, since job change Continue fluoxetine No SI/HI/Hallucinations Associated Problem(s): RLS (restless legs syndrome) Mriapex nightly Associated Problem(s): Moderate persistent asthma without complication ([facility]) Using daily for now, when seasons change, Wheezing, Then once winter goes back to prn Images from the original note were not included. Reese Emerson is a 58 y.o. male presents with chief complaint of No chief complaint on file. HPI: Hypertension This is a chronic problem. The current episode started more than 1 year ago. The problem is unchanged. The problem is controlled. Associated symptoms include anxiety. Pertinent negatives include no blurred vision, chest pain, headaches, palpitations, peripheral edema or shortness of breath. There are no associated agents to hypertension. Risk factors for coronary artery disease include obesity. Past treatments include beta blockers. The current treatment provides significant improvement. Compliance problems include medication cost. Asthma He complains of wheezing. There is no chest tightness, cough, difficulty breathing or shortness of breath. This is a recurrent problem. The current episode started more than 1 year ago. The problem occurs intermittently. The problem has been unchanged. Pertinent negatives include no appetite change, chest pain, ear pain, fever, headaches, myalgias, rhinorrhea, sneezing, sore throat or trouble swallowing. His symptoms are aggravated by change in weather (spring and fall more so). His symptoms are alleviated by beta-agonist. Anxiety Presents for follow-up visit. Symptoms include depressed mood. Patient reports no chest pain, compulsions, decreased concentration, dizziness, excessive worry, irritability, muscle tension, nausea, nervous/anxious behavior, palpitations, shortness of breath or suicidal ideas. Symptoms occur occasionally. The severity of symptoms is mild. Compliance with medications is 76-100%. Depression Visit Type: follow-up Patient presents with the following symptoms: depressed mood. Patient is not experiencing: anhedonia, compulsions, decreased concentration, excessive worry, irritability, muscle tension, nervousness/anxiety, palpitations, shortness of breath, suicidal ideas and thoughts of . Frequency of symptoms: occasionally Severity: mild Sleep quality: good Compliance with medications: 76-100% SUBJECTIVE: MEDICATIONS: Current Outpatient Medications Medication Instructions albuterol HFA 90 mcg/act inhaler 2 puffs, Inhalation, Every 6 hours PRN albuterol 2.5 mg, Every 4 hours PRN amitriptyline (ELAVIL) 100 mg, Oral, Nightly B Complex Vitamins (VITAMIN B COMPLEX PO) Take by mouth carvedilol (COREG) 25 mg, 2 times daily with meals clindamycin (Clindagel) 1 % gel 1 application , Daily PRN cyclobenzaprine (FLEXERIL) 10 mg, Oral, Nightly PRN Eliquis 5 mg, 2 times daily ergocalciferol (VITAMIN D-2) 1.25 mg, Weekly Ferric Maltol (ACCRUFeR) 30 MG capsule 1 capsule, Oral, 2 times daily FLUoxetine (PROZAC) 20 mg, Oral, Daily gabapentin (NEURONTIN) 600 mg, Oral, Every 8 hours losartan (COZAAR) 100 mg, Daily Potassium 99 mg, Daily pramipexole (MIRAPEX) 2 mg, Oral, Nightly spironolactone (ALDACTONE) 25 mg, 2 times daily ALLERGIES: Allergies Allergen Reactions Egg-Derived Products Penicillin G Unknown Sulfa Antibiotics Unknown Buspar [Buspirone] Anxiety and Other Pt felt increased agitation and anxiety Penicillins Swelling and Rash REVIEW OF SYMPTOMS: Review of Systems Constitutional: Negative for activity change, appetite change, chills, fatigue, fever, irritability and unexpected weight change. HENT: Negative for congestion, ear pain, nosebleeds, rhinorrhea, sinus pressure, sneezing, sore throat, trouble swallowing and voice change. Eyes: Negative for blurred vision, pain, discharge and visual disturbance. Respiratory: Positive for wheezing. Negative for apnea, cough, chest tightness and shortness of breath. Cardiovascular: Negative for chest pain, palpitations and leg swelling. Gastrointestinal: Negative for abdominal distention, abdominal pain, blood in stool, constipation, diarrhea, nausea and vomiting. Genitourinary: Negative for decreased urine volume, difficulty urinating, dysuria, flank pain and hematuria. Musculoskeletal: Negative for arthralgias, back pain, joint swelling and myalgias. Skin: Negative for color change, rash and wound. Neurological: Negative for dizziness, tremors, seizures, weakness, numbness and headaches. Psychiatric/Behavioral: Positive for depression. Negative for agitation, decreased concentration, hallucinations, self-injury, sleep disturbance and suicidal ideas. The patient is not nervous/anxious. Hematological: Negative for adenopathy. Does not bruise/bleed easily. Endocrine: Negative for cold intolerance, heat intolerance, polydipsia, polyphagia and polyuria. Allergic/Immunologic: Negative for environmental allergies and food allergies. PAST MEDICAL HISTORY Past Medical History: Diagnosis Date Alcohol abuse, episodic 07/04/2023 Alopecia 07/04/2023 Anxiety and depression (CMS/HCC) Cardiomyopathy (CMS/HCC) 07/04/2023 Chronic bilateral low back pain with left-sided sciatica 05/05/2023 Current use of anticoagulant therapy 07/04/2023 Meralgia paraesthetica, right 07/04/2023 Moderate persistent asthma without complication (CMS/HCC) 07/04/2023 Non-sustained ventricular tachycardia (CMS/HCC) 07/04/2023 Oral thrush 07/04/2023 TYREE (obstructive sleep apnea) 07/04/2023 Other acute sinusitis 04/04/2023 Overweight (BMI 25.0-29.9) 04/04/2023 Paroxysmal atrial fibrillation (CMS/HCC) 07/04/2023 Primary hypertension (CMS/HCC) 04/04/2023 Vitamin D deficiency 07/04/2023 Past Surgical History: Procedure Laterality Date BARIATRIC SURGERY CARDIAC DEFIBRILLATOR PLACEMENT HERNIA REPAIR family history is not on file. OBJECTIVE: Visit Vitals BP 122/80 (BP Location: Left arm, Patient Position: Sitting, BP Cuff Size: Adult long) Pulse 91 Temp 98.5 F (Temporal) Resp 18 Ht 5' 10 Wt 218 lb 12.8 oz SpO2 99% BMI 31.39 kg/m Smoking Status Never BSA 2.21 m Physical Exam Vitals and nursing note reviewed. Constitutional: Appearance: Normal appearance. HENT: Head: Normocephalic. Right Ear: External ear normal. Left Ear: External ear normal. Nose: Nose normal. Mouth/Throat: Mouth: Mucous membranes are moist. Pharynx: Oropharynx is clear. Eyes: Extraocular Movements: Extraocular movements intact. Conjunctiva/sclera: Conjunctivae normal. Neck: Vascular: No carotid bruit. Cardiovascular: Rate and Rhythm: Normal rate and regular rhythm. Pulses: Normal pulses. Heart sounds: Normal heart sounds. Pulmonary: Effort: Pulmonary effort is normal. Breath sounds: Wheezing (exp) present. Musculoskeletal: Cervical back: Neck supple. Right lower leg: No edema. Left lower leg: No edema. Lymphadenopathy: Cervical: No cervical adenopathy. Skin: General: Skin is warm and dry. Capillary Refill: Capillary refill takes 2 to 3 seconds. Comments: Scabbed area left lower cain region, no s/s infection, from work boots rubbing Neurological: General: No focal deficit present. Mental Status: He is alert. Psychiatric: Mood and Affect: Mood normal. Behavior: Behavior normal. Thought Content: Thought content normal. Judgment: Judgment normal. ASSESSMENT AND PLAN: Follow up in about 3 months (around 05/30/2024) for Recheck. Problem List Items Addressed This Visit Primary hypertension (CMS/HCC) Please check blood pressure daily and record DASH diet Limit caffeine Take medication as directed Contact office if chest pain, pressure, dizziness, shortness of breath, swelling legs Recommend slow position changes Anxiety and depression (CMS/HCC) Doing better, since job change Continue fluoxetine No SI/HI/Hallucinations RLS (restless legs syndrome) Mriapex nightly Moderate persistent asthma without complication (CMS/HCC) - Primary Using daily for now, when seasons change, Wheezing, Then once winter goes back to prn Vitamin D deficiency Taking vit d once a week Dilated cardiomyopathy (CMS/HCC) Continue with cardiology for management of this DILIP (iron deficiency anemia) Continues with accufer, has fu with oncology as well, has to call for an appt with them As per oncology discretion for continued iron infusions Class 1 obesity due to excess calories with serious comorbidity and body mass index (BMI) of 31.0 to 31.9 in adult Discussed with patient their BMI (actual, verses recommended). We have also discussed lifestyle modifications: attempts to perform physical activity as chronic conditions allow, also to monitor dietary intake: increasing protein/fruits/veggies and lowering carb intake (unless contraindicated). Limit sodas, juices, and sugary drinks. ' , Associated Problem(s): Dilated cardiomyopathy (CMS/HCC) Continue with cardiology for management of this Associated Problem(s): Primary hypertension (CMS/HCC) Please check blood pressure daily and record DASH diet Limit caffeine Take medication as directed Contact office if chest pain, pressure, dizziness, shortness of breath, swelling legs Recommend slow position changes Associated Problem(s): DILIP (iron deficiency anemia) Continues with accufer, has fu with oncology as well, has to call for an appt with them As per oncology discretion for continued iron infusions Associated Problem(s): Class 1 obesity due to excess calories with serious comorbidity and body mass index (BMI) of 31.0 to 31.9 in adult Discussed with patient their BMI (actual, verses recommended). We have also discussed lifestyle modifications: attempts to perform physical activity as chronic conditions allow, also to monitor dietary intake: increasing protein/fruits/veggies and lowering carb intake (unless contraindicated). Limit sodas, juices, and sugary drinks. documented in this encounter [facility] 02-28-2024 Instructions Anny Bruce NP - 02/28/2024 10:30 AM EST Make an appt with Dr Rai documented in this encounter [facility] 01-03-2024 History of Present illness Narrative Associated Problem(s): Chronic bilateral low back pain with left-sided sciatica Check xray Stretching exercises Fu in 6 weeks Will trial hs flexeril as well Associated Problem(s): DILIP (iron deficiency anemia) Continues with accufer, has fu with oncology as well As per oncology discretion for continued iron infusions Associated Problem(s): Vitamin D deficiency Reviewed labs On once a week dose Pt has an appt to see dr kimball in January. Pt would like to discuss an xray he had gotten a long time ago on his back- he was told he had arthritis and read somewhere that arthritis can effect iron-he would like to know our thoughts and opinions on the subject. He states he does have on going ashiness in his back and hips and believes it to be all arthritis. Pt asking if we can increase his fluoxetine. Random patchy bruising on left inner ankle. Pt would like his inhaler (only) sent to [facility] in [place] [facility] Images from the original note were not included. Reese Emerson is a 58 y.o. male presents with chief complaint of No chief complaint on file. HPI: Low back/pelvis/hip pain: daily stiff/tight feeling, tight grab, takes ibuprofen helps some no NT to bilat LE No acute weakness, no cauda equina. Had xrays in the past and has OA, took viox which helped tremendously. Stopped it d/t rash Has had bariatric surgery in the past, never had bone density test. SUBJECTIVE: MEDICATIONS: Current Outpatient Medications Medication Instructions ACCRUFeR 30 mg, Oral, 2 times daily before meals albuterol HFA 90 mcg/act inhaler 2 puffs, Inhalation, Every 6 hours PRN albuterol 2.5 mg, Nebulization, Every 4 hours PRN amitriptyline (ELAVIL) 100 mg, Oral, Nightly B Complex Vitamins (VITAMIN B COMPLEX PO) Oral carvedilol (COREG) 25 mg, Oral, 2 times daily with meals clindamycin (Clindagel) 1 % gel 1 application , Topical, Daily PRN cyclobenzaprine (FLEXERIL) 10 mg, Oral, 2 times daily PRN ergocalciferol (VITAMIN D2) 1.25 mg, Oral, Weekly, Take 50,000 Units by mouth 1 (one) time per week FLUoxetine (PROZAC) 20 mg, Oral, Daily gabapentin (NEURONTIN) 600 mg, Oral, Every 8 hours losartan (COZAAR) 100 mg, Oral, Daily Potassium 99 mg, Oral, Daily pramipexole (MIRAPEX) 2 mg, Oral, Nightly spironolactone (ALDACTONE) 25 mg, Oral, 2 times daily ALLERGIES: Allergies Allergen Reactions Egg-Derived Products Penicillin G Unknown Sulfa Antibiotics Unknown Buspar [Buspirone] Anxiety and Other Pt felt increased agitation and anxiety Penicillins Swelling and Rash REVIEW OF SYMPTOMS: Review of Systems Constitutional: Negative for activity change, appetite change and unexpected weight change. HENT: Negative for ear pain, nosebleeds, sneezing, trouble swallowing and voice change. Eyes: Negative for pain, discharge and visual disturbance. Respiratory: Negative for apnea, chest tightness and wheezing. Cardiovascular: Negative for leg swelling. Gastrointestinal: Negative for abdominal distention, blood in stool, constipation and diarrhea. Genitourinary: Negative for decreased urine volume, difficulty urinating, dysuria and hematuria. Musculoskeletal: Positive for arthralgias and back pain. Skin: Negative for color change. Neurological: Negative for dizziness, tremors and seizures. Psychiatric/Behavioral: Negative for agitation, decreased concentration, hallucinations, self-injury and suicidal ideas. The patient is not nervous/anxious. Hematological: Negative for adenopathy. Does not bruise/bleed easily. Endocrine: Negative for cold intolerance, heat intolerance, polydipsia and polyuria. Allergic/Immunologic: Negative for environmental allergies and food allergies. PAST MEDICAL HISTORY Past Medical History: Diagnosis Date Alcohol abuse, episodic 07/04/2023 Alopecia 07/04/2023 Anxiety and depression (CMS/HCC) Cardiomyopathy (CMS/HCC) 07/04/2023 Chronic bilateral low back pain with left-sided sciatica 05/05/2023 Current use of anticoagulant therapy 07/04/2023 Meralgia paraesthetica, right 07/04/2023 Moderate persistent asthma without complication (CMS/HCC) 07/04/2023 Non-sustained ventricular tachycardia (CMS/HCC) 07/04/2023 Oral thrush 07/04/2023 TYREE (obstructive sleep apnea) 07/04/2023 Other acute sinusitis 04/04/2023 Overweight (BMI 25.0-29.9) 04/04/2023 Paroxysmal atrial fibrillation (CMS/HCC) 07/04/2023 Primary hypertension (CMS/HCC) 04/04/2023 Vitamin D deficiency 07/04/2023 Past Surgical History: Procedure Laterality Date CARDIAC DEFIBRILLATOR PLACEMENT family history is not on file. OBJECTIVE: Visit Vitals BP 110/72 (BP Location: Left arm, Patient Position: Sitting, BP Cuff Size: Adult long) Pulse 75 Temp 98.5 F (Temporal) Resp 19 Ht 5' 10 Wt 220 lb 9.6 oz SpO2 98% BMI 31.65 kg/m Smoking Status Never BSA 2.22 m Physical Exam Vitals and nursing note reviewed. Constitutional: Appearance: Normal appearance. HENT: Head: Normocephalic. Right Ear: External ear normal. Left Ear: External ear normal. Nose: Nose normal. Mouth/Throat: Mouth: Mucous membranes are moist. Pharynx: Oropharynx is clear. Eyes: Extraocular Movements: Extraocular movements intact. Conjunctiva/sclera: Conjunctivae normal. Cardiovascular: Rate and Rhythm: Normal rate and regular rhythm. Pulses: Normal pulses. Heart sounds: Normal heart sounds. Pulmonary: Effort: Pulmonary effort is normal. Breath sounds: Normal breath sounds. Abdominal: General: Bowel sounds are normal. Palpations: Abdomen is soft. Musculoskeletal: Cervical back: Neck supple. Right lower leg: No edema. Left lower leg: No edema. Comments: Lumbar: no point tenderness midline, +tightness to right lumbar region -SLR X2, DTRs 2+ bilat patellar/achilles, MMT 5/5 bilat LE Flexion: 40, ext 10, near full lat rotation bilat Skin: General: Skin is warm and dry. Capillary Refill: Capillary refill takes 2 to 3 seconds. Neurological: General: No focal deficit present. Mental Status: He is alert. Psychiatric: Mood and Affect: Mood normal. Behavior: Behavior normal. Thought Content: Thought content normal. Judgment: Judgment normal. ASSESSMENT AND PLAN: No follow-ups on file. Problem List Items Addressed This Visit Chronic bilateral low back pain with left-sided sciatica Check xray Stretching exercises Fu in 6 weeks Will trial hs flexeril as well Vitamin D deficiency Reviewed labs On once a week dose DILIP (iron deficiency anemia) Continues with accufer, has fu with oncology as well As per oncology discretion for continued iron infusions Class 1 obesity due to excess calories with serious comorbidity and body mass index (BMI) of 31.0 to 31.9 in adult - Primary Hx of bariatric surgery documented in this encounter [facility] 09-21-2023 Miscellaneous Notes 08/11/23 jessica 08/15/23 BMP documented in this encounter [facility] 09-21-2023 Telephone encounter Note 08/11/23 jessica 08/15/23 BMP [facility] 09-09-2023 Miscellaneous Notes Please sign and route. [facility] 08/15/2023 Thank you documented in this encounter [facility] 09-09-2023 Telephone encounter Note Please sign and route. [facility] 08/15/2023 Thank you [facility] 08-15-2023 Nurse Note Patient successfully discharged.Patient did not want vitals taken. Patient is alert and oriented with no s/s of distress. Patients belongings gathered and packed. Patients rooms check for all belongings and everything was given to the patient upon discharge. Patient transported via wheelchair. AVS summary printed/Reviewed and signed. Discharge instructions and all medications education reinforced. All questions addressed and concerned with the patient. No questions or concerns at this time. Patient transferred to wheelchair to [facility] for pickup by patients family. [facility] 08-15-2023 Nurse Note Patient successfully discharged.Patient did not want vitals taken. Patient is alert and oriented with no s/s of distress. Patients belongings gathered and packed. Patients rooms check for all belongings and everything was given to the patient upon discharge. Patient transported via wheelchair. AVS summary printed/Reviewed and signed. Discharge instructions and all medications education reinforced. All questions addressed and concerned with the patient. No questions or concerns at this time. Patient transferred to wheelchair to Entrance C for pickup by patients family. documented in this encounter [facility] 08-15-2023 Hospital course Narrative ED Observation Discharge Summary BRIEF OVERVIEW Admitting Provider: Marcin Hopper DO Discharge Provider: Philippe Cooper DO Primary Care Physician: [phone] Observation Services Start Date and Time: 08/14/2023 3:59 PM Observation Services End Date and Time: No discharge date for patient encounter. Length of Stay: 0 Chief Complaint: Chief Complaint Patient presents with Dizziness Reason for Observation / Hospitalization: Principal Problem: Iron deficiency anemia, unspecified iron deficiency anemia type DETAILS OF HOSPITAL STAY History of Present Illness: Please refer to this visit's H&P note History: Past medical, surgical, family, and social history unchanged from the previous day. Brief Hospital Course: Patient is a 58-year-old male with history of DILIP, dilated cardiomyopathy, ICD, HF, paroxysmal atrial tachycardia, mitral regurgitation, TYREE, and dizziness who presented to the ED on 08/14/23 with the complaints of dizziness and lightheadedness which started on 07/31/23. Patient was recently admitted to [facility] ED OBS from 08/10-08/12/23 for dizziness, lightheadedness, and anemia where he received 1 unit of RBCs for hgb of 7.6. Patient left AMA and states he went home and over the weekend felt progressively worse and decided to come back into the ED for concerns of the worsening dizziness and lightheadedness. He denied any obvious bleeding or epistaxis, hemoptysis, hematochezia, melena, rectal bleeding, hematuria, or other sources of bleeding. During ED visit yesterday, labs were remarkable for hemoglobin 8.1. Unremarkable ECG or initial or 1-hr troponin. He was admitted for further management and monitoring. No RBCs or treatment given overnight. He reports he stopped his Eliquis and aspirin last Monday after being advised to stop medications by his [facility] skin lap bonder. Today, patient reports improvement of all complaints and is requesting discharge. He denies active dizziness, lightheadedness, fatigue, weakness, CP, SOB, abdominal pain, N/V/C/D, hematochezia, melena, headache, or other symptoms. He denies further treatment or work-up and states he wants to be discharged. Hgb 7.6 today, baseline running between 7-8 since last admission. Continues to decline rectal exam or sources of bleeding. He is being discharged with anemia and dizziness education, supportive care, instructions to continue iron tablets, follow up with PCP and cardiology, and strict return precautions. Physical Exam at Discharge: Vitals: 08/15/23 1145 BP: 117/68 Pulse: 82 Resp: 17 Temp: 36.4 C (97.6 F) SpO2: 98% Physical Exam Constitutional He is oriented to person, place, and time. He appears well-developed and well-nourished. No distress. Nursing note and vitals reviewed. HENT Head Normocephalic and atraumatic. Nose Nose normal. Eyes: Conjunctivae and EOM are normal. Neck Normal range of motion. Neck supple. Cardiovascular: Normal rate and regular rhythm. Pulses: intact distal pulses Heart Sounds: normal heart sounds. Pulmonary/Chest: Effort normal and breath sounds normal. He has no wheezes. No respiratory distress. Abdominal: Bowel sounds are normal. He exhibits no distension. Soft. There is no abdominal tenderness. There is no rebound and no guarding. Musculoskeletal: General: No tenderness or edema. Normal range of motion. Cervical back: Normal range of motion and neck supple. Neurological He is alert and oriented to person, place, and time. He is not disoriented. No cranial nerve deficit. Gait normal. Skin: Skin is warm and dry. No rash noted. He is not diaphoretic. No erythema. No pallor. Psychiatric: He has a normal mood and affect. His behavior is normal. Genitourinary Genitourinary Comments: Refusing rectal exam. Primary Discharge Diagnosis: Anemia Dizziness Discharge Disposition: Left Against Medical Advice or Discontinued Care Discharge Condition: stable Discharge Plan: Active Issues Requiring Follow Up: Issue: Diagnoses described above What is Needed: PCP, cardiology, and GI follow up No future appointments. Information provided to the: patient Please refer to electronic discharge documentation for further details regarding discharge plan. Physician Discharge Attestation: Time spent by physician coordinating discharge: 30 minutes or less I, the supervising physician, spent the majority of this time performing discharge related services. I made or approved the management plan for the problems addressed during this encounter and take responsibility for the management plan. documented in this encounter [facility] 08-15-2023 History and physical note Images from the original note were not included. ED Observation History and Physical Note Admitting Provider: Marcin Hopper DO Primary Care Physician: ANNY BRUCE, [facility] [phone] Observation Services Start Date: 08/14/2023 Observation Services Start Time: 1559 CHIEF COMPLAINT: Chief Complaint Patient presents with Dizziness PROBLEM: Principal Problem: Iron deficiency anemia, unspecified iron deficiency anemia type HISTORY OF PRESENT ILLNESS: Patient is a 58-year-old male with history of DILIP, dilated cardiomyopathy, ICD, HF, paroxysmal atrial tachycardia, mitral regurgitation, TYREE, and dizziness who presented to the ED on 08/14/23 with the complaints of dizziness and lightheadedness which started on 07/31/23. Patient was recently admitted to [facility] ED OBS from 08/10-08/12/23 for dizziness, lightheadedness, and anemia where he received 1 unit of RBCs for hgb of 7.6. Patient left AMA and states he went home and over the weekend felt progressively worse and decided to come back into the ED for concerns of the worsening dizziness and lightheadedness. He denied any obvious bleeding or epistaxis, hemoptysis, hematochezia, melena, rectal bleeding, hematuria, or other sources of bleeding. During ED visit yesterday, labs were remarkable for hemoglobin 8.1. Unremarkable ECG or initial or 1-hr troponin. He was admitted for further management and monitoring. No RBCs or treatment given overnight by ED. PAST MEDICAL HISTORY: Past Medical History: Diagnosis Date Abnormal EKG Anxiety Asthma Chest tightness CHF (congestive heart failure) ([facility]) Dizziness Dyspnea Hypertension Ischemic cardiomyopathy Left ventricular systolic dysfunction Mild mitral regurgitation Mild tricuspid regurgitation NSVT (nonsustained ventricular tachycardia) ([facility]) Obesity TYREE (obstructive sleep apnea) Palpitations PSVT (paroxysmal supraventricular tachycardia) ([facility]) Last Menstrual Period No LMP for male patient. PAST SURGICAL HISTORY: Past Surgical History: Procedure Laterality Date CARDIAC DEFIBRILLATOR PLACEMENT 07/2008 CARDIAC DEFIBRILLATOR PLACEMENT 03/08/2017 [employer] DC ICD Generator Change, [employer] N/A 03/08/2017 Performed by Jadon Mcgraw MD at [facility] EP LABS GASTRIC BYPASS HERNIA REPAIR FAMILY HISTORY: Family History Problem Relation Age of Onset Cancer Mother Asthma Father Heart attack Father Pertinent family history has been noted above and in the HPI. Other family history has been reviewed and is not relevant. SOCIAL HISTORY: Social History Socioeconomic History Marital status: Single Tobacco Use Smoking status: Never Smokeless tobacco: Never Substance and Sexual Activity Alcohol use: No Drug use: No Other Topics Concern Caffeine Use Yes Social Determinants of Health Financial Resource Strain: Low Risk (04/04/2023) Received from [facility] Overall Financial Resource Strain (CARDIA) Difficulty of Paying Living Expenses: Not very hard Food Insecurity: No Food Insecurity (08/14/2023) Hunger Screening Food Insecurity - Worry: Never True Food Insecurity - Inability: Never True Transportation Needs: No Transportation Needs (08/14/2023) PRAPARE - Transportation Lack of Transportation (Medical): No Lack of Transportation (Non-Medical): No Physical Activity: Sufficiently Active (04/04/2023) Received from [facility] Exercise Vital Sign Days of Exercise per Week: 5 days Minutes of Exercise per Session: 60 min Stress: Stress Concern Present (04/04/2023) Received from [facility] [place] [facility] [employer] [facility] - Occupational Stress Questionnaire Feeling of Stress : To some extent Social Connections: Unknown (04/04/2023) Received from [facility] Social Connection and Isolation Panel [NHANES] Frequency of Communication with Friends and Family: Patient declined Frequency of Social Gatherings with Friends and Family: Patient declined Attends [employer] Services: More than 4 times per year Active Member of Clubs or Organizations: No Attends Club or Organization Meetings: Patient declined Marital Status: Interpersonal Safety: Not At Risk (08/14/2023) Humiliation, Afraid, Rape, and Kick questionnaire Fear of Current or Ex-Partner: No Emotionally Abused: No Physically Abused: No Sexually Abused: No Housing Instability: Low Risk (08/14/2023) Housing Instability Housing Instability: No Travel History Travel Screening Question Response Have you been in contact with someone who was sick? No / Unsure Do you have any of the following new or worsening symptoms? None of these Have you traveled internationally or domestically in the last month? No Travel History Travel since 07/15/23 No documented travel since 07/15/23 ALLERGIES: Allergies Allergen Reactions Sulfa (Sulfonamide Antibiotics) Wheezing Penicillins Hives and Rash HOME MEDICATIONS: Medications Prior to Admission Medication Sig Dispense Refill Last Dose albuterol (PROVENTIL HFA;VENTOLIN HFA) 90 mcg/actuation inhaler Inhale 2 puffs every 6 (six) hours as needed for wheezing or shortness of breath. 08/14/2023 amitriptyline (ELAVIL) 10 mg tablet Take 1 tablet (10 mg total) by mouth nightly. 08/14/2023 apixaban (ELIQUIS) 5 mg tablet TAKE 1 TABLET BY MOUTH IN THE MORNING then TAKE 1 TABLET BY MOUTH BEFORE bedtime 180 tablet 0 Past Week carvediloL (COREG) 25 mg tablet TAKE 1 TABLET BY MOUTH TWICE DAILY (IN THE MORNING and IN THE EVENING) (Patient taking differently: Take 2 tablets (50 mg total) by mouth nightly.) 180 tablet 1 08/14/2023 cholecalciferol, vitamin D3, 25 mcg (1,000 unit) capsule Take 25 mcg by mouth in the morning. 08/14/2023 cyanocobalamin 1000 MCG tablet Take 1 tablet (1,000 mcg total) by mouth in the morning. 08/14/2023 ferrous sulfate 325 (65 FE) mg EC tablet Take 1 tablet (325 mg total) by mouth in the morning and 1 tablet (325 mg total) before bedtime. 08/14/2023 losartan (COZAAR) 100 mg tablet TAKE 1 TABLET BY MOUTH IN THE MORNING (Patient taking differently: Take 1 tablet (100 mg total) by mouth nightly.) 90 tablet 0 08/14/2023 potassium 99 mg tablet Take 1 tablet (99 mg total) by mouth nightly. 08/13/2023 spironolactone (ALDACTONE) 25 mg tablet Take 1 tablet (25 mg total) by mouth in the morning and 1 tablet (25 mg total) before bedtime. (Patient taking differently: Take 2 tablets (50 mg total) by mouth nightly.) 180 tablet 3 IMMUNIZATIONS: Immunization History Administered Date(s) Administered COVID-19, mRNA, LNP-S, PF, 30mcg/0.3mL Dose 07/23/2020, 08/13/2020, 05/09/2021 REVIEW OF SYSTEMS: Review of Systems Constitutional: Positive for fatigue. Negative for fever, chills and diaphoresis. HENT: Negative for congestion, ear discharge, ear pain, nosebleeds, postnasal drip, rhinorrhea, sinus pressure, sneezing and sore throat. Eyes: Negative for pain and visual disturbance. Respiratory: Negative for cough, chest tightness, shortness of breath and wheezing. Cardiovascular: Negative for chest pain, leg swelling, chest discomfort and orthopnea. Gastrointestinal: Negative for nausea, vomiting, abdominal pain, diarrhea, constipation, blood in stool, abdominal distention, anal bleeding, rectal pain and black tarry stool. Genitourinary: Negative for dysuria, urgency, frequency, hematuria, flank pain, decreased urine volume and difficulty urinating. Musculoskeletal: Negative for myalgias and back pain. Skin: Negative for pallor and rash. Neurological: Positive for dizziness and light-headedness. Negative for seizures, facial asymmetry, speech difficulty, weakness, numbness and headaches. Psychiatric/Behavioral: Negative for agitation and confusion. PHYSICAL EXAM: Vitals: 08/15/23 1145 BP: 117/68 Pulse: 82 Resp: 17 Temp: 36.4 C (97.6 F) SpO2: 98% O2 Device: None (Room air) Physical Exam Constitutional He is oriented to person, place, and time. He appears well-developed and well-nourished. No distress. Nursing note and vitals reviewed. HENT Head Normocephalic and atraumatic. Ears Right Ear: External ear normal. Left Ear: External ear normal. Nose Nose normal. Mouth/Throat Throat: Oropharynx: oropharynx clear and moist Eyes: Conjunctivae and EOM are normal. Pupils are equal, round, and reactive to light. Right eye exhibits no discharge. Left eye exhibits no discharge. Neck Normal range of motion. Neck supple. Cardiovascular: Normal rate and regular rhythm. Pulses: intact distal pulses Heart Sounds: normal heart sounds. Pulmonary/Chest: Effort normal and breath sounds normal. He has no wheezes. He has no rales. No respiratory distress. Abdominal: Bowel sounds are normal. He exhibits no distension. Soft. There is no abdominal tenderness. There is no rebound and no guarding. Musculoskeletal: General: No tenderness or edema. Normal range of motion. Cervical back: Normal range of motion and neck supple. Neurological He is alert and oriented to person, place, and time. No cranial nerve deficit. Skin: Skin is warm and dry. No rash noted. He is not diaphoretic. No erythema. No pallor. Psychiatric: He has a normal mood and affect. His behavior is normal. Genitourinary Genitourinary Comments: Patient refuses rectal exam. MDM: Chronic illnesses impacting care are as follows: This patient has a past medical history of Abnormal EKG, Anxiety, Asthma, Chest tightness, CHF (congestive heart failure) ([facility]), Dizziness, Dyspnea, Hypertension, Ischemic cardiomyopathy, Left ventricular systolic dysfunction, Mild mitral regurgitation, Mild tricuspid regurgitation, NSVT (nonsustained ventricular tachycardia) ([facility]), Obesity, TYREE (obstructive sleep apnea), Palpitations, and PSVT (paroxysmal supraventricular tachycardia) [place] Social determinants noted to be impacting care are as follows: Social Determinants of Health with Concerns Childcare: Unknown (10/02/2018) Childcare Childcare: Unknown Recent Concern: Childcare - High Risk (07/18/2018) Childcare Childcare: Unknown Employment: Unknown (10/02/2018) Employment Employment: Unknown Recent Concern: Employment - High Risk (07/18/2018) Employment Employment: Unknown Purpose - Life: Unknown (05/15/2020) Purpose - Life Purpose and direction in life: Unknown Social Connections: Unknown (04/04/2023) Received from [facility] Social Connection and Isolation Panel [NHANES] Frequency of Communication with Friends and Family: Patient declined Frequency of Social Gatherings with Friends and Family: Patient declined Attends [employer] Services: More than 4 times per year Active Member of Clubs or Organizations: No Attends Club or Organization Meetings: Patient declined Marital Status: Stress: Stress Concern Present (04/04/2023) Received from [facility] of Occupational Health - Occupational Stress Questionnaire Feeling of Stress : To some extent Summary of records reviewed: ED notes and workup reviewed The workup performed in the emergency department and observation unit was reviewed and independently interpreted by myself including all relevant labs, imaging, and EKGs. Please see assessment and plan for diagnostic tests, medications, and treatments considered. The case was discussed with the following etl consultant teams. Consulting Providers Not on file Escalation to inpatient versus discharge: If patient feels improved and has reassuring testing, anticipate discharge. If the patient fails observation care and is expected to stay > 2 midnights, will pursue inpatient stay. PROCEDURE: Procedures If an ECG was completed in the observation unit, I have confirmed it in iECG and completed the procedure note above. Other Cardiac Testing: If an EKG was performed in the ED, I have reviewed it. Last EKG: No results found. Last Echo: No results found. Last Stress: No results found. ASSESSMENT: Iron deficiency anemia Dizziness PLAN: Hemoglobin and hematocrit trend Repeat CBC and BMP Iron tablets Cardiac and BP monitoring Routine VS Code Status: Code Status Information Code Status Full Code Associated attestation - Philippe Cooper DO - 08/15/2023 12:55 PM EDT Patient was seen and examined by myself in conjunction with the resident/THREAD TOOL GRINDER SET UP OPERATOR-C/CARLOS ALBERTOC. I agree with the above documentation, assessment and plan unless otherwise stated. BP 117/68 Pulse 82 Temp 36.4 C (97.6 F) (Oral) Resp 17 Ht 177.8 cm (5' 10 ) Wt 89.5 kg (197 lb 5 oz) SpO2 98% BMI 28.31 kg/m Final diagnoses: Iron deficiency anemia, unspecified iron deficiency anemia type ATTESTATION Evaluation and management services were performed by the THREAD TOOL GRINDER SET UP OPERATOR/PA-C/Resident under my supervision/collaboration with my participation. For procedures performed by the Resident, the teaching physician was physically present during the hoffmann or critical portions of the procedure. I have reviewed and agree with all pertinent clinical information, including history, physical exam and plan of care and disposition. [facility] 08-15-2023 History and physical note Images from the original note were not included. ED Observation History and Physical Note Admitting Provider: Marcin Hopper DO Primary Care Physician: [phone] Observation Services Start Date: 08/14/2023 Observation Services Start Time: 1559 CHIEF COMPLAINT: Chief Complaint Patient presents with Dizziness PROBLEM: Principal Problem: Iron deficiency anemia, unspecified iron deficiency anemia type HISTORY OF PRESENT ILLNESS: Patient is a 58-year-old male with history of DILIP, dilated cardiomyopathy, ICD, HF, paroxysmal atrial tachycardia, mitral regurgitation, TYREE, and dizziness who presented to the ED on 08/14/23 with the complaints of dizziness and lightheadedness which started on 07/31/23. Patient was recently admitted to [facility] ED OBS from 08/10-08/12/23 for dizziness, lightheadedness, and anemia where he received 1 unit of RBCs for hgb of 7.6. Patient left AMA and states he went home and over the weekend felt progressively worse and decided to come back into the ED for concerns of the worsening dizziness and lightheadedness. He denied any obvious bleeding or epistaxis, hemoptysis, hematochezia, melena, rectal bleeding, hematuria, or other sources of bleeding. During ED visit yesterday, labs were remarkable for hemoglobin 8.1. Unremarkable ECG or initial or 1-hr troponin. He was admitted for further management and monitoring. No RBCs or treatment given overnight by ED. PAST MEDICAL HISTORY: Past Medical History: Diagnosis Date Abnormal EKG Anxiety Asthma Chest tightness CHF (congestive heart failure) ([facility]) Dizziness Dyspnea Hypertension Ischemic cardiomyopathy Left ventricular systolic dysfunction Mild mitral regurgitation Mild tricuspid regurgitation NSVT (nonsustained ventricular tachycardia) ([facility]) Obesity TYREE (obstructive sleep apnea) Palpitations PSVT (paroxysmal supraventricular tachycardia) [place] Last Menstrual Period No LMP for male patient. PAST SURGICAL HISTORY: Past Surgical History: Procedure Laterality Date CARDIAC DEFIBRILLATOR PLACEMENT 07/2008 CARDIAC DEFIBRILLATOR PLACEMENT 03/08/2017 [employer] DC ICD Generator Change, [employer] N/A 03/08/2017 Performed by Jadon Mcgraw MD at [facility] EP LABS GASTRIC BYPASS HERNIA REPAIR FAMILY HISTORY: Family History Problem Relation Age of Onset Cancer Mother Asthma Father Heart attack Father Pertinent family history has been noted above and in the HPI. Other family history has been reviewed and is not relevant. SOCIAL HISTORY: Social History Socioeconomic History Marital status: Single Tobacco Use Smoking status: Never Smokeless tobacco: Never Substance and Sexual Activity Alcohol use: No Drug use: No Other Topics Concern Caffeine Use Yes Social Determinants of Health Financial Resource Strain: Low Risk (04/04/2023) Received from [facility] Overall Financial Resource Strain (CARDIA) Difficulty of Paying Living Expenses: Not very hard Food Insecurity: No Food Insecurity (08/14/2023) Hunger Screening Food Insecurity - Worry: Never True Food Insecurity - Inability: Never True Transportation Needs: No Transportation Needs (08/14/2023) PRAPARE - Transportation Lack of Transportation (Medical): No Lack of Transportation (Non-Medical): No Physical Activity: Sufficiently Active (04/04/2023) Received from [facility] Exercise Vital Sign Days of Exercise per Week: 5 days Minutes of Exercise per Session: 60 min Stress: Stress Concern Present (04/04/2023) Received from [facility] of Occupational Health - Occupational Stress Questionnaire Feeling of Stress : To some extent Social Connections: Unknown (04/04/2023) Received from [facility] Social Connection and Isolation Panel [NHANES] Frequency of Communication with Friends and Family: Patient declined Frequency of Social Gatherings with Friends and Family: Patient declined Attends [employer] Services: More than 4 times per year Active Member of Clubs or Organizations: No Attends Club or Organization Meetings: Patient declined Marital Status: Interpersonal Safety: Not At Risk (08/14/2023) Humiliation, Afraid, Rape, and Kick questionnaire Fear of Current or Ex-Partner: No Emotionally Abused: No Physically Abused: No Sexually Abused: No Housing Instability: Low Risk (08/14/2023) Housing Instability Housing Instability: No Travel History Travel Screening Question Response Have you been in contact with someone who was sick? No / Unsure Do you have any of the following new or worsening symptoms? None of these Have you traveled internationally or domestically in the last month? No Travel History Travel since 07/15/23 No documented travel since 07/15/23 ALLERGIES: Allergies Allergen Reactions Sulfa (Sulfonamide Antibiotics) Wheezing Penicillins Hives and Rash HOME MEDICATIONS: Medications Prior to Admission Medication Sig Dispense Refill Last Dose albuterol (PROVENTIL HFA;VENTOLIN HFA) 90 mcg/actuation inhaler Inhale 2 puffs every 6 (six) hours as needed for wheezing or shortness of breath. 08/14/2023 amitriptyline (ELAVIL) 10 mg tablet Take 1 tablet (10 mg total) by mouth nightly. 08/14/2023 apixaban (ELIQUIS) 5 mg tablet TAKE 1 TABLET BY MOUTH IN THE MORNING then TAKE 1 TABLET BY MOUTH BEFORE bedtime 180 tablet 0 Past Week carvediloL (COREG) 25 mg tablet TAKE 1 TABLET BY MOUTH TWICE DAILY (IN THE MORNING and IN THE EVENING) (Patient taking differently: Take 2 tablets (50 mg total) by mouth nightly.) 180 tablet 1 08/14/2023 cholecalciferol, vitamin D3, 25 mcg (1,000 unit) capsule Take 25 mcg by mouth in the morning. 08/14/2023 cyanocobalamin 1000 MCG tablet Take 1 tablet (1,000 mcg total) by mouth in the morning. 08/14/2023 ferrous sulfate 325 (65 FE) mg EC tablet Take 1 tablet (325 mg total) by mouth in the morning and 1 tablet (325 mg total) before bedtime. 08/14/2023 losartan (COZAAR) 100 mg tablet TAKE 1 TABLET BY MOUTH IN THE MORNING (Patient taking differently: Take 1 tablet (100 mg total) by mouth nightly.) 90 tablet 0 08/14/2023 potassium 99 mg tablet Take 1 tablet (99 mg total) by mouth nightly. 08/13/2023 spironolactone (ALDACTONE) 25 mg tablet Take 1 tablet (25 mg total) by mouth in the morning and 1 tablet (25 mg total) before bedtime. (Patient taking differently: Take 2 tablets (50 mg total) by mouth nightly.) 180 tablet 3 IMMUNIZATIONS: Immunization History Administered Date(s) Administered COVID-19, mRNA, LNP-S, PF, 30mcg/0.3mL Dose 07/23/2020, 08/13/2020, 05/09/2021 REVIEW OF SYSTEMS: Review of Systems Constitutional: Positive for fatigue. Negative for fever, chills and diaphoresis. HENT: Negative for congestion, ear discharge, ear pain, nosebleeds, postnasal drip, rhinorrhea, sinus pressure, sneezing and sore throat. Eyes: Negative for pain and visual disturbance. Respiratory: Negative for cough, chest tightness, shortness of breath and wheezing. Cardiovascular: Negative for chest pain, leg swelling, chest discomfort and orthopnea. Gastrointestinal: Negative for nausea, vomiting, abdominal pain, diarrhea, constipation, blood in stool, abdominal distention, anal bleeding, rectal pain and black tarry stool. Genitourinary: Negative for dysuria, urgency, frequency, hematuria, flank pain, decreased urine volume and difficulty urinating. Musculoskeletal: Negative for myalgias and back pain. Skin: Negative for pallor and rash. Neurological: Positive for dizziness and light-headedness. Negative for seizures, facial asymmetry, speech difficulty, weakness, numbness and headaches. Psychiatric/Behavioral: Negative for agitation and confusion. PHYSICAL EXAM: Vitals: 08/15/23 1145 BP: 117/68 Pulse: 82 Resp: 17 Temp: 36.4 C (97.6 F) SpO2: 98% O2 Device: None (Room air) Physical Exam Constitutional He is oriented to person, place, and time. He appears well-developed and well-nourished. No distress. Nursing note and vitals reviewed. HENT Head Normocephalic and atraumatic. Ears Right Ear: External ear normal. Left Ear: External ear normal. Nose Nose normal. Mouth/Throat Throat: Oropharynx: oropharynx clear and moist Eyes: Conjunctivae and EOM are normal. Pupils are equal, round, and reactive to light. Right eye exhibits no discharge. Left eye exhibits no discharge. Neck Normal range of motion. Neck supple. Cardiovascular: Normal rate and regular rhythm. Pulses: intact distal pulses Heart Sounds: normal heart sounds. Pulmonary/Chest: Effort normal and breath sounds normal. He has no wheezes. He has no rales. No respiratory distress. Abdominal: Bowel sounds are normal. He exhibits no distension. Soft. There is no abdominal tenderness. There is no rebound and no guarding. Musculoskeletal: General: No tenderness or edema. Normal range of motion. Cervical back: Normal range of motion and neck supple. Neurological He is alert and oriented to person, place, and time. No cranial nerve deficit. Skin: Skin is warm and dry. No rash noted. He is not diaphoretic. No erythema. No pallor. Psychiatric: He has a normal mood and affect. His behavior is normal. Genitourinary Genitourinary Comments: Patient refuses rectal exam. MDM: Chronic illnesses impacting care are as follows: This patient has a past medical history of Abnormal EKG, Anxiety, Asthma, Chest tightness, CHF (congestive heart failure) [place] Dizziness, Dyspnea, Hypertension, Ischemic cardiomyopathy, Left ventricular systolic dysfunction, Mild mitral regurgitation, Mild tricuspid regurgitation, NSVT (nonsustained ventricular tachycardia) ([facility]), Obesity, TYREE (obstructive sleep apnea), Palpitations, and PSVT (paroxysmal supraventricular tachycardia) ([facility] Social determinants noted to be impacting care are as follows: Social Determinants of Health with Concerns Childcare: Unknown (10/02/2018) Childcare Childcare: Unknown Recent Concern: Childcare - High Risk (07/18/2018) Childcare Childcare: Unknown Employment: Unknown (10/02/2018) Employment Employment: Unknown Recent Concern: Employment - High Risk (07/18/2018) Employment Employment: Unknown Purpose - Life: Unknown (05/15/2020) Purpose - Life Purpose and direction in life: Unknown Social Connections: Unknown (04/04/2023) Received from [facility] Social Connection and Isolation Panel [NHANES] Frequency of Communication with Friends and Family: Patient declined Frequency of Social Gatherings with Friends and Family: Patient declined Attends [employer] Services: More than 4 times per year Active Member of Clubs or Organizations: No Attends Club or Organization Meetings: Patient declined Marital Status: Stress: Stress Concern Present (04/04/2023) Received from [facility] Occupational Health - Occupational Stress Questionnaire Feeling of Stress : To some extent Summary of records reviewed: ED notes and workup reviewed The workup performed in the emergency department and observation unit was reviewed and independently interpreted by myself including all relevant labs, imaging, and EKGs. Please see assessment and plan for diagnostic tests, medications, and treatments considered. The case was discussed with the following etl consultant teams. Consulting Providers Not on file Escalation to inpatient versus discharge: If patient feels improved and has reassuring testing, anticipate discharge. If the patient fails observation care and is expected to stay > 2 midnights, will pursue inpatient stay. PROCEDURE: Procedures If an ECG was completed in the observation unit, I have confirmed it in iEC and completed the procedure note above. Other Cardiac Testing: If an EKG was performed in the ED, I have reviewed it. Last EKG: No results found. Last Echo: No results found. Last Stress: No results found. ASSESSMENT: Iron deficiency anemia Dizziness PLAN: Hemoglobin and hematocrit trend Repeat CBC and BMP Iron tablets Cardiac and BP monitoring Routine VS Code Status: Code Status Information Code Status Full Code Associated attestation - Philippe Cooper DO - 08/15/2023 12:55 PM EDT Patient was seen and examined by myself in conjunction with the resident/THREAD TOOL GRINDER SET UP OPERATOR-C/PA-C. I agree with the above documentation, assessment and plan unless otherwise stated. BP 117/68 Pulse 82 Temp 36.4 C (97.6 F) (Oral) Resp 17 Ht 177.8 cm (5' 10 ) Wt 89.5 kg (197 lb 5 oz) SpO2 98% BMI 28.31 kg/m Final diagnoses: Iron deficiency anemia, unspecified iron deficiency anemia type ATTESTATION Evaluation and management services were performed by the THREAD TOOL GRINDER SET UP OPERATOR/PA-C/Resident under my supervision/collaboration with my participation. For procedures performed by the Resident, the teaching physician was physically present during the hoffmann or critical portions of the procedure. I have reviewed and agree with all pertinent clinical information, including history, physical exam and plan of care and disposition. documented in this encounter [facility] 08-15-2023 Plan of care note Problem: Pain Goal: Patient goal is pain score less than 4, able to rest, and participant in treatment plan as appropriate Description: INTERVENTIONS: 1. Encourage patient or legal car sales representative to report early pain and ask for pain medicine when needed 2. Assess pain using appropriate pain scale and include the scale used when documenting 3. Administer analgesics based on type and severity of pain and evaluate response within appropriate time frame 4. Implement non-pharmacological measures as appropriate and evaluate response 5. Consider cultural and social influences on pain and pain management 6. Notify LIP if interventions ineffective or patient reports new pain 7. Monitor vital signs including pulse ox, end-tidal CO2 based on pain intervention 8. Reassess pain per policy 9. Teach patient or legal car sales representative interventions for comforting Outcome: Progressing Note: Evaluation of progress towards goal: Patient educated on 0-10 pain scale and to advise staff with any pain or discomfort during hospitalization. Patient states that he understands instructions. Problem: Safety Goal: Patient will be injury free during hospitalization Description: INTERVENTIONS: 1. Assess patient's risk for falls and implement fall prevention plan of care per policy 2. Provide and maintain a safe environment 3. Proper use of double Identifiers 4. Medication administration using the 5 rights 5. Hand hygiene 6. Specimens are labeled at the bedside 7. Instruct patient/ patient car sales representative about use of safety devices 8. Include patient/ patient car sales representative in decisions related to safety Outcome: Progressing Note: Evaluation of progress towards goal: Patient educated on safety and fall risk measures, call light use and overall safety measures of the unit. Patient educated and encouraged to use call light for assistance. Patient states that he understands instructions. Problem: Infection Goal: Absence of infection during hospitalization Description: Interventions: 1. Assess and monitor for signs and symptoms of infection 2. Monitor lab/diagnostic results 3. Monitor all insertion sites i.e., indwelling lines, tubes and drains 4. Monitor endotracheal (as able) and nasal secretions for changes in amount and color 5. Administer medications as ordered 6. Instruct and encourage patient and family to use good hand hygiene technique 7. Identify and instruct patient/patient car sales representative in use of appropriate isolation precautions for identified infection/symptoms 8. Provide and discuss with patient/patient car sales representative on educational MDRO sheet 9. Encourage and monitor nutritional status daily and consult stull installer if indicated 10. Implement neutropenic guidelines as needed 11. Review exposure to history of communicable disease and recent travel history on admission 12. Encourage annual influenza vaccine 13. Encourage pneumonia vaccine Outcome: Progressing Note: Evaluation of progress towards goal: Patient educated on s/s of infection. Patient educated to report any new onset of N/V, [place], SOB, or fever. Patient states that he understands instructions. Problem: Knowledge Deficit Goal: Patient/patient car sales representative demonstrates understanding of disease process, treatment plan, medications, and discharge instructions Description: INTERVENTIONS 1. Complete learning assessment and assess knowledge base 2. Provide teaching at level of understanding 3. Provide teaching via preferred learning method(s) Outcome: Progressing Note: Evaluation of progress towards goal: Patient educated on POC, medications, results, and potential discharge to home. Patient states he understand instructions. Problem: Discharge Planning Goal: Discharge to post-acute care, other facility, or home with appropriate resources Description: Patient's goal is: INTERVENTIONS 1. Conduct assessment to determine patient/family and health care team treatment goals, and need for post-acute services based on payer coverage, community resources, and patient preferences, and barriers to discharge 2. Coordinate with Social work, Care Navigation, and Utilization Review to arrange appropriate level of services according to patient's needs based on patient preference and payer coverage in collaboration with the physician and health care team 3. Address psychosocial, clinical, and financial barriers to discharge as identified in assessment in conjunction with the patient/family and health care team 4. Consult appropriate ancillary services (i.e.. PT/OT/ST, etc) as needed 5. Communicate with and update the patient/family, physician, and health care team regarding progress on the discharge plan 6. Identify discharge learning needs (meds, wound care, etc). 7. Arrange for needed discharge transportation as appropriate Outcome: Progressing Note: Evaluation of progress towards goal: Patient educated on potential discharge home with assistance if needed pending pain control, trending-h/h, compliance with care, labs, testing, and assessments. Patient states he understands instructions. Problem: Moderate - High Risk Fall Score Description: Tang Fall Score of =/> 25 or indicated by [facility] Assessment Goal: Patient should be free from fall Description: Interventions: 1. [place] to environment 2. Hourly rounds addressing the 4 P's (Pain, Positioning, Possessions, Potty) 3. Clear area of hazards (spills, clutter, electrical cords, unnecessary equipment) 4. Place equipment (bed & TV controls, call light, phone, urinal) within reach 5. Encourage patient to wear glasses and hearing aides as appropriate 6. Maintain bed in lowest position 7. Lock wheels on bed/wheelchair 8. Provide adequate lighting, including night light 9. Assess need for additional bedding, food/fluids, pain med's prior to sleep/routinely 10. Provide gripper slippers or personal non-skid footwear 11. Teach patient and patient car sales representative to maintain environment for safety and engage in all aspects of fall prevention program 12. Remind patient to call for help before getting out of bed 13. Initiate bed/chair/exit alarms supportive devices as appropriate, (chair wedge, no-skid floor mat, raised edge mattress, hip protectors) 14. Locate patient bed assignment for optimal visualization 15. Evaluate and identify Safe Patient Handling Equipment needs 16. Provide supervision when out of bed or chair 17. Utilize gait belt as needed to assist with ambulation 18. Place adaptive equipment (cane, walker) within reach 19. Request patient car sales representative bring adaptive equipment/mobility aids from home or obtain and provide as needed 20. Consult pharmacy regarding effects of med's affecting mobility, cognition, and alternatives 21. Obtain physician order for PT if risk factors associated with mobility are present 22. Obtain physician order for OT as appropriate 23. Utilize diversional activities 24. Educate patient and patient car sales representative how to maintain a safe environment during visitation times (notify nurse prior to leaving bedside) 25. Consider appropriateness of medical or non-electromedical equipment technician 26. Set up voiding schedule as appropriate (every 2 hours) Outcome: Progressing Note: Evaluation of progress towards goal: Patient educated on fall risk and safety measures. Patient instructed use the call light or assistance. Patient has been free from falls during shift thus far. Hourly Rounding. Patient states that he understands instructions. [facility] 08-15-2023 Miscellaneous Notes Problem: Pain Goal: Patient goal is pain score less than 4, able to rest, and participant in treatment plan as appropriate Description: INTERVENTIONS: 1. Encourage patient or legal car sales representative to report early pain and ask for pain medicine when needed 2. Assess pain using appropriate pain scale and include the scale used when documenting 3. Administer analgesics based on type and severity of pain and evaluate response within appropriate time frame 4. Implement non-pharmacological measures as appropriate and evaluate response 5. Consider cultural and social influences on pain and pain management 6. Notify LIP if interventions ineffective or patient reports new pain 7. Monitor vital signs including pulse ox, end-tidal CO2 based on pain intervention 8. Reassess pain per policy 9. Teach patient or legal car sales representative interventions for comforting Outcome: Progressing Note: Evaluation of progress towards goal: Patient educated on 0-10 pain scale and to advise staff with any pain or discomfort during hospitalization. Patient states that he understands instructions. Problem: Safety Goal: Patient will be injury free during hospitalization Description: INTERVENTIONS: 1. Assess patient's risk for falls and implement fall prevention plan of care per policy 2. Provide and maintain a safe environment 3. Proper use of double Identifiers 4. Medication administration using the 5 rights 5. Hand hygiene 6. Specimens are labeled at the bedside 7. Instruct patient/ patient car sales representative about use of safety devices 8. Include patient/ patient car sales representative in decisions related to safety Outcome: Progressing Note: Evaluation of progress towards goal: Patient educated on safety and fall risk measures, call light use and overall safety measures of the unit. Patient educated and encouraged to use call light for assistance. Patient states that he understands instructions. Problem: Infection Goal: Absence of infection during hospitalization Description: Interventions: 1. Assess and monitor for signs and symptoms of infection 2. Monitor lab/diagnostic results 3. Monitor all insertion sites i.e., indwelling lines, tubes and drains 4. Monitor endotracheal (as able) and nasal secretions for changes in amount and color 5. Administer medications as ordered 6. Instruct and encourage patient and family to use good hand hygiene technique 7. Identify and instruct patient/patient car sales representative in use of appropriate isolation precautions for identified infection/symptoms 8. Provide and discuss with patient/patient car sales representative on educational MDRO sheet 9. Encourage and monitor nutritional status daily and consult stull installer if indicated 10. Implement neutropenic guidelines as needed 11. Review exposure to history of communicable disease and recent travel history on admission 12. Encourage annual influenza vaccine 13. Encourage pneumonia vaccine Outcome: Progressing Note: Evaluation of progress towards goal: Patient educated on s/s of infection. Patient educated to report any new onset of N/V, [place], SOB, or fever. Patient states that he understands instructions. Problem: Knowledge Deficit Goal: Patient/patient car sales representative demonstrates understanding of disease process, treatment plan, medications, and discharge instructions Description: INTERVENTIONS 1. Complete learning assessment and assess knowledge base 2. Provide teaching at level of understanding 3. Provide teaching via preferred learning method(s) Outcome: Progressing Note: Evaluation of progress towards goal: Patient educated on POC, medications, results, and potential discharge to home. Patient states he understand instructions. Problem: Discharge Planning Goal: Discharge to post-acute care, other facility, or home with appropriate resources Description: Patient's goal is: INTERVENTIONS 1. Conduct assessment to determine patient/family and health care team treatment goals, and need for post-acute services based on payer coverage, community resources, and patient preferences, and barriers to discharge 2. Coordinate with Social work, Care Navigation, and Utilization Review to arrange appropriate level of services according to patient's needs based on patient preference and payer coverage in collaboration with the physician and health care team 3. Address psychosocial, clinical, and financial barriers to discharge as identified in assessment in conjunction with the patient/family and health care team 4. Consult appropriate ancillary services (i.e.. PT/OT/ST, etc) as needed 5. Communicate with and update the patient/family, physician, and health care team regarding progress on the discharge plan 6. Identify discharge learning needs (meds, wound care, etc). 7. Arrange for needed discharge transportation as appropriate Outcome: Progressing Note: Evaluation of progress towards goal: Patient educated on potential discharge home with assistance if needed pending pain control, trending-h/h, compliance with care, labs, testing, and assessments. Patient states he understands instructions. Problem: Moderate - High Risk Fall Score Description: Tang Fall Score of =/> 25 or indicated by [facility] Assessment Goal: Patient should be free from fall Description: Interventions: 1. [place] to environment 2. Hourly rounds addressing the 4 P's (Pain, Positioning, Possessions, Potty) 3. Clear area of hazards (spills, clutter, electrical cords, unnecessary equipment) 4. Place equipment (bed & TV controls, call light, phone, urinal) within reach 5. Encourage patient to wear glasses and hearing aides as appropriate 6. Maintain bed in lowest position 7. Lock wheels on bed/wheelchair 8. Provide adequate lighting, including night light 9. Assess need for additional bedding, food/fluids, pain med's prior to sleep/routinely 10. Provide gripper slippers or personal non-skid footwear 11. Teach patient and patient car sales representative to maintain environment for safety and engage in all aspects of fall prevention program 12. Remind patient to call for help before getting out of bed 13. Initiate bed/chair/exit alarms supportive devices as appropriate, (chair wedge, no-skid floor mat, raised edge mattress, hip protectors) 14. Locate patient bed assignment for optimal visualization 15. Evaluate and identify Safe Patient Handling Equipment needs 16. Provide supervision when out of bed or chair 17. Utilize gait belt as needed to assist with ambulation 18. Place adaptive equipment (cane, walker) within reach 19. Request patient car sales representative bring adaptive equipment/mobility aids from home or obtain and provide as needed 20. Consult pharmacy regarding effects of med's affecting mobility, cognition, and alternatives 21. Obtain physician order for PT if risk factors associated with mobility are present 22. Obtain physician order for OT as appropriate 23. Utilize diversional activities 24. Educate patient and patient car sales representative how to maintain a safe environment during visitation times (notify nurse prior to leaving bedside) 25. Consider appropriateness of medical or non-electromedical equipment technician 26. Set up voiding schedule as appropriate (every 2 hours) Outcome: Progressing Note: Evaluation of progress towards goal: Patient educated on fall risk and safety measures. Patient instructed use the call light or assistance. Patient has been free from falls during shift thus far. Hourly Rounding. Patient states that he understands instructions. Problem: Pain Goal: Patient goal is pain score less than 4, able to rest, and participant in treatment plan as appropriate Description: INTERVENTIONS: 1. Encourage patient or legal car sales representative to report early pain and ask for pain medicine when needed 2. Assess pain using appropriate pain scale and include the scale used when documenting 3. Administer analgesics based on type and severity of pain and evaluate response within appropriate time frame 4. Implement non-pharmacological measures as appropriate and evaluate response 5. Consider cultural and social influences on pain and pain management 6. Notify LIP if interventions ineffective or patient reports new pain 7. Monitor vital signs including pulse ox, end-tidal CO2 based on pain intervention 8. Reassess pain per policy 9. Teach patient or legal car sales representative interventions for comforting Outcome: Progressing Note: Evaluation of progress towards goal: Pt able to state pain score on scale 0-10. Pt will call out for PRN meds when needed. Problem: Safety Goal: Patient will be injury free during hospitalization Description: INTERVENTIONS: 1. Assess patient's risk for falls and implement fall prevention plan of care per policy 2. Provide and maintain a safe environment 3. Proper use of double Identifiers 4. Medication administration using the 5 rights 5. Hand hygiene 6. Specimens are labeled at the bedside 7. Instruct patient/ patient car sales representative about use of safety devices 8. Include patient/ patient car sales representative in decisions related to safety Outcome: Progressing Note: Evaluation of progress towards goal: Bed low and locked, Call light within reach. No injuries noted during current hospitalization Problem: Infection Goal: Absence of infection during hospitalization Description: Interventions: 1. Assess and monitor for signs and symptoms of infection 2. Monitor lab/diagnostic results 3. Monitor all insertion sites i.e., indwelling lines, tubes and drains 4. Monitor endotracheal (as able) and nasal secretions for changes in amount and color 5. Administer medications as ordered 6. Instruct and encourage patient and family to use good hand hygiene technique 7. Identify and instruct patient/patient car sales representative in use of appropriate isolation precautions for identified infection/symptoms 8. Provide and discuss with patient/patient car sales representative on educational MDRO sheet 9. Encourage and monitor nutritional status daily and consult stull installer if indicated 10. Implement neutropenic guidelines as needed 11. Review exposure to history of communicable disease and recent travel history on admission 12. Encourage annual influenza vaccine 13. Encourage pneumonia vaccine Outcome: Progressing Note: Evaluation of progress towards goal: Pt afebrile. No s/s of infection. Will continue to monitor. Problem: Knowledge Deficit Goal: Patient/patient car sales representative demonstrates understanding of disease process, treatment plan, medications, and discharge instructions Description: INTERVENTIONS 1. Complete learning assessment and assess knowledge base 2. Provide teaching at level of understanding 3. Provide teaching via preferred learning method(s) Outcome: Progressing Note: Evaluation of progress towards goal: Reviewed POC w/Patient. Verbalizes understanding. Problem: Discharge Planning Goal: Discharge to post-acute care, other facility, or home with appropriate resources Description: Patient's goal is: INTERVENTIONS 1. Conduct assessment to determine patient/family and health care team treatment goals, and need for post-acute services based on payer coverage, community resources, and patient preferences, and barriers to discharge 2. Coordinate with Social work, Care Navigation, and Utilization Review to arrange appropriate level of services according to patient's needs based on patient preference and payer coverage in collaboration with the physician and health care team 3. Address psychosocial, clinical, and financial barriers to discharge as identified in assessment in conjunction with the patient/family and health care team 4. Consult appropriate ancillary services (i.e.. PT/OT/ST, etc) as needed 5. Communicate with and update the patient/family, physician, and health care team regarding progress on the discharge plan 6. Identify discharge learning needs (meds, wound care, etc). 7. Arrange for needed discharge transportation as appropriate Outcome: Progressing Note: Evaluation of progress towards goal: Pt has family to assist with needs at home after discharge. Problem: Moderate - High Risk Fall Score Description: Tang Fall Score of =/> 25 or indicated by [facility] Assessment Goal: Patient should be free from fall Description: Interventions: 1. [place] to environment 2. Hourly rounds addressing the 4 P's (Pain, Positioning, Possessions, Potty) 3. Clear area of hazards (spills, clutter, electrical cords, unnecessary equipment) 4. Place equipment (bed & TV controls, call light, phone, urinal) within reach 5. Encourage patient to wear glasses and hearing aides as appropriate 6. Maintain bed in lowest position 7. Lock wheels on bed/wheelchair 8. Provide adequate lighting, including night light 9. Assess need for additional bedding, food/fluids, pain med's prior to sleep/routinely 10. Provide gripper slippers or personal non-skid footwear 11. Teach patient and patient car sales representative to maintain environment for safety and engage in all aspects of fall prevention program 12. Remind patient to call for help before getting out of bed 13. Initiate bed/chair/exit alarms supportive devices as appropriate, (chair wedge, no-skid floor mat, raised edge mattress, hip protectors) 14. Locate patient bed assignment for optimal visualization 15. Evaluate and identify Safe Patient Handling Equipment needs 16. Provide supervision when out of bed or chair 17. Utilize gait belt as needed to assist with ambulation 18. Place adaptive equipment (cane, walker) within reach 19. Request patient car sales representative bring adaptive equipment/mobility aids from home or obtain and provide as needed 20. Consult pharmacy regarding effects of med's affecting mobility, cognition, and alternatives 21. Obtain physician order for PT if risk factors associated with mobility are present 22. Obtain physician order for OT as appropriate 23. Utilize diversional activities 24. Educate patient and patient car sales representative how to maintain a safe environment during visitation times (notify nurse prior to leaving bedside) 25. Consider appropriateness of medical or non-electromedical equipment technician 26. Set up voiding schedule as appropriate (every 2 hours) Outcome: Progressing Note: Evaluation of progress towards goal: Call light within reach. Pathways clear in room and hallway. Fall wrist band on. No falls noted during current hospitalization documented in this encounter [facility] 08-15-2023 Plan of care note Problem: Pain Goal: Patient goal is pain score less than 4, able to rest, and participant in treatment plan as appropriate Description: INTERVENTIONS: 1. Encourage patient or legal car sales representative to report early pain and ask for pain medicine when needed 2. Assess pain using appropriate pain scale and include the scale used when documenting 3. Administer analgesics based on type and severity of pain and evaluate response within appropriate time frame 4. Implement non-pharmacological measures as appropriate and evaluate response 5. Consider cultural and social influences on pain and pain management 6. Notify LIP if interventions ineffective or patient reports new pain 7. Monitor vital signs including pulse ox, end-tidal CO2 based on pain intervention 8. Reassess pain per policy 9. Teach patient or legal car sales representative interventions for comforting Outcome: Progressing Note: Evaluation of progress towards goal: Pt able to state pain score on scale 0-10. Pt will call out for PRN meds when needed. Problem: Safety Goal: Patient will be injury free during hospitalization Description: INTERVENTIONS: 1. Assess patient's risk for falls and implement fall prevention plan of care per policy 2. Provide and maintain a safe environment 3. Proper use of double Identifiers 4. Medication administration using the 5 rights 5. Hand hygiene 6. Specimens are labeled at the bedside 7. Instruct patient/ patient car sales representative about use of safety devices 8. Include patient/ patient car sales representative in decisions related to safety Outcome: Progressing Note: Evaluation of progress towards goal: Bed low and locked, Call light within reach. No injuries noted during current hospitalization Problem: Infection Goal: Absence of infection during hospitalization Description: Interventions: 1. Assess and monitor for signs and symptoms of infection 2. Monitor lab/diagnostic results 3. Monitor all insertion sites i.e., indwelling lines, tubes and drains 4. Monitor endotracheal (as able) and nasal secretions for changes in amount and color 5. Administer medications as ordered 6. Instruct and encourage patient and family to use good hand hygiene technique 7. Identify and instruct patient/patient car sales representative in use of appropriate isolation precautions for identified infection/symptoms 8. Provide and discuss with patient/patient car sales representative on educational MDRO sheet 9. Encourage and monitor nutritional status daily and consult stull installer if indicated 10. Implement neutropenic guidelines as needed 11. Review exposure to history of communicable disease and recent travel history on admission 12. Encourage annual influenza vaccine 13. Encourage pneumonia vaccine Outcome: Progressing Note: Evaluation of progress towards goal: Pt afebrile. No s/s of infection. Will continue to monitor. Problem: Knowledge Deficit Goal: Patient/patient car sales representative demonstrates understanding of disease process, treatment plan, medications, and discharge instructions Description: INTERVENTIONS 1. Complete learning assessment and assess knowledge base 2. Provide teaching at level of understanding 3. Provide teaching via preferred learning method(s) Outcome: Progressing Note: Evaluation of progress towards goal: Reviewed POC w/Patient. Verbalizes understanding. Problem: Discharge Planning Goal: Discharge to post-acute care, other facility, or home with appropriate resources Description: Patient's goal is: INTERVENTIONS 1. Conduct assessment to determine patient/family and health care team treatment goals, and need for post-acute services based on payer coverage, community resources, and patient preferences, and barriers to discharge 2. Coordinate with Social work, Care Navigation, and Utilization Review to arrange appropriate level of services according to patient's needs based on patient preference and payer coverage in collaboration with the physician and health care team 3. Address psychosocial, clinical, and financial barriers to discharge as identified in assessment in conjunction with the patient/family and health care team 4. Consult appropriate ancillary services (i.e.. PT/OT/ST, etc) as needed 5. Communicate with and update the patient/family, physician, and health care team regarding progress on the discharge plan 6. Identify discharge learning needs (meds, wound care, etc). 7. Arrange for needed discharge transportation as appropriate Outcome: Progressing Note: Evaluation of progress towards goal: Pt has family to assist with needs at home after discharge. Problem: Moderate - High Risk Fall Score Description: Tang Fall Score of =/> 25 or indicated by [facility] Assessment Goal: Patient should be free from fall Description: Interventions: 1. [place] to environment 2. Hourly rounds addressing the 4 P's (Pain, Positioning, Possessions, Potty) 3. Clear area of hazards (spills, clutter, electrical cords, unnecessary equipment) 4. Place equipment (bed & TV controls, call light, phone, urinal) within reach 5. Encourage patient to wear glasses and hearing aides as appropriate 6. Maintain bed in lowest position 7. Lock wheels on bed/wheelchair 8. Provide adequate lighting, including night light 9. Assess need for additional bedding, food/fluids, pain med's prior to sleep/routinely 10. Provide gripper slippers or personal non-skid footwear 11. Teach patient and patient car sales representative to maintain environment for safety and engage in all aspects of fall prevention program 12. Remind patient to call for help before getting out of bed 13. Initiate bed/chair/exit alarms supportive devices as appropriate, (chair wedge, no-skid floor mat, raised edge mattress, hip protectors) 14. Locate patient bed assignment for optimal visualization 15. Evaluate and identify Safe Patient Handling Equipment needs 16. Provide supervision when out of bed or chair 17. Utilize gait belt as needed to assist with ambulation 18. Place adaptive equipment (cane, walker) within reach 19. Request patient car sales representative bring adaptive equipment/mobility aids from home or obtain and provide as needed 20. Consult pharmacy regarding effects of med's affecting mobility, cognition, and alternatives 21. Obtain physician order for PT if risk factors associated with mobility are present 22. Obtain physician order for OT as appropriate 23. Utilize diversional activities 24. Educate patient and patient car sales representative how to maintain a safe environment during visitation times (notify nurse prior to leaving bedside) 25. Consider appropriateness of medical or non-electromedical equipment technician 26. Set up voiding schedule as appropriate (every 2 hours) Outcome: Progressing Note: Evaluation of progress towards goal: Call light within reach. Pathways clear in room and hallway. Fall wrist band on. No falls noted during current hospitalization [facility] 08-14-2023 Physician Emergency department Note Images from the original note were not included. History Chief Complaint Patient presents with Dizziness Reese Emerson is a 58-year-old male who presents for chief complaint dizziness and lightheadedness that he states began July 31, 2023. Patient has a past medical history notable for nonischemic cardiomyopathy, ICD placement, congestive heart failure, nonsustained ventricular tachycardia, asthma, TYREE, and hypertension. Patient was recently admitted to ED obs for the same complaint of dizziness and lightheadedness at that time patient received 1 unit of packed RBCs for hemoglobin of 7.6. Patient states he was frustrated with ED staff and weight times and decided to leave AMA as he felt better after the unit of packed RBCs. Patient then states he went home and over the weekend felt progressively worse and decided to come back into the ED for concerns of the worsening dizziness and lightheadedness. Patient states that on prior to the 1st presentation to the ED his skin lap bonder told him to stop taking his Eliquis and aspirin and since then he has not been taking his Eliquis and aspirin. Patient denies any blood in his urine or stool. Patient denies any new or worsening bleeding. Patient denies any recent trauma. Problem List Items Addressed This Visit Hematopoietic and Hemostatic * (Principal) Iron deficiency anemia, unspecified iron deficiency anemia type - Primary Past Medical History: Diagnosis Date Abnormal EKG Anxiety Asthma Chest tightness CHF (congestive heart failure) ([facility]) Dizziness Dyspnea Hypertension Ischemic cardiomyopathy Left ventricular systolic dysfunction Mild mitral regurgitation Mild tricuspid regurgitation [place]VT (nonsustained ventricular tachycardia) [place] Obesity TYREE (obstructive sleep apnea) Palpitations PSVT (paroxysmal supraventricular tachycardia) ([facility] [place] Past Surgical History: Procedure Laterality Date CARDIAC DEFIBRILLATOR PLACEMENT 07/2008 CARDIAC DEFIBRILLATOR PLACEMENT 03/08/2017 [employer] DC ICD Generator Change, [employer] N/A 03/08/2017 Performed by Jadon Mcgraw MD at [facility] EP LABS GASTRIC BYPASS HERNIA REPAIR Travel Screening No screening recorded since 08/13/23 1559 Travel History Travel since 07/14/23 No documented travel since 07/14/23 Family History Problem Relation Age of Onset Cancer Mother Asthma Father Heart attack Father Social History Substance and Sexual Activity Drug Use No Social History Tobacco Use Smoking status: Never Smokeless tobacco: Never Substance Use Topics Alcohol use: No Drug use: No Review of Systems Constitutional: Negative for chills and fever. HENT: Negative for congestion. Eyes: Negative for visual disturbance. Respiratory: Negative for shortness of breath. Cardiovascular: Negative for chest pain/discomfort. Gastrointestinal: Negative for abdominal pain, diarrhea, nausea and vomiting. Genitourinary: Negative for hematuria. Musculoskeletal: Negative for back pain. Neurological: Positive for dizziness and light-headedness. Physical Exam ED Triage Vitals [08/14/23 1445] Temp Heart Rate Resp BP SpO2 36.5 C (97.7 F) 102 16 163/66 100 % Temp src Heart Rate Source Patient Position BP Location FiO2 (%) -- -- -- -- -- Vitals: 08/14/23 1445 08/14/23 1650 BP: 163/66 123/75 Temp: 36.5 C (97.7 F) Pulse: 102 95 Resp: 16 15 SpO2: 100% 100% MAP (mmHg): 90 Height: 177.8 cm (5' 10 ) Weight: 90.7 kg (200 lb) Physical Exam Constitutional: Appearance: Normal appearance. HENT: Head: Normocephalic and atraumatic. Eyes: Extraocular Movements: Extraocular movements intact. Conjunctiva/sclera: Conjunctivae normal. Pupils: Pupils are equal, round, and reactive to light. Cardiovascular: Rate and Rhythm: Normal rate and regular rhythm. Pulmonary: Effort: Pulmonary effort is normal. Breath sounds: Normal breath sounds. Abdominal: General: Abdomen is flat. There is no distension. Palpations: Abdomen is soft. Tenderness: There is no abdominal tenderness. Skin: General: Skin is warm and dry. Neurological: General: No focal deficit present. Mental Status: He is alert and oriented to person, place, and time. Procedure Procedures Re-Evaluation Re-Evaluation ED Course Clinical Impressions as of 08/14/23 1742 Iron deficiency anemia, unspecified iron deficiency anemia type MDM Medical Decision Making Chief Complaint: Dizziness lightheadedness Differential Diagnosis includes but is not limited to: Microcytic anemia Plan of Care: Reese Emerson is a 58-year-old male who presents for chief complaint dizziness and lightheadedness that he states began July 31, 2023. Patient has a past medical history notable for nonischemic cardiomyopathy, ICD placement, congestive heart failure, nonsustained ventricular tachycardia, asthma, TYREE, and hypertension. Orders Placed This Encounter Troponin I, High Sensitivity Troponin I, High Sensitivity 1 Hour CBC auto differential Comprehensive metabolic panel Cardiac monitoring Continuous Pulse Oximetry ECG 12 lead Labs notable for: Hemoglobin of 8.1 On re-evaluation, patient is resting comfortably in bed. Results were discussed. Based on the diagnostic results and physical exam, pt requires admission to ED obs. Amount and/or Complexity of Data Reviewed Labs: ordered. ECG/medicine tests: ordered. Risk OTC drugs. Prescription drug management. ----- I, Mateo Saini (lidya), documented on behalf of Dr. Loyda Hopper. 1658 Reese Emerson is a 58 y.o. male presenting to the ED for chief complaint of dizziness. Pt states his RBC levels dipped recently, necessitating being admitted to ED observation 3 days prior. At this time the pt received a blood transfusion. Pt left from ED observation AMA 2 days prior, but has been getting generally more weak and lightheaded over the last 2 days. Pt denies any active bleeding, known sources of internal hemorrhaging, or bloody stools or coughing up blood. Pt currently follows with a skin lap bonder 3 days prior, who was the one who initially requested to be seen in the ED. Pt previously took daily Aspirin and Eliquis for Afib, but was told to stop taking these medications during his recent admission. Dr. Loyda Hopper personally saw and evaluated the patient. Dr. Loyda Hopper discussed the plan with the MACHELLE/ Resident. Dr. Loyda Hopper personally made/approved the management plan for this patient and takes responsibility for the patient management. ----- RESULTS Labs: Labs Reviewed CBC WITH AUTO DIFFERENTIAL - Abnormal; Notable for the following components: Result Value Hemoglobin 8.1 (*) Hematocrit 27.5 (*) MCV 59 (*) MCH 17.2 (*) MCHC 29.4 (*) RDW 24.3 (*) Platelets 617 (*) Neutrophils Absolute (M) 7.5 (*) Eosinophils Absolute 0.8 (*) Anisocytosis 2+ (*) Polychromasia 1+ (*) Fragment 1+ (*) Teardrop 1+ (*) Ovalocytes 2+ (*) All other components within normal limits COMPREHENSIVE METABOLIC PANEL - Abnormal; Notable for the following components: Calcium 8.1 (*) All other components within normal limits TROPONIN I, HIGH SENSITIVITY TROP I, HIGH SENSITIVITY 1 HOUR CBC WITH AUTO DIFFERENTIAL Radiology: No results found. NURSING NOTES AND VITALS REVIEWED The nursing notes within the ED encounter and vital signs as below have been reviewed. BP 123/75 Pulse 95 Temp 36.5 C (97.7 F) Resp 15 Ht 177.8 cm (5' 10 ) Wt 90.7 kg (200 lb) SpO2 100% BMI 28.70 kg/m --------- PROGRESS NOTES --------- The plan of care has been discussed with patient including today s results, in addition to providing specific details regarding counseling pertaining to the diagnosis and prognosis. All questions were answered at this time and they are agreeable with the plan ADDITIONAL PROVIDER NOTES At this time the patient has objective evidence of an acute process requiring hospitalization or inpatient management. Medications dextrose (GLUTOSE) 40 % gel 15 g (has no administration in time range) dextrose 50 % in water (D50W) 50% solution 25 mL (has no administration in time range) glucagon HCL injection 1 mg (has no administration in time range) dextrose 5 % (D5W) infusion (has no administration in time range) sodium chloride 0.9 % infusion (has no administration in time range) sodium chloride 0.9 % flush 3 mL (has no administration in time range) sodium chloride 0.9 % flush 3 mL (has no administration in time range) potassium chloride (K-TAB,KLOR-CON) CR tablet 30-50 mEq (has no administration in time range) Or potassium chloride (KAYCIEL) 20 mEq/15 mL solution 30-50 mEq (has no administration in time range) magnesium sulfate IVPB 4000 mg/100 mL in iso-osmotic water (40 mg/mL premix) (has no administration in time range) magnesium sulfate IVPB 2000 mg/50 mL in iso-osmotic water (40 mg/mL premix) (has no administration in time range) calcium gluconate 4,000 mg in sodium chloride 0.9 % 250 mL IVPB (has no administration in time range) calcium gluconate 3,000 mg in sodium chloride 0.9 % 100 mL IVPB (has no administration in time range) calcium gluconate IVPB 2000 mg/100 mL (20 mg/mL premix) (has no administration in time range) sodium phosphate 20 mmol in sodium chloride 0.9 % 250 mL IVPB (has no administration in time range) Or sodium phosphate 20 mmol in sodium chloride 0.9 % 100 mL IVPB (has no administration in time range) Or sod phos di, mono-K phos mono (K-PHOS NEUTRAL) 250 mg tablet 2 tablet (has no administration in time range) acetaminophen (TYLENOL) tablet 650 mg (has no administration in time range) Medication List None Diagnosis: 1. Iron deficiency anemia, unspecified iron deficiency anemia type Disposition: Patient's disposition: Admit Patient's condition is stable. Critical Care time: 0 Attestation Provider Statement I performed a history and physical exam on this patient and discussed his or her management with the resident. I reviewed the residents's note and agree with the documented findings and plan of care with the following exceptions: None Provider Statement: By electronically signing this emergency patient record, the Emergency Physician/THREAD TOOL GRINDER SET UP OPERATOR/PA-C attests that all entries made into the electronic medical record by the scribe prior to the Physician/THREAD TOOL GRINDER SET UP OPERATOR/PA-C signature reflect an accurate accounting of the evaluation and care rendered by that Emergency Physician/THREAD TOOL GRINDER SET UP OPERATOR/PA-C. The Emergency Physician/THREAD TOOL GRINDER SET UP OPERATOR/PA-C assumes full responsibility for those entries. Yancy Rey MD Resident 08/14/23 1629 Mateo Saini 08/14/23 1635 Yancy Rey MD Resident 08/14/23 1703 Mateo Saini 08/14/23 1704 Yancy Rey MD Resident 08/14/23 1731 Mateo Saini 08/14/23 1732 Yancy Rey MD Resident 08/14/23 1743 [facility] 08-14-2023 Emergency department Note Images from the original note were not included. History Chief Complaint Patient presents with Dizziness Reese Emerson is a 58-year-old male who presents for chief complaint dizziness and lightheadedness that he states began July 31, 2023. Patient has a past medical history notable for nonischemic cardiomyopathy, ICD placement, congestive heart failure, nonsustained ventricular tachycardia, asthma, TYREE, and hypertension. Patient was recently admitted to ED obs for the same complaint of dizziness and lightheadedness at that time patient received 1 unit of packed RBCs for hemoglobin of 7.6. Patient states he was frustrated with ED staff and weight times and decided to leave AMA as he felt better after the unit of packed RBCs. Patient then states he went home and over the weekend felt progressively worse and decided to come back into the ED for concerns of the worsening dizziness and lightheadedness. Patient states that on prior to the 1st presentation to the ED his skin lap bonder told him to stop taking his Eliquis and aspirin and since then he has not been taking his Eliquis and aspirin. Patient denies any blood in his urine or stool. Patient denies any new or worsening bleeding. Patient denies any recent trauma. Problem List Items Addressed This Visit Hematopoietic and Hemostatic * (Principal) Iron deficiency anemia, unspecified iron deficiency anemia type - Primary Past Medical History: Diagnosis Date Abnormal EKG Anxiety Asthma Chest tightness CHF (congestive heart failure) ([facility]) Dizziness Dyspnea Hypertension Ischemic cardiomyopathy Left ventricular systolic dysfunction Mild mitral regurgitation Mild tricuspid regurgitation NSVT (nonsustained ventricular tachycardia) [place] Obesity TYREE (obstructive sleep apnea) Palpitations PSVT (paroxysmal supraventricular tachycardia) ([facility] Past Surgical History: Procedure Laterality Date CARDIAC DEFIBRILLATOR PLACEMENT 07/2008 CARDIAC DEFIBRILLATOR PLACEMENT 03/08/2017 [employer] DC ICD Generator Change, [employer] N/A 03/08/2017 Performed by Jadon Mcgraw MD at [facility] EP LABS GASTRIC BYPASS HERNIA REPAIR Travel Screening No screening recorded since 08/13/23 0189 Travel History Travel since 07/14/23 No documented travel since 07/14/23 Family History Problem Relation Age of Onset Cancer Mother Asthma Father Heart attack Father Social History Substance and Sexual Activity Drug Use No Social History Tobacco Use Smoking status: Never Smokeless tobacco: Never Substance Use Topics Alcohol use: No Drug use: No Review of Systems Constitutional: Negative for chills and fever. HENT: Negative for congestion. Eyes: Negative for visual disturbance. Respiratory: Negative for shortness of breath. Cardiovascular: Negative for chest pain/discomfort. Gastrointestinal: Negative for abdominal pain, diarrhea, nausea and vomiting. Genitourinary: Negative for hematuria. Musculoskeletal: Negative for back pain. Neurological: Positive for dizziness and light-headedness. Physical Exam ED Triage Vitals [08/14/23 1445] Temp Heart Rate Resp BP SpO2 36.5 C (97.7 F) 102 16 163/66 100 % Temp src Heart Rate Source Patient Position BP Location FiO2 (%) -- -- -- -- -- Vitals: 08/14/23 1445 08/14/23 1650 BP: 163/66 123/75 Temp: 36.5 C (97.7 F) Pulse: 102 95 Resp: 16 15 SpO2: 100% 100% MAP (mmHg): 90 Height: 177.8 cm (5' 10 ) Weight: 90.7 kg (200 lb) Physical Exam Constitutional: Appearance: Normal appearance. HENT: Head: Normocephalic and atraumatic. Eyes: Extraocular Movements: Extraocular movements intact. Conjunctiva/sclera: Conjunctivae normal. Pupils: Pupils are equal, round, and reactive to light. Cardiovascular: Rate and Rhythm: Normal rate and regular rhythm. Pulmonary: Effort: Pulmonary effort is normal. Breath sounds: Normal breath sounds. Abdominal: General: Abdomen is flat. There is no distension. Palpations: Abdomen is soft. Tenderness: There is no abdominal tenderness. Skin: General: Skin is warm and dry. Neurological: General: No focal deficit present. Mental Status: He is alert and oriented to person, place, and time. Procedure Procedures Re-Evaluation Re-Evaluation ED Course Clinical Impressions as of 08/14/23 1742 Iron deficiency anemia, unspecified iron deficiency anemia type MDM Medical Decision Making Chief Complaint: Dizziness lightheadedness Differential Diagnosis includes but is not limited to: Microcytic anemia Plan of Care: Reese Emerson is a 58-year-old male who presents for chief complaint dizziness and lightheadedness that he states began July 31, 2023. Patient has a past medical history notable for nonischemic cardiomyopathy, ICD placement, congestive heart failure, nonsustained ventricular tachycardia, asthma, TYREE, and hypertension. Orders Placed This Encounter Troponin I, High Sensitivity Troponin I, High Sensitivity 1 Hour CBC auto differential Comprehensive metabolic panel Cardiac monitoring Continuous Pulse Oximetry ECG 12 lead Labs notable for: Hemoglobin of 8.1 On re-evaluation, patient is resting comfortably in bed. Results were discussed. Based on the diagnostic results and physical exam, pt requires admission to ED obs. Amount and/or Complexity of Data Reviewed Labs: ordered. ECG/medicine tests: ordered. Risk OTC drugs. Prescription drug management. ----- I, Mateo Saini (scribe), documented on behalf of Dr. Loyda Hopper. 1658 Reese Emerson is a 58 y.o. male presenting to the ED for chief complaint of dizziness. Pt states his RBC levels dipped recently, necessitating being admitted to ED observation 3 days prior. At this time the pt received a blood transfusion. Pt left from ED observation AMA 2 days prior, but has been getting generally more weak and lightheaded over the last 2 days. Pt denies any active bleeding, known sources of internal hemorrhaging, or bloody stools or coughing up blood. Pt currently follows with a skin lap bonder 3 days prior, who was the one who initially requested to be seen in the ED. Pt previously took daily Aspirin and Eliquis for Afib, but was told to stop taking these medications during his recent admission. Dr. Loyda Hopper personally saw and evaluated the patient. Dr. Loyda Hopper discussed the plan with the MACHELLE/ Resident. Dr. Loyda Hopper personally made/approved the management plan for this patient and takes responsibility for the patient management. ----- RESULTS Labs: Labs Reviewed CBC WITH AUTO DIFFERENTIAL - Abnormal; Notable for the following components: Result Value Hemoglobin 8.1 (*) Hematocrit 27.5 (*) MCV 59 (*) MCH 17.2 (*) MCHC 29.4 (*) RDW 24.3 (*) Platelets 617 (*) Neutrophils Absolute (M) 7.5 (*) Eosinophils Absolute 0.8 (*) Anisocytosis 2+ (*) Polychromasia 1+ (*) Fragment 1+ (*) Teardrop 1+ (*) Ovalocytes 2+ (*) All other components within normal limits COMPREHENSIVE METABOLIC PANEL - Abnormal; Notable for the following components: Calcium 8.1 (*) All other components within normal limits TROPONIN I, HIGH SENSITIVITY TROP I, HIGH SENSITIVITY 1 HOUR CBC WITH AUTO DIFFERENTIAL Radiology: No results found. NURSING NOTES AND VITALS REVIEWED The nursing notes within the ED encounter and vital signs as below have been reviewed. BP 123/75 Pulse 95 Temp 36.5 C (97.7 F) Resp 15 Ht 177.8 cm (5' 10 ) Wt 90.7 kg (200 lb) SpO2 100% BMI 28.70 kg/m --------- PROGRESS NOTES --------- The plan of care has been discussed with patient including today s results, in addition to providing specific details regarding counseling pertaining to the diagnosis and prognosis. All questions were answered at this time and they are agreeable with the plan ADDITIONAL PROVIDER NOTES At this time the patient has objective evidence of an acute process requiring hospitalization or inpatient management. Medications dextrose (GLUTOSE) 40 % gel 15 g (has no administration in time range) dextrose 50 % in water (D50W) 50% solution 25 mL (has no administration in time range) glucagon HCL injection 1 mg (has no administration in time range) dextrose 5 % (D5W) infusion (has no administration in time range) sodium chloride 0.9 % infusion (has no administration in time range) sodium chloride 0.9 % flush 3 mL (has no administration in time range) sodium chloride 0.9 % flush 3 mL (has no administration in time range) potassium chloride (K-TAB,KLOR-CON) CR tablet 30-50 mEq (has no administration in time range) Or potassium chloride (KAYCIEL) 20 mEq/15 mL solution 30-50 mEq (has no administration in time range) magnesium sulfate IVPB 4000 mg/100 mL in iso-osmotic water (40 mg/mL premix) (has no administration in time range) magnesium sulfate IVPB 2000 mg/50 mL in iso-osmotic water (40 mg/mL premix) (has no administration in time range) calcium gluconate 4,000 mg in sodium chloride 0.9 % 250 mL IVPB (has no administration in time range) calcium gluconate 3,000 mg in sodium chloride 0.9 % 100 mL IVPB (has no administration in time range) calcium gluconate IVPB 2000 mg/100 mL (20 mg/mL premix) (has no administration in time range) sodium phosphate 20 mmol in sodium chloride 0.9 % 250 mL IVPB (has no administration in time range) Or sodium phosphate 20 mmol in sodium chloride 0.9 % 100 mL IVPB (has no administration in time range) Or sod phos di, mono-K phos mono (K-PHOS NEUTRAL) 250 mg tablet 2 tablet (has no administration in time range) acetaminophen (TYLENOL) tablet 650 mg (has no administration in time range) Medication List None Diagnosis: 1. Iron deficiency anemia, unspecified iron deficiency anemia type Disposition: Patient's disposition: Admit Patient's condition is stable. Critical Care time: 0 Attestation Provider Statement I performed a history and physical exam on this patient and discussed his or her management with the resident. I reviewed the residents's note and agree with the documented findings and plan of care with the following exceptions: None Provider Statement: By electronically signing this emergency patient record, the Emergency Physician/THREAD TOOL GRINDER SET UP OPERATOR/PA-C attests that all entries made into the electronic medical record by the scribe prior to the Physician/THREAD TOOL GRINDER SET UP OPERATOR/PA-C signature reflect an accurate accounting of the evaluation and care rendered by that Emergency Physician/THREAD TOOL GRINDER SET UP OPERATOR/PA-C. The Emergency Physician/THREAD TOOL GRINDER SET UP OPERATOR/PA-C assumes full responsibility for those entries. Yancy Rey MD Resident 08/14/23 1629 Mateoronal Saini 08/14/23 1635 Yancy Rey MD Resident 08/14/23 1703 Mateoronal Saini 08/14/23 1704 Yancy Rey MD Resident 08/14/23 1731 Mateoronal Saini 08/14/23 1732 Yancy Rey MD Resident 08/14/23 1743 Pt c/o lightheaded/dizziness starting 2 days ago. Reports he continued to try and rest but it never went away. Denies chest pain/sob. Pt reports recent receiving blood transfusion 3 days ago. documented in this encounter [facility] 08-14-2023 Emergency department Triage note Pt c/o lightheaded/dizziness starting 2 days ago. Reports he continued to try and rest but it never went away. Denies chest pain/sob. Pt reports recent receiving blood transfusion 3 days ago. [facility] 08-12-2023 Hospital course Narrative ED Observation Discharge Summary BRIEF OVERVIEW Admitting Provider: Gustavo Rodriguez DO Discharge Provider: Carissa Sauer MD Primary Care Physician: [phone] Observation Services Start Date and Time: 08/11/2023 1:58 PM Observation Services End Date and Time: No discharge date for patient encounter. Length of Stay: 0 Chief Complaint: Chief Complaint Patient presents with Dizziness Reason for Observation / Hospitalization: Principal Problem: Anemia requiring transfusions DETAILS OF HOSPITAL STAY Brief History of Present Illness: Patient admitted to ED observation unit for anemia requiring transfusion. Brief Hospital Course: Patient elected to leave against medical advice, he is alert, oriented, has capacity to make this decision. AMA paperwork signed prior to discharge. Physical Exam at Discharge: Vitals: 08/12/23 0005 BP: 145/78 Pulse: 88 Resp: 15 Temp: 36.9 C (98.4 F) SpO2: 100% Primary Discharge Diagnosis: Anemia Discharge Disposition: Home Discharge Condition: good Discharge Plan: Active Issues Requiring Follow Up: Issue: anemia What is Needed: F/U with PCP No future appointments. Follow-up Information ANNY BRUCE APRN-CLAUDE . Specialty: Nurse Practitioner Contact information: [id number] [place] [id number] Information provided to the: patient Please refer to electronic discharge documentation for further details regarding discharge plan. documented in this encounter [facility] 08-12-2023 Nurse Note Drug Enforcement [employer] Agent into patient room after patient called out asking for AMA. Bedside RN Narcisa called traffic sign erection supervisor provider to assist at bedside. Patient stated he felt overlooked in the emergency room and that his blood infusion should not have taken as long as it did. Drug Enforcement [employer] Agent asked for background story of how patient arrived to unit. Patient stated he was in the emergency room for hours and witnessed a lot of people in pain and not attended to. Drug Enforcement [employer] Agent asked if patient's physician called ahead. Patient stated his physician said he would call ahead so he expected to receive care sooner than 5 hours . Drug Enforcement [employer] Agent explained how patient's are triaged in the emergency room and while his care is important there may have been critical patients. [employer] Enforcement [employer] Agent apologized for the wait time and asked if there was anything we could do on the unit to make the visit better. The patient pointed to the whiteboard and stated No, I have not been provided with exceptional care and I don't know how you work here every day . [employer] Agent asked if patient felt better after first transfusion and he stated he felt better and not dizzy. [employer] Enforcement [employer] Agent asked if he would allow a second unit to transfuse and patient stated he didn't trust what else the doctors would come up with to increase his length of stay. [employer] Enforcement [employer] Agent asked if primary who sent him here asked for any other testing. Patient replied he was not told about any further testing. [employer] Enforcement [employer] Agent again asked if there was anything that could be done to improve the patient's stay/experience. The patient replied no and stated he had thought long and hard and wanted to leave. [employer] Enforcement [employer] Agent asked how the patient intended to get home; patient replied he drove to the hospital. [employer] Enforcement Administration Agent asked if the patient had any pain medications in the emergency room; patient stated he had not (confirmed with MAR). Drug Enforcement Administration Agent asked if patient had any dizziness at this time; patient stated he did not. Bedside nurse explained AMA form. Patient verbalized understanding of AMA form and signed. PIV concluded by bedside nurse. Patient stated he would go to a hospital closer to home for another unit of blood of needed. [employer] Enforcement [employer] Agent instructed patient how to get to vehicle parked in emergency room parking lot. brake mechanic provider notified of AMA. [facility] 08-12-2023 Nurse Note Drug Enforcement [employer] Agent into patient room after patient called out asking for AMA. Bedside NELI Brewster called traffic sign erection supervisor provider to assist at bedside. Patient stated he felt overlooked in the emergency room and that his blood infusion should not have taken as long as it did. [employer] Enforcement [employer] Agent asked for background story of how patient arrived to unit. Patient stated he was in the emergency room for hours and witnessed a lot of people in pain and not attended to. Drug Enforcement [employer] Agent asked if patient's physician called ahead. Patient stated his physician said he would call ahead so he expected to receive care sooner than 5 hours . Drug Enforcement Administration Agent explained how patient's are triaged in the emergency room and while his care is important there may have been critical patients. [employer] Enforcement [employer] Agent apologized for the wait time and asked if there was anything we could do on the unit to make the visit better. The patient pointed to the whiteboard and stated No, I have not been provided with exceptional care and I don't know how you work here every day . [employer] Enforcement [employer] Agent asked if patient felt better after first transfusion and he stated he felt better and not dizzy. [employer] Enforcement [employer] Agent asked if he would allow a second unit to transfuse and patient stated he didn't trust what else the doctors would come up with to increase his length of stay. [employer] Enforcement [employer] Agent asked if primary who sent him here asked for any other testing. Patient replied he was not told about any further testing. [employer] Enforcement [employer] Agent again asked if there was anything that could be done to improve the patient's stay/experience. The patient replied no and stated he had thought long and hard and wanted to leave. [employer] Enforcement [employer] Agent asked how the patient intended to get home; patient replied he drove to the hospital. Drug Enforcement Administration Agent asked if the patient had any pain medications in the emergency room; patient stated he had not (confirmed with MAR). Drug Enforcement Administration Agent asked if patient had any dizziness at this time; patient stated he did not. Bedside nurse explained AMA form. Patient verbalized understanding of AMA form and signed. PIV concluded by bedside nurse. Patient stated he would go to a hospital closer to home for another unit of blood of needed. Drug Enforcement Administration Agent instructed patient how to get to vehicle parked in emergency room parking lot. brake mechanic provider notified of AMA. Patient signed AMA paperwork. Patient IV removed. All patient belongings returned. Patient wheeled to emergency entrance. Patient denies dizziness or pain at this time. documented in this encounter [facility] 08-12-2023 Plan of care note Problem: Pain Goal: Patient goal is pain score less than 4, able to rest, and participant in treatment plan as appropriate Description: INTERVENTIONS: 1. Encourage patient or legal car sales representative to report early pain and ask for pain medicine when needed 2. Assess pain using appropriate pain scale and include the scale used when documenting 3. Administer analgesics based on type and severity of pain and evaluate response within appropriate time frame 4. Implement non-pharmacological measures as appropriate and evaluate response 5. Consider cultural and social influences on pain and pain management 6. Notify LIP if interventions ineffective or patient reports new pain 7. Monitor vital signs including pulse ox, end-tidal CO2 based on pain intervention 8. Reassess pain per policy 9. Teach patient or legal car sales representative interventions for comforting Outcome: Progressing Note: Evaluation of progress towards goal: educated on pain scale and acceptable pain level for patient. Acknowledges understanding . [facility] 08-12-2023 Miscellaneous Notes Problem: Pain Goal: Patient goal is pain score less than 4, able to rest, and participant in treatment plan as appropriate Description: INTERVENTIONS: 1. Encourage patient or legal car sales representative to report early pain and ask for pain medicine when needed 2. Assess pain using appropriate pain scale and include the scale used when documenting 3. Administer analgesics based on type and severity of pain and evaluate response within appropriate time frame 4. Implement non-pharmacological measures as appropriate and evaluate response 5. Consider cultural and social influences on pain and pain management 6. Notify LIP if interventions ineffective or patient reports new pain 7. Monitor vital signs including pulse ox, end-tidal CO2 based on pain intervention 8. Reassess pain per policy 9. Teach patient or legal car sales representative interventions for comforting Outcome: Progressing Note: Evaluation of progress towards goal: educated on pain scale and acceptable pain level for patient. Acknowledges understanding . documented in this encounter [facility] 08-12-2023 Nurse Note Patient signed AMA paperwork. Patient IV removed. All patient belongings returned. Patient wheeled to emergency entrance. Patient denies dizziness or pain at this time. [facility] 08-11-2023 Emergency department Triage note Pt arrives ambulatory being sent by skin lap bonder for hypotension, dizziness and low hgb. Pt states he has been dizzy on and off for the last several weeks. Pt does take eliquis and aspirin daily which his skin lap bonder told him to hold as of today. Pt has never needed a blood transfusion in the past. Denies bleeding from anywhere or black stools. Pt does have ICD.pt A&Ox4, denies dizziness during triage. [facility] 08-11-2023 Emergency department Note Pt arrives ambulatory being sent by skin lap bonder for hypotension, dizziness and low hgb. Pt states he has been dizzy on and off for the last several weeks. Pt does take eliquis and aspirin daily which his skin lap bonder told him to hold as of today. Pt has never needed a blood transfusion in the past. Denies bleeding from anywhere or black stools. Pt does have ICD.pt A&Ox4, denies dizziness during triage. documented in this encounter [facility] 08-11-2023 History of Present illness Narrative Reese Emerson Date of visit: 08/11/2023 Date of : 1965 Age: 58 y.o. 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 Allergies Allergen Reactions Sulfa (Sulfonamide Antibiotics) Wheezing Penicillins Hives and Rash Current Outpatient Medications Medication Sig Dispense Refill amitriptyline (ELAVIL) 10 mg tablet Take 1 tablet (10 mg total) by mouth nightly. apixaban (ELIQUIS) 5 mg tablet TAKE 1 TABLET BY MOUTH IN THE MORNING then TAKE 1 TABLET BY MOUTH BEFORE bedtime 180 tablet 0 carvediloL (COREG) 25 mg tablet TAKE 1 TABLET BY MOUTH IN THE MORNING then TAKE 1 TABLET BY MOUTH IN THE EVENING 180 tablet 0 cholecalciferol, vitamin D3, 25 mcg (1,000 unit) capsule Take 25 mcg by mouth in the morning. cyanocobalamin 1000 MCG tablet Take 1 tablet (1,000 mcg total) by mouth in the morning. ferrous sulfate 325 (65 FE) mg EC tablet Take 1 tablet (325 mg total) by mouth in the morning and 1 tablet (325 mg total) before bedtime. losartan (COZAAR) 100 mg tablet TAKE 1 TABLET BY MOUTH IN THE MORNING 90 tablet 0 potassium 99 mg tablet Take 1 tablet (99 mg total) by mouth in the morning. spironolactone (ALDACTONE) 25 mg tablet Take 1 tablet (25 mg total) by mouth in the morning and 1 tablet (25 mg total) before bedtime. 180 tablet 3 No current facility-administered medications for this visit. Chief Complaint Patient presents with Follow-up Rapid Heart Rate Device Check History of Present Illness I last saw him in August 2020 upon review of EHR data. Complains of intermittent lightheadedness and dizziness. Had blood work on August 02, 2023 through PCP's office which revealed severe anemia with hemoglobin down to 7.6 range and advised to go to emergency room and get blood transfusion but patient did not follow through with those orders reportedly. Denies any anginal chest pain or worsening shortness of breath or leg swelling or AICD shocks. Denies any active bleeding or black stools etc.. Taking all current cardiac medications regularly including aspirin and Eliquis. Had AICD device checkup today. No recent 2D echocardiogram since 2018. Past Medical History: Diagnosis Date Abnormal EKG Anxiety Asthma Chest tightness CHF (congestive heart failure) [place] Dizziness Dyspnea Hypertension Ischemic cardiomyopathy Left ventricular systolic dysfunction Mild mitral regurgitation Mild tricuspid regurgitation NSVT (nonsustained ventricular tachycardia) ([facility] Obesity TYREE (obstructive sleep apnea) Palpitations PSVT (paroxysmal supraventricular tachycardia) ([facility]) No data recorded No data recorded No data recorded Past Surgical History: Procedure Laterality Date CARDIAC DEFIBRILLATOR PLACEMENT 07/2008 CARDIAC DEFIBRILLATOR PLACEMENT 03/08/2017 Medtronic DC ICD Generator Change, Medtronic N/A 03/08/2017 Performed by Jadon Mcgraw MD at [facility] EP LABS GASTRIC BYPASS HERNIA REPAIR Family History Problem Relation Age of Onset Cancer Mother Asthma Father Heart attack Father Social History Socioeconomic History Marital status: Single Spouse name: Not on file Number of children: Not on file Years of education: Not on file Highest education level: Not on file Occupational History Not on file Tobacco Use Smoking status: Never Smokeless tobacco: Never Substance and Sexual Activity Alcohol use: No Drug use: No Sexual activity: Not on file Other Topics Concern Caffeine Use Yes Social History Narrative Not on file Social Determinants of Health Financial Resource Strain: Low Risk (04/04/2023) Received from [facility] Overall Financial Resource Strain (CARDIA) Difficulty of Paying Living Expenses: Not very hard Food Insecurity: No Food Insecurity (08/11/2023) Hunger Screening Food Insecurity - Worry: Never True Food Insecurity - Inability: Never True Transportation Needs: No Transportation Needs (04/04/2023) Received from [facility] PRAPARE - Transportation Lack of Transportation (Medical): No Lack of Transportation (Non-Medical): No Physical Activity: Sufficiently Active (04/04/2023) Received from [facility] Exercise Vital Sign Days of Exercise per Week: 5 days Minutes of Exercise per Session: 60 min Stress: Stress Concern Present (04/04/2023) Received from [facility] [place] [facility] [employer] - Occupational Stress Questionnaire Feeling of Stress : To some extent Social Connections: Unknown (04/04/2023) Received from [facility] Social Connection and Isolation Panel [NHANES] Frequency of Communication with Friends and Family: Patient declined Frequency of Social Gatherings with Friends and Family: Patient declined Attends [employer] Services: More than 4 times per year Active Member of Clubs or Organizations: No Attends Club or Organization Meetings: Patient declined Marital Status: Interpersonal Safety: Not At Risk (04/04/2023) Received from [facility] Humiliation, Afraid, Rape, and Kick questionnaire Fear of Current or Ex-Partner: No Emotionally Abused: No Physically Abused: No Sexually Abused: No Housing Instability: High Risk (04/04/2023) Received from [facility] Housing Stability Vital Sign Unable to Pay for Housing in the Last Year: Yes Number of Places Lived in the Last Year: Not on file In the last 12 months, was there a time when you did not have a steady place to sleep or slept in a alf (including now)?: No Review of Systems Review of Systems Cardiovascular: Negative for chest pain, dyspnea on exertion and leg swelling. Respiratory: Negative for cough, shortness of breath and wheezing. Skin: Negative for itching and rash. Musculoskeletal: Positive for arthritis, joint pain and stiffness. Gastrointestinal: Negative for constipation and diarrhea. Neurological: Positive for dizziness. Negative for headaches and light-headedness. CARDIOVASCULAR: Please review HPI. Physical Examination General appearance: Awake, Alert, oriented X 3. Well developed, well nourished. Pleasant. Alone. HEENT: Bilateral conjunctiva clear. Neck: No JVD, no carotid bruits, no thyromegaly. Chest: Clear bilaterally. No chest wall tenderness. No rhonchi or wheezing. CVS: Tachycardic. Regular rate and rhythm, no S3 or S4 gallop, no murmur or rubs or clicks. Abdomen: Soft, non-tender. Extremities: No cyanosis or clubbing, mild bilateral lower leg edema. No calf tenderness. Pulses: Bilaterally symmetrical and intact radial pulses. Neuro: Able to move all 4 extremities. Grossly non focal with no new deficit. Psychiatric: Appropriate mood, memory and judgement. VITAL SIGNS: BP 100/60 Pulse (!) 124 Ht 177.8 cm (5' 10 ) Wt 91.2 kg (201 lb) BMI 28.84 kg/m Orders Placed or Reconciled This Encounter Medications DISCONTD: b complex vitamins capsule Sig: Take 1 capsule by mouth in the morning. cholecalciferol, vitamin D3, 25 mcg (1,000 unit) capsule Sig: Take 25 mcg by mouth in the morning. cyanocobalamin 1000 MCG tablet Sig: Take 1 tablet (1,000 mcg total) by mouth in the morning. ferrous sulfate 325 (65 FE) mg EC tablet Sig: Take 1 tablet (325 mg total) by mouth in the morning and 1 tablet (325 mg total) before bedtime. Medications Discontinued During This Encounter Medication Reason b complex vitamins capsule Duplicate Listing aspirin 81 mg Side effects 2D echocardiogram November 2017: Moderately reduced left ventricular ejection fraction Grade I (impaired relaxation) left ventricular diastolic dysfunction. IMPRESSIONS/PLAN: 1. Dilated cardiomyopathy ([facility]) - Device Interrogation 2. Non-ischemic cardiomyopathy ([facility]) - Device Interrogation 3. ICD (implantable cardioverter-defibrillator) in place-Medtronic - Device Interrogation 4. Heart failure with reduced ejection fraction, NYHA class II ([facility]) 5. Paroxysmal atrial tachycardia ([facility]) 6. NSVT (nonsustained ventricular tachycardia) ([facility]) - POCT EKG 7. Mild tricuspid regurgitation 8. Mild mitral regurgitation 9. Dizziness sometimes 10. Abnormal EKG 11. Severe anemia with hemoglobin 7.6, hematocrit 29.9 as of 08/02/[address] [facility] Severe anemia with hemoglobin 7.6 on lab work done in July 2023, intermittent lightheadedness and dizziness with sinus tachycardia probably due to severe anemia, history of dilated, nonischemic cardiomyopathy, Medtronic AICD initially implanted in July 2008, most recent generator change January 2017, chronic heart failure with reduced LVEF 40-45% NYHA class 1-2, cardiac arrhythmias including PAT, mild MR, mild grade 1 LV diastolic dysfunction, LVEF 40-45% on 2D echocardiogram 2017, intermittent dizziness, TYREE, uses CPAP, other problems as charted. No active angina pectoris bleeding or syncope. No prior history of CVA. EKG done in the office today revealed sinus tachycardia at 108 beats per minute, nonspecific interventricular conduction delay, abnormal EKG. ICD device checkup today revealed underlying sinus tachycardia at 120-130 beats per minute, less than 0.1% atrial pacing, less than 0.1% RV pacing, battery longevity estimate 1.8-4 years, 1 nonsustained tachycardia of 3 beats only, for atrial tachycardia/atrial fibrillation all less than 1 minute, total atrial burden less than 0.1%, no reprogramming done. Continue home monitoring and repeat office visit in 2-3 months with the device checkup with metals sales representative. Please refer to official metals sales representative device checkup notes for further details. Orthostatic blood pressure and pulse done in the office today revealed in supine position BP 120/70, pulse 109, in sitting position BP 122/70 with pulse 110 and in standing position BP 120/70 with pulse 116 bpm. No orthostatic changes. Reviewed preliminary AICD device checkup results with the patient today. Reviewed EKG findings with the patient today. Reviewed blood work done on August 02, [address] [facility] which revealed severe anemia with hemoglobin 7.6, hematocrit 29.9, MCV 61, MCH 15.5, MCHC 25.4, RDW 22, platelet count [id number], potassium 3.6, BUN 12, creatinine 0.85, ferritin low at 4.0, albumin low at 3.3, normal AST and ALT, alkaline phosphatase elevated at 129, iron level low at 11.0. B12 235. Normal PSA at 1.99. Lipid profile done on August 02, 2023 revealed total cholesterol 151, HDL 81, LDL 59, triglycerides 56. Apparently advised by PCP to go to emergency room and get blood transfusion following hemoglobin 7.6 but patient did not follow through with the PCP's orders following abnormal lab work done on 08/02/2023. He did not want to go to the emergency room. Discussed options and advised patient to go to [facility] now for further evaluation of severe anemia so that he can be evaluated by sash sticker there and can have GI workup by test design engineer including EGD colonoscopy. Will discontinue aspirin 81 mg daily and hold Eliquis also until hemoglobin improves and further inpatient hospital workup for severe anemia with associated intermittent dizziness and sinus tachycardia. Further management depending on ER/hospitalization course. Follow-up in our office from general cardiology standpoint in 6 months or sooner as needed. Thank you. TODAYS ORDERS Orders Placed This Encounter Procedures Device Interrogation POCT EKG FOLLOW UP Return in about 6 months (around 02/10/2024) for Recheck - with RKA only. PCP: INGRID MAYNARD Referring Physician: INGRID Maynard [address] [place] [address] Rocío Fernandes MD, FACC Spoke with Alia Brunson CNP regarding pt coming to [facility] ER per RKA recommendations d/t low Hgb documented in this encounter [facility] 08-11-2023 Instructions Rocío Fernandes MD - 08/11/2023 9:00 AM EDT Orthostatic blood pressure and pulse done in the office today revealed in supine position BP 120/70, pulse 109, in sitting position BP 122/70 with pulse 110 and in standing position BP 120/70 with pulse 116 bpm. No orthostatic changes. Reviewed preliminary AICD device checkup results with the patient today. Reviewed EKG findings with the patient today. Reviewed blood work done on August 02, [address] [facility] which revealed severe anemia with hemoglobin 7.6, hematocrit 29.9, MCV 61, MCH 15.5, MCHC 25.4, RDW 22, platelet count [id number], potassium 3.6, BUN 12, creatinine 0.85, ferritin low at 4.0, albumin low at 3.3, normal AST and ALT, alkaline phosphatase elevated at 129, iron level low at 11.0. B12 235. Normal PSA at 1.99. Lipid profile done on August 02, 2023 revealed total cholesterol 151, HDL 81, LDL 59, triglycerides 56. Apparently advised by PCP to go to emergency room and get blood transfusion following hemoglobin 7.6 but patient did not follow through with the PCP's orders following abnormal lab work done on 08/02/2023. He did not want to go to the emergency room. Discussed options and advised patient to go to [facility] now for further evaluation of severe anemia so that he can be evaluated by sash sticker there and can have GI workup by test design engineer including EGD colonoscopy. Will discontinue aspirin 81 mg daily and hold Eliquis also until hemoglobin improves and further inpatient hospital workup for severe anemia with associated intermittent dizziness and sinus tachycardia. Further management depending on ER/hospitalization course. Follow-up in our office from general cardiology standpoint in 6 months or sooner as needed. documented in this encounter [facility] 08-11-2023 History of Present illness Narrative I agree with the findings in the scanned document. documented in this encounter [facility] 08-10-2023 Miscellaneous Notes Called patient to remind them to bring their most current copy of their medication list with them to their appt. Patient verbalizes understanding. documented in this encounter [facility] 08-10-2023 Telephone encounter Note Called patient to remind them to bring their most current copy of their medication list with them to their appt. Patient verbalizes understanding. [facility] 08-10-2023 Miscellaneous Notes Pt has appt 08/11/23 Please sign and route. Thank you documented in this encounter [facility] 08-10-2023 Telephone encounter Note Pt has appt 08/11/23 [facility] 08-10-2023 Telephone encounter Note Please sign and route. Thank you [facility] 08-04-2023 Miscellaneous Notes Pt called and spoke to Scheduling about setting up an appt and call was transferred to the nurse as pt was c/o dizziness. Per XB in Scheduling she stated that there are no current openings at this time for an ov next week, however she stated that she will continue to look for a soon appt opening for the pt and will call pt to schedule his appt that he is overdue for once she has an appt opening for the pt, but in the mean time she wanted pt to speak with the nurse d/t his active symptoms with c/o dizziness. Spoke with pt and noted that he has not been seen by our office since June 2022 and that he is over due for his f/u appt. Pt stated that he has been having episodes of dizziness and stated that he saw his PCP this week for the above and also is being treated for a thrush infection by his PCP. Pt stated that his PCP said that his BP was low at his ov and also that his PCP ordered labs for him and called him with his lab results and told him that his lab values are all low and that he may need a blood transfusion and advised him to go to the ER for further evaluation and treatment, but he does not really want to go to the ER and would just like to make an appt with our office next week. Asked pt what his BP has been running at home and pt stated that he has no way to check it at home at this time, but he knows it was low but does not remember what the reading was at his PCP's office earlier this week, but stated that he has ordered a BP cuff from [employer] that is supposed to be delivered to him tomorrow, however pt stated that he does feel dizzy again today. Explained to pt if his PCP has already advised him to go to the ER further evaluation and treatment for the above, than we are advising him to do so as well and given the fact that he is also c/o dizziness at time of call. Stressed that he needs to go to the ER now for further evaluation and treatment. Pt verbalized understanding.-SRS documented in this encounter [facility] [employer] 08-04-2023 Telephone encounter Note Pt called and spoke to Scheduling about setting up an appt and call was transferred to the nurse as pt was c/o dizziness. Per XB in Scheduling she stated that there are no current openings at this time for an ov next week, however she stated that she will continue to look for a soon appt opening for the pt and will call pt to schedule his appt that he is overdue for once she has an appt opening for the pt, but in the mean time she wanted pt to speak with the nurse d/t his active symptoms with c/o dizziness. Spoke with pt and noted that he has not been seen by our office since June 2022 and that he is over due for his f/u appt. Pt stated that he has been having episodes of dizziness and stated that he saw his PCP this week for the above and also is being treated for a thrush infection by his PCP. Pt stated that his PCP said that his BP was low at his ov and also that his PCP ordered labs for him and called him with his lab results and told him that his lab values are all low and that he may need a blood transfusion and advised him to go to the ER for further evaluation and treatment, but he does not really want to go to the ER and would just like to make an appt with our office next week. Asked pt what his BP has been running at home and pt stated that he has no way to check it at home at this time, but he knows it was low but does not remember what the reading was at his PCP's office earlier this week, but stated that he has ordered a BP cuff from [employer] that is supposed to be delivered to him tomorrow, however pt stated that he does feel dizzy again today. Explained to pt if his PCP has already advised him to go to the ER further evaluation and treatment for the above, than we are advising him to do so as well and given the fact that he is also c/o dizziness at time of call. Stressed that he needs to go to the ER now for further evaluation and treatment. Pt verbalized understanding.-SRS [facility] 08-11-2022 Note PROCEDURE: XR RIBS L T PA CH DATE: 08/11/2022 8:32 AM CDT COMPARISONS: 07/26/2022 CLINICAL INDICATION: 57 years Male Closed fracture of multiple left ribs FINDINGS: The cardiomediastinal silhouette and pulmonary vasculature are within normal limits. Electronic cardiac device is in stable position. The lungs are clear. There is no evidence of pleural effusion or pneumothorax. Some motion artifact degrades some of the images slightly. There again appears to be essentially nondisplaced fractures of the lateral left sixth, seventh and eighth ribs. These have not changed in position or alignment since previous exam. Surgical changes are noted of the upper medial left abdomen IMPRESSION: 1. Stable left rib fractures 2. Chest is otherwise within normal limits and stable. Electronically authenticated by: IRIS ALDANA Date: 2022-08-11 10:[address] [facility] 11-30-2021 Evaluation note Encounter Date Diagnosis Assessment Notes Nov, Other specified cough (ICD-10 - R05.8) Nov, COVID-19 (ICD-10 - U07.1) Discharge Instructions for COVID-19 (Suspected or Confirmed ) material was printed Drink plenty fluids, get plenty of rest. Continue home medications as prescribed. Take the prednisone as prescribed until gone. You must quarantine for 5 days after the onset of your symptoms. Notify your employer of your positive COVID test. Follow-up with your family physician if no improvement in 2 to 3 days. Nov, Contact with and (suspected) exposure to covid-19 (ICD-10 - Z20.822) [facility] Other Evaluation noteNo assessment information available [facility] Work Phone: Evaluation note* Diagnosis Primary hypertension (CMS/HCC)- Primary Unspecified essential hypertension Anxiety and depression (CMS/HCC) Overweight (BMI 25.0-29.9) Overweight Acute non-recurrent sinusitis of other sinus Anxiety and depression (CMS/HCC)- Primary Overweight (BMI 25.0-29.9) Overweight Difficulty concentrating Other general symptoms Anxiety and depression (CMS/HCC)- Primary Primary hypertension (CMS/HCC) Unspecified essential hypertension Vitamin D deficiency Anemia due to other cause, not classified Screening for prostate cancer Special screening for malignant neoplasm of prostate Cardiomyopathy, unspecified type (CMS/HCC) Impacted cerumen of right ear Impacted cerumen Medical non-compliance Other fatigue- Primary Cardiomyopathy, unspecified type (CMS/HCC) Dilated cardiomyopathy (CMS/HCC) Other primary cardiomyopathies Primary hypertension (CMS/HCC) Unspecified essential hypertension Overweight (BMI 25.0-29.9) Overweight Vitamin D deficiency- Primary Iron deficiency anemia, unspecified iron deficiency anemia type Dilated cardiomyopathy (CMS/HCC) Other primary cardiomyopathies Vitamin B12 deficiency Other B-complex deficiencies Iron deficiency anemia, unspecified iron deficiency anemia type- Primary Iron deficiency anemia, unspecified iron deficiency anemia type- Primary Overweight (BMI 25.0-29.9) Overweight Anxiety and depression (CMS/HCC)- Primary Primary hypertension (CMS/HCC) Unspecified essential hypertension Iron deficiency anemia, unspecified iron deficiency anemia type Overweight (BMI 25.0-29.9) Overweight Other fatigue Vitamin D deficiency Vitamin B12 deficiency Other B-complex deficiencies Essential (hemorrhagic) thrombocythemia (CMS/HCC) Other ventricular tachycardia (CMS/HCC) Paroxysmal atrial fibrillation (CMS/HCC) Atrial fibrillation Heart failure, unspecified (CMS/HCC) Heart failure, unspecified 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 Class 1 obesity due to excess calories with serious comorbidity and body mass index (BMI) of 31.0 to 31.9 in adult Vitamin D deficiency Iron deficiency anemia, unspecified iron deficiency anemia type Hx of bariatric surgery Lumbago with sciatica, right side Iron deficiency anemia, unspecified [facility] Diagnosis Primary hypertension (CMS/HCC)- Primary Unspecified essential hypertension Anxiety and depression (CMS/HCC) Overweight (BMI 25.0-29.9) Overweight Acute non-recurrent sinusitis of other sinus Anxiety and depression (CMS/HCC)- Primary Overweight (BMI 25.0-29.9) Overweight Difficulty concentrating Other general symptoms Anxiety and depression (CMS/HCC)- Primary Primary hypertension (CMS/HCC) Unspecified essential hypertension Vitamin D deficiency Anemia due to other cause, not classified Screening for prostate cancer Special screening for malignant neoplasm of prostate Cardiomyopathy, unspecified type (CMS/HCC) Impacted cerumen of right ear Impacted cerumen Medical non-compliance Other fatigue- Primary Cardiomyopathy, unspecified type (CMS/HCC) Dilated cardiomyopathy (CMS/HCC) Other primary cardiomyopathies Primary hypertension (CMS/HCC) Unspecified essential hypertension Overweight (BMI 25.0-29.9) Overweight Vitamin D deficiency- Primary Iron deficiency anemia, unspecified iron deficiency anemia type Dilated cardiomyopathy (CMS/HCC) Other primary cardiomyopathies Vitamin B12 deficiency Other B-complex deficiencies Iron deficiency anemia, unspecified iron deficiency anemia type- Primary Iron deficiency anemia, unspecified iron deficiency anemia type- Primary Overweight (BMI 25.0-29.9) Overweight Anxiety and depression (CMS/HCC)- Primary Primary hypertension (CMS/HCC) Unspecified essential hypertension Iron deficiency anemia, unspecified iron deficiency anemia type Overweight (BMI 25.0-29.9) Overweight Other fatigue Vitamin D deficiency Vitamin B12 deficiency Other B-complex deficiencies Essential (hemorrhagic) thrombocythemia (CMS/HCC) Other ventricular tachycardia (CMS/HCC) Paroxysmal atrial fibrillation (CMS/HCC) Atrial fibrillation Heart failure, unspecified (CMS/HCC) Heart failure, unspecified 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 Class 1 obesity due to excess calories with serious comorbidity and body mass index (BMI) of 31.0 to 31.9 in adult Vitamin D deficiency Iron deficiency anemia, unspecified iron deficiency anemia type Hx of bariatric surgery Lumbago with sciatica, right side Acute bronchitis, unspecified documented in this encounter [facility]* Diagnosis Primary hypertension (CMS/HCC)- Primary Unspecified essential hypertension Anxiety and depression (CMS/HCC) Overweight (BMI 25.0-29.9) Overweight Acute non-recurrent sinusitis of other sinus Anxiety and depression (CMS/HCC)- Primary Overweight (BMI 25.0-29.9) Overweight Difficulty concentrating Other general symptoms Anxiety and depression (CMS/HCC)- Primary Primary hypertension (CMS/HCC) Unspecified essential hypertension Vitamin D deficiency Anemia due to other cause, not classified Screening for prostate cancer Special screening for malignant neoplasm of prostate Cardiomyopathy, unspecified type (CMS/HCC) Impacted cerumen of right ear Impacted cerumen Medical non-compliance Other fatigue- Primary Cardiomyopathy, unspecified type (CMS/HCC) Dilated cardiomyopathy (CMS/HCC) Other primary cardiomyopathies Primary hypertension ([facility]/HCC) Unspecified essential hypertension Overweight (BMI 25.0-29.9) Overweight Vitamin D deficiency- Primary Iron deficiency anemia, unspecified iron deficiency anemia type Dilated cardiomyopathy (CMS/HCC) Other primary cardiomyopathies Vitamin B12 deficiency Other B-complex deficiencies Iron deficiency anemia, unspecified iron deficiency anemia type- Primary Iron deficiency anemia, unspecified iron deficiency anemia type- Primary Overweight (BMI 25.0-29.9) Overweight Anxiety and depression (CMS/HCC)- Primary Primary hypertension ([facility]/HCC) Unspecified essential hypertension Iron deficiency anemia, unspecified iron deficiency anemia type Overweight (BMI 25.0-29.9) Overweight Other fatigue Vitamin D deficiency Vitamin B12 deficiency Other B-complex deficiencies Essential (hemorrhagic) thrombocythemia (CMS/HCC) Other ventricular tachycardia (CMS/HCC) Paroxysmal atrial fibrillation ([facility]/HCC) Atrial fibrillation Heart failure, unspecified ([facility]) Heart failure, unspecified 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 Class 1 obesity due to excess calories with serious comorbidity and body mass index (BMI) of 31.0 to 31.9 in adult Vitamin D deficiency Iron deficiency anemia, unspecified iron deficiency anemia type Hx of bariatric surgery Lumbago with sciatica, right side Moderate persistent asthma without complication ([facility]/HCC)- Primary Class 1 obesity due to excess calories with serious comorbidity and body mass index (BMI) of 31.0 to 31.9 in adult Primary hypertension ([facility]/HCC) Unspecified essential hypertension Iron deficiency anemia, unspecified iron deficiency anemia type Dilated cardiomyopathy ([facility]/HCC) Other primary cardiomyopathies RLS (restless legs syndrome) Restless legs syndrome (RLS) Anxiety and depression ([facility]) Vitamin D deficiency [facility] Diagnosis Acute bronchitis, unspecified [facility] Diagnosis Iron deficiency anemia, unspecified [facility] Diagnosis Primary hypertension ([facility]/HCC)- Primary Unspecified essential hypertension Anxiety and depression ([facility]/HCC) Overweight (BMI 25.0-29.9) Overweight Acute non-recurrent sinusitis of other sinus Anxiety and depression ([facility]/HCC)- Primary Overweight (BMI 25.0-29.9) Overweight Difficulty concentrating Other general symptoms Anxiety and depression (CMS/HCC)- Primary Primary hypertension (CMS/HCC) Unspecified essential hypertension Vitamin D deficiency Anemia due to other cause, not classified Screening for prostate cancer Special screening for malignant neoplasm of prostate Cardiomyopathy, unspecified type (CMS/HCC) Impacted cerumen of right ear Impacted cerumen Medical non-compliance Other fatigue- Primary Cardiomyopathy, unspecified type (CMS/HCC) Dilated cardiomyopathy (CMS/HCC) Other primary cardiomyopathies Primary hypertension (CMS/HCC) Unspecified essential hypertension Overweight (BMI 25.0-29.9) Overweight Vitamin D deficiency- Primary Iron deficiency anemia, unspecified iron deficiency anemia type Dilated cardiomyopathy (CMS/HCC) Other primary cardiomyopathies Vitamin B12 deficiency Other B-complex deficiencies Iron deficiency anemia, unspecified iron deficiency anemia type- Primary Iron deficiency anemia, unspecified iron deficiency anemia type- Primary Overweight (BMI 25.0-29.9) Overweight Anxiety and depression (CMS/HCC)- Primary Primary hypertension (CMS/HCC) Unspecified essential hypertension Iron deficiency anemia, unspecified iron deficiency anemia type Overweight (BMI 25.0-29.9) Overweight Other fatigue Vitamin D deficiency Vitamin B12 deficiency Other B-complex deficiencies Essential (hemorrhagic) thrombocythemia (CMS/HCC) Other ventricular tachycardia (CMS/HCC) Paroxysmal atrial fibrillation (CMS/HCC) Atrial fibrillation Heart failure, unspecified (CMS/HCC) Heart failure, unspecified 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 Class 1 obesity due to excess calories with serious comorbidity and body mass index (BMI) of 31.0 to 31.9 in adult Vitamin D deficiency Iron deficiency anemia, unspecified iron deficiency anemia type Hx of bariatric surgery Lumbago with sciatica, right side Moderate persistent asthma without complication (CMS/HCC)- Primary Class 1 obesity due to excess calories with serious comorbidity and body mass index (BMI) of 31.0 to 31.9 in adult Primary hypertension (CMS/HCC) Unspecified essential hypertension Iron deficiency anemia, unspecified iron deficiency anemia type Dilated cardiomyopathy (CMS/HCC) Other primary cardiomyopathies RLS (restless legs syndrome) Restless legs syndrome (RLS) Anxiety and depression (CMS/HCC) Vitamin D deficiency Asthma-COPD overlap syndrome (CMS/HCC)- Primary [facility] Diagnosis Vitamin D deficiency- Primary [facility] Diagnosis Lumbago with sciatica, left side [facility] Diagnosis 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 Class 1 obesity due to excess calories with serious comorbidity and body mass index (BMI) of 31.0 to 31.9 in adult Vitamin D deficiency Iron deficiency anemia, unspecified iron deficiency anemia type Hx of bariatric surgery Lumbago with sciatica, right side documented in this encounter [facility]* Diagnosis Anxiety and depression (CMS/HCC) documented in this encounter [facility]* Diagnosis Primary hypertension (CMS/HCC)- Primary Unspecified essential hypertension Anxiety and depression (CMS/HCC) Overweight (BMI 25.0-29.9) Overweight Acute non-recurrent sinusitis of other sinus Anxiety and depression (CMS/HCC)- Primary Overweight (BMI 25.0-29.9) Overweight Difficulty concentrating Other general symptoms Anxiety and depression (CMS/HCC)- Primary Primary hypertension (CMS/HCC) Unspecified essential hypertension Vitamin D deficiency Anemia due to other cause, not classified Screening for prostate cancer Special screening for malignant neoplasm of prostate Cardiomyopathy, unspecified type (CMS/HCC) Impacted cerumen of right ear Impacted cerumen Medical non-compliance Other fatigue- Primary Cardiomyopathy, unspecified type (CMS/HCC) Dilated cardiomyopathy (CMS/HCC) Other primary cardiomyopathies Primary hypertension (CMS/HCC) Unspecified essential hypertension Overweight (BMI 25.0-29.9) Overweight Vitamin D deficiency- Primary Iron deficiency anemia, unspecified iron deficiency anemia type Dilated cardiomyopathy (CMS/HCC) Other primary cardiomyopathies Vitamin B12 deficiency Other B-complex deficiencies Iron deficiency anemia, unspecified iron deficiency anemia type- Primary Iron deficiency anemia, unspecified iron deficiency anemia type- Primary Overweight (BMI 25.0-29.9) Overweight Anxiety and depression (CMS/HCC)- Primary Primary hypertension (CMS/HCC) Unspecified essential hypertension Iron deficiency anemia, unspecified iron deficiency anemia type Overweight (BMI 25.0-29.9) Overweight Other fatigue Vitamin D deficiency Vitamin B12 deficiency Other B-complex deficiencies Essential (hemorrhagic) thrombocythemia (CMS/HCC) Other ventricular tachycardia (CMS/HCC) Paroxysmal atrial fibrillation (CMS/HCC) Atrial fibrillation Heart failure, unspecified (CMS/HCC) Heart failure, unspecified 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 Class 1 obesity due to excess calories with serious comorbidity and body mass index (BMI) of 31.0 to 31.9 in adult Vitamin D deficiency Iron deficiency anemia, unspecified iron deficiency anemia type Hx of bariatric surgery Lumbago with sciatica, right side Moderate persistent asthma without complication (CMS/HCC)- Primary Class 1 obesity due to excess calories with serious comorbidity and body mass index (BMI) of 31.0 to 31.9 in adult Primary hypertension (CMS/HCC) Unspecified essential hypertension Iron deficiency anemia, unspecified iron deficiency anemia type Dilated cardiomyopathy (CMS/HCC) Other primary cardiomyopathies RLS (restless legs syndrome) Restless legs syndrome (RLS) Anxiety and depression (CMS/HCC) Vitamin D deficiency Iron deficiency anemia, unspecified iron deficiency anemia type- Primary Paroxysmal atrial fibrillation (CMS/HCC) Atrial fibrillation Other ventricular tachycardia (CMS/HCC) Dilated cardiomyopathy (CMS/HCC) Other primary cardiomyopathies Asthma-COPD overlap syndrome (CMS/HCC) Encounter for checking of automatic implantable cardioverter-defibrillator (AICD) RLS (restless legs syndrome) Restless legs syndrome (RLS) ICD (implantable cardioverter-defibrillator) in place Primary hypertension (CMS/HCC) Unspecified essential hypertension Hx of bariatric surgery Class 1 obesity due to excess calories with serious comorbidity and body mass index (BMI) of 31.0 to 31.9 in adult Vitamin B12 deficiency Other B-complex deficiencies Vitamin D deficiency Screening for prostate cancer Special screening for malignant neoplasm of prostate Chronic bilateral low back pain with left-sided sciatica Lumbago with sciatica, left side Restless legs syndrome Restless legs syndrome (RLS) Anxiety and depression (CMS/HCC) Subacute maxillary sinusitis documented in this encounter [facility]* Diagnosis Dilated cardiomyopathy (CMS-HCC)- Primary Other primary cardiomyopathies Non-ischemic cardiomyopathy (CMS-HCC) Other primary cardiomyopathies ICD (implantable cardioverter-defibrillator) in place-[employer] Heart failure with reduced ejection fraction, NYHA class II (CMS-HCC) Paroxysmal atrial tachycardia (CMS-HCC) Paroxysmal supraventricular tachycardia NSVT (nonsustained ventricular tachycardia) (CMS-HCC) Mild tricuspid regurgitation Mild mitral regurgitation Dizziness sometimes Dizziness and giddiness Abnormal EKG Nonspecific abnormal electrocardiogram (ECG) (EKG) Severe anemia with hemoglobin 7.6, hematocrit 29.9 as of 08/02/[address] [facility] documented in this encounter [facility]* Diagnosis Dilated cardiomyopathy (CMS-HCC) Other primary cardiomyopathies Non-ischemic cardiomyopathy (CMS-HCC) Other primary cardiomyopathies ICD (implantable cardioverter-defibrillator) in place-[employer] documented in this encounter [facility]* Diagnosis Anemia requiring transfusions- Primary Anemia requiring transfusions Dizziness Dizziness and giddiness Dilated cardiomyopathy (CMS-HCC) Other primary cardiomyopathies Non-ischemic cardiomyopathy (CMS-HCC) Other primary cardiomyopathies Moderate left ventricular systolic dysfunction - LVEF 40-45% on 2D echocardiogram 2018 Heart failure with reduced ejection fraction, NYHA class II (CMS-HCC) documented in this encounter [facility]* Diagnosis ICD (implantable cardioverter-defibrillator) in place-[employer]- Primary documented in this encounter [facility]* Diagnosis Iron deficiency anemia, unspecified iron deficiency anemia type- Primary documented in this encounter [facility] SystemEvaluation note* Diagnosis Primary hypertension (CMS/HCC)- Primary Unspecified essential hypertension Anxiety and depression (CMS/HCC) Overweight (BMI 25.0-29.9) Overweight Acute non-recurrent sinusitis of other sinus Anxiety and depression (CMS/HCC)- Primary Overweight (BMI 25.0-29.9) Overweight Difficulty concentrating Other general symptoms Anxiety and depression (CMS/HCC)- Primary Primary hypertension (CMS/HCC) Unspecified essential hypertension Vitamin D deficiency Anemia due to other cause, not classified Screening for prostate cancer Special screening for malignant neoplasm of prostate Cardiomyopathy, unspecified type (CMS/HCC) Impacted cerumen of right ear Impacted cerumen Medical non-compliance Other fatigue- Primary Cardiomyopathy, unspecified type (CMS/HCC) Dilated cardiomyopathy (CMS/HCC) Other primary cardiomyopathies Primary hypertension (CMS/HCC) Unspecified essential hypertension Overweight (BMI 25.0-29.9) Overweight Vitamin D deficiency- Primary Iron deficiency anemia, unspecified iron deficiency anemia type Dilated cardiomyopathy (CMS/HCC) Other primary cardiomyopathies Vitamin B12 deficiency Other B-complex deficiencies Iron deficiency anemia, unspecified iron deficiency anemia type- Primary Iron deficiency anemia, unspecified iron deficiency anemia type- Primary Overweight (BMI 25.0-29.9) Overweight Anxiety and depression (CMS/HCC)- Primary Primary hypertension (CMS/HCC) Unspecified essential hypertension Iron deficiency anemia, unspecified iron deficiency anemia type Overweight (BMI 25.0-29.9) Overweight Other fatigue Vitamin D deficiency Vitamin B12 deficiency Other B-complex deficiencies Essential (hemorrhagic) thrombocythemia (CMS/HCC) Other ventricular tachycardia (CMS/HCC) Paroxysmal atrial fibrillation (CMS/HCC) Atrial fibrillation Heart failure, unspecified (CMS/HCC) Heart failure, unspecified 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 Class 1 obesity due to excess calories with serious comorbidity and body mass index (BMI) of 31.0 to 31.9 in adult Vitamin D deficiency Iron deficiency anemia, unspecified iron deficiency anemia type Hx of bariatric surgery Lumbago with sciatica, right side Moderate persistent asthma without complication (CMS/HCC)- Primary Class 1 obesity due to excess calories with serious comorbidity and body mass index (BMI) of 31.0 to 31.9 in adult Primary hypertension (CMS/HCC) Unspecified essential hypertension Iron deficiency anemia, unspecified iron deficiency anemia type Dilated cardiomyopathy (CMS/HCC) Other primary cardiomyopathies RLS (restless legs syndrome) Restless legs syndrome (RLS) Anxiety and depression (CMS/HCC) Vitamin D deficiency Iron deficiency anemia, unspecified iron deficiency anemia type- Primary Paroxysmal atrial fibrillation (CMS/HCC) Atrial fibrillation Other ventricular tachycardia (CMS/HCC) Dilated cardiomyopathy (CMS/HCC) Other primary cardiomyopathies Asthma-COPD overlap syndrome (CMS/HCC) Encounter for checking of automatic implantable cardioverter-defibrillator (AICD) RLS (restless legs syndrome) Restless legs syndrome (RLS) ICD (implantable cardioverter-defibrillator) in place Primary hypertension (CMS/HCC) Unspecified essential hypertension Hx of bariatric surgery Class 1 obesity due to excess calories with serious comorbidity and body mass index (BMI) of 31.0 to 31.9 in adult Vitamin B12 deficiency Other B-complex deficiencies Vitamin D deficiency Screening for prostate cancer Special screening for malignant neoplasm of prostate Chronic bilateral low back pain with left-sided sciatica Lumbago with sciatica, left side Restless legs syndrome Restless legs syndrome (RLS) Anxiety and depression (CMS/HCC) Subacute maxillary sinusitis Acute bronchitis, unspecified documented in this encounter [facility] HealthcareEvaluation note* Diagnosis Dilated cardiomyopathy (CMS-HCC) Other primary cardiomyopathies Non-ischemic cardiomyopathy (CMS-HCC) Other primary cardiomyopathies ICD (implantable cardioverter-defibrillator) in place-[employer] documented in this encounter [facility] SystemEvaluation note* Diagnosis Dilated cardiomyopathy (CMS-HCC) Other primary cardiomyopathies Non-ischemic cardiomyopathy (CMS-HCC) Other primary cardiomyopathies Moderate left ventricular systolic dysfunction - LVEF 40-45% on 2D echocardiogram 2017 Heart failure with reduced ejection fraction, NYHA class II (CMS-HCC) documented in this encounter [facility] SystemEvaluation note* Diagnosis Primary hypertension (CMS/HCC)- Primary Unspecified essential hypertension Anxiety and depression (CMS/HCC) Overweight (BMI 25.0-29.9) Overweight Acute non-recurrent sinusitis of other sinus Anxiety and depression (CMS/HCC)- Primary Overweight (BMI 25.0-29.9) Overweight Difficulty concentrating Other general symptoms Anxiety and depression (CMS/HCC)- Primary Primary hypertension (CMS/HCC) Unspecified essential hypertension Vitamin D deficiency Anemia due to other cause, not classified Screening for prostate cancer Special screening for malignant neoplasm of prostate Cardiomyopathy, unspecified type (CMS/HCC) Impacted cerumen of right ear Impacted cerumen Medical non-compliance Other fatigue- Primary Cardiomyopathy, unspecified type (CMS/HCC) Dilated cardiomyopathy (CMS/HCC) Other primary cardiomyopathies Primary hypertension (CMS/HCC) Unspecified essential hypertension Overweight (BMI 25.0-29.9) Overweight Vitamin D deficiency- Primary Iron deficiency anemia, unspecified iron deficiency anemia type Dilated cardiomyopathy (CMS/HCC) Other primary cardiomyopathies Vitamin B12 deficiency Other B-complex deficiencies Iron deficiency anemia, unspecified iron deficiency anemia type- Primary Iron deficiency anemia, unspecified iron deficiency anemia type- Primary Overweight (BMI 25.0-29.9) Overweight Anxiety and depression (CMS/HCC)- Primary Primary hypertension (CMS/HCC) Unspecified essential hypertension Iron deficiency anemia, unspecified iron deficiency anemia type Overweight (BMI 25.0-29.9) Overweight Other fatigue Vitamin D deficiency Vitamin B12 deficiency Other B-complex deficiencies Essential (hemorrhagic) thrombocythemia (CMS/HCC) Other ventricular tachycardia (CMS/HCC) Paroxysmal atrial fibrillation (CMS/HCC) Atrial fibrillation Heart failure, unspecified (CMS/HCC) Heart failure, unspecified 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 Class 1 obesity due to excess calories with serious comorbidity and body mass index (BMI) of 31.0 to 31.9 in adult Vitamin D deficiency Iron deficiency anemia, unspecified iron deficiency anemia type Hx of bariatric surgery Lumbago with sciatica, right side Moderate persistent asthma without complication (CMS/HCC)- Primary Class 1 obesity due to excess calories with serious comorbidity and body mass index (BMI) of 31.0 to 31.9 in adult Primary hypertension (CMS/HCC) Unspecified essential hypertension Iron deficiency anemia, unspecified iron deficiency anemia type Dilated cardiomyopathy (CMS/HCC) Other primary cardiomyopathies RLS (restless legs syndrome) Restless legs syndrome (RLS) Anxiety and depression (CMS/HCC) Vitamin D deficiency Iron deficiency anemia, unspecified iron deficiency anemia type- Primary Paroxysmal atrial fibrillation (CMS/HCC) Atrial fibrillation Other ventricular tachycardia (CMS/HCC) Dilated cardiomyopathy (CMS/HCC) Other primary cardiomyopathies Asthma-COPD overlap syndrome (CMS/HCC) Encounter for checking of automatic implantable cardioverter-defibrillator (AICD) RLS (restless legs syndrome) Restless legs syndrome (RLS) ICD (implantable cardioverter-defibrillator) in place Primary hypertension (CMS/HCC) Unspecified essential hypertension Hx of bariatric surgery Class 1 obesity due to excess calories with serious comorbidity and body mass index (BMI) of 31.0 to 31.9 in adult Vitamin B12 deficiency Other B-complex deficiencies Vitamin D deficiency Screening for prostate cancer Special screening for malignant neoplasm of prostate Chronic bilateral low back pain with left-sided sciatica Lumbago with sciatica, left side Restless legs syndrome Restless legs syndrome (RLS) Anxiety and depression (CMS/HCC) Subacute maxillary sinusitis Acute bronchitis, unspecified documented in this encounter [facility] HealthcareEvaluation note* Diagnosis Primary hypertension (CMS/HCC)- Primary Unspecified essential hypertension Anxiety and depression (CMS/HCC) Overweight (BMI 25.0-29.9) Overweight Acute non-recurrent sinusitis of other sinus Anxiety and depression (CMS/HCC)- Primary Overweight (BMI 25.0-29.9) Overweight Difficulty concentrating Other general symptoms Anxiety and depression (CMS/HCC)- Primary Primary hypertension (CMS/HCC) Unspecified essential hypertension Vitamin D deficiency Anemia due to other cause, not classified Screening for prostate cancer Special screening for malignant neoplasm of prostate Cardiomyopathy, unspecified type (CMS/HCC) Impacted cerumen of right ear Impacted cerumen Medical non-compliance Other fatigue- Primary Cardiomyopathy, unspecified type (CMS/HCC) Dilated cardiomyopathy (CMS/HCC) Other primary cardiomyopathies Primary hypertension (CMS/HCC) Unspecified essential hypertension Overweight (BMI 25.0-29.9) Overweight Vitamin D deficiency- Primary Iron deficiency anemia, unspecified iron deficiency anemia type Dilated cardiomyopathy (CMS/HCC) Other primary cardiomyopathies Vitamin B12 deficiency Other B-complex deficiencies Iron deficiency anemia, unspecified iron deficiency anemia type- Primary Iron deficiency anemia, unspecified iron deficiency anemia type- Primary Overweight (BMI 25.0-29.9) Overweight Anxiety and depression (CMS/HCC)- Primary Primary hypertension (CMS/HCC) Unspecified essential hypertension Iron deficiency anemia, unspecified iron deficiency anemia type Overweight (BMI 25.0-29.9) Overweight Other fatigue Vitamin D deficiency Vitamin B12 deficiency Other B-complex deficiencies Essential (hemorrhagic) thrombocythemia (CMS/HCC) Other ventricular tachycardia (CMS/HCC) Paroxysmal atrial fibrillation (CMS/HCC) Atrial fibrillation Heart failure, unspecified (CMS/HCC) Heart failure, unspecified 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 Class 1 obesity due to excess calories with serious comorbidity and body mass index (BMI) of 31.0 to 31.9 in adult Vitamin D deficiency Iron deficiency anemia, unspecified iron deficiency anemia type Hx of bariatric surgery Lumbago with sciatica, right side Moderate persistent asthma without complication (CMS/HCC)- Primary Class 1 obesity due to excess calories with serious comorbidity and body mass index (BMI) of 31.0 to 31.9 in adult Primary hypertension (CMS/HCC) Unspecified essential hypertension Iron deficiency anemia, unspecified iron deficiency anemia type Dilated cardiomyopathy (CMS/HCC) Other primary cardiomyopathies RLS (restless legs syndrome) Restless legs syndrome (RLS) Anxiety and depression (CMS/HCC) Vitamin D deficiency Iron deficiency anemia, unspecified iron deficiency anemia type- Primary Paroxysmal atrial fibrillation (CMS/HCC) Atrial fibrillation Other ventricular tachycardia (CMS/HCC) Dilated cardiomyopathy (CMS/HCC) Other primary cardiomyopathies Asthma-COPD overlap syndrome ([facility]/HCC) Encounter for checking of automatic implantable cardioverter-defibrillator (AICD) RLS (restless legs syndrome) Restless legs syndrome (RLS) ICD (implantable cardioverter-defibrillator) in place Primary hypertension ([facility]/HCC) Unspecified essential hypertension Hx of bariatric surgery Class 1 obesity due to excess calories with serious comorbidity and body mass index (BMI) of 31.0 to 31.9 in adult Vitamin B12 deficiency Other B-complex deficiencies Vitamin D deficiency Screening for prostate cancer Special screening for malignant neoplasm of prostate Chronic bilateral low back pain with left-sided sciatica Lumbago with sciatica, left side Restless legs syndrome Restless legs syndrome (RLS) Anxiety and depression (CMS/HCC) Subacute maxillary sinusitis Iron deficiency anemia, unspecified iron deficiency anemia type- Primary documented in this encounter [facility] HealthcareEvaluation note* Diagnosis Primary hypertension (CMS/HCC)- Primary Unspecified essential hypertension Anxiety and depression (CMS/HCC) Overweight (BMI 25.0-29.9) Overweight Acute non-recurrent sinusitis of other sinus Anxiety and depression (CMS/HCC)- Primary Overweight (BMI 25.0-29.9) Overweight Difficulty concentrating Other general symptoms Anxiety and depression (CMS/HCC)- Primary Primary hypertension (CMS/HCC) Unspecified essential hypertension Vitamin D deficiency Anemia due to other cause, not classified Screening for prostate cancer Special screening for malignant neoplasm of prostate Cardiomyopathy, unspecified type (CMS/HCC) Impacted cerumen of right ear Impacted cerumen Medical non-compliance Other fatigue- Primary Cardiomyopathy, unspecified type (CMS/HCC) Dilated cardiomyopathy (CMS/HCC) Other primary cardiomyopathies Primary hypertension (CMS/HCC) Unspecified essential hypertension Overweight (BMI 25.0-29.9) Overweight Vitamin D deficiency- Primary Iron deficiency anemia, unspecified iron deficiency anemia type Dilated cardiomyopathy (CMS/HCC) Other primary cardiomyopathies Vitamin B12 deficiency Other B-complex deficiencies Iron deficiency anemia, unspecified iron deficiency anemia type- Primary Iron deficiency anemia, unspecified iron deficiency anemia type- Primary Overweight (BMI 25.0-29.9) Overweight Anxiety and depression (CMS/HCC)- Primary Primary hypertension (CMS/HCC) Unspecified essential hypertension Iron deficiency anemia, unspecified iron deficiency anemia type Overweight (BMI 25.0-29.9) Overweight Other fatigue Vitamin D deficiency Vitamin B12 deficiency Other B-complex deficiencies Essential (hemorrhagic) thrombocythemia Other ventricular tachycardia Paroxysmal atrial fibrillation (CMS/HCC) Atrial fibrillation Heart failure, unspecified (CMS/HCC) Heart failure, unspecified 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 Class 1 obesity due to excess calories with serious comorbidity and body mass index (BMI) of 31.0 to 31.9 in adult Vitamin D deficiency Iron deficiency anemia, unspecified iron deficiency anemia type Hx of bariatric surgery Lumbago with sciatica, right side Moderate persistent asthma without complication (CMS/HCC)- Primary Class 1 obesity due to excess calories with serious comorbidity and body mass index (BMI) of 31.0 to 31.9 in adult Primary hypertension (CMS/HCC) Unspecified essential hypertension Iron deficiency anemia, unspecified iron deficiency anemia type Dilated cardiomyopathy (CMS/HCC) Other primary cardiomyopathies RLS (restless legs syndrome) Restless legs syndrome (RLS) Anxiety and depression (CMS/HCC) Vitamin D deficiency Iron deficiency anemia, unspecified iron deficiency anemia type- Primary Paroxysmal atrial fibrillation (CMS/HCC) Atrial fibrillation Other ventricular tachycardia Dilated cardiomyopathy (CMS/HCC) Other primary cardiomyopathies Asthma-COPD overlap syndrome (CMS/HCC) Encounter for checking of automatic implantable cardioverter-defibrillator (AICD) RLS (restless legs syndrome) Restless legs syndrome (RLS) ICD (implantable cardioverter-defibrillator) in place Primary hypertension (CMS/HCC) Unspecified essential hypertension Hx of bariatric surgery Class 1 obesity due to excess calories with serious comorbidity and body mass index (BMI) of 31.0 to 31.9 in adult Vitamin B12 deficiency Other B-complex deficiencies Vitamin D deficiency Screening for prostate cancer Special screening for malignant neoplasm of prostate Chronic bilateral low back pain with left-sided sciatica Lumbago with sciatica, left side Restless legs syndrome Restless legs syndrome (RLS) Anxiety and depression (CMS/HCC) Subacute maxillary sinusitis Sinusitis, unspecified chronicity, unspecified location- Primary documented in this encounter [facility] HealthcareEvaluation note* Diagnosis Primary hypertension (CMS/HCC)- Primary Unspecified essential hypertension Anxiety and depression (CMS/HCC) Overweight (BMI 25.0-29.9) Overweight Acute non-recurrent sinusitis of other sinus Anxiety and depression (CMS/HCC)- Primary Overweight (BMI 25.0-29.9) Overweight Difficulty concentrating Other general symptoms Anxiety and depression (CMS/HCC)- Primary Primary hypertension (CMS/HCC) Unspecified essential hypertension Vitamin D deficiency Anemia due to other cause, not classified Screening for prostate cancer Special screening for malignant neoplasm of prostate Cardiomyopathy, unspecified type (CMS/HCC) Impacted cerumen of right ear Impacted cerumen Medical non-compliance Other fatigue- Primary Cardiomyopathy, unspecified type (CMS/HCC) Dilated cardiomyopathy (CMS/HCC) Other primary cardiomyopathies Primary hypertension (CMS/HCC) Unspecified essential hypertension Overweight (BMI 25.0-29.9) Overweight Vitamin D deficiency- Primary Iron deficiency anemia, unspecified iron deficiency anemia type Dilated cardiomyopathy (CMS/HCC) Other primary cardiomyopathies Vitamin B12 deficiency Other B-complex deficiencies Iron deficiency anemia, unspecified iron deficiency anemia type- Primary Iron deficiency anemia, unspecified iron deficiency anemia type- Primary Overweight (BMI 25.0-29.9) Overweight Anxiety and depression (CMS/HCC)- Primary Primary hypertension (CMS/HCC) Unspecified essential hypertension Iron deficiency anemia, unspecified iron deficiency anemia type Overweight (BMI 25.0-29.9) Overweight Other fatigue Vitamin D deficiency Vitamin B12 deficiency Other B-complex deficiencies Essential (hemorrhagic) thrombocythemia Other ventricular tachycardia Paroxysmal atrial fibrillation (CMS/HCC) Atrial fibrillation Heart failure, unspecified (CMS/HCC) Heart failure, unspecified 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 Class 1 obesity due to excess calories with serious comorbidity and body mass index (BMI) of 31.0 to 31.9 in adult Vitamin D deficiency Iron deficiency anemia, unspecified iron deficiency anemia type Hx of bariatric surgery Lumbago with sciatica, right side Moderate persistent asthma without complication (CMS/HCC)- Primary Class 1 obesity due to excess calories with serious comorbidity and body mass index (BMI) of 31.0 to 31.9 in adult Primary hypertension (CMS/HCC) Unspecified essential hypertension Iron deficiency anemia, unspecified iron deficiency anemia type Dilated cardiomyopathy (CMS/HCC) Other primary cardiomyopathies RLS (restless legs syndrome) Restless legs syndrome (RLS) Anxiety and depression (CMS/HCC) Vitamin D deficiency Iron deficiency anemia, unspecified iron deficiency anemia type- Primary Paroxysmal atrial fibrillation (CMS/HCC) Atrial fibrillation Other ventricular tachycardia Dilated cardiomyopathy (CMS/HCC) Other primary cardiomyopathies Asthma-COPD overlap syndrome (CMS/HCC) Encounter for checking of automatic implantable cardioverter-defibrillator (AICD) RLS (restless legs syndrome) Restless legs syndrome (RLS) ICD (implantable cardioverter-defibrillator) in place Primary hypertension (CMS/HCC) Unspecified essential hypertension Hx of bariatric surgery Class 1 obesity due to excess calories with serious comorbidity and body mass index (BMI) of 31.0 to 31.9 in adult Vitamin B12 deficiency Other B-complex deficiencies Vitamin D deficiency Screening for prostate cancer Special screening for malignant neoplasm of prostate Chronic bilateral low back pain with left-sided sciatica Lumbago with sciatica, left side Restless legs syndrome Restless legs syndrome (RLS) Anxiety and depression (CMS/HCC) Subacute maxillary sinusitis Subacute maxillary sinusitis- Primary documented in this encounter [facility] HealthcareEvaluation note* Diagnosis Primary hypertension- Primary Unspecified essential hypertension Anxiety and depression Overweight (BMI 25.0-29.9) Overweight Acute non-recurrent sinusitis of other sinus Anxiety and depression- Primary Overweight (BMI 25.0-29.9) Overweight Difficulty concentrating Other general symptoms Anxiety and depression- Primary Primary hypertension Unspecified essential hypertension Vitamin D deficiency Anemia due to other cause, not classified Screening for prostate cancer Special screening for malignant neoplasm of prostate Cardiomyopathy, unspecified type (HCC) Impacted cerumen of right ear Impacted cerumen Medical non-compliance Other fatigue- Primary Cardiomyopathy, unspecified type (HCC) Dilated cardiomyopathy (HCC) Other primary cardiomyopathies Primary hypertension Unspecified essential hypertension Overweight (BMI 25.0-29.9) Overweight Vitamin D deficiency- Primary Iron deficiency anemia, unspecified iron deficiency anemia type Dilated cardiomyopathy (HCC) Other primary cardiomyopathies Vitamin B12 deficiency Other B-complex deficiencies Iron deficiency anemia, unspecified iron deficiency anemia type- Primary Iron deficiency anemia, unspecified iron deficiency anemia type- Primary Overweight (BMI 25.0-29.9) Overweight Anxiety and depression- Primary Primary hypertension Unspecified essential hypertension Iron deficiency anemia, unspecified iron deficiency anemia type Overweight (BMI 25.0-29.9) Overweight Other fatigue Vitamin D deficiency Vitamin B12 deficiency Other B-complex deficiencies Essential (hemorrhagic) thrombocythemia (HCC) Other ventricular tachycardia (HCC) Paroxysmal atrial fibrillation (HCC) Atrial fibrillation Heart failure, unspecified (HCC) Heart failure, unspecified 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 Class 1 obesity due to excess calories with serious comorbidity and body mass index (BMI) of 31.0 to 31.9 in adult Vitamin D deficiency Iron deficiency anemia, unspecified iron deficiency anemia type Hx of bariatric surgery Lumbago with sciatica, right side Moderate persistent asthma without complication (HCC)- Primary Class 1 obesity due to excess calories with serious comorbidity and body mass index (BMI) of 31.0 to 31.9 in adult Primary hypertension Unspecified essential hypertension Iron deficiency anemia, unspecified iron deficiency anemia type Dilated cardiomyopathy (HCC) Other primary cardiomyopathies RLS (restless legs syndrome) Restless legs syndrome (RLS) Anxiety and depression Vitamin D deficiency Iron deficiency anemia, unspecified iron deficiency anemia type- Primary Paroxysmal atrial fibrillation (HCC) Atrial fibrillation Other ventricular tachycardia (HCC) Dilated cardiomyopathy (HCC) Other primary cardiomyopathies Asthma-COPD overlap syndrome (HCC) Encounter for checking of automatic implantable cardioverter-defibrillator (AICD) RLS (restless legs syndrome) Restless legs syndrome (RLS) ICD (implantable cardioverter-defibrillator) in place Primary hypertension Unspecified essential hypertension Hx of bariatric surgery Class 1 obesity due to excess calories with serious comorbidity and body mass index (BMI) of 31.0 to 31.9 in adult Vitamin B12 deficiency Other B-complex deficiencies Vitamin D deficiency Screening for prostate cancer Special screening for malignant neoplasm of prostate Chronic bilateral low back pain with left-sided sciatica Lumbago with sciatica, left side Restless legs syndrome Restless legs syndrome (RLS) Anxiety and depression Subacute maxillary sinusitis Primary hypertension- Primary Unspecified essential hypertension Essential (hemorrhagic) thrombocythemia (HCC) RLS (restless legs syndrome) Restless legs syndrome (RLS) Asthma-COPD overlap syndrome (HCC) Dilated cardiomyopathy (HCC) Other primary cardiomyopathies ICD (implantable cardioverter-defibrillator) in place Paroxysmal atrial fibrillation (HCC) Atrial fibrillation Hx of bariatric surgery Class 1 obesity due to excess calories with serious comorbidity and body mass index (BMI) of 31.0 to 31.9 in adult Vitamin B12 deficiency Other B-complex deficiencies Vitamin D deficiency Iron deficiency anemia, unspecified iron deficiency anemia type Anxiety and depression Lumbar spondylosis Lumbosacral spondylosis without myelopathy Lumbago with sciatica, left side Restless legs syndrome Restless legs syndrome (RLS) documented in this encounter [facility] HealthcareEvaluation note* Diagnosis Dilated cardiomyopathy (CMS-HCC) Other primary cardiomyopathies Non-ischemic cardiomyopathy (CMS-HCC) Other primary cardiomyopathies ICD (implantable cardioverter-defibrillator) in place-[employer] Moderate left ventricular systolic dysfunction - LVEF 40-45% on 2D echocardiogram 2017 Heart failure with reduced ejection fraction, NYHA class II (CMS-HCC) documented in this encounter [facility] SystemEvaluation note* Diagnosis Primary hypertension- Primary Unspecified essential hypertension Anxiety and depression Overweight (BMI 25.0-29.9) Overweight Acute non-recurrent sinusitis of other sinus Anxiety and depression- Primary Overweight (BMI 25.0-29.9) Overweight Difficulty concentrating Other general symptoms Anxiety and depression- Primary Primary hypertension Unspecified essential hypertension Vitamin D deficiency Anemia due to other cause, not classified Screening for prostate cancer Special screening for malignant neoplasm of prostate Cardiomyopathy, unspecified type (HCC) Impacted cerumen of right ear Impacted cerumen Medical non-compliance Other fatigue- Primary Cardiomyopathy, unspecified type (HCC) Dilated cardiomyopathy (HCC) Other primary cardiomyopathies Primary hypertension Unspecified essential hypertension Overweight (BMI 25.0-29.9) Overweight Vitamin D deficiency- Primary Iron deficiency anemia, unspecified iron deficiency anemia type Dilated cardiomyopathy (HCC) Other primary cardiomyopathies Vitamin B12 deficiency Other B-complex deficiencies Iron deficiency anemia, unspecified iron deficiency anemia type- Primary Iron deficiency anemia, unspecified iron deficiency anemia type- Primary Overweight (BMI 25.0-29.9) Overweight Anxiety and depression- Primary Primary hypertension Unspecified essential hypertension Iron deficiency anemia, unspecified iron deficiency anemia type Overweight (BMI 25.0-29.9) Overweight Other fatigue Vitamin D deficiency Vitamin B12 deficiency Other B-complex deficiencies Essential (hemorrhagic) thrombocythemia (HCC) Other ventricular tachycardia (HCC) Paroxysmal atrial fibrillation (HCC) Atrial fibrillation Heart failure, unspecified (HCC) Heart failure, unspecified 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 Class 1 obesity due to excess calories with serious comorbidity and body mass index (BMI) of 31.0 to 31.9 in adult Vitamin D deficiency Iron deficiency anemia, unspecified iron deficiency anemia type Hx of bariatric surgery Lumbago with sciatica, right side Moderate persistent asthma without complication (HCC)- Primary Class 1 obesity due to excess calories with serious comorbidity and body mass index (BMI) of 31.0 to 31.9 in adult Primary hypertension Unspecified essential hypertension Iron deficiency anemia, unspecified iron deficiency anemia type Dilated cardiomyopathy (HCC) Other primary cardiomyopathies RLS (restless legs syndrome) Restless legs syndrome (RLS) Anxiety and depression Vitamin D deficiency Iron deficiency anemia, unspecified iron deficiency anemia type- Primary Paroxysmal atrial fibrillation (HCC) Atrial fibrillation Other ventricular tachycardia (HCC) Dilated cardiomyopathy (HCC) Other primary cardiomyopathies Asthma-COPD overlap syndrome (HCC) Encounter for checking of automatic implantable cardioverter-defibrillator (AICD) RLS (restless legs syndrome) Restless legs syndrome (RLS) ICD (implantable cardioverter-defibrillator) in place Primary hypertension Unspecified essential hypertension Hx of bariatric surgery Class 1 obesity due to excess calories with serious comorbidity and body mass index (BMI) of 31.0 to 31.9 in adult Vitamin B12 deficiency Other B-complex deficiencies Vitamin D deficiency Screening for prostate cancer Special screening for malignant neoplasm of prostate Chronic bilateral low back pain with left-sided sciatica Lumbago with sciatica, left side Restless legs syndrome Restless legs syndrome (RLS) Anxiety and depression Subacute maxillary sinusitis Primary hypertension- Primary Unspecified essential hypertension Essential (hemorrhagic) thrombocythemia (HCC) RLS (restless legs syndrome) Restless legs syndrome (RLS) Asthma-COPD overlap syndrome (HCC) Dilated cardiomyopathy (HCC) Other primary cardiomyopathies ICD (implantable cardioverter-defibrillator) in place Paroxysmal atrial fibrillation (HCC) Atrial fibrillation Hx of bariatric surgery Class 1 obesity due to excess calories with serious comorbidity and body mass index (BMI) of 31.0 to 31.9 in adult Vitamin B12 deficiency Other B-complex deficiencies Vitamin D deficiency Iron deficiency anemia, unspecified iron deficiency anemia type Anxiety and depression Lumbar spondylosis Lumbosacral spondylosis without myelopathy Lumbago with sciatica, left side Restless legs syndrome Restless legs syndrome (RLS) Iron deficiency anemia, unspecified iron deficiency anemia type- Primary documented in this encounter [facility] HealthcareEvaluation note* Diagnosis Primary hypertension- Primary Unspecified essential hypertension Anxiety and depression Overweight (BMI 25.0-29.9) Overweight Acute non-recurrent sinusitis of other sinus Anxiety and depression- Primary Overweight (BMI 25.0-29.9) Overweight Difficulty concentrating Other general symptoms Anxiety and depression- Primary Primary hypertension Unspecified essential hypertension Vitamin D deficiency Anemia due to other cause, not classified Screening for prostate cancer Special screening for malignant neoplasm of prostate Cardiomyopathy, unspecified type (HCC) Impacted cerumen of right ear Impacted cerumen Medical non-compliance Other fatigue- Primary Cardiomyopathy, unspecified type (HCC) Dilated cardiomyopathy (HCC) Other primary cardiomyopathies Primary hypertension Unspecified essential hypertension Overweight (BMI 25.0-29.9) Overweight Vitamin D deficiency- Primary Iron deficiency anemia, unspecified iron deficiency anemia type Dilated cardiomyopathy (HCC) Other primary cardiomyopathies Vitamin B12 deficiency Other B-complex deficiencies Iron deficiency anemia, unspecified iron deficiency anemia type- Primary Iron deficiency anemia, unspecified iron deficiency anemia type- Primary Overweight (BMI 25.0-29.9) Overweight Anxiety and depression- Primary Primary hypertension Unspecified essential hypertension Iron deficiency anemia, unspecified iron deficiency anemia type Overweight (BMI 25.0-29.9) Overweight Other fatigue Vitamin D deficiency Vitamin B12 deficiency Other B-complex deficiencies Essential (hemorrhagic) thrombocythemia (HCC) Other ventricular tachycardia (HCC) Paroxysmal atrial fibrillation (HCC) Atrial fibrillation Heart failure, unspecified (HCC) Heart failure, unspecified 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 Class 1 obesity due to excess calories with serious comorbidity and body mass index (BMI) of 31.0 to 31.9 in adult Vitamin D deficiency Iron deficiency anemia, unspecified iron deficiency anemia type Hx of bariatric surgery Lumbago with sciatica, right side Moderate persistent asthma without complication (HCC)- Primary Class 1 obesity due to excess calories with serious comorbidity and body mass index (BMI) of 31.0 to 31.9 in adult Primary hypertension Unspecified essential hypertension Iron deficiency anemia, unspecified iron deficiency anemia type Dilated cardiomyopathy (HCC) Other primary cardiomyopathies RLS (restless legs syndrome) Restless legs syndrome (RLS) Anxiety and depression Vitamin D deficiency Iron deficiency anemia, unspecified iron deficiency anemia type- Primary Paroxysmal atrial fibrillation (HCC) Atrial fibrillation Other ventricular tachycardia (HCC) Dilated cardiomyopathy (HCC) Other primary cardiomyopathies Asthma-COPD overlap syndrome (HCC) Encounter for checking of automatic implantable cardioverter-defibrillator (AICD) RLS (restless legs syndrome) Restless legs syndrome (RLS) ICD (implantable cardioverter-defibrillator) in place Primary hypertension Unspecified essential hypertension Hx of bariatric surgery Class 1 obesity due to excess calories with serious comorbidity and body mass index (BMI) of 31.0 to 31.9 in adult Vitamin B12 deficiency Other B-complex deficiencies Vitamin D deficiency Screening for prostate cancer Special screening for malignant neoplasm of prostate Chronic bilateral low back pain with left-sided sciatica Lumbago with sciatica, left side Restless legs syndrome Restless legs syndrome (RLS) Anxiety and depression Subacute maxillary sinusitis Primary hypertension- Primary Unspecified essential hypertension Essential (hemorrhagic) thrombocythemia (HCC) RLS (restless legs syndrome) Restless legs syndrome (RLS) Asthma-COPD overlap syndrome (HCC) Dilated cardiomyopathy (HCC) Other primary cardiomyopathies ICD (implantable cardioverter-defibrillator) in place Paroxysmal atrial fibrillation (HCC) Atrial fibrillation Hx of bariatric surgery Class 1 obesity due to excess calories with serious comorbidity and body mass index (BMI) of 31.0 to 31.9 in adult Vitamin B12 deficiency Other B-complex deficiencies Vitamin D deficiency Iron deficiency anemia, unspecified iron deficiency anemia type Anxiety and depression Lumbar spondylosis Lumbosacral spondylosis without myelopathy Lumbago with sciatica, left side Restless legs syndrome Restless legs syndrome (RLS) Acquired spondylolisthesis of lumbosacral region- Primary documented in this encounter [facility] HealthcareEvaluation note* Diagnosis Primary hypertension- Primary Unspecified essential hypertension Anxiety and depression Overweight (BMI 25.0-29.9) Overweight Acute non-recurrent sinusitis of other sinus Anxiety and depression- Primary Primary hypertension Unspecified essential hypertension Vitamin D deficiency Anemia due to other cause, not classified Screening for prostate cancer Special screening for malignant neoplasm of prostate Cardiomyopathy, unspecified type (HCC) Impacted cerumen of right ear Impacted cerumen Medical non-compliance Other fatigue- Primary Cardiomyopathy, unspecified type (HCC) Dilated cardiomyopathy (HCC) Other primary cardiomyopathies Primary hypertension Unspecified essential hypertension Overweight (BMI 25.0-29.9) Overweight Vitamin D deficiency- Primary Iron deficiency anemia, unspecified iron deficiency anemia type Dilated cardiomyopathy (HCC) Other primary cardiomyopathies Vitamin B12 deficiency Other B-complex deficiencies Iron deficiency anemia, unspecified iron deficiency anemia type- Primary Iron deficiency anemia, unspecified iron deficiency anemia type- Primary Overweight (BMI 25.0-29.9) Overweight Anxiety and depression- Primary Primary hypertension Unspecified essential hypertension Iron deficiency anemia, unspecified iron deficiency anemia type Overweight (BMI 25.0-29.9) Overweight Other fatigue Vitamin D deficiency Vitamin B12 deficiency Other B-complex deficiencies Essential (hemorrhagic) thrombocythemia (HCC) Other ventricular tachycardia (HCC) Paroxysmal atrial fibrillation (HCC) Atrial fibrillation Heart failure, unspecified (HCC) Heart failure, unspecified 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 Class 1 obesity due to excess calories with serious comorbidity and body mass index (BMI) of 31.0 to 31.9 in adult Vitamin D deficiency Iron deficiency anemia, unspecified iron deficiency anemia type Hx of bariatric surgery Lumbago with sciatica, right side Moderate persistent asthma without complication (HCC)- Primary Class 1 obesity due to excess calories with serious comorbidity and body mass index (BMI) of 31.0 to 31.9 in adult Primary hypertension Unspecified essential hypertension Iron deficiency anemia, unspecified iron deficiency anemia type Dilated cardiomyopathy (HCC) Other primary cardiomyopathies RLS (restless legs syndrome) Restless legs syndrome (RLS) Anxiety and depression Vitamin D deficiency Iron deficiency anemia, unspecified iron deficiency anemia type- Primary Paroxysmal atrial fibrillation (HCC) Atrial fibrillation Other ventricular tachycardia (HCC) Dilated cardiomyopathy (HCC) Other primary cardiomyopathies Asthma-COPD overlap syndrome (HCC) Encounter for checking of automatic implantable cardioverter-defibrillator (AICD) RLS (restless legs syndrome) Restless legs syndrome (RLS) ICD (implantable cardioverter-defibrillator) in place Primary hypertension Unspecified essential hypertension Hx of bariatric surgery Class 1 obesity due to excess calories with serious comorbidity and body mass index (BMI) of 31.0 to 31.9 in adult Vitamin B12 deficiency Other B-complex deficiencies Vitamin D deficiency Screening for prostate cancer Special screening for malignant neoplasm of prostate Chronic bilateral low back pain with left-sided sciatica Lumbago with sciatica, left side Restless legs syndrome Restless legs syndrome (RLS) Anxiety and depression Subacute maxillary sinusitis Primary hypertension- Primary Unspecified essential hypertension Essential (hemorrhagic) thrombocythemia (HCC) RLS (restless legs syndrome) Restless legs syndrome (RLS) Asthma-COPD overlap syndrome (HCC) Dilated cardiomyopathy (HCC) Other primary cardiomyopathies ICD (implantable cardioverter-defibrillator) in place Paroxysmal atrial fibrillation (HCC) Atrial fibrillation Hx of bariatric surgery Class 1 obesity due to excess calories with serious comorbidity and body mass index (BMI) of 31.0 to 31.9 in adult Vitamin B12 deficiency Other B-complex deficiencies Vitamin D deficiency Iron deficiency anemia, unspecified iron deficiency anemia type Anxiety and depression Lumbar spondylosis Lumbosacral spondylosis without myelopathy Lumbago with sciatica, left side Restless legs syndrome Restless legs syndrome (RLS) Mild episode of recurrent major depressive disorder History of alcohol abuse Nondependent alcohol abuse, in remission Vitamin D deficiency documented in this encounter [facility] HealthcareEvaluation note* Diagnosis Dilated cardiomyopathy (CMS-HCC)- Primary Other primary cardiomyopathies Moderate left ventricular systolic dysfunction - LVEF 40-45% on 2D echocardiogram 2017 Heart failure with reduced ejection fraction, NYHA class II (CMS-HCC) ICD (implantable cardioverter-defibrillator) in place-[employer] documented in this encounter [facility] SystemEvaluation note* Diagnosis ICD (implantable cardioverter-defibrillator) in place-[employer]- Primary documented in this encounter [facility] SystemEvaluation note* Diagnosis Primary hypertension- Primary Unspecified essential hypertension Anxiety and depression Overweight (BMI 25.0-29.9) Overweight Acute non-recurrent sinusitis of other sinus Anxiety and depression- Primary Primary hypertension Unspecified essential hypertension Vitamin D deficiency Anemia due to other cause, not classified Screening for prostate cancer Special screening for malignant neoplasm of prostate Cardiomyopathy, unspecified type (HCC) Impacted cerumen of right ear Impacted cerumen Medical non-compliance Other fatigue- Primary Cardiomyopathy, unspecified type (HCC) Dilated cardiomyopathy (HCC) Other primary cardiomyopathies Primary hypertension Unspecified essential hypertension Overweight (BMI 25.0-29.9) Overweight Vitamin D deficiency- Primary Iron deficiency anemia, unspecified iron deficiency anemia type Dilated cardiomyopathy (HCC) Other primary cardiomyopathies Vitamin B12 deficiency Other B-complex deficiencies Iron deficiency anemia, unspecified iron deficiency anemia type- Primary Iron deficiency anemia, unspecified iron deficiency anemia type- Primary Overweight (BMI 25.0-29.9) Overweight Anxiety and depression- Primary Primary hypertension Unspecified essential hypertension Iron deficiency anemia, unspecified iron deficiency anemia type Overweight (BMI 25.0-29.9) Overweight Other fatigue Vitamin D deficiency Vitamin B12 deficiency Other B-complex deficiencies Essential (hemorrhagic) thrombocythemia (HCC) Other ventricular tachycardia (HCC) Paroxysmal atrial fibrillation (HCC) Atrial fibrillation Heart failure, unspecified (HCC) Heart failure, unspecified 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 Class 1 obesity due to excess calories with serious comorbidity and body mass index (BMI) of 31.0 to 31.9 in adult Vitamin D deficiency Iron deficiency anemia, unspecified iron deficiency anemia type Hx of bariatric surgery Lumbago with sciatica, right side Moderate persistent asthma without complication (HCC)- Primary Class 1 obesity due to excess calories with serious comorbidity and body mass index (BMI) of 31.0 to 31.9 in adult Primary hypertension Unspecified essential hypertension Iron deficiency anemia, unspecified iron deficiency anemia type Dilated cardiomyopathy (HCC) Other primary cardiomyopathies RLS (restless legs syndrome) Restless legs syndrome (RLS) Anxiety and depression Vitamin D deficiency Iron deficiency anemia, unspecified iron deficiency anemia type- Primary Paroxysmal atrial fibrillation (HCC) Atrial fibrillation Other ventricular tachycardia (HCC) Dilated cardiomyopathy (HCC) Other primary cardiomyopathies Asthma-COPD overlap syndrome (HCC) Encounter for checking of automatic implantable cardioverter-defibrillator (AICD) RLS (restless legs syndrome) Restless legs syndrome (RLS) ICD (implantable cardioverter-defibrillator) in place Primary hypertension Unspecified essential hypertension Hx of bariatric surgery Class 1 obesity due to excess calories with serious comorbidity and body mass index (BMI) of 31.0 to 31.9 in adult Vitamin B12 deficiency Other B-complex deficiencies Vitamin D deficiency Screening for prostate cancer Special screening for malignant neoplasm of prostate Chronic bilateral low back pain with left-sided sciatica Lumbago with sciatica, left side Restless legs syndrome Restless legs syndrome (RLS) Anxiety and depression Subacute maxillary sinusitis Primary hypertension- Primary Unspecified essential hypertension Essential (hemorrhagic) thrombocythemia (HCC) RLS (restless legs syndrome) Restless legs syndrome (RLS) Asthma-COPD overlap syndrome (HCC) Dilated cardiomyopathy (HCC) Other primary cardiomyopathies ICD (implantable cardioverter-defibrillator) in place Paroxysmal atrial fibrillation (HCC) Atrial fibrillation Hx of bariatric surgery Class 1 obesity due to excess calories with serious comorbidity and body mass index (BMI) of 31.0 to 31.9 in adult Vitamin B12 deficiency Other B-complex deficiencies Vitamin D deficiency Iron deficiency anemia, unspecified iron deficiency anemia type Anxiety and depression Lumbar spondylosis Lumbosacral spondylosis without myelopathy Lumbago with sciatica, left side Restless legs syndrome Restless legs syndrome (RLS) Anxiety and depression documented in this encounter [facility] HealthcareEvaluation note* Diagnosis Dilated cardiomyopathy (CMS-HCC) Other primary cardiomyopathies Non-ischemic cardiomyopathy (CMS-HCC) Other primary cardiomyopathies ICD (implantable cardioverter-defibrillator) in place-[employer] Moderate left ventricular systolic dysfunction - LVEF 40-45% on 2D echocardiogram 2018 Heart failure with reduced ejection fraction, NYHA class II (CMS-HCC) documented in this encounter [facility] SystemEvaluation note* Diagnosis Primary hypertension- Primary Unspecified essential hypertension Anxiety and depression Overweight (BMI 25.0-29.9) Overweight Acute non-recurrent sinusitis of other sinus Anxiety and depression- Primary Primary hypertension Unspecified essential hypertension Vitamin D deficiency Anemia due to other cause, not classified Screening for prostate cancer Special screening for malignant neoplasm of prostate Cardiomyopathy, unspecified type (HCC) Impacted cerumen of right ear Impacted cerumen Medical non-compliance Other fatigue- Primary Cardiomyopathy, unspecified type (HCC) Dilated cardiomyopathy (HCC) Other primary cardiomyopathies Primary hypertension Unspecified essential hypertension Overweight (BMI 25.0-29.9) Overweight Vitamin D deficiency- Primary Iron deficiency anemia, unspecified iron deficiency anemia type Dilated cardiomyopathy (HCC) Other primary cardiomyopathies Vitamin B12 deficiency Other B-complex deficiencies Iron deficiency anemia, unspecified iron deficiency anemia type- Primary Iron deficiency anemia, unspecified iron deficiency anemia type- Primary Overweight (BMI 25.0-29.9) Overweight Anxiety and depression- Primary Primary hypertension Unspecified essential hypertension Iron deficiency anemia, unspecified iron deficiency anemia type Overweight (BMI 25.0-29.9) Overweight Other fatigue Vitamin D deficiency Vitamin B12 deficiency Other B-complex deficiencies Essential (hemorrhagic) thrombocythemia (HCC) Other ventricular tachycardia (HCC) Paroxysmal atrial fibrillation (HCC) Atrial fibrillation Heart failure, unspecified (HCC) Heart failure, unspecified 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 Class 1 obesity due to excess calories with serious comorbidity and body mass index (BMI) of 31.0 to 31.9 in adult Vitamin D deficiency Iron deficiency anemia, unspecified iron deficiency anemia type Hx of bariatric surgery Lumbago with sciatica, right side Moderate persistent asthma without complication (HCC)- Primary Class 1 obesity due to excess calories with serious comorbidity and body mass index (BMI) of 31.0 to 31.9 in adult Primary hypertension Unspecified essential hypertension Iron deficiency anemia, unspecified iron deficiency anemia type Dilated cardiomyopathy (HCC) Other primary cardiomyopathies RLS (restless legs syndrome) Restless legs syndrome (RLS) Anxiety and depression Vitamin D deficiency Iron deficiency anemia, unspecified iron deficiency anemia type- Primary Paroxysmal atrial fibrillation (HCC) Atrial fibrillation Other ventricular tachycardia (HCC) Dilated cardiomyopathy (HCC) Other primary cardiomyopathies Asthma-COPD overlap syndrome (HCC) Encounter for checking of automatic implantable cardioverter-defibrillator (AICD) RLS (restless legs syndrome) Restless legs syndrome (RLS) ICD (implantable cardioverter-defibrillator) in place Primary hypertension Unspecified essential hypertension Hx of bariatric surgery Class 1 obesity due to excess calories with serious comorbidity and body mass index (BMI) of 31.0 to 31.9 in adult Vitamin B12 deficiency Other B-complex deficiencies Vitamin D deficiency Screening for prostate cancer Special screening for malignant neoplasm of prostate Chronic bilateral low back pain with left-sided sciatica Lumbago with sciatica, left side Restless legs syndrome Restless legs syndrome (RLS) Anxiety and depression Subacute maxillary sinusitis Primary hypertension- Primary Unspecified essential hypertension Essential (hemorrhagic) thrombocythemia (HCC) RLS (restless legs syndrome) Restless legs syndrome (RLS) Asthma-COPD overlap syndrome (HCC) Dilated cardiomyopathy (HCC) Other primary cardiomyopathies ICD (implantable cardioverter-defibrillator) in place Paroxysmal atrial fibrillation (HCC) Atrial fibrillation Hx of bariatric surgery Class 1 obesity due to excess calories with serious comorbidity and body mass index (BMI) of 31.0 to 31.9 in adult Vitamin B12 deficiency Other B-complex deficiencies Vitamin D deficiency Iron deficiency anemia, unspecified iron deficiency anemia type Anxiety and depression Lumbar spondylosis Lumbosacral spondylosis without myelopathy Lumbago with sciatica, left side Restless legs syndrome Restless legs syndrome (RLS) Acute bronchitis, unspecified documented in this encounter [facility]Evaluation note* Diagnosis Onset Date Resolution Status Admit Date Anxiety acute December 24, 2024 2:31pm Asthma acute December 24, 2024 2:31pm Cardiomyopathy acute December 24, 2024 2:31pm DILIP (iron deficiency anemia) acute December 24, 2024 2:31pm RLS (restless legs syndrome) acute December 24, 2024 2:31pm [facility] Work Phone: History general Narrative - Reported* Type Description Date Medical History asthma Medical History cardiomyopathy Medical History anxiety Medical History ICD Medical History Atrial fibrillation Surgical History gastric bypass 2011 Surgical History umbilical hernia repair Surgical History ICD Surgical History cardiac pacemeker 2019 Hospitalization History see surgical history MostLikely Other Hospital Discharge instructionsNot on filedocumented in this encounterMedina HospitalHospital Discharge instructions* Attachments The following attachments cannot be sent through Care Everywhere. * Anemia caused by low iron ([place]) documented in this encounterProBaptist [facility] Health SystemInstructionsNot on file documented in this encounterProBaptist Medical [facility] East Health SystemInstructionsNot on file documented in this encounterProDelaware County Hospitalca Health SystemInstructionsNot on file documented in this encounterProDelaware County Hospitalca Health SystemInstructionsNot on file documented in this encounterProBaptist [facility] Health SystemInstructionsNot on file documented in this encounterProBaptist [facility] Health SystemInstructionsNot on file documented in this encounterProBaptist [facility] Health SystemInstructionsNot on file documented in this encounterProBaptist [facility] East s0cket SystemInstructionsNot on file documented in this encounterProBaptist [facility] s0cket SystemInstructionsNot on file documented in this encounterUniversity Hospitals [facility] SystemReason for referral (narrative)No reason for referral information availableRegional Medical Center Work Phone: Summary Purpose Family History Relationship Condition Age at Onset Recorded Date/T tatiana father Unknown Heart disease Unknown Not Specified Unknown Relationship Condition Age at Onset Recorded Date/T tatiana father Unknown Heart disease Unknown mother Unknown Advance Directives Date Activated Date Inactivated Comments 08/11/2023 5:30 PM Date Activated Date Inactivated Comments 08/11/2023 5:30 PM Date Activated Date Inactivated Comments 08/14/2023 5:30 PM 08/15/2023 3:34 PM Date Activated Date Inactivated Comments 08/11/2023 5:30 PM 08/12/2023 7:55 AM Date Activated Date Inactivated Comments 08/14/2023 5:30 PM 08/15/2023 3:34 PM Date Activated Date Inactivated Comments 08/11/2023 5:30 PM 08/12/2023 7:55 AM Advance Directive Response Recorded Date/ Time Advance Directives No August 26, 2024 3:43pm Reason for Referral Specialty Diagnoses / Procedures Referred By Roverto t Referred To Contact Diagnoses Dilated cardiomyopathy (CMS-HCC) Non-ischemic cardiomyopathy (CMS-HCC) ICD (implantable cardioverter-defibrillator) in place Procedures Device Interrogation Rocío Fernandes MD [facility], [address] [place] [address] Referral ID Status Reason Start Date Expiration Date V isits Requested Visits Authorized [id number] Pending Review 08/11/2023 08/10/2024 1 1 Chief Complaint and Reason for Visit Chief Complaint Admit Date Established Patient December 24, 2024 2:31pm Reason for Visit Admit Date Anxiety December 24, 2024 2:31pm Asthma December 24, 2024 2:31pm Cardiomyopathy December 24, 2024 2:31pm DILIP (iron deficiency anemia) December 242024 2:31pm RLS (restless legs syndrome) December 242024 2:31pm Additional Source Comments REASON FOR VISIT (unrecogniz ed section and content) Reason Comments Dizziness Specialty Diagnoses / Procedures Referred By Roverto t Referred To Contact Diagnoses Dizziness Iron deficiency anemia, unspecified iron deficiency anemia type Marcin Hopper DO [address] [place] [address] Referral ID Status Reason Start Date Expiration Date Visits Re quested Visits Authorized [id number] 1 1 Reason Comments Med Refill Reason Comments Follow-up Rapid Heart Rate Device Check Reason Comments Device Check Reason Onset Date Comments Med Refill 12/29/2023 Reason Comments Iron Deficiency Reason Onset Date Comments Med Refill 10/09/2024 Reason Comments Psychiatric Evaluation Specialty Diagnoses / Procedures Referred By Roverto t Referred To Contact Behavioral Health Diagnoses Anxiety and depression Procedures PA OFFICE/OUTPATIENT [facility] MDM 60 MINUTES Anny Bruce NP [address] [place] [address] Phone: tel: fax: Dion Teran, PMHNP- [address] [facility] [[email or web address]] [address] [place] [address] Phone: tel: fax: Referral ID Status Reason Start Date Expiration Date V isits Requested Visits Authorized [id number] Closed Specialty Services Required 10/03/2024 04/01/2025 1 1 Reason Onset Date Comments Med Refill 12/16/2024 (unrecognized sect ion and content) No Status Records FoundNo Status Records FoundNo Status Records FoundNo Status Records FoundNo Status Records FoundNo Status Records Found INFORMATION SOURCE (unrecogn ized section and content) DATE CREATED AUTHOR 08/15/2022 [facility] DATE CREATED AUTHOR AUTHOR'S ORGANIZ ATION 08/15/2023 [facility] DATE CREATED AUTHOR AUTHOR'S ORGANIZ ATION 08/24/2023 [facility] DATE CREATED AUTHOR AUTHOR'S ORGANIZ ATION 08/30/2023 [facility] DATE CREATED AUTHOR AUTHOR'S ORGANIZ ATION 10/17/2024 [facility] EPIC DATE CREATED AUTHOR AUTHOR'S ORGANIZ ATION 11/24/2024 [facility] Care Teams (unrecognized sec tion and content) Team Status: Active Member Role Status Dates Yamilet Bhakta APRN THREAD TOOL GRINDER SET UP OPERATOR-C Primary Care Provider Active Team Status: Inactive Member Role Status Dates Yamilet Bhakta APRN THREAD TOOL GRINDER SET UP OPERATOR-C Primary Care Provider Active Start: August 25, 2023 End: August 25, 2023 Anny Bruce Attending Provider Active Start: August 25, 2023 End: August 25, 2023 Battery Container Inspector Relationship Specialty Start Date End Date Anny Bruce NP [address] [place] [address] PCP - [facility] [employer] 09/23/23 Unallocated, Eulalio Pemberton MD [address] [place] [address] PCP - General Family Medicine 02/14/24 Anny Bruce NP [address] [place] [address] Nurse Practitioner Family Medicine 07/04/23 Battery Container Inspector Relationship Specialty Start Date End Date Anny Bruce NP [address] [place] [address] PCP - [facility] [employer] 09/23/23 Unallocated, Eulalio Pemberton MD [address] [place] [address] PCP - General Family Medicine 02/14/24 Anny Bruce NP [address] [place] [address] Nurse Practitioner Family Medicine 07/04/23 Battery Container Inspector Relationship Specialty Start Date End Date Anny Bruce NP [address] [place] [address] PCP - [facility] [employer] 09/23/23 Unallocated, Eulalio Pemberton MD [address] [place] [address] PCP - General Family Medicine 02/14/24 Anny Bruce NP [address] [place] [address] Nurse Practitioner Family Medicine 07/04/23 Battery Container Inspector Relationship Specialty Start Date End Date Jean Pierre Urena MD [address] [place] [address] PCP - General Family Medicine 02/22/24 Anny Bruce NP [address] [place] [address] Nurse Practitioner Family Medicine 07/04/23 Battery Container Inspector Relationship Specialty Start Date End Date Jean Pierre Urena MD [address] [place] [address] PCP - General Family Medicine 02/22/24 Anny Bruce NP [address] [place] [address] Nurse Practitioner Family Medicine 07/04/23 Battery Container Inspector Relationship Specialty Start Date End Date Jean Pierre Urena MD [address] [place] [address] PCP - General Family Medicine 07/04/23 Anny Bruce NP [address] [place] [address] PCP - [facility] 09/23/23 Anny Bruce NP [address] [place] [address] Nurse Practitioner Family Medicine 04/24/22 Anny Bruce NP [address] [place] [address] Nurse Practitioner Family Medicine 07/04/23 Battery Container Inspector Relationship Specialty Start Date End Date Jean Pierre Urena MD [address] [place] [address] PCP - General Family Medicine 07/04/23 Anny Bruce NP [address] [place] [address] PCP - [facility] 09/23/23 Anny Bruce NP [address] [place] [address] Nurse Practitioner Family Medicine 04/24/22 Anny Bruce NP [address] [place] [address] Nurse Practitioner Family Medicine 07/04/23 Battery Container Inspector Relationship Specialty Start Date End Date Jean Pierre Urena MD [address] [place] [address] PCP - General Family Medicine 02/22/24 Anny Bruce NP [address] [place] [address] Nurse Practitioner Family Medicine 07/04/23 Battery Container Inspector Relationship Specialty Start Date End Date Jean Pierre Urena MD [address] [place] [address] PCP - General Family Medicine 07/04/23 Anny Bruce NP [address] [place] [address] PCP - [facility] [employer] 09/23/23 Anny Bruce NP [address] [place] [address] Nurse Practitioner Family Medicine 04/24/22 Anny Bruce NP [address] [place] [address] Nurse Practitioner Family Medicine 07/04/23 Battery Container Inspector Relationship Specialty Start Date End Date Jean Pierre Urena MD [address] [place] [address] PCP - General Family Medicine 07/04/23 Anny Bruce NP [address] [place] [address] PCP - [facility] [employer] 09/23/23 Anny Bruce NP [address] [place] [address] Nurse Practitioner Family Medicine 04/24/22 Anny Bruce NP [address] [place] [address] Nurse Practitioner Family Medicine 07/04/23 Battery Container Inspector Relationship Specialty Start Date End Date Jean Pierre Urena MD [address] [place] [address] PCP - General Family Medicine 07/04/23 Anny Bruce NP [address] [place] [address] PCP - [facility] [employer] 09/23/23 Anny Bruce NP [address] [place] [address] Nurse Practitioner Family Medicine 04/24/22 Anny Bruce NP [address] [place] [address] Nurse Practitioner Family Medicine 07/04/23 Battery Container Inspector Relationship Specialty Start Date End Date Jean Pierre Urena MD [address] [place] [address] PCP - General Family Medicine 07/04/23 Anny Bruce NP [address] [place] [address] PCP - [facility] [employer] 09/23/23 Anny Bruce NP [address] [place] [address] Nurse Practitioner Family Medicine 04/24/22 Anny Bruce NP [address] [place] [address] Nurse Practitioner Family Medicine 07/04/23 Battery Container Inspector Relationship Specialty Start Date End Date Jean Pierre Urena MD [address] [place] [address] PCP - General Family Medicine 07/04/23 Anny Bruce NP [address] [place] [address] PCP - [facility] [employer] 09/23/23 Anny Bruce NP [address] [place] [address] Nurse Practitioner Family Medicine 04/24/22 Anny Bruce NP [address] [place] [address] Nurse Practitioner Family Medicine 07/04/23 Battery Container Inspector Relationship Specialty Start Date End Date Jean Pierre Urena MD [address] [place] [address] PCP - General Family Medicine 07/04/23 Anny Bruce NP [address] [place] [address] PCP - [employer] 09/23/23 Anny Bruce NP [address] [place] [address] Nurse Practitioner Family Medicine 04/24/22 Anny Bruce NP [address] [place] [address] Nurse Practitioner Family Medicine 07/04/23 Battery Container Inspector Relationship Specialty Start Date End Date Jean Pierre Urena MD [address] [place] [address] PCP - General Family Medicine 02/22/24 Anny Bruce NP [address] [place] [address] Nurse Practitioner Family Medicine 07/04/23 Battery Container Inspector Relationship Specialty Start Date End Date Jean Pierre Urena MD [address] [place] [address] PCP - General Family Medicine 02/22/24 Anny Bruce NP [address] [place] [address] Nurse Practitioner Family Medicine 07/04/23 Battery Container Inspector Relationship Specialty Start Date End Date Anny Bruce, GRAINER MACHINE-[employer]BER [address] [place] [address] PCP - General Nurse Practitioner 04/27/22 Battery Container Inspector Relationship Specialty Start Date End Date Anny Bruce, GRA[employer]ER MACHINE[employer] [address] [place] [address] PCP - General Nurse Practitioner 04/27/22 Battery Container Inspector Relationship Specialty Start Date End Date Anny Bruce, GRA[employer]ER MACHINE[employer] [address] [place] [address] PCP - General Nurse Practitioner 04/27/22 Battery Container Inspector Relationship Specialty Start Date End Date Anny Bruce, GRAINER MACHINE-[employer] [address] [place] [address] PCP - General Nurse Practitioner 04/27/22 Battery Container Inspector Relationship Specialty Start Date End Date Anny Bruce, GRAINER MACHINE-[facility] [address] [place] [address] PCP - General Nurse Practitioner 04/27/22 Battery Container Inspector Relationship Specialty Start Date End Date Anny Bruce, [facility] MACHINE[facility] [address] [place] [address] PCP - General Nurse Practitioner 04/27/22 Battery Container Inspector Relationship Specialty Start Date End Date Anny Bruce NP [address] [place] [address] PCP - [employer] 09/23/23 Jean Pierre Urena MD [address] [place] [address] PCP - General Family Medicine 02/22/24 Anny Bruce NP [address] [place] [address] Nurse Practitioner Family Medicine 07/04/23 Battery Container Inspector Relationship Specialty Start Date End Date Anny Bruce NP [address] [place] [address] PCP - [employer] 09/23/23 Jean Pierre Urena MD [address] [place] [address] PCP - General Family Medicine 02/22/24 Anny Bruce NP [address] [place] [address] Nurse Practitioner Family Medicine 07/04/23 Battery Container Inspector Relationship Specialty Start Date End Date Anny Bruce, [facility] [address] [place] [address] PCP - General Nurse Practitioner 04/27/22 Battery Container Inspector Relationship Specialty Start Date End Date Anny Bruce [facility] [address] [place] [address] PCP - General Nurse Practitioner 04/27/22 Battery Container Inspector Relationship Specialty Start Date End Date Anny Bruce, [facility] PCP - General Nurse Practitioner 04/27/22 Battery Container Inspector Relationship Specialty Start Date End Date Anny Bruce NP [address] [place] [address] PCP - [facility] 09/23/23 Jean Pierre Urena MD [address] [place] [address] PCP - General Family Medicine 02/22/24 Anny Bruce NP [address] [place] [address] Nurse Practitioner Family Medicine 07/04/23 Battery Container Inspector Relationship Specialty Start Date End Date Jean Pierre Urena MD [address] [place] [address] PCP - General Family Medicine 02/22/24 Anyn Bruce NP [address] [place] [address] Nurse Practitioner Family Medicine 07/04/23 Battery Container Inspector Relationship Specialty Start Date End Date Anny Bruce, GRAINER MACHINE[employer] PCP - General Nurse Practitioner 04/27/22 Battery Container Inspector Relationship Specialty Start Date End Date Jean Pierre Urena MD [address] [place] [address] PCP - General Family Medicine 02/22/24 Anny Bruce NP [address] [place] [address] Nurse Practitioner Family Medicine 07/04/23 Battery Container Inspector Relationship Specialty Start Date End Date Jean Pierre Urena MD [address] [place] [address] PCP - General Family Medicine 02/22/24 Anny Bruce NP [address] [place] [address] Nurse Practitioner Family Medicine 07/04/23 Battery Container Inspector Relationship Specialty Start Date End Date Jean Pierre Urena MD [address] [place] [address] PCP - General Family Medicine 02/22/24 Anny Bruce NP [address] [place] [address] Nurse Practitioner Family Medicine 07/04/23 Battery Container Inspector Relationship Specialty Start Date End Date Anny Bruce, G[employer] MACHINE[employer] PCP - General Nurse Practitioner 04/27/22 Battery Container Inspector Relationship Specialty Start Date End Date Jean Pierre Urena MD [address] [place] [address] PCP - General Family Medicine 02/22/24 Anny Bruce NP [address] [place] [address] Nurse Practitioner Family Medicine 07/04/23 Battery Container Inspector Relationship Specialty Start Date End Date Jean Pierre Urena MD [address] [place] [address] PCP - General Family Medicine 02/22/24 Anny Bruce NP [address] [place] [address] Nurse Practitioner Family Medicine 07/04/23 Battery Container Inspector Relationship Specialty Start Date End Date Jean Pierre Urena MD [address] [place] [address] PCP - General Family Medicine 02/22/24 Anny Bruce NP [address] [place] [address] Nurse Practitioner Family Medicine 07/04/23 Battery Container Inspector Relationship Specialty Start Date End Date Jean Pierre Urena MD [address] [place] [address] PCP - General Family Medicine 02/22/24 Anny Bruce NP [address] [place] [address] Nurse Practitioner Family Medicine 07/04/23 Battery Container Inspector Relationship Specialty Start Date End Date Jean Pierre Urena MD [address] [place] [address] PCP - General Family Medicine 02/22/24 Anny Bruce NP [address] [place] [address] Nurse Practitioner Family Medicine 07/04/23 Dion Teran, [facility] [address] [place] [address] [place] [address] Nurse Practitioner Behavioral Health 10/16/24 10/16/24 Rocío Fernandes MD [address] [place] [address], [address] [place] [address] Referring Physician Cardiology 10/16/24 Battery Container Inspector Relationship Specialty Start Date End Date Jean Pierre Urena MD [address] [place] [address] PCP - General Family Medicine 02/22/24 Anny Bruce NP [address] [place] [address] Nurse Practitioner Family Medicine 07/04/23 Rocío Fernandes MD [address] [place] [address], [address] [place] [address] Referring Physician Cardiology 10/16/24 Battery Container Inspector Relationship Specialty Start Date End Date Anny Bruce GRAINER MACHINE[employer] PCP - General Nurse Practitioner 04/27/22 Battery Container Inspector Relationship Specialty Start Date End Date Anny Bruce APRN-COUNCIL MEMBER PCP - General Nurse Practitioner 04/27/22 Battery Container Inspector Relationship Specialty Start Date End Date Jean Pierre Urena MD [address] [place] [address] PCP - General Family Medicine 02/22/24 Anny Bruce NP [address] [place] [address] Nurse Practitioner Family Medicine 07/04/23 Rocío Fernandes MD [address] [place] [address], [address] [place] [address] Referring Physician Cardiology 10/16/24 Battery Container Inspector Relationship Specialty Start Date End Date Anny Bruce APRN-COUNCIL MEMBER PCP - General Nurse Practitioner 04/27/22 Battery Container Inspector Relationship Specialty Start Date End Date Jean Pierre Urena MD [address] [place] [address] PCP - General Family Medicine 02/22/24 Anny Bruce NP Nurse Practitioner Family Medicine 07/04/23 Rocío Fernandes MD [address] [place] [address], [address] [place] [address] Referring Physician Cardiology 10/16/24 Team Status: Active Member Role Status Dates Anny Bruce Primary Care Provider Active Team Status: Inactive Member Role Status Dates Anny Bruce Primary Care Provider Active Sta rt: December 24, 2024 End: December 24, 2024 Anny Bruce Attending Provider Active Start: December 24, 2024 End: December 24, 2024 Goals (unrecognized section and content) Goals may be documented in a n alternate section Scheduled Active and Recently Administ ered Medications (unrecognized section and content) Medication Order 08/10/2023 08/11/2023 08/12/2023 amitriptyline (ELAVIL) tablet 10 mg 10 mg, oral, Nightly, First dose on 08/12/23 at 0100 0100 (Due)2199 (Due) carvediloL (COREG) tablet 50 mg 50 mg, oral, Nightly, First dose on 08/12/23 at 0100, Give with meal or snack. Look-alike/sound-alike medication - verify indication for use. 0100 (Due)2199 (Due) losartan (COZAAR) tablet 100 mg 100 mg, oral, Nightly, First dose on 08/12/23 at 0100, Look-alike/sound-alike medication - verify indication for use. 0100 (Due)2199 (Due) sodium chloride 0.9 % flush 3 mL 3 mL, intravenous, Every 12 hours scheduled, First dose on Mon08/11/23 at 2100 2207 (Given - Provider: Narcisa Basurto RN) 0900 (Due)2100 (Due) spironolactone (ALDACTONE) tablet 50 mg 50 mg, oral, Nightly, First dose on 08/12/23 at 0100 0100 (Due)2200 (Due) PRN Medication Order 08/10/2023 08/11/2023 08/12/2023 acetaminophen (TYLENOL) tablet 650 mg 650 mg, oral, Every 6 hours PRN, headaches, temperature greater than 38.3 C, Starting on Mon08/11/23 at 1729 albuterol (PROVENTIL,VENTOLIN) nebulizer solution 2.5 mg 2.5 mg, nebulization, Every 6 hours PRN, wheezing, shortness of breath, Starting on Mon08/12/23 at 0051, Implement INPATIENT/ED Bronchodilator Clinical Practice Guidelines? Yes, Document: \[email or web address].[facility].org\epic\EPIC_Reference\Orders\Resp iratory Care Guidelines\CPG Bronchodilator 2020.pdf calcium gluconate 3,000 mg in sodium chloride 0.9 % 100 mL IVPB 3,000 mg, intravenous, at 43.3 mL/hr, Administer over 3 Hours, As needed, ionized calcium 3.5 to 3.9 mg/dL, Starting on Mon08/11/23 at 1729, IV Administration of calcium via a central or deep vein preferred. Avoid administration in small hand veins VESICANT (RED) calcium gluconate 4,000 mg in sodium chloride 0.9 % 250 mL IVPB 4,000 mg, intravenous, at 72.5 mL/hr, Administer over 4 Hours, As needed, ionized calcium 3.4 mg/dL or less, Starting on Mon08/11/23 at 1729, IV administration of calcium via a central or deep vein is preferred. Avoid administration in small hand veins. VESICANT (RED) calcium gluconate IVPB 2000 mg/100 mL (20 mg/mL premix) 2,000 mg, intravenous, at 50 mL/hr, Administer over 2 Hours, As needed, ionized calcium 4 to 4.3 mg/dL, Starting on Mon08/11/23 at 1729, IV Administration of calcium via a central or deep vein preferred. Avoid administration in small hand veins VESICANT (RED) dextrose (GLUTOSE) 40 % gel 15 g 15 g, oral, As needed, low blood sugar, blood glucose less than 70 mg/dL, Starting on Mon08/11/23 at 1729, If patient conscious and taking PO. If blood glucose is not greater than 70 mg/dL after initial treatment, repeat treatment. dextrose 5 % (D5W) infusion 100 mL/hr, intravenous, Continuous PRN, blood glucose less than 70 mg/dL, Starting on Mon08/11/23 at 1729, Use immediately following dextrose 50% or glucagon treatment for patients who are unconscious or NPO. Contact prescriber for additional orders. If blood glucose is not greater than 70 mg/dL after initial treatment, repeat treatment. dextrose 50 % in water (D50W) 50% solution 25 mL 25 mL, intravenous, As needed, low blood sugar, blood glucose less than 70 mg/dL and unconscious or NPO with IV access, Starting on Mon08/11/23 at 1729, Push over 1-3 minutes STAT. If conscious and not NPO, immediately follow with meal tray or high protein (7 grams) snack if tray not available. If NPO, initiate 5% dextrose in water at 100 mL/hr and contact prescriber for additional orders. If blood glucose is not greater than 70 mg/dL after initial treatment, repeat treatment. VESICANT (RED) Warning: HYPERTONIC solution. glucagon HCL injection 1 mg 1 mg, intramuscular, As needed, low blood sugar, blood glucose less than 70 mg/dL and unconscious or NPO without IV access., Starting on Mon08/11/23 at 1729, If conscious and not NPO, immediately follow with meal tray or high protein (7Grams) snack if tray not available. If NPO, initiate IV 5% Dextrose/Water at 100 mL/hr and contact prescriber for additional orders. If blood glucose is not greater than 70 mg/dL after initial treatment, repeat treatment. magnesium sulfate IVPB 2000 mg/50 mL in iso-osmotic water (40 mg/mL premix) 2,000 mg, intravenous, at 25 mL/hr, Administer over 120 Minutes, As needed, Magnesium level 1.7 to 1.9 mg/dL, or Ionized Magnesium level 0.45 to 0.5 mmol/L., Starting on Mon08/11/23 at 1729, Recheck magnesium level 4 hours after infusion complete. With each magnesium result continue the replacement orders as needed. magnesium sulfate IVPB 4000 mg/100 mL in iso-osmotic water (40 mg/mL premix) 4,000 mg, intravenous, at 25 mL/hr, Administer over 240 Minutes, As needed, Magnesium level 1.6 mg/dL or less, or Ionized Magnesium level 0.44 mmol/L or less, Starting on Mon08/11/23 at 1729, Recheck magnesium level 4 hours after infusion complete. With each magnesium result continue the replacement orders as needed. potassium chloride (K-TAB,KLOR-CON) CR tablet 30-50 mEq(Linked Group 1) 30-50 mEq, oral, As needed, potassium supplementation, Starting on Mon08/11/23 at 1729, Progress to oral potassium replacement when patient tolerating oral intake. If dose administered, recheck potassium level 4 hours after last dose. For potassium level 3.4 to 3.8 mmol/L and GFR 30 mL/min or greater=30 mEq. For potassium level 3.1 to 3.3 mmol/L and GFR 30 mL/min or greater=40 mEq. For potassium level 3 mmol/L or less and GFR 30 mL/min or greater=50 mEq. Do not crush or chew. potassium chloride (KAYCIEL) 20 mEq/15 mL solution 30-50 mEq(Linked Group 1) 30-50 mEq, oral, As needed, potassium supplementation, Starting on Mon08/11/23 at 1729, Progress to oral potassium replacement when patient tolerating oral intake. If dose administered, recheck potassium level 4 hours after last dose. For potassium level 3.4 to 3.8 mmol/L and GFR 30 mL/min or greater=30 mEq. For potassium level 3.1 to 3.3 mmol/L and GFR 30 mL/min or greater=40 mEq. For potassium level 3 mmol/L or less and GFR 30 mL/min or greater=50 mEq. Must dilute before use - Mix in 3-8 ounces of water or juice before administration When administering in feeding tube, flush before and after per policy and monitor potassium levels sod phos di, mono-K phos mono (K-PHOS NEUTRAL) 250 mg tablet 2 tablet(Linked Group 2) 2 tablet, oral, As needed, for phosphorus level 2.3 mg/dL or less., Starting on Mon08/11/23 at 1729, Administer oral dose if patient tolerating PO. If dose administered, recheck phosphorus level 4 hours after last dose. Look-alike/sound-alike medication - verify indication for use. Give with a full glass of water. sodium chloride 0.9 % flush 3 mL 3 mL, intravenous, As needed, line care, before and after each intermittent use, Starting on Mon08/11/23 at 1729 sodium chloride 0.9 % infusion 20 mL/hr, intravenous, Continuous PRN, per policy for blood product transfusion, Starting on Mon08/11/23 at 1441, For 24 hours, Initiate prior to blood product transfusion. Continue before and after each blood product transfusion. Discontinue upon completion of blood product transfusion(s). sodium chloride 0.9 % infusion 20 mL/hr, intravenous, Continuous PRN, to maintain patency of lines, Starting on Mon08/11/23 at 1729 sodium phosphate 20 mmol in sodium chloride 0.9 % 100 mL IVPB(Linked Group 2) 20 mmol, intravenous, at 26.7 mL/hr, Administer over 4 Hours, As needed, for phosphorus level 2.3 mg/dL or less., Starting on Mon08/11/23 at 1729, Administer IV dose if NPO or not tolerating PO. Administer over 4 hours via dedicated line (central line). If administered, recheck phosphorus level 4 hours after infusion complete. Infuse using central line access. sodium phosphate 20 mmol in sodium chloride 0.9 % 250 mL IVPB(Linked Group 2) 20 mmol, intravenous, at 42.8 mL/hr, Administer over 6 Hours, As needed, for phosphorus level 2.3 mg/dL or less, Starting on Mon08/11/23 at 172, Administer IV dose if NPO or not tolerating PO. Administer over 6 hours via dedicated line (peripheral line). If administered, recheck phosphorus level 4 hours after infusion complete. Linked Groups Order Group 1: potassium chloride (K-TAB,KLOR-CON) CR tablet 30-50 mEqJump to med 30-50 mEq, oral, As needed, potassium supplementation, Starting on Mon08/11/23 at 1729, Progress to oral potassium replacement when patient tolerating oral intake. If dose administered, recheck potassium level 4 hours after last dose. For potassium level 3.4 to 3.8 mmol/L and GFR 30 mL/min or greater=30 mEq. For potassium level 3.1 to 3.3 mmol/L and GFR 30 mL/min or greater=40 mEq. For potassium level 3 mmol/L or less and GFR 30 mL/min or greater=50 mEq. Do not crush or chew. Or potassium chloride (KAYCIEL) 20 mEq/15 mL solution 30-50 mEqJump to med 30-50 mEq, oral, As needed, potassium supplementation, Starting on Mon08/11/23 at 1729, Progress to oral potassium replacement when patient tolerating oral intake. If dose administered, recheck potassium level 4 hours after last dose. For potassium level 3.4 to 3.8 mmol/L and GFR 30 mL/min or greater=30 mEq. For potassium level 3.1 to 3.3 mmol/L and GFR 30 mL/min or greater=40 mEq. For potassium level 3 mmol/L or less and GFR 30 mL/min or greater=50 mEq. Must dilute before use - Mix in 3-8 ounces of water or juice before administration When administering in feeding tube, flush before and after per policy and monitor potassium levels Group 2: sodium phosphate 20 mmol in sodium chloride 0.9 % 250 mL IVPBJump to med 20 mmol, intravenous, at 42.8 mL/hr, Administer over 6 Hours, As needed, for phosphorus level 2.3 mg/dL or less, Starting on Mon08/11/23 at 1729, Administer IV dose if NPO or not tolerating PO. Administer over 6 hours via dedicated line (peripheral line). If administered, recheck phosphorus level 4 hours after infusion complete. Or sodium phosphate 20 mmol in sodium chloride 0.9 % 100 mL IVPBJump to med 20 mmol, intravenous, at 26.7 mL/hr, Administer over 4 Hours, As needed, for phosphorus level 2.3 mg/dL or less., Starting on Mon08/11/23 at 1729, Administer IV dose if NPO or not tolerating PO. Administer over 4 hours via dedicated line (central line). If administered, recheck phosphorus level 4 hours after infusion complete. Infuse using central line access. Or sod phos di, mono-K phos mono (K-PHOS NEUTRAL) 250 mg tablet 2 tabletJump to med 2 tablet, oral, As needed, for phosphorus level 2.3 mg/dL or less., Starting on Mon08/11/23 at 1729, Administer oral dose if patient tolerating PO. If dose administered, recheck phosphorus level 4 hours after last dose. Look-alike/sound-alike medication - verify indication for use. Give with a full glass of water. Scheduled Medication Order 08/13/2023 08/14/2023 08/15/2023 famotidine (PEPCID) tablet 20 mg (COMPLETED) 20 mg, oral, Once, On Mon08/15/23 at 1230, For 1 dose 1252 (Given - Provid er: Jasmyne Hollingsworth RN) sodium chloride 0.9 % flush 3 mL 3 mL, intravenous, Every 12 hours scheduled, First dose on Mon08/14/23 at 2100 2335 (Given - Provider: Shadia Feliz RN) 0805 (Given - Provider: Jasmyne Hollingsworth RN) PRN Medication Order 08/13/2023 08/14/2023 08/15/2023 acetaminophen (TYLENOL) tablet 650 mg 650 mg, oral, Every 6 hours PRN, headaches, temperature greater than 38.3 C, Starting on Mon08/14/23 at 1724 calcium gluconate 3,000 mg in sodium chloride 0.9 % 100 mL IVPB 3,000 mg, intravenous, at 43.3 mL/hr, Administer over 3 Hours, As needed, ionized calcium 3.5 to 3.9 mg/dL, Starting on Mon08/14/23 at 1724, IV Administration of calcium via a central or deep vein preferred. Avoid administration in small hand veins VESICANT (RED) calcium gluconate 4,000 mg in sodium chloride 0.9 % 250 mL IVPB 4,000 mg, intravenous, at 72.5 mL/hr, Administer over 4 Hours, As needed, ionized calcium 3.4 mg/dL or less, Starting on Mon08/14/23 at 1724, IV administration of calcium via a central or deep vein is preferred. Avoid administration in small hand veins. VESICANT (RED) calcium gluconate IVPB 2000 mg/100 mL (20 mg/mL premix) 2,000 mg, intravenous, at 50 mL/hr, Administer over 2 Hours, As needed, ionized calcium 4 to 4.3 mg/dL, Starting on Mon08/14/23 at 1724, IV Administration of calcium via a central or deep vein preferred. Avoid administration in small hand veins VESICANT (RED) dextrose (GLUTOSE) 40 % gel 15 g 15 g, oral, As needed, low blood sugar, blood glucose less than 70 mg/dL, Starting on Mon08/14/23 at 1724, If patient conscious and taking PO. If blood glucose is not greater than 70 mg/dL after initial treatment, repeat treatment. dextrose 5 % (D5W) infusion 100 mL/hr, intravenous, Continuous PRN, blood glucose less than 70 mg/dL, Starting on Mon08/14/23 at 1724, Use immediately following dextrose 50% or glucagon treatment for patients who are unconscious or NPO. Contact prescriber for additional orders. If blood glucose is not greater than 70 mg/dL after initial treatment, repeat treatment. dextrose 50 % in water (D50W) 50% solution 25 mL 25 mL, intravenous, As needed, low blood sugar, blood glucose less than 70 mg/dL and unconscious or NPO with IV access, Starting on Mon08/14/23 at 1724, Push over 1-3 minutes STAT. If conscious and not NPO, immediately follow with meal tray or high protein (7 grams) snack if tray not available. If NPO, initiate 5% dextrose in water at 100 mL/hr and contact prescriber for additional orders. If blood glucose is not greater than 70 mg/dL after initial treatment, repeat treatment. VESICANT (RED) Warning: HYPERTONIC solution. glucagon HCL injection 1 mg 1 mg, intramuscular, As needed, low blood sugar, blood glucose less than 70 mg/dL and unconscious or NPO without IV access., Starting on Mon08/14/23 at 1724, If conscious and not NPO, immediately follow with meal tray or high protein (7Grams) snack if tray not available. If NPO, initiate IV 5% Dextrose/Water at 100 mL/hr and contact prescriber for additional orders. If blood glucose is not greater than 70 mg/dL after initial treatment, repeat treatment. magnesium sulfate IVPB 2000 mg/50 mL in iso-osmotic water (40 mg/mL premix) 2,000 mg, intravenous, at 25 mL/hr, Administer over 120 Minutes, As needed, Magnesium level 1.7 to 1.9 mg/dL, or Ionized Magnesium level 0.45 to 0.5 mmol/L., Starting on Mon08/14/23 at 1724, Recheck magnesium level 4 hours after infusion complete. With each magnesium result continue the replacement orders as needed. magnesium sulfate IVPB 4000 mg/100 mL in iso-osmotic water (40 mg/mL premix) 4,000 mg, intravenous, at 25 mL/hr, Administer over 240 Minutes, As needed, Magnesium level 1.6 mg/dL or less, or Ionized Magnesium level 0.44 mmol/L or less, Starting on Mon08/14/23 at 1724, Recheck magnesium level 4 hours after infusion complete. With each magnesium result continue the replacement orders as needed. potassium chloride (K-TAB,KLOR-CON) CR tablet 30-50 mEq(Linked Group 1) 30-50 mEq, oral, As needed, potassium supplementation, Starting on Mon08/14/23 at 1724, Progress to oral potassium replacement when patient tolerating oral intake. If dose administered, recheck potassium level 4 hours after last dose. For potassium level 3.4 to 3.8 mmol/L and GFR 30 mL/min or greater=30 mEq. For potassium level 3.1 to 3.3 mmol/L and GFR 30 mL/min or greater=40 mEq. For potassium level 3 mmol/L or less and GFR 30 mL/min or greater=50 mEq. Do not crush or chew. potassium chloride (KAYCIEL) 20 mEq/15 mL solution 30-50 mEq(Linked Group 1) 30-50 mEq, oral, As needed, potassium supplementation, Starting on Mon08/14/23 at 1724, Progress to oral potassium replacement when patient tolerating oral intake. If dose administered, recheck potassium level 4 hours after last dose. For potassium level 3.4 to 3.8 mmol/L and GFR 30 mL/min or greater=30 mEq. For potassium level 3.1 to 3.3 mmol/L and GFR 30 mL/min or greater=40 mEq. For potassium level 3 mmol/L or less and GFR 30 mL/min or greater=50 mEq. Must dilute before use - Mix in 3-8 ounces of water or juice before administration When administering in feeding tube, flush before and after per policy and monitor potassium levels sod phos di, mono-K phos mono (K-PHOS NEUTRAL) 250 mg tablet 2 tablet(Linked Group 2) 2 tablet, oral, As needed, for phosphorus level 2.3 mg/dL or less., Starting on Mon08/14/23 at 1724, Administer oral dose if patient tolerating PO. If dose administered, recheck phosphorus level 4 hours after last dose. Look-alike/sound-alike medication - verify indication for use. Give with a full glass of water. sodium chloride 0.9 % flush 3 mL 3 mL, intravenous, As needed, line care, before and after each intermittent use, Starting on Mon08/14/23 at 1724 sodium chloride 0.9 % infusion 20 mL/hr, intravenous, Continuous PRN, to maintain patency of lines, Starting on Mon08/14/23 at 1724 sodium phosphate 20 mmol in sodium chloride 0.9 % 100 mL IVPB(Linked Group 2) 20 mmol, intravenous, at 26.7 mL/hr, Administer over 4 Hours, As needed, for phosphorus level 2.3 mg/dL or less., Starting on Mon08/14/23 at 1724, Administer IV dose if NPO or not tolerating PO. Administer over 4 hours via dedicated line (central line). If administered, recheck phosphorus level 4 hours after infusion complete. Infuse using central line access. sodium phosphate 20 mmol in sodium chloride 0.9 % 250 mL IVPB(Linked Group 2) 20 mmol, intravenous, at 42.8 mL/hr, Administer over 6 Hours, As needed, for phosphorus level 2.3 mg/dL or less, Starting on Mon08/14/23 at 1724, Administer IV dose if NPO or not tolerating PO. Administer over 6 hours via dedicated line (peripheral line). If administered, recheck phosphorus level 4 hours after infusion complete. Linked Groups Order Group 1: potassium chloride (K-TAB,KLOR-CON) CR tablet 30-50 mEqJump to med 30-50 mEq, oral, As needed, potassium supplementation, Starting on Mon08/14/23 at 1724, Progress to oral potassium replacement when patient tolerating oral intake. If dose administered, recheck potassium level 4 hours after last dose. For potassium level 3.4 to 3.8 mmol/L and GFR 30 mL/min or greater=30 mEq. For potassium level 3.1 to 3.3 mmol/L and GFR 30 mL/min or greater=40 mEq. For potassium level 3 mmol/L or less and GFR 30 mL/min or greater=50 mEq. Do not crush or chew. Or potassium chloride (KAYCIEL) 20 mEq/15 mL solution 30-50 mEqJump to med 30-50 mEq, oral, As needed, potassium supplementation, Starting on Mon08/14/23 at 1724, Progress to oral potassium replacement when patient tolerating oral intake. If dose administered, recheck potassium level 4 hours after last dose. For potassium level 3.4 to 3.8 mmol/L and GFR 30 mL/min or greater=30 mEq. For potassium level 3.1 to 3.3 mmol/L and GFR 30 mL/min or greater=40 mEq. For potassium level 3 mmol/L or less and GFR 30 mL/min or greater=50 mEq. Must dilute before use - Mix in 3-8 ounces of water or juice before administration When administering in feeding tube, flush before and after per policy and monitor potassium levels Group 2: sodium phosphate 20 mmol in sodium chloride 0.9 % 250 mL IVPBJump to med 20 mmol, intravenous, at 42.8 mL/hr, Administer over 6 Hours, As needed, for phosphorus level 2.3 mg/dL or less, Starting on Mon08/14/23 at 1724, Administer IV dose if NPO or not tolerating PO. Administer over 6 hours via dedicated line (peripheral line). If administered, recheck phosphorus level 4 hours after infusion complete. Or sodium phosphate 20 mmol in sodium chloride 0.9 % 100 mL IVPBJump to med 20 mmol, intravenous, at 26.7 mL/hr, Administer over 4 Hours, As needed, for phosphorus level 2.3 mg/dL or less., Starting on Mon08/14/23 at 1724, Administer IV dose if NPO or not tolerating PO. Administer over 4 hours via dedicated line (central line). If administered, recheck phosphorus level 4 hours after infusion complete. Infuse using central line access. Or sod phos di, mono-K phos mono (K-PHOS NEUTRAL) 250 mg tablet 2 tabletJump to med 2 tablet, oral, As needed, for phosphorus level 2.3 mg/dL or less., Starting on Mon08/14/23 at 1724, Administer oral dose if patient tolerating PO. If dose administered, recheck phosphorus level 4 hours after last dose. Look-alike/sound-alike medication - verify indication for use. Give with a full glass of water. FOR RECORDS PERTAINING TO PATIENTS WHO ARE OR HAVE BEEN ENROLLED IN A CHEMICAL DEPENDENCY/SUBSTANCEABUSE PROGRAM, SOME INFORMATION MAY BE OMITTED. This clinical summary was aggregated from multiple sources. Caution should be exercised in using it in the provision of clinical care. This summary normalizes information from multiple sources, and as a consequence, information in this document may materially change the coding, format and clinical context of patient data. In addition, data may be omitted in some cases. CLINICAL DECISIONS SHOULD BE BASED ON THE PRIMARY CLINICAL RECORDS. [facility]. provides no warranty or guarantee of the accuracy or completeness of information in this document.
[2025-01-07 11:31] LABS: Hematocrit 45.4 % (42.0-54.0); Hemoglobin 15.5 g/dL (14.0-18.0); Immature Granulocytes Abs Auto 0.02 10^3/uL (0.00-0.03); Immature Granulocytes Pct Auto 0.3 % (0.0-0.5); Lymphocytes Absolute Auto 1.6 10^3/uL (1.2-3.8); Mean Corpuscular HGB Conc 34.1 g/dL (29.9-35.2); Mean Corpuscular Hemoglobin 32.0 pg (25.9-34.0); Mean Corpuscular Volume 93.6 fL (80.0-94.0); Platelet Count 347 10^3/uL (150-450); Red Blood Count 4.85 10^6/uL (4.70-6.10); White Blood Count 6.6 10^3/uL (4.0-11.0)
[2025-01-07 12:05] LABS: Alanine Aminotransferase 30 U/L (16-63); Albumin Globulin Ratio 1.1; Albumin Level 3.5 g/dL (3.4-5.0); Alkaline Phosphatase 108 U/L (46-116); Anion Gap 13.0; Aspartate Amino Transferase 15 U/L (15-37); Blood Urea Nitrogen 12.0 mg/dL (7.0-18.0); Calcium 8.3 mg/dL (8.5-10.1); Carbon Dioxide 23.7 mmol/L (21.0-32.0); Chloride 108 mmol/L (98-107); Estimated GFR (African America >60 (>=60 mL/min/1.73m^2); Estimated GFR (Non-African Ame >60 (>=60 mL/min/1.73m^2); Globulin 3.1 g/dL; Glucose 209 mg/dL (74-106); Potassium 3.7 mmol/L (3.5-5.1); Sodium 141 mmol/L (136-145); Total Protein 6.6 g/dL (6.4-8.2)
[2025-01-07 12:07] LABS: Iron 63.0 ug/dL (65.0-175.0); Percent Iron Saturation 19.4 %; Total Iron Binding Capacity 325.0 ug/dL (250.0-450.0)
[2025-01-07 12:32] LABS: Ferritin 72.0 ng/mL (26.0-388.0); Folate 26.40 ng/mL (8.60-58.90)
[2025-01-08 06:08] LABS: Vitamin B12 1045 pg/mL (232-1245)
== END 2025-01-07 10:53 | disposition home or self-care (01) ==
LOC: LAB 10:53
PROVIDERS: PCP Nurse Practitioner; Visit Provider Internal Medicine Hematology & Oncology
DX: D64.9 Anemia, unspecified (principal); D50.9 Iron deficiency anemia, unspecified; K90.9 Intestinal malabsorption, unspecified; D75.839 Thrombocytosis, unspecified
CPT/HCPCS: 36415; 80053; 82306; 82607; 82728; 82746; 83540; 83550; 85025

== ENCOUNTER 2025-01-14 11:56 | Outpatient (RCR) | payer OTHER, SELFPAY | END 2025-01-21 23:59 | disposition home or self-care (01) | LOC: HEMC 11:56 | PROVIDERS: PCP Nurse Practitioner; Visit Provider Internal Medicine Hematology & Oncology | DX: D50.9 Iron deficiency anemia, unspecified (principal); K90.9 Intestinal malabsorption, unspecified; Z98.84 Bariatric surgery status; Z79.01 Long term (current) use of anticoagulants; K21.9 Gastro-esophageal reflux disease without esophagitis; I11.9 Hypertensive heart disease without heart failure; I43 Cardiomyopathy in diseases classified elsewhere; Z95.810 Presence of automatic (implantable) cardiac defibrillator | CPT/HCPCS: G0463 ==

== ENCOUNTER 2025-03-04 08:08 | Outpatient (RCR) | payer OTHER, SELFPAY | END 2025-03-05 07:19 | disposition home or self-care (01) | LOC: PT 08:08 | PROVIDERS: PCP Nurse Practitioner; Visit Provider Nurse Practitioner | DX: M47.816 Spondylosis without myelopathy or radiculopathy, lumbar region (principal) | CPT/HCPCS: 97110; 97140; 97163 ==